=== PATIENT | female | born 1970 | race Caucasian/White ===

== ENCOUNTER 2019-06-26 11:58 | Inpatient (IN) | payer MEDICARE, MEDICAID ==
[2019-06-26 12:37] LABS: #Eosinphils 0.1 thou/uL (0.0-0.7); #Lymphocytes 0.7 thou/uL (1.20-3.40); #Monocytes 0.9 thou/uL (0.11-0.59); #Neutrophils 8.7 thou/uL (1.40-6.50); %Basophils 0.3 % (0.0-1.0); %Eosinophils 0.8 % (0.0-10.0); %Lymphocytes 6.6 % (21.0-51.0); %Monocytes 8.8 % (0.0-10.0); %Neutrophils 83.5 % (42.0-75.0); Hemoglobin 13.4 g/dL (12.0-16.0); Mean Corpuscular HGB CONC 33.8 g/dL (32.0-36.0); Mean Corpuscular Hemoglobin 32.5 pg (27.0-31.0); Mean Corpuscular Volume 96.1 fL (78.0-98.0); Mean Platelet Volume 8.8 fL (7.4-10.4); Platelet Count 210 thou/uL (130-400); RBC Distribution Width 13.4 % (11.5-14.5); Red Blood Cell (RBC) Count 4.12 mill/uL (4.20-5.40); White Blood Cell (WBC) Count 10.4 thou/uL (4.8-10.8)
--- NOTE | 2019-06-26 12:37 | RAD ---
Chest AP view INDICATION: Chest pain COMPARISON: 08/19/2016 FINDINGS: Lungs:The lungs are clear Cardiac silhouette:There is stable moderate cardiomegaly Pulmonary vasculature:There is moderate pulmonary vascular congestion Pleural spaces:No pleural effusion or pneumothorax is demonstrated. Upper abdomen:No abnormality seen. Osseous structures: No acute osseous abnormality. Additional findings:There is a stable multi lead AICD. IMPRESSION: Moderate cardiomegaly with moderate pulmonary vascular congestion. No acute airspace dise ase demonstrated.
[2019-06-26 13:00] LABS: Albumin 4.1 g/dL (3.5-5.0); Anion Gap 17 mmol/L (10-20); BUN (Urea Nitrogen) 22 mg/dL (7.0-18.7); Bilirubin, Total 0.6 mg/dL (0.2-1.2); Calc. Creatinine Clearance 0 mL/min (70-130); Calcium 9.2 mg/dL (7.8-10.44); Carbon Dioxide 28 mmol/L (22-29); Chloride 98 mmol/L (98-107); Estimated GFR-MDRD 80; Glucose 223 mg/dL (70-105); Potassium 4.7 mmol/L (3.5-5.1); Protein, Total 6.8 g/dL (6.0-8.3); Sodium 138 mmol/L (136-145)
[2019-06-26 13:01] LABS: ALT (SGPT) 74 U/L (8-55); AST (SGOT) 76 U/L (5-34); Alkaline Phosphatase 91 U/L (40-110); CK (CPK) 100 U/L (29-168); Globulin 2.7 g/dL (2.4-3.5)
[2019-06-26] MEDS ORDERED: Acetaminophen 500 MG TAB ONE (13:59)
[2019-06-26] MEDS ORDERED: Ondansetron ODT 4 MG TAB PO PRN ×4 (16:01→16:31)
[2019-06-26] MEDS ORDERED: CLONAZEPAM 0.5 MG PO PRN (16:01)
[2019-06-26] MEDS ORDERED: Promethazine 25 MG TAB PO PRN ×2 (16:01→16:31)
[2019-06-26] MEDS ORDERED: Ondansetron PF 4 MG/2 ML Vial IVP PRN ×2 (16:04→16:31)
[2019-06-26] MEDS ORDERED: Loperamide HCl 2 MG CAP PO PRN ×2 (16:04→16:31)
[2019-06-26] MEDS ORDERED: Acetaminophen 325 MG TAB PO PRN ×2 (16:04→16:31)
[2019-06-26] MEDS ORDERED: Senokot S 8.6-50 MG TAB PO PRN ×2 (16:04→16:31)
[2019-06-26] MEDS ORDERED: Bisacodyl 5 MG TAB PO PRN ×2 (16:04→16:31)
[2019-06-26] MEDS ORDERED: diphenhydrAMINE 25 MG CAP PO PRN (16:06)
[2019-06-26] MEDS ORDERED: Melatonin 3 MG TAB PO PRN (16:06)
[2019-06-26] MEDS ORDERED: Labetalol HCl 100 MG/20 ML VIAL SLOW IVP PRN (16:06)
[2019-06-26] MEDS ORDERED: Benzonatate 100 MG CAP PO PRN (16:06)
[2019-06-26 16:33] VITALS: BMI 49.6
[2019-06-26] MEDS ORDERED: clonazePAM 0.5 MG TAB PO PRN (17:00)
[2019-06-26 17:19] LABS: Troponin I 0.034 ng/mL (< 0.028)
[2019-06-26] MEDS ORDERED: Nitroglycerin 0.4 MG TAB (25 Tab Bottle) SL PRN (17:28)
--- NOTE | 2019-06-26 17:37 | PDOC.HHP ---
Hospitalist HPI - History of Present Illness Chest pain History of Present Illness: 49-year-old female with extensive past medical history presents with chest pain. 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 Patient normally follows up at the [facility] in [place] with Dr. Onofre. Patient states that it is been several years since her last stress test or cardiac catheterization. Patient states that echocardiogram was more than six months ago though ejection fraction is always about 15% for her. Patient with chest pain that started this morning while she was sleeping. Chest pain is left of sternum and is much worse with deep inspiration. Patient states that she feels like her heart is fluttering, though she has never had atrial fibrillation. Patient's chest pain did get improved with nitroglycerin, though she had a headache. Patient does not normally take any medications for pain and she is been off chronic narcotic therapy for the past year and a half. Patient has been compliant on her medical regimen and falls up with Dr. Onofre regularly. Patient admitted to medical unit telemetry for close management. Cardiology consult it for further recommendations. Hospitalist ROS - Review of Systems All other systems reviewed; all pertinent +/- noted in HPI/Subj Hospitalist History - Past Medical History Source: patient, old records Cardiac: reports: CAD, CHF, HTN, Hyperlipidemia Pulmonary: reports: angina, high cholesterol, hypertension - Family History Family History: reports: hypertension - Social History Smoking Status: Unknown if ever smoked Alcohol: reports: None Drugs: reports: none Living Situation: With Family Domestic Violence: Negative Activity level: independent ambulation - Exam General Appearance: NAD, awake alert Eye: PERRL, anicteric sclera ENT: normocephalic atraumatic, moist mucosa Neck: supple, symmetric, no JVD, no lymphadenopathy Heart: RRR, no murmur, no gallops, no rubs Respiratory: CTAB, no wheezes, no ronchi, normal chest expansion, no tachypnea, rales Gastrointestinal: soft, non-tender, non-distended, no guarding, no rigidity Extremities: 1+ LE edema Skin: no lesions, no rashes Neurological: cranial nerve grossly intact, no focal deficits Musculoskeletal: generalized weakness Psychiatric: normal affect, normal behavior, A&O x 3 Hospitalist Results - Labs Result Diagrams: 06/26/19 12:23 06/26/19 12:23 Lab results: WBC 10.4 thou/uL (4.8-10.8) 06/26/19 12:23 Hgb 13.4 g/dL (12.0-16.0) 06/26/19 12:23 Hct 39.6 % (36.0-47.0) 06/26/19 12:23 MCV 96.1 fL (78.0-98.0) 06/26/19 12:23 Plt Count 210 thou/uL (130-400) 06/26/19 12:23 Neutrophils % 83.5 % (42.0-75.0) H 06/26/19 12:23 Sodium 138 mmol/L (136-145) 06/26/19 12:23 Potassium 4.7 mmol/L (3.5-5.1) 06/26/19 12:23 Chloride 98 mmol/L (98-107) 06/26/19 12:23 Carbon Dioxide 28 mmol/L (22-29) 06/26/19 12:23 BUN 22 mg/dL (7.0-18.7) H 06/26/19 12:23 Creatinine 0.77 mg/dL (0.6-1.1) 06/26/19 12:23 Glucose 223 mg/dL (70-105) H 06/26/19 12:23 Calcium 9.2 mg/dL (7.8-10.44) 06/26/19 12:23 Total Bilirubin 0.6 mg/dL (0.2-1.2) 06/26/19 12:23 AST 76 U/L (5-34) H 06/26/19 12:23 ALT 74 U/L (8-55) H 06/26/19 12:23 Alkaline Phosphatase 91 U/L (40-110) 06/26/19 12:23 Creatine Kinase 100 U/L (29-168) 06/26/19 12:23 Troponin I 0.034 ng/mL (< 0.028) H 06/26/19 16:38 B-Natriuretic Peptide 141.1 pg/mL (0-100) H 06/26/19 12:23 Serum Total Protein 6.8 g/dL (6.0-8.3) 06/26/19 12:23 Albumin 4.1 g/dL (3.5-5.0) 06/26/19 12:23 - Radiology Interpretation Chest x-ray Status: image reviewed by sc Hospitalist H&P A/P - Problem (1) Chest pain Code(s): R07.9 - CHEST PAIN, UNSPECIFIED Status: Acute (2) Shortness of breath Code(s): R06.02 - SHORTNESS OF BREATH Status: Acute (3) Morbid obesity Code(s): E66.01 - MORBID (SEVERE) OBESITY DUE TO EXCESS CALORIES Status: Acute (4) DM (diabetes mellitus) Code(s): E11.9 - TYPE 2 DIABETES MELLITUS WITHOUT COMPLICATIONS Status: Acute (5) HTN (hypertension) Code(s): I10 - ESSENTIAL (PRIMARY) HYPERTENSION Status: Acute (6) HLD (hyperlipidemia) Code(s): E78.5 - HYPERLIPIDEMIA, UNSPECIFIED Status: Acute (7) Acute and chronic respiratory failure Code(s): J96.20 - ACUTE AND CHR RESP FAILURE, UNSP W HYPOXIA OR HYPERCAPNIA Status: Acute (8) Acute on chronic systolic CHF (congestive heart failure) Code(s): I50.23 - ACUTE ON CHRONIC SYSTOLIC (CONGESTIVE) HEART FAILURE Status : Acute - Plan Plan: Plan: admit to medical unit with telemetry cardiology consultation, recommendations appreciated morphine oxygen nitrates aspirin continue cardiomyopathy regimen as able IV Lasix for acute on chronic CHF exacerbation diagnosed on admission pulmonary edema on chest x-ray BNP only minorly elevated echocardiogram patient states that chest pain feels similar to pleurisy that she has had in the past with her sarcoidosis cardiac catheterization over two years ago consideration for pulmonary embolism was considered however with a low well score of 1.5 with only points for immobilization patient is a low risk and PE is unlikely. No tachycardia, monitor on continuous telemetry for arrhythmias shortness of breath is at her baseline 3 L nasal cannula and she is not requiring higher oxygen demands and normal will add lower extremity ultrasound to rule out DVT Steroid dependent at baseline Continue other home meds as able blood pressure control blood sugar control G.I. prophylaxis DVT prophylaxis
[2019-06-26] MEDS: Morphine 2 MG/ML SYRINGE SLOW IVP PRN ×2 (17:38→21:37)
[2019-06-26] MEDS ORDERED: HumaLOG 300 UNITS/3 ML VIAL SC PRN (18:34)
[2019-06-26] MEDS ORDERED: Dextrose 5% in Water 1,000 ML IV PRN (18:34)
[2019-06-26] MEDS ORDERED: Dextrose 50% Abboject 50 ML SYRINGE SLOW IVP PRN (18:34)
--- NOTE | 2019-06-26 19:19 | ULT ---
EXAM: Bilateral lower extremity venous Doppler HISTORY: Chest pain. FINDINGS: Grayscale, color-flow, Doppler evaluation, spectral analysis of the bilateral lower extremities venou s structures is performed with 2-D imaging. The bilateral common femoral, superficial femoral, popliteal, posterior tibial, proximal greater saphenous and profunda femoral veins are imaged. There is normal luminal compressibility, flow, and augmentation in the visualized deep venous structu res of the bilateral lower extremities. IMPRESSION: No evidence of a deep vein thrombosis in the visualized deep venous structures bilateral lower extrem ities.
[2019-06-26] MEDS: Ivabradine 5 MG TAB PO SCH (20:05)
[2019-06-26] MEDS: Carvedilol 25 MG TAB PO SCH (20:06)
[2019-06-26] MEDS: predniSONE 20 MG TAB PO SCH (20:07)
[2019-06-26] MEDS: Famotidine 20 MG TAB PO SCH (20:07)
[2019-06-26] MEDS: HYDROmorphone 2 MG TAB PO PRN (20:08)
[2019-06-26] MEDS: Amiodarone 200 MG TAB PO SCH (20:08)
[2019-06-26] MEDS ORDERED: Famotidine/PF 20 mg/2ml Vial SLOW IVP SCH ×2 (21:00)
[2019-06-26] MEDS ORDERED: Carvedilol 25 MG TAB PO SCH (21:00)
[2019-06-26] MEDS ORDERED: Non-Formulary Item 1 EACH (Carvedilol [Coreg] 12.5 MG) PO SCH (21:00)
[2019-06-26] MEDS: Docusate 100 MG CAP PO SCH (21:36)
[2019-06-27] MEDS: HYDROmorphone 2 MG TAB PO PRN ×5 (00:23→21:19)
[2019-06-27] MEDS: Morphine 2 MG/ML SYRINGE SLOW IVP PRN ×4 (03:06→19:10)
[2019-06-27 05:06] LABS: Anion Gap 17 mmol/L (10-20); BUN (Urea Nitrogen) 20 mg/dL (7.0-18.7); Calc. Creatinine Clearance 189 mL/min (70-130); Calcium 9.4 mg/dL (7.8-10.44); Carbon Dioxide 26 mmol/L (22-29); Chloride 98 mmol/L (98-107); Estimated GFR-MDRD 78; Glucose 184 mg/dL (70-105); Potassium 4.5 mmol/L (3.5-5.1); Sodium 136 mmol/L (136-145)
[2019-06-27 05:13] LABS: Troponin I Less than 0.010 ng/mL (< 0.028)
[2019-06-27] MEDS: Furosemide 40 MG/4 ML VIAL SLOW IVP SCH ×2 (05:19→13:19)
[2019-06-27] MEDS: Levothyroxine Sodium 50 MCG TAB PO SCH (05:19)
[2019-06-27] MEDS: Famotidine 20 MG TAB PO SCH ×2 (08:58→20:20)
[2019-06-27] MEDS: Aspirin 81 mg Enteric Coated Tablet PO SCH (08:58)
[2019-06-27] MEDS: Docusate 100 MG CAP PO SCH ×2 (08:58→20:20)
[2019-06-27] MEDS: Ivabradine 5 MG TAB PO SCH ×2 (08:58→20:18)
[2019-06-27] MEDS: Amiodarone 200 MG TAB PO SCH ×2 (08:58→20:18)
[2019-06-27] MEDS: Spironolactone 25 MG TAB PO SCH (08:58)
[2019-06-27] MEDS: Allopurinol 300 MG TAB PO SCH (08:58)
[2019-06-27] MEDS: predniSONE 20 MG TAB PO SCH ×2 (08:59→20:21)
[2019-06-27] MEDS: Losartan 25 MG TAB PO SCH (08:59)
[2019-06-27] MEDS ORDERED: Lisinopril 2.5 MG TAB PO SCH ×2 (09:00)
[2019-06-27] MEDS ORDERED: Levothyroxine Sodium 50 MCG TAB PO SCH (09:00)
[2019-06-27] MEDS ORDERED: Fludrocortisone Acetate 0.1 MG TAB PO SCH ×2 (09:00)
[2019-06-27] MEDS ORDERED: Aspirin 81 mg Enteric Coated Tablet PO SCH (09:00)
[2019-06-27] MEDS ORDERED: Digoxin 0.125 MG TAB PO SCH ×2 (09:00)
--- NOTE | 2019-06-27 12:05 | PDOC.HOSPP ---
- Subjective Subjective: Seen and examined. Breathing more comfortably. Still requiring IV Lasix. Renal function stable. Patient still having chest pain, she even states that when the ultrasound probe was on her chest this caused significant chest discomfort. Patient likely with pleuritic chest pain. Pending cardiology evaluation. - Objective Vital Signs & Weight: Vital Signs (12 hours) Temp Pulse Resp BP Pulse Ox 06/27/19 10:53 98.4 F 60 22 H 134/71 97 06/27/19 07:38 98.3 F 57 L 18 133/68 96 06/27/19 03:06 97.7 F 61 16 161/77 H 96 Weight Weight 300 lb 8 oz I&O: 06/26/19 06/27/19 06/28/19 06:59 06:59 06:59 Intake Total 1076 Output Total 3150 Balance -2073 Result Diagrams: 06/26/19 12:23 06/27/19 04:22 Additional Labs: Accuchecks 06/27/19 06/26/19 10:54 20:19 POC Glucose 161 H 193 H Radiology Reviewed by me: Yes Hospitalist ROS - Review of Systems All other systems reviewed; all pertinent +/- noted in HPI/Subj - Medication Medications: Active Medications Generic Name Dose Route Start Last Admin Trade Name Freq PRN Reason Stop Dose Admin Allopurinol 300 mg 06/27/19 09:00 06/27/19 08:58 Zyloprim PO 300 mg DAILY RANDAL Administration Amiodarone HCl 200 mg 06/26/19 21:00 06/27/19 08:58 Cordarone PO 200 mg BID RANDAL Administration Aspirin 81 mg 06/27/19 09:00 06/27/19 08:58 Ecotrin PO 81 mg DAILY RANDAL Administration Carvedilol 12.5 mg 06/26/19 21:00 06/26/19 20:06 Coreg PO 12.5 mg BID RANDAL Administration Docusate Sodium 100 mg 06/26/19 21:00 06/27/19 08:58 Colace PO 100 mg BID RANDAL Administration Famotidine 20 mg 06/26/19 21:00 06/27/19 08:58 Pepcid PO 20 mg Q12HR RANDAL Administration Furosemide 40 mg 06/27/19 06:00 06/27/19 05:19 Lasix SLOW IVP 40 mg 0600,1400 RANDAL Administration Hydromorphone HCl 2 mg 06/26/19 16:07 06/27/19 10:07 Dilaudid PO 2 mg Q4H PRN Administration Moderate Pain (4-6) Ivabradine 7.5 mg 06/26/19 21:00 06/27/19 08:58 Corlanor PO 7.5 mg BID RANDAL Administration Levothyroxine Sodium 50 mcg 06/27/19 06:00 06/27/19 05:19 Synthroid PO 50 mcg 0600 RANDAL Administration Losartan Potassium 25 mg 06/27/19 09:00 06/27/19 08:59 Cozaar PO 25 mg DAILY RANDAL Administration Morphine Sulfate 2 mg 06/26/19 16:08 06/27/19 07:15 Morphine SLOW IVP 2 mg Q4H PRN Administration Severe Pain (7-10) Prednisone 10 mg 06/26/19 21:00 06/27/19 08:59 Prednisone PO 10 mg BID RANDAL Administration Spironolactone 25 mg 06/27/19 08:00 06/27/19 08:58 Aldactone PO 25 mg QAM-WM RANDAL Administration - Exam General Appearance: NAD, awake alert Eye: PERRL ENT: normocephalic atraumatic, moist mucosa Neck: supple, symmetric Heart: no murmur, no gallops, no rubs Respiratory: no wheezes, no ronchi, rales Respiratory - other findings: Deminished breath sounds secondary to body habitus Gastrointestinal: soft, non-tender, no guarding, no rigidity Extremities: 1+ LE edema Skin: no lesions, no rashes Neurological: cranial nerve grossly intact, no focal deficits Musculoskeletal: generalized weakness Psychiatric: normal affect, normal behavior, A&O x 3 Hosp A/P (1) Chest pain Code(s): R07.9 - CHEST PAIN, UNSPECIFIED Status: Acute (2) Shortness of breath Code(s): R06.02 - SHORTNESS OF BREATH Status: Acute (3) Morbid obesity Code(s): E66.01 - MORBID (SEVERE) OBESITY DUE TO EXCESS CALORIES Status: Acute (4) DM (diabetes mellitus) Code(s): E11.9 - TYPE 2 DIABETES MELLITUS WITHOUT COMPLICATIONS Status: Acute (5) HTN (hypertension) Code(s): I10 - ESSENTIAL (PRIMARY) HYPERTENSION Status: Acute (6) HLD (hyperlipidemia) Code(s): E78.5 - HYPERLIPIDEMIA, UNSPECIFIED Status: Acute (7) Acute and chronic respiratory failure Code(s): J96.20 - ACUTE AND CHR RESP FAILURE, UNSP W HYPOXIA OR HYPERCAPNIA Status: Acute (8) Acute on chronic systolic CHF (congestive heart failure) Code(s): I50.23 - ACUTE ON CHRONIC SYSTOLIC (CONGESTIVE) HEART FAILURE Status : Acute - Plan Plan: medical unit with telemetry cardiology consultation, recommendations appreciated cardiac enzymes have downtrended morphine, oxygen, nitrates, aspirin cardiomyopathy regimen as able IV Lasix for acute on chronic congestive heart failure diagnosed on admission pulmonary edema on chest x-ray BNP only minorly elevated echocardiogram pending pain with deep inspiration which fell similar to her pleuritic chest pains from the past pain with palpation to the chest wall even with the ultrasound probe patient is allergic to NSAIDs, already steroid dependent though dose could be increase for short course pulmonary embolism was considered however with the low Wells score of 1.5 with only points for immobility patient is a low risk for pulmonary embolism no tachycardia, monitor on continuous telemetry for arrhythmias shortness of breath requiring supplemental oxygen to maintain O2 saturation's patient is 3 L nasal cannula dependent at baseline continue home steroid dose continue other home medications is able blood pressure control blood sugar control G.I. prophylaxis DVT prophylaxis
[2019-06-27] MEDS: Carvedilol 25 MG TAB PO SCH ×2 (14:03→20:21)
[2019-06-27] MEDS: HumaLOG 300 UNITS/3 ML VIAL SC PRN (17:39)
--- NOTE | 2019-06-27 17:44 | CON ---
DATE OF CONSULTATION: 06/27/2019 REASON FOR CONSULTATION: Chest pain. PRIMARY GLASS TECHNICIAN/INSTALLER: Matt Onofre MD HISTORY OF PRESENT ILLNESS: Ms. Vaughn is a very pleasant 49-year-old white female, who follows up with Dr. Matt Onofre, but has been evaluated here at [facility] in [place] by Dr. Morales in the past. She comes in for chest pain. She states she is having chest pain when she takes a deep breath. She thinks this is very similar to her episodes of pleurisy that she has had in the past. She carries a diagnosis of sarcoidosis. Currently, she is telling me that she has chest pain, which is constant. It is not relenting, about 3/10. She has a chronic pain syndrome and really has pain all over the place. PAST MEDICAL HISTORY: 1. Nonischemic cardiomyopathy. 2. AICD in place. 3. Chronic pain. 4. Hypothyroidism. 5. Anxiety. 6. Obesity. PAST SURGICAL HISTORY: Hysterectomy. SOCIAL HISTORY: No alcohol, tobacco, or drugs. ALLERGIES: 1. OXYCONTIN. 2. PREGABALIN. 3. SHELLFISH. 4. FENTANYL. 5. NONSTEROIDAL ANTI-INFLAMMATORIES. ACTUALLY, IT IS NOT AN ALLERGY. SHE STATES SHE GETS A NOSEBLEED, BUT SHE DOES TAKE ASPIRIN ABOUT 2 OR 3 TIMES A WEEK. FAMILY HISTORY: Noncontributory. REVIEW OF SYSTEMS: A 12-point review of systems was done and was all negative unless stated in the history of present illness. OUTPATIENT MEDICATIONS: 1. Corlanor 7.5 mg p.o. b.i.d. 2. Carvedilol 12.5 mg b.i.d. 3. Alendronate 70 mg every week. 4. Spironolactone 25 mg a day. 5. Losartan 25 mg a day. 6. Famotidine 20 mg a day. 7. Amiodarone 200 mg b.i.d. 8. Allopurinol 200 mg a day. 9. Clonazepam 2 mg p.r.n. 10. Promethazine. 11. Digoxin 0.125 daily. 12. Aspirin 81 a day. 13. Prednisone 10 mg b.i.d. 14. Lasix 80 mg a day. 15. Potassium chloride 20 mEq t.i.d. 16. Levothyroxine 100 mcg a day. PHYSICAL EXAMINATION: VITAL SIGNS: Temperature 97.8, pulse 72, respiratory rate 18, saturation 96% on 2 L nasal cannula, blood pressure 138/76. GENERAL: Awake, alert, oriented x3, in no distress. HEENT: Normocephalic and atraumatic. NECK: Supple. LUNGS: Clear. CARDIOVASCULAR: S1 and S2. No S3 or S4. No murmurs or rubs. ABDOMEN: Soft. Positive bowel sounds. EXTREMITIES: 1+ edema. SKIN: Warm and dry. LABORATORY DATA: Laboratory work was reviewed. White count of 10, hemoglobin of 13, hematocrit of 39, platelet count of 210. Chemistries were unremarkable. Troponin was negative x3. BNP was 141. EKG was reviewed. Chest x-ray was reviewed. Lower extremity venous ultrasound showed no evidence of DVT. Chest x-ray showed moderate cardiomegaly with moderate pulmonary vascular congestion, but no acute airspace disease demonstrated. ASSESSMENT AND PLAN: 1. Acute on chronic systolic heart failure. 2. Chest pain. It could be some level of pleurisy. She is steroid dependent, so we will plan on increasing her steroid dose for the next few days and then coming back down to her regular 10 mg twice a day of prednisone. We will also add colchicine to her regimen as she has not had a reaction to this. She has not had nosebleeds with it in the past. 3. We will get an echocardiogram. Thank you for letting us to participate in the care of the patient. We will follow. Job ID: [id number]
[2019-06-27] MEDS: Colchicine 0.6 MG TAB PO SCH (20:19)
[2019-06-28] MEDS: Morphine 2 MG/ML SYRINGE SLOW IVP PRN ×3 (00:26→08:37)
[2019-06-28 05:32] LABS: Anion Gap 17 mmol/L (10-20); BUN (Urea Nitrogen) 26 mg/dL (7.0-18.7); Calc. Creatinine Clearance 190 mL/min (70-130); Calcium 9.3 mg/dL (7.8-10.44); Carbon Dioxide 28 mmol/L (22-29); Chloride 94 mmol/L (98-107); Estimated GFR-MDRD 80; Glucose 245 mg/dL (70-105); Potassium 3.7 mmol/L (3.5-5.1); Sodium 135 mmol/L (136-145)
[2019-06-28] MEDS: Levothyroxine Sodium 50 MCG TAB PO SCH (05:49)
[2019-06-28] MEDS: Furosemide 40 MG/4 ML VIAL SLOW IVP SCH ×2 (05:50→13:41)
[2019-06-28] MEDS: HumaLOG 300 UNITS/3 ML VIAL SC PRN ×2 (05:58→13:22)
[2019-06-28] MEDS: Spironolactone 25 MG TAB PO SCH (07:55)
[2019-06-28] MEDS: Aspirin 81 mg Enteric Coated Tablet PO SCH (07:56)
[2019-06-28] MEDS: Carvedilol 25 MG TAB PO SCH (07:56)
[2019-06-28] MEDS: Amiodarone 200 MG TAB PO SCH (07:56)
[2019-06-28] MEDS: Colchicine 0.6 MG TAB PO SCH (07:56)
[2019-06-28] MEDS: Allopurinol 300 MG TAB PO SCH (07:56)
[2019-06-28] MEDS: Docusate 100 MG CAP PO SCH (07:56)
[2019-06-28] MEDS: Famotidine 20 MG TAB PO SCH (07:57)
[2019-06-28] MEDS: Losartan 25 MG TAB PO SCH (07:57)
[2019-06-28] MEDS: predniSONE 20 MG TAB PO SCH (07:57)
[2019-06-28] MEDS: Ivabradine 5 MG TAB PO SCH (07:57)
[2019-06-28] MEDS ORDERED: Acetaminophen/Codeine 30-300mg Tablet PO PRN (10:16)
[2019-06-28] MEDS: Acetaminophen/Codeine 30-300mg Tablet PO PRN ×2 (11:49→16:00)
--- NOTE | 2019-06-28 13:48 | PDOC.CPN ---
- Subjective Date: 06/28/19 Time: 13:46 Interval history: No new issues. - Review of Systems General: denies: fever/chills, weight/appetite/sleep changes, night sweats, fatigue Respiratory: denies: cough, congestion, shortness of breath, exercise intolerance Cardiovascular: denies: chest pain, palpitation, edema, paroxysmal nocturnal dyspnea, orthopnea Gastrointestinal: denies: nausea, vomiting, diarrhea, constipation, abd pain, GI bleeding Musculoskeletal: reports: pain. denies: tenderness, stiffness, swelling, arthritis/arthralgias Neurological: denies: numbness, syncope, seizure, weakness - Objective Allergies/Adverse Reactions: Allergies Allergy/AdvReac Type Severity Reaction Status Date / Time NSAIDS (Non-Steroidal Allergy Unknown Verified 06/08/14 16:48 Anti-Inflamma shellfish derived Allergy Unknown Verified 06/08/14 16:48 fentanyl Allergy Verified 06/08/14 16:48 lisinopril Allergy Verified 06/27/19 07:15 oxycodone [Oxycodone] Allergy Hives Verified 06/08/14 16:48 pregabalin [From Lyrica] Allergy Verified 06/08/14 16:48 Visit Medications: Current Medications Acetaminophen (Tylenol) 650 mg PO Q4H PRN PRN Reason: Headache/Fever/Mild Pain (1-3) Acetaminophen/Codeine Phosphate (Tylenol #3) 1 tab PO Q6H PRN PRN Reason: Mild Pain (1-3) Acetaminophen/Codeine Phosphate (Tylenol #3) 2 tab PO Q4H PRN PRN Reason: Moderate Pain (4-6) Last Admin: 06/28/19 11:49 Dose: 2 tab Albuterol/Ipratropium (Duoneb) 3 ml NEB Q4H PRN PRN Reason: SOB &/or Wheezing Allopurinol (Zyloprim) 300 mg PO DAILY [facility] Last Admin: 06/28/19 07:56 Dose: 300 mg Amiodarone HCl (Cordarone) 200 mg PO BID [facility] Last Admin: 06/28/19 07:56 Dose: 200 mg Aspirin (Ecotrin) 81 mg PO DAILY [facility] Last Admin: 06/28/19 07:56 Dose: 81 mg Benzonatate (Tessalon) 100 mg PO Q4H PRN PRN Reason: Cough Bisacodyl (Dulcolax) 10 mg PO DAILYPRN PRN PRN Reason: Constipation Carvedilol (Coreg) 12.5 mg PO BID [facility] Last Admin: 06/28/19 07:56 Dose: 12.5 mg Clonazepam (Klonopin) 0.5 mg PO Q4H PRN PRN Reason: Anxiety Last Admin: 06/27/19 20:19 Dose: 0.5 mg Colchicine (Colchicine) 0.6 mg PO BID [facility] Last Admin: 06/28/19 07:56 Dose: 0.6 mg Dextrose/Water (Dextrose 50%) 25 gm SLOW IVP PRN PRN PRN Reason: Hypoglycemia Diphenhydramine HCl (Benadryl) 25 mg PO Q6H PRN PRN Reason: Itching & Insomnia Docusate Sodium (Colace) 100 mg PO BID [facility] Last Admin: 06/28/19 07:56 Dose: 100 mg Famotidine (Pepcid) 20 mg PO Q12HR [facility] Last Admin: 06/28/19 07:57 Dose: 20 mg Furosemide (Lasix) 40 mg SLOW IVP 0600,1400 [facility] Last Admin: 06/28/19 13:41 Dose: Not Given Glucagon (Glucagon) 1 mg IM PRN PRN PRN Reason: Hypoglycemia Hydromorphone HCl (Dilaudid) 2 mg PO Q4H PRN PRN Reason: Moderate Pain (4-6) Last Admin: 06/27/19 21:19 Dose: 2 mg Dextrose/Water (D5w) 1,000 mls @ 0 mls/hr IV .Q0M PRN PRN Reason: Hypoglycemia Insulin Human Lispro (Humalog) 0 units SC .MILD SLIDING SCALE PRN PRN Reason: Mild Correctional Scale Last Admin: 06/28/19 13:22 Dose: 3 unit Insulin Human Lispro (Humalog) 0 units SC .BEDTIME SLIDING SC PRN PRN Reason: Bedtime Correctional Scale Ivabradine (Corlanor) 7.5 mg PO BID [facility] Last Admin: 06/28/19 07:57 Dose: 7.5 mg Labetalol HCl (Normodyne) 10 mg SLOW IVP Q4H PRN PRN Reason: SBP Greater Than 180 Levothyroxine Sodium (Synthroid) 50 mcg PO 0600 [facility] Last Admin: 06/28/19 05:49 Dose: 50 mcg Loperamide HCl (Imodium) 2 mg PO PRN PRN PRN Reason: Diarrhea/Loose Stools Losartan Potassium (Cozaar) 25 mg PO DAILY [facility] Last Admin: 06/28/19 07:57 Dose: 25 mg Melatonin (Melatonin) 3 mg PO HSPRN PRN PRN Reason: Insomnia Morphine Sulfate (Morphine) 2 mg SLOW IVP Q4H PRN PRN Reason: Severe Pain (7-10) Last Admin: 06/28/19 08:37 Dose: 2 mg Nitroglycerin (Nitrostat) 0.4 mg SL Q5MIN PRN PRN Reason: Chest Pain Ondansetron HCl (Zofran Odt) 4 mg PO Q4H PRN PRN Reason: Nausea Ondansetron HCl (Zofran) 4 mg IVP Q6H PRN PRN Reason: Nausea/Vomiting Prednisone (Prednisone) 20 mg PO BID [facility] Last Admin: 06/28/19 07:57 Dose: 20 mg Promethazine HCl (Phenergan) 25 mg PO Q6H PRN PRN Reason: Nausea Senna/Docusate Sodium (Senokot S) 2 tab PO BIDPRN PRN PRN Reason: Constipation Spironolactone (Aldactone) 25 mg PO QA[facility] Last Admin: 06/28/19 07:55 Dose: 25 mg Vital Signs & Weight: Vital Signs Temp Pulse Resp BP Pulse Ox 06/28/19 11:00 97.9 F 59 L 15 124/58 L 99 06/28/19 08:00 97 06/28/19 07:43 97.7 F 68 14 170/72 H 97 06/28/19 04:00 97.7 F 62 18 150/73 H 95 Weight 293 lb 11.2 oz - Physical Exam General: alert & oriented x3 HEENT: mucus membranes moist Neck: supple neck Cardiac: regular rate and rhythm Lungs: normal breath sounds Neuro: grossly intact Abdomen: active bowel sounds Extremities: no edema Skin: clear Musculoskeletal: no fluid collection - Labs Result Diagrams: 06/26/19 12:23 06/28/19 04:59 Troponin/CKMB Troponin I Less than 0.010 ng/mL (< 0.028) 06/27/19 04:22 - Telemetry Sinus rhythms and dysrhythmias: sinus rhythm - Assessment/Plan Assessment/Plan: 1. Chronic pain 2. Acute on chronic systolic heart failure, resolved. 3. Sarcoidosis? 4. Non ischemic CM. PLAN: - Colchicine - Increase prednisone dose for 7 days to 20 mg BID then back to 10 mg BID. - May discharge at any time from cardiac perspective.
[2019-06-28 15:50] VITALS: BP 138/63; TEMP 98
--- NOTE | 2019-06-30 13:40 | DIS ---
DATE OF ADMISSION: 06/27/2019 DATE OF DISCHARGE: 06/28/2019 DISCHARGE DIAGNOSES: 1. Atypical chest pain. The chest pain is most likely secondary to pleuritic in nature. 2. Shortness of breath. 3. Morbid obesity. 4. Acute on chronic systolic heart failure, nonischemic. 5. Acute on chronic respiratory failure. 6. Hyperlipidemia. 7. Diabetes. 8. History of sarcoidosis. HOSPITAL COURSE: The patient is a 49-year-old female who initially presented to the hospital with complaints of shortness of breath and also with chest pain. Please refer to the H and P for further details. Her cardiac enzymes were trended and her troponins x2/3 were negative. Cardiology was consulted on this patient. She underwent an echocardiogram which indicated an EF of 20% to 25% with no evidence of pericardial effusion with moderate tricuspid regurgitation. She does have an AICD. Her echocardiogram looks similar to the prior one. Initially, her prednisone was increased from 10 mg twice a day to 20 mg twice a day. She also required some additional morphine for pain medications. She was also started on colchicine. The patient felt better. She will be discharged home. I have asked her to follow up with her eye dropper assembler. She will take 20 mg of prednisone twice a day for the next 7 days and then go back to her 10 mg twice a day. I have asked her to see her eye dropper assembler in between. I did not continue the colchicine given a significant contraindication with the amiodarone. The patient stated that she felt better. Also, she was given a prescription for Tylenol No.3. HOME MEDICATIONS: 1. Prednisone 20 mg twice a day. 2. Tylenol No. 3. 3. Levothyroxine 100 mcg daily. 4. Lasix 80 mg daily. 5. Aspirin 81 mg daily. 6. Promethazine 25 mg daily p.r.n. 7. Allopurinol 300 mg daily. 8. Klonopin 2 mg daily. 9. Amiodarone 200 mg b.i.d. 10. Cozaar 50 mg daily. 11. Pepcid 20 mg daily. 12. Spironolactone 25 mg daily. 13. Carvedilol 12.5 twice a day. 14. Corlanor 7.5 p.o. b.i.d. PHYSICAL EXAMINATION: VITAL SIGNS: Temperature 98.0, 96% on 2 L, blood pressure 138/63. GENERAL: She is awake, alert, and oriented x3. Does not appear in any distress. CV: S1 and S2 present. No murmurs, rubs, or gallops. ABDOMEN: Soft and nontender. Bowel sounds present x2. DISCHARGE INSTRUCTIONS: Again, she will be discharged home. Follow up with her primary and Cardiology. Job ID: [id number]
== END 2019-06-28 16:30 | disposition home or self-care (01) | DRG 291 ==
LOC: ERS 11:58 → 2SW 16:31 → OBSVTOIN 06-27 08:54
PROVIDERS: ADMIT Internal Medicine; ATTEND Internal Medicine
DX: I11.0 Hypertensive heart disease with heart failure (principal); J96.20 Acute and chronic respiratory failure, unspecified whether with hypoxia or hypercapnia; Z68.42 Body mass index [BMI] 45.0-49.9, adult; I50.23 Acute on chronic systolic (congestive) heart failure; R07.89 Other chest pain; E78.5 Hyperlipidemia, unspecified; E11.9 Type 2 diabetes mellitus without complications; D86.9 Sarcoidosis, unspecified; E66.01 Morbid (severe) obesity due to excess calories; I25.10 Atherosclerotic heart disease of native coronary artery without angina pectoris; E78.00 Pure hypercholesterolemia, unspecified; G89.4 Chronic pain syndrome; I42.9 Cardiomyopathy, unspecified; F41.9 Anxiety disorder, unspecified; E03.9 Hypothyroidism, unspecified; Z99.81 Dependence on supplemental oxygen; Z95.810 Presence of automatic (implantable) cardiac defibrillator; Z88.8 Allergy status to other drugs, medicaments and biological substances; Z91.013 Allergy to seafood; Z90.710 Acquired absence of both cervix and uterus; Z79.899 Other long term (current) drug therapy; Z79.82 Long term (current) use of aspirin; Z79.52 Long term (current) use of systemic steroids
CPT/HCPCS: 36415; 36416; 51702; 71045; 80048; 80053; 82550; 83880; 84484; 85025; 85652; 86140; 93005; 93306; 93970; A4353; J1940; J2270; J7512

== ENCOUNTER 2020-07-17 16:12 | Inpatient (IN) | payer MEDICARE, MEDICAID ==
[~2020-07-17 16:12] MED LIST: Heparin 1,000 UNITS/ML VIAL ONE
[2020-07-17] MEDS: Ondansetron PF 4 MG/2 ML Vial IVP PRN (19:42)
[2020-07-17] MEDS ORDERED: Dextrose 5% in Water 1,000 ML IV PRN (21:28)
[2020-07-17] MEDS ORDERED: Dextrose 50% Abboject 50 ML SYRINGE SLOW IVP PRN (21:28)
[2020-07-17] MEDS: Famotidine 20 MG TAB PO SCH (21:45)
--- NOTE | 2020-07-17 22:30 | HP ---
PRIMARY CARE PHYSICIAN: Dr. Huerta. GREEN HIDE INSPECTOR: Dr. Matt Onofre. BANK VAULT CLERK: Dr. Ruiz. She also sees rv servicer in [facility]. CHIEF COMPLAINT: Chest pain. HISTORY OF PRESENT ILLNESS: Ms. 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 She was seen in the emergency room in [place] today for an evaluation of chest pain, which she reports is worse with a deep breath and localized to the lateral rib cage underneath her breast. She reports that the pain radiates to her left shoulder and throughout her chest. She reports that the chest pain started when she rolled over in bed and felt a pop, the rib pain started at about the same time. She had a chest x-ray today, which showed cardiomegaly with pulmonary venous congestion consistent with mild congestive heart failure. No note of any rib fractures. It did show her AICD, which she has in the left upper chest. Current lab work in the emergency room shows a white blood cell count of 11.4, hemoglobin of 12.9, hematocrit 41.5. Chemistry has a BUN of 27, creatinine at 0.71, glucose at 168. Had 2 troponins, both slightly elevated at 0.034 and 0.044. She reports that she has followed up with Dr. Onofre within the last week. He tweaked her AICD settings, but did not change any of her medications and was feeling her normal until this pop that she experienced yesterday with this radiating chest pain. Because of her cardiac history and risk factors, she was sent to [facility] for admission and evaluation. REVIEW OF SYSTEMS: The patient reports left-sided chest pain, which radiates to her shoulder and over toward her right chest. Reports the pain is worse with movement. Reports some nausea. Reports that they gave her bunch of pain medication in [place] without eating anything today. She reports that this might have contributed to her current nausea. She denies any abdominal pain prior to arrival in [place] ER. Denies any nausea or vomiting prior to that visit medication administration. She does report an increase of shortness of breath. Evidently, she is on oxygen at home at about 2 L and here, she has had to be on 3.5 to maintain of O2 sats of 92%. All systems are reviewed and are negative unless mentioned above or in HPI. PAST MEDICAL HISTORY: Please see the HPI. SURGICAL HISTORY: She had a hysterectomy, oophorectomy, partial thyroidectomy, lobectomy of her liver removed, has had an AICD placement. PSYCHIATRIC HISTORY: PTSD, anxiety. SOCIAL HISTORY: Former tobacco smoker. Denies any alcohol use. She quit smoking two years ago. Denies any drug use. FAMILY HISTORY: Coronary artery disease, hypertension, and cancer. KNOWN ALLERGIES: Fentanyl, lisinopril, NSAIDs, oxycodone, pregabalin, and shellfish. She does report that she takes hydrocodone at home without any problems. CURRENT MEDICATIONS: In the ER system, these still need to be verified. She takes: 1. Potassium 20 mEq x2 b.i.d. 2. Allopurinol 300 mg p.o. once a day. 3. Coreg 12.5 mg p.o. b.i.d. 4. Digoxin 125 mcg p.o. once a day. 5. Pepcid 20 mg p.o. b.i.d. 6. Furosemide 80 mg p.o. b.i.d. 7. Levothyroxine 100 mcg p.o. once a day. 8. Losartan 50 mg p.o. once a day. 9. Metformin 1000 mg p.o. b.i.d. 10. Sertraline 100 mg p.o. once a day. 11. Spironolactone 25 mg p.o. once a day. 12. Prednisone 10 mg p.o. b.i.d. 13. Clonazepam 2 mg p.o. once a day at bedtime. 14. Phenergan 25 mg p.o. at bedtime. 15. Corlanor 7.5 mg p.o. b.i.d. 16. Amiodarone 100 mg p.o. once a day. 17. Alendronate 10 mg p.o. once a day. PHYSICAL EXAMINATION: VITAL SIGNS: Blood pressure 147/91, pulse is 90, respiratory rate is 30, and pO2 sats are 91% on 3.5 L. CONSTITUTIONAL: She appears ill, but nontoxic appearing. She is alert and oriented to person, place and time. HEENT: Head is atraumatic and normocephalic. Eyes, pupils are equally round and reactive to light. ENT, mouth exam is normal. Mucous membranes are moist. NECK: Normal range of motion. No tenderness. RESPIRATORY/CHEST: Breath sounds are clear on the right, slightly diminished, muffled on the left. There is no wheezing or rales. CARDIOVASCULAR: Regular heart rate and rhythm. Heart sounds are normal. ABDOMEN: Nontender. Bowel sounds are heard. BACK: Normal inspection. No tenderness. EXTREMITIES: Upper extremity, normal range of motion. Motor strength is normal. Lower extremity, normal range of motion. Motor strength is normal. +1 edema. NEUROLOGIC: The patient is oriented to person, place, and time. Speech is normal. SKIN: Warm to dry, mottled. PLAN/ASSESSMENT: 1. Left-sided rib pain. We will trend troponins because her EF is 10% to 15%, the last time it was checked about a month and half ago. Ask Cardiology to consult. We appreciate their input. We will continue her home medications. Strict I's and O's. Incentive spirometery. Likely chest pain is due to a possible rib fracture, although with her cardiac history, cardiac event cannot be ruled out completely. O2 as needed to keep her sats above 92%. 2. History of diabetes. Restart her home medications. Add Accu-Cheks before meals and at bedtime. Sliding scale as needed for coverage. 3. History of hypertension. We will restart her home medications. 4. History of hypothyroidism. We will restart her home medications. 5. History of sarcoidosis. We will restart her home medications. 6. Deep venous thrombosis and PUD prevention started. 7. Case discussed with Dr. Lobo. 8. Recheck labs in the a.m. 9. Hospital course dependent on clinical findings. Job ID: [id number]
[2020-07-17] MEDS: HYDROcodone/Acetaminophen 10/325 mg Tablet PO PRN (23:41)
[2020-07-17] MEDS: Promethazine 25 MG TAB PO PRN (23:42)
[2020-07-18] MEDS: HYDROcodone/Acetaminophen 10/325 mg Tablet PO PRN ×5 (04:47→21:20)
[2020-07-18] MEDS: Levothyroxine Sodium 50 MCG TAB PO SCH (04:48)
[2020-07-18] MEDS: Ondansetron PF 4 MG/2 ML Vial IVP PRN ×4 (04:52→23:19)
[2020-07-18 05:06] LABS: #Eosinphils 0.1 thou/uL (0.0-0.7); #Lymphocytes 0.9 thou/uL (1.20-3.40); #Monocytes 1.8 thou/uL (0.11-0.59); #Neutrophils 14.9 thou/uL (1.40-6.50); %Basophils 0.2 % (0.0-1.0); %Eosinophils 0.8 % (0.0-10.0); Hemoglobin 12.7 g/dL (12.0-16.0); Mean Corpuscular HGB CONC 33.1 g/dL (32.0-36.0); Mean Corpuscular Hemoglobin 30.7 pg (27.0-31.0); Mean Corpuscular Volume 92.9 fL (78.0-98.0); Mean Platelet Volume 8.3 fL (7.4-10.4); Platelet Count 228 thou/uL (130-400); RBC Distribution Width 14.3 % (11.5-14.5); Red Blood Cell (RBC) Count 4.13 mill/uL (4.20-5.40); White Blood Cell (WBC) Count 17.7 thou/uL (4.8-10.8)
[2020-07-18 05:28] LABS: ALT (SGPT) 28 U/L (8-55); AST (SGOT) 22 U/L (5-34); Albumin 4.1 g/dL (3.5-5.0); Alkaline Phosphatase 90 U/L (40-110); Anion Gap 17 mmol/L (10-20); BUN (Urea Nitrogen) 28 mg/dL (7.0-18.7); Bilirubin, Total 0.7 mg/dL (0.2-1.2); Calc. Creatinine Clearance 194 mL/min (70-130); Calcium 9.4 mg/dL (7.8-10.44); Carbon Dioxide 26 mmol/L (22-29); Chloride 99 mmol/L (98-107); Glucose 207 mg/dL (70-105); Potassium 3.6 mmol/L (3.5-5.1); Protein, Total 7.1 g/dL (6.0-8.3); Sodium 138 mmol/L (136-145)
[2020-07-18] MEDS: HumaLOG 300 UNITS/3 ML VIAL SC PRN ×3 (05:47→17:24)
[2020-07-18 05:51] LABS: SARS-CoV-2 PCR by NAA Not Detected (NotDetected)
[2020-07-18] MEDS ORDERED: metFORMIN 500 MG TAB PO SCH (07:30)
--- NOTE | 2020-07-18 09:16 | CT ---
EXAM: CT angiogram of the chest including 3-D rendering: HISTORY: Chest pain possible rib fractures COMPARISON: 01/05/2014 FINDINGS: There is adequate opacification of the pulmonary arteries.. Exam considerably limited because of large body habitus and motion. There is evidence for a linear thin metallic density foreign body in one of the left lower lobe poste rior pulmonary artery branches. This measures approximately 0.2 cm in diameter and 1.5 cm in length. Very marked cardiomegaly with markedly dilated left ventricle. No evidence for aortic aneurysm or dissection. No convincing CT evidence for acute pulmonary embolism. Minimal patchy mostly linear pleural-based parenchymal changes in the left lower lobe without conflue nt pneumonia. 2 cm diameter nodular focus involving the left thyroid. No evidence for mediastinal mass or adenopathy. No evidence for pleural or pericardial effusion. Evidence for large anterior abdominal wall hernia, incompletely seen IMPRESSION: No convincing CT evidence for acute pulmonary embolism. Thin linear metal density foreign body in a posterior left lower lobe pulmonary artery branch. This w as not present at the time of the prior 2013 study. Marked cardiomegaly with markedly dilated left ventricle. Left ICD. Exam is limited technically because of motion and large body habitus.
[2020-07-18] MEDS: Carvedilol 6.25 MG TAB PO SCH ×2 (09:33→17:18)
[2020-07-18] MEDS: Famotidine 20 MG TAB PO SCH ×4 (09:34→21:19)
[2020-07-18] MEDS: Enoxaparin Sodium 40 MG/0.4 ML SYRINGE SC SCH (09:34)
[2020-07-18] MEDS: Potassium Chloride 20 MEQ TAB PO SCH ×2 (09:35→21:20)
[2020-07-18] MEDS: Furosemide 40 MG TAB PO SCH ×2 (09:35→21:19)
[2020-07-18] MEDS: Spironolactone 25 MG TAB PO SCH (09:35)
[2020-07-18] MEDS: Losartan 25 MG TAB PO SCH (09:35)
[2020-07-18] MEDS: Allopurinol 300 MG TAB PO SCH (09:36)
[2020-07-18] MEDS: predniSONE 20 MG TAB PO SCH ×2 (09:36→21:20)
[2020-07-18] MEDS: Amiodarone 200 MG TAB PO SCH (09:36)
[2020-07-18] MEDS: IVABRADINE HCL 7.5 MG PO SCH ×2 (09:39→18:00)
--- NOTE | 2020-07-18 12:21 | PDOC.HOSPP ---
- Subjective Encounter Date: 07/18/20 Encounter Time: 10:00 Subjective: Sitting up in chair, no distress but still complaining of left flank pains though improved with [place] - Objective Vital Signs & Weight: Vital Signs (12 hours) Temp Pulse Resp BP BP Pulse Ox 07/18/20 11:12 100.7 F H 76 16 120/61 94 L 07/18/20 07:35 99.1 F 84 16 129/81 94 L 07/18/20 03:15 99.8 F H 80 22 H 126/71 92 L Weight Weight 295 lb 12.8 oz I&O: 07/17/20 07/18/20 07/19/20 06:59 06:59 06:59 Intake Total 100 Output Total 705 Balance -605 Result Diagrams: 07/18/20 04:27 07/18/20 04:27 Additional Labs: Accuchecks 07/18/20 07/18/20 07/17/20 10:41 05:20 20:43 POC Glucose 188 H 215 H 190 H Hospitalist ROS - Review of Systems Constitutional: denies: fever, chills, sweats, weakness, malaise, other Eyes: denies: pain, vision change, conjunctivae inflammation, eyelid inf lammation, redness, other ENT: denies: ear pain, ear discharge, nose pain, nose discharge, nose congestion, mouth pain, mouth swelling, throat pain, throat swelling, other Respiratory: reports: pleuritic pain Cardiovascular: denies: chest pain, palpitations, orthopnea, paroxysmal noc. dyspnea, edema, light headedness, other Gastrointestinal: denies: nausea, vomiting, abdominal pain, diarrhea, cons tipation, melena, hematochezia, other Musculoskeletal: denies: neck pain, shoulder pain, arm pain, back pain, hand pain, leg pain, foot pain, other Skin: denies: rash, lesions, jim, bruising, other Neurological: denies: weakness, numbness, incoordination, change in speech, confusion, seizures, other - Medication Medications: Active Medications Generic Name Dose Route Start Last Admin Trade Name Freq PRN Reason Stop Dose Admin Hydrocodone Bitart/Acetaminophen 1 tab 07/17/20 20:17 07/17/20 23:41 Hydrocodone/Acetaminophen 10/325 Mg Tablet PO 1 tab Q4H PRN Administration Moderate Pain (4-6) Hydrocodone Bitart/Acetaminophen 2 tab 07/17/20 20:17 07/18/20 09:36 Hydrocodone/Acetaminophen 10/325 Mg Tablet PO 2 tab Q4H PRN Administration Severe Pain (7-10) Allopurinol 300 mg 07/18/20 09:00 07/18/20 09:36 Allopurinol 300 Mg Tab PO 300 mg DAILY RANDAL Administration Amiodarone HCl 200 mg 07/18/20 09:00 07/18/20 09:36 Amiodarone 200 Mg Tab PO 200 mg DAILY RANDAL Administration Carvedilol 12.5 mg 07/18/20 07:30 07/18/20 09:33 Carvedilol 6.25 Mg Tab PO 12.5 mg BID-AC RANDAL Administration Enoxaparin Sodium 40 mg 07/18/20 09:00 07/18/20 09:34 Enoxaparin Sodium 40 Mg/0.4 Ml Syringe SC 40 mg 0900 RANDAL Administration Famotidine 20 mg 07/17/20 21:00 07/18/20 09:34 Famotidine 20 Mg Tab PO 20 mg BID RANDAL Administration Famotidine 20 mg 07/18/20 09:00 07/18/20 09:35 Famotidine 20 Mg Tab PO Not Given BID RANDAL Furosemide 80 mg 07/18/20 09:00 07/18/20 09:35 Furosemide 40 Mg Tab PO 80 mg BID RANDAL Administration Insulin Human Lispro 0 units 07/17/20 21:28 07/18/20 12:01 Humalog 300 Units/3 Ml Vial SC 2 unit .MILD SLIDING SCALE PRN Administration Mild Correctional Scale Levothyroxine Sodium 100 mcg 07/18/20 06:00 07/18/20 04:48 Levothyroxine Sodium 50 Mcg Tab PO 100 mcg 0600 RANDAL Administration Losartan Potassium 50 mg 07/18/20 09:00 07/18/20 09:35 Losartan 25 Mg Tab PO 50 mg DAILY RANDAL Administration Metformin HCl 1,000 mg 07/18/20 07:30 07/18/20 09:33 Metformin 500 Mg Tab PO 1,000 mg BID-AC RANDAL Administration Non-Formulary Medication 7.5 mg 07/18/20 08:00 07/18/20 09:39 Ivabradine Hcl [Corlanor] PO 7.5 mg BID-WM RANDAL Administration Ondansetron HCl 4 mg 07/17/20 19:25 07/18/20 11:00 Ondansetron Pf 4 Mg/2 Ml Vial IVP 4 mg Q6H PRN Administration Nausea/Vomiting Potassium Chloride 40 meq 07/18/20 09:00 07/18/20 09:35 Potassium Chloride 20 Meq Tab PO 40 meq QAM RANDAL Administration Prednisone 10 mg 07/18/20 09:00 07/18/20 09:36 Prednisone 20 Mg Tab PO 10 mg BID RANDAL Administration Promethazine HCl 25 mg 07/17/20 21:29 07/17/20 23:42 Promethazine 25 Mg Tab PO 25 mg DAILY PRN Administration Nausea Sertraline HCl 100 mg 07/18/20 09:00 07/18/20 09:35 Sertraline Hcl 100 Mg Tab PO 100 mg DAILY RANDAL Administration Sodium Chloride 10 ml 07/17/20 20:17 07/18/20 11:00 Flush - Normal Saline 10 Ml Syringe IVF 10 ml PRN PRN Administration Saline Flush Spironolactone 25 mg 07/18/20 09:00 07/18/20 09:35 Spironolactone 25 Mg Tab PO 25 mg DAILY RANDAL Administration Hospitalist Exam Vitals: Vital Signs (12 hours) Temp Pulse Resp BP BP Pulse Ox 07/18/20 11:12 100.7 F H 76 16 120/61 94 L 07/18/20 07:35 99.1 F 84 16 129/81 94 L 07/18/20 03:15 99.8 F H 80 22 H 126/71 92 L Weight Weight 295 lb 12.8 oz General Appearance: NAD, awake alert Eye: PERRL ENT: normocephalic atraumatic, no oropharyngeal lesions Neck: supple, symmetric Heart: RRR, no gallops Extremities: no cyanosis, no clubbing, no edema Skin: normal turgor, no lesions Musculoskeletal: normal tone, normal strength Psychiatric: normal affect, normal behavior Hosp A/P - Plan 1. Left pleuritic chest pain -Worsens on inspiration -Occurred after patient turned in bed and felt a pop. Concern for rib fracture in light of her history of severe osteoporosis from chronic high-dose steroid use -CTA of chest negative for PE -Serial trops showed mildly elevated troponin of 0.03 and 0.04 which is around her baseline levels based on prior labs over the past 1 to 2 years -CT of chest also did not show any rib fracture however this is suboptimal exam due to her body habitus -Pain control with as needed [place] 2. History of chronic systolic CHF with EF of 10 to 15% -Continue ivabradine, Coreg, Lasix, losartan and Aldactone 3. Type 2 diabetes -On sliding scale insulin -Hold Metformin while inpatient 4. History of hypothyroidism -Continue levothyroxine at home dose 5. History of sarcoidosis -Continue prednisone at home dose 6. History of anxiety/depression -Continue Zoloft at home dose. 7. DVT prophylaxis -Subcu Lovenox Disposition: Cardiology consulted, awaiting recommendations prior to discharge
[2020-07-18 12:31] LABS: Digoxin 0.23 ng/mL (0.8-2.0)
--- NOTE | 2020-07-18 13:32 | CON ---
DATE OF CONSULTATION: 07/18/2020 REASON FOR CONSULTATION: Chest pain. PRIMARY LAW OFFICE MANAGER: Matt Onofre MD HISTORY OF PRESENT ILLNESS: Ms. Vaughn is a pleasant 50-year-old white female, who comes to the hospital for chest pain. She has nonischemic cardiomyopathy thought to be related to sarcoidosis. She felt a pop when she rolled over in bed under her left breast and decided to come in to get it evaluated. Her pain on her chest is reproducible. She denies any other issue. Her breathing is just slightly worse than normal. She had a chest x-ray that showed mild pulmonary venous congestion. She was admitted for IV diuresis. PAST MEDICAL HISTORY: 1. Sarcoidosis with cardiac involvement and neuro involvement. 2. Chronic nonischemic cardiomyopathy with an EF of 10% to 15%. 3. Hypertension. 4. Hyperlipidemia. 5. Type 2 diabetes. 6. Obesity. 7. Pituitary insufficiency requiring chronic steroid therapy. 8. Osteoporosis. 9. Coronary artery disease, mild. 10. Chronic rib fractures. 11. PTSD and anxiety. PAST SURGICAL HISTORY: 1. Hysterectomy. 2. Oophorectomy. 3. Partial thyroidectomy. 4. Lobectomy of her liver. 5. AICD placed. SOCIAL HISTORY: Former tobacco use. No alcohol use. Quit smoking two years ago. No drug use. FAMILY HISTORY: Early coronary artery disease. OUTPATIENT MEDICATIONS: Potassium 20 mEq b.i.d. Allopurinol. Coreg 12.5 b.i.d. Digoxin 125 mcg a day. Pepcid. Lasix 80 mg b.i.d. Levothyroxine 100 mcg a day. Losartan 50 mg a day. Metformin 1000 mg b.i.d. Sertraline. Spironolactone 25 mg a day. Prednisone 10 mg b.i.d. Clonazepam. Phenergan. Corlanor 7.5 mg b.i.d. Amiodarone 100 mg a day. Alendronate 10 mg a day. ALLERGIES: 1. FENTANYL. 2. LISINOPRIL. 3. NSAIDS. 4. OXYCODONE. 5. PREGABALIN. 6. SHELLFISH. REVIEW OF SYSTEMS: A 12-point review of systems was done and was found to be negative other than stated in the history of present illness. PHYSICAL EXAMINATION: VITAL SIGNS: Temperature 100.7 this morning, pulse 76, respiratory rate 16, saturating 94% on 3 L nasal cannula, blood pressure 120/61. GENERAL: Awake, alert and oriented x3, no distress. HEENT: Normocephalic and atraumatic. NECK: Supple. LUNGS: Clear. CARDIOVASCULAR: S1 and S2. No S3 or S4. No murmurs. There is a reproducible pain under her left breast. ABDOMEN: Soft. EXTREMITIES: 1+ edema. SKIN: Warm and dry. LABORATORY DATA: Laboratory work was reviewed. White count of 17, hemoglobin 12, hematocrit 38, platelet count of 228. Chemistries were unremarkable except for BUN of 20 and creatinine is 0.75, GFR of 82, glucose was high in the 190s to 200s. Troponin I was indeterminate range at 0.093. This is her baseline. BNP was 701. Albumin of 4.1. Digoxin level was low at 0.23. COVID-19 PCR was not detected. IMAGING DATA: CT of the chest was reviewed. ASSESSMENT AND PLAN: 1. Acute on chronic systolic heart failure, mild. 2. Chest pain, likely musculoskeletal. 3. Fever and elevated white count. PLAN: 1. We will give one dose of IV Lasix, try to help diurese a little bit. 2. Primary team to workup her episode of fever this morning and elevated white count. No obvious source at this time. 3. Chest pain is likely musculoskeletal as it is reproducible and she felt a pop this morning that caused the pain. 4. Continue all other medications for now as her blood pressure is normal. Thank you for letting us to participate in the care of your patient. We will follow. Job ID: [id number]
[2020-07-18] MEDS: Digoxin 0.125 MG TAB PO SCH (13:49)
[2020-07-18] MEDS ORDERED: Iopamidol-370 76% 500 ML 1 ML ONE (14:43)
[2020-07-18 15:11] LABS: #Eosinphils 0.1 thou/uL (0.0-0.7); #Lymphocytes 0.6 thou/uL (1.20-3.40); %Basophils 0.1 % (0.0-1.0); %Eosinophils 0.4 % (0.0-10.0); %Lymphocytes 4.6 % (21.0-51.0); %Monocytes 7.2 % (0.0-10.0); %Neutrophils 87.6 % (42.0-75.0); Hemoglobin 12.4 g/dL (12.0-16.0); Mean Corpuscular HGB CONC 34.2 g/dL (32.0-36.0); Mean Corpuscular Hemoglobin 32.2 pg (27.0-31.0); Mean Corpuscular Volume 94.2 fL (78.0-98.0); Mean Platelet Volume 8.3 fL (7.4-10.4); Platelet Count 209 thou/uL (130-400); RBC Distribution Width 14.3 % (11.5-14.5); Red Blood Cell (RBC) Count 3.85 mill/uL (4.20-5.40); White Blood Cell (WBC) Count 13.7 thou/uL (4.8-10.8)
[2020-07-18] MEDS: CORLANOR 7.5 MG PO SCH (17:17)
[2020-07-19] MEDS: HYDROcodone/Acetaminophen 10/325 mg Tablet PO PRN ×4 (02:50→21:14)
[2020-07-19 05:08] LABS: Anion Gap 16 mmol/L (10-20); BUN (Urea Nitrogen) 30 mg/dL (7.0-18.7); Calc. Creatinine Clearance 152 mL/min (70-130); Calcium 8.7 mg/dL (7.8-10.44); Carbon Dioxide 25 mmol/L (22-29); Chloride 99 mmol/L (98-107); Glucose 192 mg/dL (70-105); Potassium 4.2 mmol/L (3.5-5.1); Sodium 136 mmol/L (136-145)
[2020-07-19] MEDS: Levothyroxine Sodium 50 MCG TAB PO SCH (05:12)
[2020-07-19] MEDS: HumaLOG 300 UNITS/3 ML VIAL SC PRN ×3 (06:10→17:34)
[2020-07-19] MEDS: Carvedilol 6.25 MG TAB PO SCH ×2 (08:00→15:50)
[2020-07-19] MEDS: Allopurinol 300 MG TAB PO SCH (08:01)
[2020-07-19] MEDS: CORLANOR 7.5 MG PO SCH ×2 (08:01→17:33)
[2020-07-19] MEDS: Digoxin 0.125 MG TAB PO SCH (08:01)
[2020-07-19] MEDS: Amiodarone 200 MG TAB PO SCH (08:01)
[2020-07-19] MEDS: Enoxaparin Sodium 40 MG/0.4 ML SYRINGE SC SCH (08:02)
[2020-07-19] MEDS: Famotidine 20 MG TAB PO SCH ×3 (08:03→21:15)
[2020-07-19] MEDS: Furosemide 40 MG TAB PO SCH ×2 (08:03→21:15)
[2020-07-19] MEDS: Losartan 25 MG TAB PO SCH (08:04)
[2020-07-19] MEDS: predniSONE 20 MG TAB PO SCH ×2 (08:04→21:16)
[2020-07-19] MEDS: Potassium Chloride 20 MEQ TAB PO SCH ×2 (08:04→21:16)
[2020-07-19] MEDS: Spironolactone 25 MG TAB PO SCH (08:13)
[2020-07-19] MEDS: Promethazine 25 MG TAB PO PRN (12:55)
[2020-07-19 14:39] LABS: Bilirubin Negative (Negative); Blood, Urine Negative (Negative); Clarity Clear (Clear); Glucose, Urine (Dipstick) Normal (Negative); Ketone, Urine Negative (Negative); Leukocyte Negative Leu/uL (Negative); Nitrite Negative (Negative); Protein, Urine (Dipstick) Negative (Neg-Trace); Specific Gravity, Urine 1.011 (1.002-1.036); Urobilinogen Normal mg/dL (Less than 2)
[2020-07-19] MEDS: clonazePAM 1 MG TAB PO PRN (17:38)
[2020-07-20] MEDS: HYDROcodone/Acetaminophen 10/325 mg Tablet PO PRN ×5 (01:10→22:06)
[2020-07-20] MEDS: Levothyroxine Sodium 50 MCG TAB PO SCH (05:21)
[2020-07-20] MEDS ORDERED: Furosemide 40 MG/4 ML VIAL SLOW IVP SCH (07:15)
[2020-07-20] MEDS ORDERED: Albumin 25% 25 GM/100 ML BOT IVPB SCH (07:24)
[2020-07-20] MEDS ORDERED: Cyclobenzaprine 10 MG TAB PO SCH (07:30)
[2020-07-20] MEDS ORDERED: Lidocaine 4% Topical Sol 50 ML BOT TOP SCH (07:30)
[2020-07-20] MEDS: HumaLOG 300 UNITS/3 ML VIAL SC PRN ×3 (07:32→17:40)
[2020-07-20] MEDS: CORLANOR 7.5 MG PO SCH ×2 (09:11→17:24)
[2020-07-20] MEDS: Losartan 25 MG TAB PO SCH (09:12)
[2020-07-20] MEDS: Carvedilol 6.25 MG TAB PO SCH ×2 (09:12→17:23)
[2020-07-20] MEDS: Spironolactone 25 MG TAB PO SCH (09:12)
[2020-07-20] MEDS: Allopurinol 300 MG TAB PO SCH (09:13)
[2020-07-20] MEDS: Amiodarone 200 MG TAB PO SCH (09:13)
[2020-07-20] MEDS: Potassium Chloride 20 MEQ TAB PO SCH ×2 (09:13→22:08)
[2020-07-20] MEDS: Digoxin 0.125 MG TAB PO SCH (09:13)
[2020-07-20] MEDS: Famotidine 20 MG TAB PO SCH ×2 (09:13→22:06)
[2020-07-20] MEDS: Enoxaparin Sodium 40 MG/0.4 ML SYRINGE SC SCH (09:14)
[2020-07-20] MEDS: predniSONE 20 MG TAB PO SCH ×2 (09:14→22:08)
[2020-07-20] MEDS: clonazePAM 1 MG TAB PO PRN (09:30)
[2020-07-20] MEDS: Furosemide 40 MG TAB PO SCH (09:30)
[2020-07-20 14:54] LABS: Mean Corpuscular HGB CONC 33.4 g/dL (32.0-36.0); Mean Corpuscular Volume 92.8 fL (78.0-98.0); RBC Distribution Width 14.2 % (11.5-14.5); Red Blood Cell (RBC) Count 3.88 mill/uL (4.20-5.40); White Blood Cell (WBC) Count 9.3 thou/uL (4.8-10.8)
[2020-07-20 14:55] LABS: #Eosinphils 0.1 thou/uL (0.0-0.7); #Monocytes 1.3 thou/uL (0.11-0.59); %Basophils 0.2 % (0.0-1.0); %Eosinophils 1.1 % (0.0-10.0); %Lymphocytes 10.8 % (21.0-51.0); %Monocytes 13.4 % (0.0-10.0); %Neutrophils 74.5 % (42.0-75.0); Anisocytosis SLIGHT = 6-15 cells (100X) (0-5/hpf); MDiff Complete? YES; Platelet Clumps SLIGHT; Platelet Morphology Comment PLT clumps seen-ADEQ; Polychromasia MODERATE = 3-4 cells (100X) (0-2/hpf); Stomatocytes SLIGHT = 2-5 cells (100X) (0-1/hpf)
[2020-07-20 15:03] LABS: Anion Gap 16 mmol/L (10-20); BUN (Urea Nitrogen) 27 mg/dL (7.0-18.7); Calc. Creatinine Clearance 165 mL/min (70-130); Calcium 8.9 mg/dL (7.8-10.44); Carbon Dioxide 26 mmol/L (22-29); Chloride 97 mmol/L (98-107); Glucose 161 mg/dL (70-105); Potassium 4.4 mmol/L (3.5-5.1); Sodium 135 mmol/L (136-145)
[2020-07-20] MEDS: Milrinone Lactate/D5W 20 MG in Premix Bag 1 BAG IV SCH (17:23)
--- NOTE | 2020-07-20 18:18 | PDOC.HOSPP ---
- Objective Vital Signs & Weight: Vital Signs (12 hours) Temp Pulse Resp BP Pulse Ox 07/20/20 15:10 98.0 F 65 18 122/60 94 L 07/20/20 11:56 97.7 F 63 16 130/79 94 L 07/20/20 07:58 97.6 F 75 18 117/68 93 L 07/20/20 07:40 93 L Weight Weight 298 lb 3.2 oz I&O: 07/19/20 07/20/20 07/21/20 06:59 06:59 06:59 Intake Total 3314 1960 1140 Output Total 1300 1776 69523 Balance 2013 417 [id number] Result Diagrams: 07/20/20 13:52 07/20/20 13:52 Additional Labs: Accuchecks 07/20/20 07/20/20 07/20/20 16:40 10:46 06:30 POC Glucose 222 H 196 H 229 H 07/19/20 20:27 POC Glucose 181 H Hospitalist ROS - Medication Medications: Active Medications Generic Name Dose Route Start Last Admin Trade Name Freq PRN Reason Stop Dose Admin Hydrocodone Bitart/Acetaminophen 1 tab 07/17/20 20:17 07/19/20 02:50 Hydrocodone/Acetaminophen 10/325 Mg Tablet PO 1 tab Q4H PRN Administration Moderate Pain (4-6) Hydrocodone Bitart/Acetaminophen 2 tab 07/17/20 20:17 07/20/20 17:30 Hydrocodone/Acetaminophen 10/325 Mg Tablet PO 2 tab Q4H PRN Administration Severe Pain (7-10) Allopurinol 300 mg 07/18/20 09:00 07/20/20 09:13 Allopurinol 300 Mg Tab PO 300 mg DAILY RANDAL Administration Amiodarone HCl 200 mg 07/18/20 09:00 07/20/20 09:13 Amiodarone 200 Mg Tab PO 200 mg DAILY RANDAL Administration Carvedilol 12.5 mg 07/18/20 07:30 07/20/20 17:23 Carvedilol 6.25 Mg Tab PO 12.5 mg BID-AC RANDAL Administration Clonazepam 2 mg 07/17/20 21:47 07/20/20 09:30 Clonazepam 1 Mg Tab PO 2 mg HS PRN Administration Anxiety Digoxin 0.125 mg 07/18/20 09:00 07/20/20 09:13 Digoxin 0.125 Mg Tab PO 0.125 mg DAILY RANDAL Administration Enoxaparin Sodium 40 mg 07/18/20 09:00 07/20/20 09:14 Enoxaparin Sodium 40 Mg/0.4 Ml Syringe SC 40 mg 0900 RANDAL Administration Famotidine 20 mg 07/18/20 09:00 07/20/20 09:13 Famotidine 20 Mg Tab PO 20 mg BID RANDAL Administration Milrinone Lactate/Dextrose 20 100 mls @ 5.072 mls/hr 07/20/20 17:00 07/20/20 17:23 mg/ Device IV 100 mls INF RANDAL Administration Protocol 0.125 MCG/KG/MIN Insulin Human Lispro 0 units 07/17/20 21:28 07/20/20 17:40 Humalog 300 Units/3 Ml Vial SC 3 unit .MILD SLIDING SCALE PRN Administration Mild Correctional Scale Levothyroxine Sodium 100 mcg 07/18/20 06:00 07/20/20 05:21 Levothyroxine Sodium 50 Mcg Tab PO 100 mcg 0600 RANDAL Administration Ondansetron HCl 4 mg 07/17/20 19:25 07/18/20 23:19 Ondansetron Pf 4 Mg/2 Ml Vial IVP 4 mg Q6H PRN Administration Nausea/Vomiting Patient's Home 0 each 07/18/20 17:00 07/20/20 17:24 Medication Corlanor PO 1 each 7.5 Mg BID-WM RANDAL Administration Prednisone 10 mg 07/18/20 09:00 07/20/20 09:14 Prednisone 20 Mg Tab PO 10 mg BID RANDAL Administration Promethazine HCl 25 mg 07/17/20 21:29 07/19/20 12:55 Promethazine 25 Mg Tab PO 25 mg DAILY PRN Administration Nausea Sertraline HCl 100 mg 07/18/20 09:00 07/20/20 09:13 Sertraline Hcl 100 Mg Tab PO 100 mg DAILY RANDAL Administration Sodium Chloride 10 ml 07/17/20 20:17 07/18/20 17:18 Flush - Normal Saline 10 Ml Syringe IVF 10 ml PRN PRN Administration Saline Flush Spironolactone 25 mg 07/18/20 09:00 07/20/20 09:12 Spironolactone 25 Mg Tab PO 25 mg DAILY RANDAL Administration Hospitalist Exam Vitals: Vital Signs (12 hours) Temp Pulse Resp BP Pulse Ox 02/02/21 15:10 98.0 F 65 18 122/60 94 L 07/20/20 11:56 97.7 F 63 16 130/79 94 L 07/20/20 07:58 97.6 F 75 18 117/68 93 L 07/20/20 07:40 93 L Weight Weight 298 lb 3.2 oz Neck: supple Heart: no murmur Heart - other findings: Chest pain reproducible on palpation Respiratory: rales Gastrointestinal: soft, non-tender, normal bowel sounds Extremities: 2+ LE edema Hosp A/P (1) Acute on chronic systolic CHF (congestive heart failure) Code(s): I50.23 - ACUTE ON CHRONIC SYSTOLIC (CONGESTIVE) HEART FAILURE Status: Acute (2) Chest pain Code(s): R07.9 - CHEST PAIN, UNSPECIFIED Status: Acute (3) DM (diabetes mellitus) Code(s): E11.9 - TYPE 2 DIABETES MELLITUS WITHOUT COMPLICATIONS Status: Acute (4) HLD (hyperlipidemia) Code(s): E78.5 - HYPERLIPIDEMIA, UNSPECIFIED Status: Acute (5) HTN (hypertension) Code(s): I10 - ESSENTIAL (PRIMARY) HYPERTENSION Status: Acute (6) Morbid obesity Code(s): E66.01 - MORBID (SEVERE) OBESITY DUE TO EXCESS CALORIES Status: Acute (7) Sarcoid Code(s): D86.9 - SARCOIDOSIS, UNSPECIFIED Status: Acute (8) Shortness of breath Code(s): R06.02 - SHORTNESS OF BREATH Status: Acute - Plan CTA did not show any acute PE. No fractures. Patient given diuretics we'll continue to monitor. Continue home medications 2/2 we'll consult heart failure physician Dr. Morin patient has significant lower extremity edema. She may require dobutamine or milrinone for symptom management. We'll also start patient on Flexeril since she cannot have NSAIDs. She does not want to take high doses of steroids.
[2020-07-20] MEDS: Cyclobenzaprine 10 MG TAB PO PRN (22:06)
[2020-07-20] MEDS: Furosemide 100 MG/10 ML VIAL SLOW IVP SCH (22:08)
[2020-07-21] MEDS: Acetaminophen 325 MG TAB PO PRN (01:32)
[2020-07-21] MEDS: clonazePAM 1 MG TAB PO PRN ×2 (01:32→21:49)
[2020-07-21 07:23] LABS: Anion Gap 17 mmol/L (10-20); BUN (Urea Nitrogen) 28 mg/dL (7.0-18.7); Calc. Creatinine Clearance 177 mL/min (70-130); Calcium 8.9 mg/dL (7.8-10.44); Carbon Dioxide 30 mmol/L (22-29); Chloride 94 mmol/L (98-107); Glucose 193 mg/dL (70-105); Potassium 3.6 mmol/L (3.5-5.1); Sodium 137 mmol/L (136-145)
--- NOTE | 2020-07-21 07:36 | CON ---
DATE OF CONSULTATION: 07/20/2020 SERVICE: Advanced Heart Failure Heart Transplant Cardiology Consult Service. REASON FOR CONSULTATION: Management of acute on chronic heart failure. HISTORY OF PRESENT ILLNESS: Ms. Rona Vaughn is a 50-year-old lady with known heart failure with reduced ejection fraction, self-reported EF between 10% to 15% due to sarcoidosis and cardiomyopathy, was admitted for syndrome of atypical anterior chest pain and edema. She rolled over in her bed about July 17. She felt a pop in her left chest area. She thought that she may be experiencing a broken rib. It was quite painful. The pain spread at her left anterior chest and also down below her left breast. She also felt palpitations. She thought that she is feeling antitachycardia pacing initiaated by her SUPERVISOR DELIVERY DEPARTMENT-D device. Since she has been shocked before, she thought that she may be shocked again. She was uncomfortable with that. This syndrome or problem caused her to seek care. She takes at least Lasix 80 mg per day. She sometimes takes 2 times a day, sometimes once. Lately, she has been needing the Lasix 80 mg twice a day. She has 5-pillow orthopnea. She will wake up in the middle of the night feeling very short of breath every night. Consequently, she also has PND. At the hospitalization, she believed her edema is getting worse. She can feel and see her feet has became quite edematous. She also felt her lower leg and thighs getting edema and her abdomen became more edematous, which is becoming much more uncomfortable. PAST MEDICAL HISTORY: 1. Sarcoidosis with sarcoid cardiomyopathy, self-reported ejection fraction between 10% to 15%. 2. Complete heart block requiring pacemaker. She said this occurred about 2017 to 2018. This is in a result of sarcoid cardiomyopathy. 3. Sarcoidosis, first presented as a liver nodule that required resection. 4. Type 2 diabetes. 5. Hypertension. 6. Hypothyroidism. 7. Adrenal insufficiency could be reported as anterior pituitary insufficiency requiring chronic steroid use. This could be also used to treat her sarcoidosis. 8. Osteoporosis. 9. Chronic rib fractures, likely due to chronic steroid use. 10. Severe obesity. SOCIAL HISTORY: She did smoke in the past, but quit in year 1999, so she has not smoked for 20 years. She denied ever using alcohol. She denied ever using illicit drugs. FAMILY HISTORY: Her father is still alive at age 74, but has PTSD. Her mother is still alive at age 72. REVIEW OF SYSTEMS: GENERAL: She is more fatigued, but there is no fever, chills, or productive cough. HEENT: There is no change in vision, hearing, or swallowing. PULMONARY: She is not quite short of breath, but then she has chronic oxygen use. CARDIAC: Please see HPI. GASTROINTESTINAL: There is no nausea, vomiting, or diarrhea. GENITOURINARY: She is able to urinate on her own. MUSCULOSKELETAL: Please see HPI. INTEGUMENT: There is no report of new skin breakdown. NEUROLOGIC: There are no new focal deficits or weaknesses. ALLERGIES: 1. FENTANYL. 2. LISINOPRIL. 3. NSAIDS. 4. OXYCODONE. 5. PREGABALIN. 6. SHELLFISH. CURRENT MEDICATIONS: Include, 1. Allopurinol 300 mg daily. 2. Amiodarone 200 mg daily. 3. Carvedilol 12.5 mg b.i.d. 4. Clonazepam 2 mg as needed. 5. Digoxin 0.125 mg daily. 6. Enoxaparin 40 mg subcutaneous daily. 7. Pepcid 20 mg b.i.d. 8. Furosemide currently at 80 mg b.i.d., which is not given. 9. Glargin and sliding scale insulin. 10. Levothyroxine 100 mcg daily. 11. Losartan 50 mg daily. 12. Corlanor, which is ivabradine, it is listed as 7.5 mg twice a day. 13. Potassium chloride 40 mEq in the morning and 20 mEq at night. 14. Prednisone 10 mg b.i.d. 15. Sertraline 100 mg daily. 16. Spironolactone 25 mg daily. OBJECTIVE: TELEMETRY: Reviewed. Majority is A-sensed, V-paced. Rate about 60s. VITAL SIGNS: Her latest vital signs are systolic blood pressure 122 with diastolic blood pressure of 60. GENERAL: She is alert and conversational. Very obese woman. She can sit up in chair. HEENT: Show EOMI. Oropharynx is benign with moist mucosa. NECK: Very large in diameter, difficult to exam. However, her JVP seems to be elevated about 12 to 13 cm. LUNGS: Good air movement bilaterally with slight left basilar crackles. CARDIAC: The heart sounds are distant, however, is regular rate and rhythm. Normal S1 and S2. There is 2/6 holosystolic murmur near the apex with radiation to the left axilla. ABDOMEN: Very soft, large, distended. There is a large ventral hernia. EXTREMITIES: Lower extremity has 3+ pitting edema. Her feet is swollen like sausages. She has greater than 1.5 cm pitting edema up towards knees. She has pitting edema at her thighs. She has some pitting edema in her hips, so she is in the near state of anasarca. LABORATORY VALUES: White cell count 9.3, hemoglobin 12, platelet count not performed. Her chemistry values from today is sodium 135, potassium 4.4, chloride 97, BUN 27, creatinine 0.89, and glucose of 161. PROCEDURE Her SUPERVISOR DELIVERY DEPARTMENT-D device was interrogated. It is a Medtronic device. Device name is [id number] Quad SUPERVISOR DELIVERY DEPARTMENT-D [id number]: Serial number, [id number]. It has atrial lead, right ventricular lead, and left ventricular lead. The settings are DDD, lower rate limit of 50 beats per minute with adopted SUPERVISOR DELIVERY DEPARTMENT and also adopted Bi-V with LV greater than RV pacing. There has been no ventricular tachycardia, ventricular fibrillation or atrial fibrillation since July 08, thus, she did not have any arrhythmia events. However, she did have a ventricular fibrillation event in the distant past about 2 years ago that required defibrillation. Her thoracic impedance has been decreasing since April 2020, so she is at the lowest point of her thoracic impedance before June 2019, thus indicating that she is increasingly volume overloaded. She is A-sensed V-paced 96% of time and A-paced V-paced 2.3% of time, and Bi-V paced at 44.5% of time and left ventricular paced at 55% of time. At DDDR mode, I reprogrammed it to increase the lower rate limit to 60 beats per minute. She can feel the pacing event. It caused some mild discomfort. It also seemed to trigger some of the pains that caused her to admission. I then decreased her lower rate limit down to 50 beats per minute. At that rate, it is A-sensed V-paced. She does not feel being paced or the sensation, perhaps there is something about atrial lead and the atrial voltage depth causing some of these symptoms. ASSESSMENT: 50-year-old lady likely resides in [place] heart Association class 3B heart failure with reduced ejection fraction. 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 By exam, she is in anasarca state. This is verified by her thoracic impedance steadily decreasing for the last several months. With her home dose of 80 mg of Lasix by mouth twice a day, we will need to double that to be effective. Using IV Lasix would have twice the effect. With her body habitus, IV will be more preferred. Assuming what she said about her ventricular function is correct, she will likely need augmentation of her ventricle in order to sustain diuresis. She is young. However, amount of comorbidity and severe obesity would not make her a suitable candidate for heart transplant consideration. The severe obesity is an absolutely limit. The body mass index needs to be less than 35 in order to qualify. With her sarcoidosis and need for oxygen, they will also make consideration nonviable. Please see the following for recommendation. RECOMMENDATIONS: 1. Change oral Lasix to IV Lasix 80 mg b.i.d. 2. Increase K-Dur to 40 mEq b.i.d. 3. Decrease losartan to 25 mg daily. 4. Initiate Milrinone 0.125 mcg/kg/minute. If systolic blood pressure still remains above 100, increase it to 0.25 mcg/kg/minute after 2 hours. If her systolic blood pressure still remains above 100, then increase it to 0.375 mcg/kg/minute. We aim to use this to augment diuresis. 5. Please do a transthoracic echocardiogram to see what her in-house cardiac function is. 6. I will make attempt to contact Dr. Onofre, her product applications engineer, to find out if Entresto is ever attempted or any thought to use azathioprine for sarcoid cardiomyopathy, so that would reduce her steroid dependence. This would allow her to lose weight. 7. She will likely need about a week of hospitalization. It has been a pleasure taking care of Ms. Vaugnh. If you have any questions, please give me a call. The total visitation time is about 70 minutes. Job ID: [id number] MTDD
[2020-07-21 07:50] LABS: #Eosinphils 0.1 thou/uL (0.0-0.7); #Lymphocytes 0.8 thou/uL (1.20-3.40); #Monocytes 1.2 thou/uL (0.11-0.59); #Neutrophils 8.8 thou/uL (1.40-6.50); %Basophils 0.3 % (0.0-1.0); %Eosinophils 0.7 % (0.0-10.0); %Lymphocytes 7.2 % (21.0-51.0); %Neutrophils 80.8 % (42.0-75.0); Hemoglobin 11.2 g/dL (12.0-16.0); Mean Corpuscular Hemoglobin 31.5 pg (27.0-31.0); Mean Corpuscular Volume 92.7 fL (78.0-98.0); Mean Platelet Volume 8.6 fL (7.4-10.4); Platelet Count 215 thou/uL (130-400); RBC Distribution Width 14.3 % (11.5-14.5); Red Blood Cell (RBC) Count 3.55 mill/uL (4.20-5.40); White Blood Cell (WBC) Count 10.9 thou/uL (4.8-10.8)
[2020-07-21] MEDS: Levothyroxine Sodium 50 MCG TAB PO SCH (08:10)
[2020-07-21] MEDS: Cyclobenzaprine 10 MG TAB PO PRN ×3 (08:15→21:48)
[2020-07-21] MEDS: HYDROcodone/Acetaminophen 10/325 mg Tablet PO PRN ×3 (08:15→18:36)
[2020-07-21] MEDS: Carvedilol 6.25 MG TAB PO SCH ×2 (08:16→17:13)
[2020-07-21] MEDS: Amiodarone 200 MG TAB PO SCH (08:17)
[2020-07-21] MEDS: Spironolactone 25 MG TAB PO SCH (08:17)
[2020-07-21] MEDS: predniSONE 20 MG TAB PO SCH ×2 (08:17→21:41)
[2020-07-21] MEDS: Losartan 25 MG TAB PO SCH (08:17)
[2020-07-21] MEDS: Digoxin 0.125 MG TAB PO SCH (08:17)
[2020-07-21] MEDS: Famotidine 20 MG TAB PO SCH ×2 (08:17→21:41)
[2020-07-21] MEDS: Potassium Chloride 20 MEQ TAB PO SCH ×2 (08:17→21:40)
[2020-07-21] MEDS: Allopurinol 300 MG TAB PO SCH (08:17)
[2020-07-21] MEDS: Milrinone Lactate/D5W 20 MG in Premix Bag 1 BAG IV SCH ×2 (08:18→21:58)
[2020-07-21] MEDS: CORLANOR 7.5 MG PO SCH ×2 (08:18→17:15)
[2020-07-21] MEDS: Furosemide 100 MG/10 ML VIAL SLOW IVP SCH ×2 (08:18→21:39)
[2020-07-21] MEDS: Enoxaparin Sodium 40 MG/0.4 ML SYRINGE SC SCH (08:19)
[2020-07-21] MEDS: HumaLOG 300 UNITS/3 ML VIAL SC PRN ×2 (11:19→17:14)
--- NOTE | 2020-07-21 12:30 | RAD ---
CHEST 1 VIEW: HISTORY: Shortness of breath. FINDINGS: Heart size is enlarged. No signs of overt failure or focal infiltrative process. A pacemaker is pre sent. IMPRESSION: Cardiomegaly. POS: BEBA
--- NOTE | 2020-07-21 20:41 | CON ---
DATE OF CONSULTATION: 07/21/2020 REASON FOR CONSULTATION: ICD management. HISTORY OF PRESENT ILLNESS: I am seeing Ms. Vaughn as an Electrophysiology erp consultant at out [facility]. Her problems are as follows. 1. Chronic systolic congestive heart failure with nonischemic cardiomyopathy, possibly related to severe cardiac sarcoid. 2. History of recurrent ventricular tachycardia sensitive to hypokalemia, on chronic amiodarone suppression therapy. 3. History of [place] syndrome, on chronic steroid therapy. 4. Possible potassium wasting disorder on high-dose replacement. 5. Biventricular ICD in-situ. a. Initial implant in 2008 with atrial and RV lead extraction performed 12/22/09. LV lead not extractable and was cut/capped as the patient reported painful chest wall stimulation with LV lead. b. ICD pocket pain prompting relocation of the ICD subpectoral on 01/25/2011. c. Right atrial lead extraction replacement 02/24/2013. d. Lead extraction with reimplant of RV pacing lead and LV lead. Chronic CS lead capped and left in place. e. ICD generator change 09/11/2017. 6. Morbid obesity. 7. Chest wall pain, acute on chronic issue often. ALLERGIES: LISINOPRIL, NSAIDS, FENTANYL, OXYCODONE, PREGABALIN, AND SHELLFISH. HOME MEDICATIONS: 1. Corlanor 7.5 mg b.i.d. 2. Synthroid 100 mcg daily. 3. Amiodarone 100 mg daily. 4. Cozaar 50 mg daily. 5. Digoxin 125 mcg daily. 6. Prednisone 10 mg b.i.d. 7. Allopurinol 300 mg daily. 8. Sertraline 100 mg daily. 9. Klonopin 2 mg at bedtime p.r.n. 10. Carvedilol 12.5 mg b.i.d. 11. Phenergan 25 mg daily p.r.n. 12. Lasix 80 mg p.o. b.i.d. 13. Metformin 1000 mg p.o. b.i.d. 14. Spironolactone 25 mg daily. 15. Pepcid 20 mg p.o. b.i.d. 16. K-Dur 40 mEq p.o. b.i.d. SUBJECTIVE: Ms. Vaughn presents to the hospital seeking medical evaluation regarding left chest wall pain. She rolled over in bed and felt a pop under her left breast. The pain is reproducible. She was found to have severe peripheral edema and some mild pulmonary venous congestion and was admitted for IV diuresis. Her ICD was interrogated and there was concern about her biventricular pacing percentage. EP consultation has been requested for device surveillance and management. SOCIAL HISTORY: Former tobacco use. Negative alcohol. Negative for drug use. Quit tobacco two years ago. FAMILY HISTORY: Early-onset coronary artery disease is positive. REVIEW OF SYSTEMS: Twelve-point review of systems positive for peripheral edema, chest discomfort of her chest wall as mentioned above, bruising and discoloration of her feet, progressive orthopnea, and dyspnea. OBJECTIVE: VITAL SIGNS: Temperature 98.0 degrees Fahrenheit, pulse 60, blood pressure 140/73, respirations 20, and oxygen 94% on 2.5 L via nasal cannula. GENERAL: The patient is alert and oriented. Her speech is clear. Affect is appropriate. She is sitting in the chair bedside at the time of the exam. HEENT: She is normocephalic and atraumatic. Oral mucosa is moist and pink with adequate dentition. NECK: Large. Her face appears puffy. Positive jugular venous distention. Trachea is midline. LUNGS: Diminished throughout with bibasilar crackles. RESPIRATIONS: Even and unlabored. HEART: Rate is irregularly irregular. PMI is nonpalpable. There is a left- sided ICD implant and site is without reaction. ABDOMEN: Morbidly obese. Hepatojugular reflux cannot be assessed due to habitus. EXTREMITIES: Warm and dry to touch with extensive 4+ pitting edema and taut shiny skin. It extends up both legs to her pelvis. MUSCULOSKELETAL: Gait was not assessed. NEUROLOGIC: Grossly intact and nonfocal. DATABASE: Telemetry and EKG show sinus rhythm, atrial sensing with ventricular pacing. DEVICE CHECK: The patient has a [employer]line[employer] MRI Quad BUGGY LADLE TENDER-D generator change on 08/22/2017. Pacing impedances are steady. Capture thresholds are slightly elevated. RV 1.25 V at 0.4 milliseconds. LV 1.65 V at 1.0 milliseconds. There is adequate sensing. Current mode DDD with lower rate limit of 50. Initially, her device was programmed Adaptive Bi-V and LV, but was reprogrammed to Adaptive Bi- V only since admission. Total ventricular pacing 98%. Initial interrogation revealed Bi-V pacing 50% and LV pacing 50%, since programming change Bi-V pacing 95% and LV pacing 5%. High grade AV block is seen as her underlying rhythm. IMPRESSION AND PLAN: Ms. Vaughn is a 50-year-old woman with a complicated cardiac history, well known to our group. She largely follows with Dr. Onofre, her time buyer. She has a Medtronic BUGGY LADLE TENDER implantable cardioverter-defibrillator in-situ with multiple prior lead revisions and device relocations. In the past, she has had concerns about implantable cardioverter-defibrillator related chest wall pain. There is some concern about pacing related pain. There has been no recent antitachycardia pacing therapies. Her arrhythmia status is stable with no sustained tachy atrial or ventricular arrhythmias. Overall, I find her device is functioning normally. There is a question about a component of her cardiac resynchronization therapy pacing. When she first presented, her Bi-V versus LV pacing was about 50/50, now with it reprogrammed Adaptive Bi-V only, her Bi-V pacing was optimized, now 95% and LV pacing is 5%. Job ID: [id number] MTDD
[2020-07-22] MEDS: HYDROcodone/Acetaminophen 10/325 mg Tablet PO PRN ×5 (01:27→20:25)
[2020-07-22 04:49] LABS: #Eosinphils 0.1 thou/uL (0.0-0.7); #Lymphocytes 0.6 thou/uL (1.20-3.40); #Neutrophils 7.9 thou/uL (1.40-6.50); %Basophils 0.2 % (0.0-1.0); %Lymphocytes 6.6 % (21.0-51.0); %Monocytes 10.7 % (0.0-10.0); %Neutrophils 81.6 % (42.0-75.0); Hemoglobin 11.4 g/dL (12.0-16.0); Mean Corpuscular HGB CONC 33.2 g/dL (32.0-36.0); Mean Corpuscular Hemoglobin 30.9 pg (27.0-31.0); Mean Corpuscular Volume 93.2 fL (78.0-98.0); Mean Platelet Volume 8.4 fL (7.4-10.4); Platelet Count 210 thou/uL (130-400); RBC Distribution Width 14.3 % (11.5-14.5); Red Blood Cell (RBC) Count 3.69 mill/uL (4.20-5.40); White Blood Cell (WBC) Count 9.7 thou/uL (4.8-10.8)
[2020-07-22 05:23] LABS: Anion Gap 14 mmol/L (10-20); BUN (Urea Nitrogen) 27 mg/dL (7.0-18.7); Calc. Creatinine Clearance 188 mL/min (70-130); Calcium 8.4 mg/dL (7.8-10.44); Carbon Dioxide 32 mmol/L (22-29); Chloride 95 mmol/L (98-107); Glucose 240 mg/dL (70-105); Potassium 3.9 mmol/L (3.5-5.1); Sodium 137 mmol/L (136-145)
[2020-07-22] MEDS: Levothyroxine Sodium 50 MCG TAB PO SCH (05:28)
--- NOTE | 2020-07-22 06:08 | PRG ---
DATE OF SERVICE: 07/21/2020 SERVICE: Advanced Heart Failure Transplant Cardiology Consult Service. SUBJECTIVE: Ms. Rona Vaughn had a variable day. Milrinone was started in the afternoon. It was titrated up to 0.25 mcg/kg/minute, and IV Lasix was started too. She said that she has greatly increased urine output with that. Because of that, she is breathing a little easier because she can feel her chest loosening up enough where she can cough something up if needed, where it was very tight before. She does have a chronic chest pressure from heart failure; however, she has not had any IV diuretics this morning. When I walked in the room, the echocardiogram is being done. She does have a past history of rib fractures. She said getting the echocardiogram done was quite painful because the probe goes along the ribs on the left side. REVIEW OF SYSTEMS: GENERAL: There is no fever, chills, or productive cough. HEENT: There is no change in vision, hearing, or swallowing. PULMONARY: Please see HPI. CARDIAC: Please see HPI. GI: There is no nausea, vomiting, or diarrhea. : She is able to urinate on her own. MUSCULOSKELETAL: Please see HPI. INTEGUMENT: There is no new skin breakdown. NEUROLOGIC: There are no focal deficits or weaknesses. CURRENT MEDICATIONS: Include: 1. Allopurinol 300 mg daily. 2. Amiodarone 200 mg daily. 3. Carvedilol 12.5 mg twice a day. 4. Digoxin 0.125 mg daily. 5. Enoxaparin 40 mg subcutaneously once daily. 6. Pepcid 20 mg daily. 7. Furosemide 80 mg IV b.i.d. 8. Lispro insulin sliding scale. 9. Levothyroxine 100 mcg daily. 10. Losartan currently 25 mg daily. 11. Milrinone currently at 0.25 mcg/kg per minute. 12. Potassium chloride 40 mEq b.i.d. 13. Prednisone 10 mg b.i.d. 14. Spironolactone 25 mg daily. Telemetry was reviewed. It shows a combination of A-sensed, V-paced, A-paced, V-paced. There is one particular beat that has prolonged A to V pacing. Otherwise, there are no concerning arrhythmias. OBJECTIVE: VITAL SIGNS: Reviewed. She has a range where her systolic blood pressure could be low as 108, could be as high as 144, currently is 140/73. It is likely that she is having some rib pain that is causing her blood pressure to be more elevated. Her I's and O's were recorded but they were inaccurate. It is not possible for the patient to urinate over 21 L. GENERAL: She is alert and conversational. She can move about and sit up to the side of her bed. HEENT: Show EOMI. Oropharynx is benign with moist mucosa. NECK: JVP is approximately 12 cm. PULMONARY: She has good air movement bilateral; however, there are left basilar crackles. CARDIAC: She has a regular rate and rhythm, but distant heart sounds. She has a 2/6 holosystolic murmur at the left upper sternal border that corresponds to tricuspid regurgitation. She also has 1/6 holosystolic murmur at the apex. This corresponds to mitral regurgitation. ABDOMEN: Soft, nontender, but distended. There is a weakness spot of the ventral hernia. EXTREMITIES: Lower extremity has greater than 1 cm pitting edema. Her feet are quite edematous. Greater than 1 cm pitting edema looked like small sausages, but it is a little bit less than yesterday. Edema extends to her thighs and near her hips. LABORATORY VALUES: White cell count 10.9, hemoglobin 11.2, platelets at 215. Her chemistry is sodium 137, potassium 3.6, chloride 94, bicarb is 30, BUN at 28, and creatinine at 0.83. PROCEDURE: Echocardiogram A bedside echocardiogram was done. At first, there are quite a bit of variability from different beats. This is due to a combination of BiV pacing, and also ventricular pacing only. After reprogramming, her LVEF does settle about 20%. She has moderate mitral regurgitation. Her right ventricle is mildly to moderately dilated with normal-appearing function. There is moderate tricuspid regurgitation with tricuspid gradient about 42 mmHg so this would translate to about 55 for her PA systolic pressure. PROCEDURE: Her PANEL SEWER-D device was interrogated and reprogrammed to maximize heart function. It is a [employer] System[employer] device. It is a model Amplia MRI Quad PANEL SEWER-D [id number] with a serial #[id number]. It is a programmed DDD mode with lower rate limit of 50 beats per minute. There is no VT, VF, or atrial fibrillation events. At the start it was program of BiV and LV pacing. It was changed to BiV pacing. An attempt was also to use A-paced, BiV paced that cause some instabilities; therefore it was reprogrammed back to DDD with a lower rate limit of 50 that could give excellent results. Initially, there were a great timing differences between anterior and inferior jimenez, and also septal and lateral jimenez. Once that the PANEL SEWER-D was reprogrammed to adaptive BiV only, dysnchrony was greatly decreased. Now, her left ventricle contracts much more synchronous matter, thus I am leaving her under AdaptivCRT mode with adaptive BiV pacing. ASSESSMENT: 50-year-old lady remains in likely [place] Heart Association stage C and [place] Heart Association class 3B heart failure with reduced ejection fraction. Her LVEF is 20% with a combination of systolic and diastolic dysfunctions. It is likely caused by sarcoid cardiomyopathy. She also has complete heart block that required pacing. She has significant dyssynchrony once LV paced only. However, once she has been placed in a BiV pacing mode all the time, her left ventricular synchrony improved. She is still currently very volume overloaded, near anasarca state. She will need to continue diuresis. We will also continue to augment her heart function with Milrinone during the diuresis. RECOMMENDATIONS: 1. Reprogrammed PANEL SEWER-D to optimize for biventricular pacing all the time. 2. Increase milrinone to 0.375 mcg/kg per minute. 3. Continue Lasix 80 mg IV b.i.d. We will follow this daily. 4. Once she is stable on milrinone 0.375, we will make an attempt to switch her from losartan to Entresto. This would have a better chance of preserving or improving her cardiac function. Eventually, I hope to titrate off milrinone once that she is near euvolemic. This may take many days. It has been a pleasure taking care of Mrs. Vaughn. If you have any question, please give me a call. This visit consists of a daily visit and also a procedure of PANEL SEWER-D reprogramming. The overall time used for this entire visit is about 70 minutes. Job ID: [id number] MTDD
[2020-07-22] MEDS: HumaLOG 300 UNITS/3 ML VIAL SC PRN ×3 (06:09→16:32)
[2020-07-22] MEDS: Milrinone Lactate/D5W 20 MG in Premix Bag 1 BAG IV SCH ×3 (07:13→20:26)
[2020-07-22] MEDS: predniSONE 20 MG TAB PO SCH ×2 (08:07→20:26)
[2020-07-22] MEDS: Losartan 25 MG TAB PO SCH (08:07)
[2020-07-22] MEDS: Amiodarone 200 MG TAB PO SCH (08:07)
[2020-07-22] MEDS: Allopurinol 300 MG TAB PO SCH (08:07)
[2020-07-22] MEDS: Potassium Chloride 20 MEQ TAB PO SCH ×2 (08:07→20:26)
[2020-07-22] MEDS: Digoxin 0.125 MG TAB PO SCH (08:07)
[2020-07-22] MEDS: Carvedilol 6.25 MG TAB PO SCH ×2 (08:07→16:00)
[2020-07-22] MEDS: Famotidine 20 MG TAB PO SCH ×2 (08:08→20:26)
[2020-07-22] MEDS: Furosemide 100 MG/10 ML VIAL SLOW IVP SCH ×2 (08:09→20:27)
[2020-07-22] MEDS: Enoxaparin Sodium 40 MG/0.4 ML SYRINGE SC SCH (08:09)
[2020-07-22] MEDS: Spironolactone 25 MG TAB PO SCH (08:13)
[2020-07-22] MEDS: Cyclobenzaprine 10 MG TAB PO PRN ×3 (08:13→23:20)
[2020-07-22] MEDS: CORLANOR 7.5 MG PO SCH ×2 (08:13→16:01)
--- NOTE | 2020-07-22 10:07 | PRG ---
DATE OF SERVICE: 07/22/2020 SERVICE: Advanced Heart Failure Transplant Cardiology Consult Service. SUBJECTIVE: Ms. Vaughn has improved. She said that she has improved breathing. She is breathing easier. She also got her appetite back. She is able to eat and she also has return of normal bowel movement, so these are all improvement. However, she is still very edematous. She wished her abdomen and lower extremity edema will go away quickly. REVIEW OF SYSTEMS: GENERAL: There is no fever, chills, or productive cough. HEENT: There is no change in vision, hearing or swallowing. PULMONARY: Please see HPI. CARDIAC: There is no chest pain, palpitations, syncope. : There is no nausea, vomiting, or diarrhea. MUSCULOSKELETAL: There is no muscle or joint pains. INTEGUMENT: There is no new skin breakdown. NEUROLOGIC: There are no focal deficits or weaknesses. CURRENT MEDICATIONS: Include: 1. Allopurinol 20 mg daily. 2. Amiodarone 200 mg daily. 3. Carvedilol 12.5 mg b.i.d. 4. Enoxaparin 40 mg subcutaneous daily. 5. Pepcid 20 mg b.i.d. 6. Furosemide 80 mg IV b.i.d. 7. Sliding scale insulin. 8. Levothyroxine 100 mcg daily. 9. Losartan 25 mg daily. 10. Milrinone currently at 0.375 mcg/kg per minute. 11. It looks like she is taking ivabradine 7.5 mg daily. 12. Potassium chloride 40 mEq b.i.d. 13. Prednisone 10 mg b.i.d. 14. Spironolactone 25 mg p.o. daily. Telemetry was reviewed. She is in predominantly A-sensed, V paced rhythm. There is one potentially non-captured beat, but otherwise there are no other issues. She is currently set with biventricular pacing mode. PHYSICAL EXAMINATION: VITAL SIGNS: Her current vitals are heart rate 84, blood pressure 134/70. Her fluid input and fluid output are 1765 in and 4100 out. She has sufficient urine output with current regimen. GENERAL: She is alert, conversational, sitting comfortably in chair. She is very obese, but is not short of breath today. HEENT: Show EOMI. Oropharynx is benign with moist mucosa. NECK: She has a very large diameter neck, JVP hard to evaluate, but approximately around 12 cm. PULMONARY: She has a good air movement bilaterally. Slight left basilar crackles. CARDIAC: Regular rate and rhythm with normal S1, S2. There is 2/6 holosystolic murmur at the apex. ABDOMEN: Large, distended, soft, and mildly discomfort, which is chronic. EXTREMITIES: She has extreme amount of lower extremity edema. Her feet appear like sausage. There is greater than 2 cm pitting edema around her feet at least 1 cm pitting edema up to her knees and little bit beyond that. DIAGNOSTIC STUDIES: Her laboratory value show that white cell count 9.7, hemoglobin 11.4, platelets 210. Her chemistry shows sodium 137, potassium 3.9, BUN 27, creatinine is 0.8. This is stable. Her glucose is 240. ASSESSMENT: 50-year-old lady resides in [place] Heart [employer] stage D, [place] Heart [employer] class 3B heart failure with reduced ejection fraction. She has combined systolic and diastolic dysfunctions. Her LVEF is 20%. Yesterday correction of her pacing to just BiV pacing mode should help. Apparently that change has caused increase in the blood pressure. We can add on SGL2 inhibitor to help with both heart failure and diabetes. Then we can also add acetazolamide to help with alkalosis. She has adequate urine output of 4.1 L per day. I will not push beyond 4 liters urine output this to ensure that she dis not over-diuresed. I had a conversation with her blue prints trimmer Dr. Matt Onofre and also subsequent conversation with patient indicated that she had a severe reaction to Entresto. It caused severe drop in systolic blood pressure. Furthermore, she went into renal failure with Entresto, so at this point in time, we will not start Entresto. RECOMMENDATIONS: 1. Start empagliflozin, which is Jardiance at 10 mg daily. 2. Start acetazolamide 250 mg daily. 3. Continue Milrinone at 0.375 mcg/kg per minute. If needs to, this can be increased tomorrow. 4. Continue Lasix 80 IV b.i.d. Urine output of 4.1 L per day is sufficient. It has been a pleasure taking care of Ms. Rona Vaughn. If you have any questions, please give me a call. The total visitation time today is 40 minutes. Job ID: [id number] [facility]
[2020-07-22] MEDS: Empagliflozin 10 MG TAB PO SCH (10:23)
[2020-07-22] MEDS: AcetaZOLAMIDE 250 MG TAB PO SCH (10:23)
--- NOTE | 2020-07-22 10:34 | PDOC.EP ---
- Subjective Date: 07/22/20 Time: 08:00 Interval History: no new events overnight. - Review of Systems Constitutional: reports: weakness. denies: chills, fever Respiratory: reports: shortness of breath. denies: cough, dry, hemoptysis Cardiology: reports: edema. denies: chest pain, heart racing, light headedness, passing out Gastrointestinal: denies: abdominal pain, constipation, nausea, vomitting Musculoskeletal: reports: leg pain, foot pain. denies: unstable gait, falls, hand pain - Objective Allergies/Adverse Reactions: Allergies Allergy/AdvReac Type Severity Reaction Status Date / Time sacubitril [From Entresto] Allergy Severe Short of Verified 07/22/20 10:05 Breath valsartan [From Entresto] Allergy Severe Short of Verified 07/22/20 10:05 Breath NSAIDS (Non-Steroidal Allergy Unknown Verified 07/22/20 10:05 Anti-Inflamma shellfish derived Allergy Unknown Verified 09/04/19 15:27 fentanyl Allergy Verified 09/04/19 15:27 lisinopril Allergy Verified 09/04/19 15:27 oxycodone [Oxycodone] Allergy Hives Verified 09/04/19 15:27 pregabalin [From Lyrica] Allergy Verified 09/04/19 15:27 Current Medications Acetaminophen (Acetaminophen 325 Mg Tab) 650 mg PO Q4H PRN PRN Reason: Headache/Fever/Mild Pain (1-3) Last Admin: 07/21/20 01:32 Dose: 650 mg Documented by: Hydrocodone Bitart/Acetaminophen (Hydrocodone/Acetaminophen 10/325 Mg Tablet) 1 tab PO Q4H PRN PRN Reason: Moderate Pain (4-6) Last Admin: 07/20/20 22:06 Dose: 1 tab Documented by: Hydrocodone Bitart/Acetaminophen (Hydrocodone/Acetaminophen 10/325 Mg Tablet) 2 tab PO Q4H PRN PRN Reason: Severe Pain (7-10) Last Admin: 07/22/20 10:24 Dose: 2 tab Documented by: Acetazolamide (Acetazolamide 250 Mg Tab) 250 mg PO DAILY [facility] Last Admin: 07/22/20 10:23 Dose: 250 mg Documented by: Allopurinol (Allopurinol 300 Mg Tab) 300 mg PO DAILY [facility] Last Admin: 07/22/20 08:07 Dose: 300 mg Documented by: Amiodarone HCl (Amiodarone 200 Mg Tab) 200 mg PO DAILY [facility] Last Admin: 07/22/20 08:07 Dose: 200 mg Documented by: Carvedilol (Carvedilol 6.25 Mg Tab) 12.5 mg PO BID-[facility] Last Admin: 07/22/20 08:07 Dose: 12.5 mg Documented by: Clonazepam (Clonazepam 1 Mg Tab) 2 mg PO HS PRN PRN Reason: Anxiety Last Admin: 07/21/20 21:49 Dose: 2 mg Documented by: Cyclobenzaprine HCl (Cyclobenzaprine 10 Mg Tab) 10 mg PO TID PRN PRN Reason: Muscle Spasm Last Admin: 07/22/20 08:13 Dose: 10 mg Documented by: Dextrose/Water (Dextrose 50% Abboject 50 Ml Syringe) 25 gm SLOW IVP PRN PRN PRN Reason: Hypoglycemia Digoxin (Digoxin 0.125 Mg Tab) 0.125 mg PO DAILY [facility] Last Admin: 07/22/20 08:07 Dose: 0.125 mg Documented by: Enoxaparin Sodium (Enoxaparin Sodium 40 Mg/0.4 Ml Syringe) 40 mg SC 0900 [facility] Last Admin: 07/22/20 08:09 Dose: 40 mg Documented by: Famotidine (Famotidine 20 Mg Tab) 20 mg PO BID [facility] Last Admin: 07/22/20 08:08 Dose: 20 mg Documented by: Furosemide (Furosemide 100 Mg/10 Ml Vial) 80 mg SLOW IVP BID [facility] Last Admin: 07/22/20 08:09 Dose: 80 mg Documented by: Glucagon (Glucagon 1 Mg/Ml Vial) 1 mg IM PRN PRN PRN Reason: Hypoglycemia Dextrose/Water (D5w) 1,000 mls @ 0 mls/hr IV .Q0M PRN PRN Reason: Hypoglycemia Milrinone Lactate/Dextrose 20 (mg/ Device) 100 mls @ 15.217 mls/hr IV INF [facility]; Protocol Last Admin: 07/22/20 07:13 Dose: 100 mls Documented by: Insulin Human Lispro (Humalog 300 Units/3 Ml Vial) 0 units SC .MILD SLIDING SCALE PRN PRN Reason: Mild Correctional Scale Last Admin: 07/22/20 06:09 Dose: 3 unit Documented by: Insulin Human Lispro (Humalog 300 Units/3 Ml Vial) 0 units SC .BEDTIME SLIDING SC PRN PRN Reason: Bedtime Correctional Scale Levothyroxine Sodium (Levothyroxine Sodium 50 Mcg Tab) 100 mcg PO 0600 [facility] Last Admin: 07/22/20 05:28 Dose: 100 mcg Documented by: Losartan Potassium (Losartan 25 Mg Tab) 25 mg PO DAILY [facility] Last Admin: 07/22/20 08:07 Dose: 25 mg Documented by: Miscellaneous Medication (Empagliflozin 10 Mg Tab) 10 mg PO DAILY [facility] Last Admin: 07/22/20 10:23 Dose: 10 mg Documented by: Ondansetron HCl (Ondansetron Pf 4 Mg/2 Ml Vial) 4 mg IVP Q6H PRN PRN Reason: Nausea/Vomiting Last Admin: 07/18/20 23:19 Dose: 4 mg Documented by: Patient's Home Medication Corlanor 7.5 Mg 0 each PO BID-[facility] Last Admin: 07/22/20 08:13 Dose: 1 each Documented by: Potassium Chloride (Potassium Chloride 20 Meq Tab) 40 meq PO BID [facility] Last Admin: 07/22/20 08:07 Dose: 40 meq Documented by: Prednisone (Prednisone 20 Mg Tab) 10 mg PO BID [facility] Last Admin: 07/22/20 08:07 Dose: 10 mg Documented by: Promethazine HCl (Promethazine 25 Mg Tab) 25 mg PO DAILY PRN PRN Reason: Nausea Last Admin: 07/19/20 12:55 Dose: 25 mg Documented by: Senna/Docusate Sodium (Senokot S 8.6-50 Mg Tab) 2 tab PO BID PRN PRN Reason: Constipation Sertraline HCl (Sertraline Hcl 100 Mg Tab) 100 mg PO DAILY [facility] Last Admin: 07/22/20 08:08 Dose: 100 mg Documented by: Sodium Chloride (Flush - Normal Saline 10 Ml Syringe) 10 ml IVF PRN PRN PRN Reason: Saline Flush Last Admin: 07/18/20 17:18 Dose: 10 ml Documented by: Spironolactone (Spironolactone 25 Mg Tab) 25 mg PO DAILY [facility] Last Admin: 07/22/20 08:13 Dose: 25 mg Documented by: Vital Signs & Weight: Vital Signs Temp Pulse Resp BP BP Pulse Ox 07/22/20 08:07 69 07/22/20 08:00 98.0 F 69 20 131/73 95 07/22/20 05:00 97.6 F 84 20 134/70 92 L Weight 305 lb 11.2 oz I/O: I/O 07/21/20 07/22/20 07/23/20 06:59 06:59 06:59 Intake Total 1710.9 1765 Output Total 11475 4100 Balance -75174.1 -2335 - Physical Exam General: alert & oriented x3, no apparent distress, speech clear, affect appropriate. negative: appears well HEENT: mucus membranes moist, normocephaly Neck: supple neck, midline trachea, JVD/HJR Cardiology: regular rate and rhythm, no murmur, PMI nondisplaced Lungs: decreased breath sounds, bibasilar rales Neurology: cranial nerve 2-12 intact, grossly intact, no lateralizing findings Abdomen: unremarkable, active bowel sounds, no pulsations/bruits Extremities: dry, strong pulses, warm - Labs Result Diagrams: 07/22/20 04:22 07/22/20 04:22 - EKG Interpretation EKG Method: Telemetry EKG shows: Sinus rhythm - Device Device: biventricular, defibrillator Device Result: [employer] - Assessment/Plan Assessment/Plan: 1. [employer] ICD 2. Non ischemic cardiomyopathy, sarc 3. CHF 4. hx of VT, sensitive to K <4 - on amiodarone chronically Continue amiodarone and K replacement to goal >4.0. [employer] ICD is functioning normally and reprogrammed to target BiV pacing instead of LV preference pacing. She developed advance AV block at some point and Dr Morin saw significant ventricular dyssynchrony on her echo when LV only pacing occurs. EP signing off. Will see back as OP 6 weeks post DC
--- NOTE | 2020-07-22 11:12 | PQF ---
CLINICAL DOCUMENTATION CLARIFICATION FORM: Dear Dr. Katerin CRAFT Date: 07/22/2020 2522 Please exercise your independent, professional judgment in responding to the clarification form. Clinical indicators are provided on the bottom of this form for your review. Please check appropriate box(es): [ ] Acute on chronic respiratory failure [ ] Chronic Respiratory failure only [x ] Other diagnosis acute on chronic systolic heart failure [ ] Unable to determine For continuity of documentation, please document condition throughout progress notes and discharge summary. Thank You. To be completed by CDI/Coding staff for physician review: CLINICAL INDICATORS - SIGNS / SYMPTOMS / LABS/ RESULTS AND LOCATION IN MR She does report an increase of shortness of breath. Evidently, she is on oxygen at home at about 2l and here, she had to be on 3.5 to maintain of O2 sats of 92%. Respiratory rate 30, (OBriant/H&P) 07/17 RISKS FACTORS / RESULTS AND LOCATION IN MR Acute on chronic systolic congestive heart failure, sarcoidosis, chest pain ( CIERRA/Sajan) 07/19 TREATMENT / RESULTS AND LOCATION IN MR Supplemental oxygen (07/17 present) Lasix IV (07/20- present) Thank you! CDS Signature: Estefany Ashraf RN Phone #: [phone] Date: 07/22/2020 This is a permanent part of the Medical Record [facility]
[2020-07-22] MEDS: clonazePAM 1 MG TAB PO PRN (23:19)
[2020-07-23] MEDS: HYDROcodone/Acetaminophen 10/325 mg Tablet PO PRN ×5 (02:02→21:07)
[2020-07-23] MEDS: Milrinone Lactate/D5W 20 MG in Premix Bag 1 BAG IV SCH ×4 (02:06→16:43)
[2020-07-23 04:34] LABS: #Eosinphils 0.1 thou/uL (0.0-0.7); #Lymphocytes 0.7 thou/uL (1.20-3.40); #Monocytes 1.2 thou/uL (0.11-0.59); #Neutrophils 8.2 thou/uL (1.40-6.50); %Basophils 0.2 % (0.0-1.0); %Eosinophils 1.4 % (0.0-10.0); %Lymphocytes 6.9 % (21.0-51.0); %Monocytes 11.6 % (0.0-10.0); %Neutrophils 79.9 % (42.0-75.0); Hemoglobin 11.8 g/dL (12.0-16.0); Mean Corpuscular HGB CONC 33.2 g/dL (32.0-36.0); Mean Corpuscular Volume 93.3 fL (78.0-98.0); Mean Platelet Volume 8.4 fL (7.4-10.4); Platelet Count 243 thou/uL (130-400); RBC Distribution Width 14.4 % (11.5-14.5); Red Blood Cell (RBC) Count 3.81 mill/uL (4.20-5.40); White Blood Cell (WBC) Count 10.3 thou/uL (4.8-10.8)
[2020-07-23 04:52] LABS: Anion Gap 16 mmol/L (10-20); BUN (Urea Nitrogen) 24 mg/dL (7.0-18.7); Calc. Creatinine Clearance 179 mL/min (70-130); Calcium 8.5 mg/dL (7.8-10.44); Carbon Dioxide 32 mmol/L (22-29); Chloride 94 mmol/L (98-107); Glucose 216 mg/dL (70-105); Potassium 3.7 mmol/L (3.5-5.1); Sodium 138 mmol/L (136-145)
[2020-07-23] MEDS: HumaLOG 300 UNITS/3 ML VIAL SC PRN ×2 (05:43→11:53)
[2020-07-23] MEDS: Levothyroxine Sodium 50 MCG TAB PO SCH (05:43)
[2020-07-23] MEDS: Famotidine 20 MG TAB PO SCH ×2 (08:34→21:07)
[2020-07-23] MEDS: Potassium Chloride 20 MEQ TAB PO SCH ×2 (08:34→21:05)
[2020-07-23] MEDS: AcetaZOLAMIDE 250 MG TAB PO SCH (08:34)
[2020-07-23] MEDS: Digoxin 0.125 MG TAB PO SCH (08:34)
[2020-07-23] MEDS: Losartan 25 MG TAB PO SCH (08:35)
[2020-07-23] MEDS: Allopurinol 300 MG TAB PO SCH (08:35)
[2020-07-23] MEDS: Spironolactone 25 MG TAB PO SCH (08:35)
[2020-07-23] MEDS: predniSONE 20 MG TAB PO SCH ×2 (08:35→21:06)
[2020-07-23] MEDS: Empagliflozin 10 MG TAB PO SCH (08:36)
[2020-07-23] MEDS: Carvedilol 6.25 MG TAB PO SCH ×2 (08:36→16:41)
[2020-07-23] MEDS: Enoxaparin Sodium 40 MG/0.4 ML SYRINGE SC SCH (08:37)
[2020-07-23] MEDS: Amiodarone 200 MG TAB PO SCH (08:37)
[2020-07-23] MEDS: Furosemide 100 MG/10 ML VIAL SLOW IVP SCH ×2 (08:37→21:08)
[2020-07-23] MEDS: CORLANOR 7.5 MG PO SCH ×2 (08:37→16:43)
[2020-07-23] MEDS ORDERED: Spironolactone 25 MG TAB PO SCH (10:00)
[2020-07-23] MEDS: Cyclobenzaprine 10 MG TAB PO PRN (11:51)
--- NOTE | 2020-07-23 15:35 | SPC ---
Ultrasound-guidedrightupper extremity PICC placement: 07/23/2020 HISTORY: IV access requested for intravenous cardiac drug therapy FINDINGS: Informed consent obtained prior to the procedure. Right antecubital fossa prepped and draped in normal sterile fashion. Skin overlying theright basilicvein anesthetized with 1% buffered lidocaine. With direct sonographic guidance, vascular access is obtained via the right basilicvein and an 0.018in wire was advanced to the cavoatrial junction. Intravascular length is calculated at 46 cm and of the PICC is cut according ly. Needle is removed and replaced with a peel-away sheath. The PICC was advanced over the wire. Wire and peel-away sheath were removed. The tip of the catheter overlies the cavoatrial junction. The port flushes well and the catheter is ready for use. The cardiac silhouette is prominent and there is hazy increased perihilar density which may reflect i nfiltrate, volume loss, or vascular prominence. Exposure data: 0.4 minutes of fluoroscopic time 6112 mGy per centimeter squared IMPRESSION: Successful ultrasound guided placement of a rightupper extremity PICC.
--- NOTE | 2020-07-23 18:14 | PDOC.HOSPP ---
- Subjective Encounter Date: 07/21/20 Encounter Time: 09:45 Subjective: Patient up in bed complains of pain all over her body. - Objective Vital Signs & Weight: Vital Signs (12 hours) Temp Pulse Resp BP BP Pulse Ox 07/23/20 15:49 98.0 F 57 L 14 133/62 96 07/23/20 11:59 98.5 F 53 L 16 132/66 93 L 07/23/20 08:34 73 07/23/20 08:00 92 L 07/23/20 07:45 96.9 F L 73 16 121/61 92 L Weight Weight 305 lb 9.6 oz I&O: 07/22/20 07/23/20 07/24/20 06:59 06:59 06:59 Intake Total 1765 1960 Output Total 4100 6000 Balance -3171 -1271 Result Diagrams: 07/23/20 03:50 07/23/20 03:50 Additional Labs: Accuchecks 07/23/20 07/23/20 07/23/20 16:59 10:37 05:31 POC Glucose 146 H 200 H 202 H 07/22/20 07/22/20 20:48 16:12 POC Glucose 181 H 232 H Hospitalist ROS - Review of Systems Respiratory: denies: cough, dry, shortness of breath, hemoptysis, SOB with excertion, pleuritic pain, sputum, wheezing, other Cardiovascular: denies: chest pain, palpitations, orthopnea, paroxysmal noc. dyspnea, edema, light headedness, other Musculoskeletal: reports: shoulder pain, arm pain, back pain - Medication Medications: Active Medications Generic Name Dose Route Start Last Admin Trade Name Freq PRN Reason Stop Dose Admin Acetaminophen 650 mg 07/17/20 20:17 07/21/20 01:32 Acetaminophen 325 Mg Tab PO 650 mg Q4H PRN Administration Headache/Fever/Mild Pain (1-3) Hydrocodone Bitart/Acetaminophen 1 tab 07/17/20 20:17 07/20/20 22:06 Hydrocodone/Acetaminophen 10/325 Mg Tablet PO 1 tab Q4H PRN Administration Moderate Pain (4-6) Hydrocodone Bitart/Acetaminophen 2 tab 07/17/20 20:17 07/23/20 16:41 Hydrocodone/Acetaminophen 10/325 Mg Tablet PO 2 tab Q4H PRN Administration Severe Pain (7-10) Acetazolamide 250 mg 07/22/20 09:00 07/23/20 08:34 Acetazolamide 250 Mg Tab PO 250 mg DAILY [facility] Administration Allopurinol 300 mg 07/18/20 09:00 07/23/20 08:35 Allopurinol 300 Mg Tab PO 300 mg DAILY [facility] Administration Amiodarone HCl 200 mg 07/18/20 09:00 07/23/20 08:37 Amiodarone 200 Mg Tab PO 200 mg DAILY [facility] Administration Carvedilol 12.5 mg 07/18/20 07:30 07/23/20 16:41 Carvedilol 6.25 Mg Tab PO 12.5 mg BID-AC [facility] Administration Clonazepam 2 mg 07/17/20 21:47 07/22/20 23:19 Clonazepam 1 Mg Tab PO 2 mg HS PRN Administration Anxiety Cyclobenzaprine HCl 10 mg 07/20/20 18:11 07/23/20 11:51 Cyclobenzaprine 10 Mg Tab PO 10 mg TID PRN Administration Muscle Spasm Digoxin 0.125 mg 07/18/20 09:00 07/23/20 08:34 Digoxin 0.125 Mg Tab PO 0.125 mg DAILY [facility] Administration Enoxaparin Sodium 40 mg 07/18/20 09:00 07/23/20 08:37 Enoxaparin Sodium 40 Mg/0.4 Ml Syringe SC 40 mg 0900 [facility] Administration Famotidine 20 mg 07/18/20 09:00 07/23/20 08:34 Famotidine 20 Mg Tab PO 20 mg BID [facility] Administration Furosemide 80 mg 07/20/20 21:00 07/23/20 08:37 Furosemide 100 Mg/10 Ml Vial SLOW IVP 80 mg BID [facility] Administration Milrinone Lactate/Dextrose 20 100 mls @ 15.217 mls/hr 07/20/20 17:00 07/23/20 16:43 mg/ Device IV 100 mls INF [facility] Administration Protocol 0.375 MCG/KG/MIN Insulin Human Lispro 0 units 07/17/20 21:28 07/23/20 11:53 Humalog 300 Units/3 Ml Vial SC 2 unit .MILD SLIDING SCALE PRN Administration Mild Correctional Scale Levothyroxine Sodium 100 mcg 07/18/20 06:00 07/23/20 05:43 Levothyroxine Sodium 50 Mcg Tab PO 100 mcg 0600 [facility] Administration Losartan Potassium 25 mg 07/21/20 09:00 07/23/20 08:35 Losartan 25 Mg Tab PO 25 mg DAILY [facility] Administration Miscellaneous Medication 10 mg 07/22/20 09:00 07/23/20 08:36 Empagliflozin 10 Mg Tab PO 10 mg DAILY [facility] Administration Ondansetron HCl 4 mg 07/17/20 19:25 07/18/20 23:19 Ondansetron Pf 4 Mg/2 Ml Vial IVP 4 mg Q6H PRN Administration Nausea/Vomiting Patient's Home 0 each 07/18/20 17:00 07/23/20 16:43 Medication Corlanor PO 1 each 7.5 Mg BID-[facility] Administration Potassium Chloride 40 meq 07/20/20 21:00 07/23/20 08:34 Potassium Chloride 20 Meq Tab PO 40 meq BID [facility] Administration Prednisone 10 mg 07/18/20 09:00 07/23/20 08:35 Prednisone 20 Mg Tab PO 10 mg BID [facility] Administration Promethazine HCl 25 mg 07/17/20 21:29 07/19/20 12:55 Promethazine 25 Mg Tab PO 25 mg DAILY PRN Administration Nausea Sertraline HCl 100 mg 07/18/20 09:00 07/23/20 08:34 Sertraline Hcl 100 Mg Tab PO 100 mg DAILY [facility] Administration Sodium Chloride 10 ml 07/17/20 20:17 07/18/20 17:18 Flush - Normal Saline 10 Ml Syringe IVF 10 ml PRN PRN Administration Saline Flush Hospitalist Exam Vitals: Vital Signs (12 hours) Temp Pulse Resp BP BP Pulse Ox 07/23/20 15:49 98.0 F 57 L 14 133/62 96 07/23/20 11:59 98.5 F 53 L 16 132/66 93 L 07/23/20 08:34 73 07/23/20 08:00 92 L 07/23/20 07:45 96.9 F L 73 16 121/61 92 L Weight Weight 305 lb 9.6 oz Neck: supple Heart: no murmur, no gallops Respiratory: no wheezes, no rales Gastrointestinal: soft, normal bowel sounds Extremities: 2+ LE edema Hosp A/P (1) Acute on chronic systolic CHF (congestive heart failure) Code(s): I50.23 - ACUTE ON CHRONIC SYSTOLIC (CONGESTIVE) HEART FAILURE Status: Acute (2) Chest pain Code(s): R07.9 - CHEST PAIN, UNSPECIFIED Status: Acute (3) DM (diabetes mellitus) Code(s): E11.9 - TYPE 2 DIABETES MELLITUS WITHOUT COMPLICATIONS Status: Acute (4) HLD (hyperlipidemia) Code(s): E78.5 - HYPERLIPIDEMIA, UNSPECIFIED Status: Acute (5) HTN (hypertension) Code(s): I10 - ESSENTIAL (PRIMARY) HYPERTENSION Status: Acute (6) Morbid obesity Code(s): E66.01 - MORBID (SEVERE) OBESITY DUE TO EXCESS CALORIES Status: Acute (7) Sarcoid Code(s): D86.9 - SARCOIDOSIS, UNSPECIFIED Status: Acute (8) Shortness of breath Code(s): R06.02 - SHORTNESS OF BREATH Status: Acute - Plan CTA did not show any acute PE. No fractures. Patient given diuretics we'll continue to monitor. Continue home medications 2/2 we'll consult heart failure physician Dr. Morin patient has significant lower extremity edema. She may require dobutamine or milrinone for symptom management. We'll also start patient on Flexeril since she cannot have NSAIDs. She does not want to take high doses of steroids. 2/3 patient currently on milrinone drip will continue to follow along. Will rocio ck labs in a.m. Patient's ICD was reprogrammed.
--- NOTE | 2020-07-23 18:16 | PDOC.HOSPP ---
- Subjective Encounter Date: 07/22/20 Encounter Time: 10:30 Subjective: Patient up in chair no complaints - Objective Vital Signs & Weight: Vital Signs (12 hours) Temp Pulse Resp BP BP Pulse Ox 07/23/20 15:49 98.0 F 57 L 14 133/62 96 07/23/20 11:59 98.5 F 53 L 16 132/66 93 L 07/23/20 08:34 73 07/23/20 08:00 92 L 07/23/20 07:45 96.9 F L 73 16 121/61 92 L Weight Weight 305 lb 9.6 oz I&O: 07/22/20 07/23/20 07/24/20 06:59 06:59 06:59 Intake Total 1765 1960 Output Total 4100 6000 Balance -4390 -1262 Result Diagrams: 07/23/20 03:50 07/23/20 03:50 Additional Labs: Accuchecks 07/23/20 07/23/20 07/23/20 16:59 10:37 05:31 POC Glucose 146 H 200 H 202 H 07/22/20 07/22/20 20:48 16:12 POC Glucose 181 H 232 H Hospitalist ROS - Review of Systems Cardiovascular: denies: chest pain, palpitations, orthopnea, paroxysmal noc. dyspnea, edema, light headedness, other Gastrointestinal: denies: nausea, vomiting, abdominal pain, diarrhea, constipation, melena, hematochezia, other Genitourinary: denies: dysuria, frequency, incontinence, hematuria, retention, other - Medication Medications: Active Medications Generic Name Dose Route Start Last Admin Trade Name Zakq PRN Reason Stop Dose Admin Acetaminophen 650 mg 07/17/20 20:17 07/21/20 01:32 Acetaminophen 325 Mg Tab PO 650 mg Q4H PRN Administration Headache/Fever/Mild Pain (1-3) Hydrocodone Bitart/Acetaminophen 1 tab 07/17/20 20:17 07/20/20 22:06 Hydrocodone/Acetaminophen 10/325 Mg Tablet PO 1 tab Q4H PRN Administration Moderate Pain (4-6) Hydrocodone Bitart/Acetaminophen 2 tab 07/17/20 20:17 07/23/20 16:41 Hydrocodone/Acetaminophen 10/325 Mg Tablet PO 2 tab Q4H PRN Administration Severe Pain (7-10) Acetazolamide 250 mg 07/22/20 09:00 07/23/20 08:34 Acetazolamide 250 Mg Tab PO 250 mg DAILY RANDAL Administration Allopurinol 300 mg 07/18/20 09:00 07/23/20 08:35 Allopurinol 300 Mg Tab PO 300 mg DAILY RANDAL Administration Amiodarone HCl 200 mg 07/18/20 09:00 07/23/20 08:37 Amiodarone 200 Mg Tab PO 200 mg DAILY RANDAL Administration Carvedilol 12.5 mg 07/18/20 07:30 07/23/20 16:41 Carvedilol 6.25 Mg Tab PO 12.5 mg BID-AC RANDAL Administration Clonazepam 2 mg 07/17/20 21:47 07/22/20 23:19 Clonazepam 1 Mg Tab PO 2 mg HS PRN Administration Anxiety Cyclobenzaprine HCl 10 mg 07/20/20 18:11 07/23/20 11:51 Cyclobenzaprine 10 Mg Tab PO 10 mg TID PRN Administration Muscle Spasm Digoxin 0.125 mg 07/18/20 09:00 07/23/20 08:34 Digoxin 0.125 Mg Tab PO 0.125 mg DAILY RANDAL Administration Enoxaparin Sodium 40 mg 07/18/20 09:00 07/23/20 08:37 Enoxaparin Sodium 40 Mg/0.4 Ml Syringe SC 40 mg 0900 [facility] Administration Famotidine 20 mg 07/18/20 09:00 07/23/20 08:34 Famotidine 20 Mg Tab PO 20 mg BID RANDAL Administration Furosemide 80 mg 07/20/20 21:00 07/23/20 08:37 Furosemide 100 Mg/10 Ml Vial SLOW IVP 80 mg BID [facility] Administration Milrinone Lactate/Dextrose 20 100 mls @ 15.217 mls/hr 07/20/20 17:00 07/23/20 16:43 mg/ Device IV 100 mls INF [facility] Administration Protocol 0.375 MCG/KG/MIN Insulin Human Lispro 0 units 07/17/20 21:28 07/23/20 11:53 Humalog 300 Units/3 Ml Vial SC 2 unit .MILD SLIDING SCALE PRN Administration Mild Correctional Scale Levothyroxine Sodium 100 mcg 07/18/20 06:00 07/23/20 05:43 Levothyroxine Sodium 50 Mcg Tab PO 100 mcg 0600 [facility] Administration Losartan Potassium 25 mg 07/21/20 09:00 07/23/20 08:35 Losartan 25 Mg Tab PO 25 mg DAILY RANDAL Administration Miscellaneous Medication 10 mg 07/22/20 09:00 07/23/20 08:36 Empagliflozin 10 Mg Tab PO 10 mg DAILY RANDAL Administration Ondansetron HCl 4 mg 07/17/20 19:25 07/18/20 23:19 Ondansetron Pf 4 Mg/2 Ml Vial IVP 4 mg Q6H PRN Administration Nausea/Vomiting Patient's Home 0 each 07/18/20 17:00 07/23/20 16:43 Medication Corlanor PO 1 each 7.5 Mg BID-WM RANDAL Administration Potassium Chloride 40 meq 07/20/20 21:00 07/23/20 08:34 Potassium Chloride 20 Meq Tab PO 40 meq BID RANDAL Administration Prednisone 10 mg 07/18/20 09:00 07/23/20 08:35 Prednisone 20 Mg Tab PO 10 mg BID RANDAL Administration Promethazine HCl 25 mg 07/17/20 21:29 07/19/20 12:55 Promethazine 25 Mg Tab PO 25 mg DAILY PRN Administration Nausea Sertraline HCl 100 mg 07/18/20 09:00 07/23/20 08:34 Sertraline Hcl 100 Mg Tab PO 100 mg DAILY RANDAL Administration Sodium Chloride 10 ml 07/17/20 20:17 07/18/20 17:18 Flush - Normal Saline 10 Ml Syringe IVF 10 ml PRN PRN Administration Saline Flush Hospitalist Exam Vitals: Vital Signs (12 hours) Temp Pulse Resp BP BP Pulse Ox 07/23/20 15:49 98.0 F 57 L 14 133/62 96 07/23/20 11:59 98.5 F 53 L 16 132/66 93 L 07/23/20 08:34 73 07/23/20 08:00 92 L 07/23/20 07:45 96.9 F L 73 16 121/61 92 L Weight Weight 305 lb 9.6 oz Neck: supple Heart: no murmur Respiratory: CTAB, no wheezes, normal percussion Gastrointestinal: soft, non-tender, normal bowel sounds Extremities: 2+ LE edema Hosp A/P (1) Acute on chronic systolic CHF (congestive heart failure) Code(s): I50.23 - ACUTE ON CHRONIC SYSTOLIC (CONGESTIVE) HEART FAILURE Status: Acute (2) Chest pain Code(s): R07.9 - CHEST PAIN, UNSPECIFIED Status: Acute (3) DM (diabetes mellitus) Code(s): E11.9 - TYPE 2 DIABETES MELLITUS WITHOUT COMPLICATIONS Status: Acute (4) HLD (hyperlipidemia) Code(s): E78.5 - HYPERLIPIDEMIA, UNSPECIFIED Status: Acute (5) HTN (hypertension) Code(s): I10 - ESSENTIAL (PRIMARY) HYPERTENSION Status: Acute (6) Morbid obesity Code(s): E66.01 - MORBID (SEVERE) OBESITY DUE TO EXCESS CALORIES Status: Acute (7) Sarcoid Code(s): D86.9 - SARCOIDOSIS, UNSPECIFIED Status: Acute (8) Shortness of breath Code(s): R06.02 - SHORTNESS OF BREATH Status: Acute - Plan CTA did not show any acute PE. No fractures. Patient given diuretics we'll cont inue to monitor. Continue home medications 2/2 we'll consult heart failure physician Dr. Morin patient has significant lower extremity edema. She may require dobutamine or milrinone for symptom management. We'll also start patient on Flexeril since she cannot have NSAIDs. She does not want to take high doses of steroids. 07/21 patient currently on milrinone drip will continue to follow along. Will check labs in a.m. Patient's ICD was reprogrammed. 07/22 we will continue to diurese the patient. Patient continues to be on milrinone drip. Her lower extremity swelling has still not improved.
--- NOTE | 2020-07-23 18:18 | PDOC.HOSPP ---
- Subjective Encounter Date: 07/23/20 Encounter Time: 10:30 Subjective: Up in chair no complaints. - Objective Vital Signs & Weight: Vital Signs (12 hours) Temp Pulse Resp BP BP Pulse Ox 07/23/20 15:49 98.0 F 57 L 14 133/62 96 07/23/20 11:59 98.5 F 53 L 16 132/66 93 L 07/23/20 08:34 73 07/23/20 08:00 92 L 07/23/20 07:45 96.9 F L 73 16 121/61 92 L Weight Weight 305 lb 9.6 oz I&O: 07/22/20 07/23/20 07/24/20 06:59 06:59 06:59 Intake Total 1765 1960 Output Total 4100 6000 Balance -0857 -9215 Result Diagrams: 07/23/20 03:50 07/23/20 03:50 Additional Labs: Accuchecks 07/23/20 07/23/20 07/23/20 16:59 10:37 05:31 POC Glucose 146 H 200 H 202 H 07/22/20 07/22/20 20:48 16:12 POC Glucose 181 H 232 H Hospitalist ROS - Review of Systems Cardiovascular: denies: chest pain, palpitations, orthopnea, paroxysmal noc. dyspnea, edema, light headedness, other Gastrointestinal: denies: nausea, vomiting, abdominal pain, diarrhea, constipation, melena, hematochezia, other Genitourinary: denies: dysuria, frequency, incontinence, hematuria, retention, other - Medication Medications: Active Medications Generic Name Dose Route Start Last Admin Trade Name Zakq PRN Reason Stop Dose Admin Acetaminophen 650 mg 07/17/20 20:17 07/21/20 01:32 Acetaminophen 325 Mg Tab PO 650 mg Q4H PRN Administration Headache/Fever/Mild Pain (1-3) Hydrocodone Bitart/Acetaminophen 1 tab 07/17/20 20:17 07/20/20 22:06 Hydrocodone/Acetaminophen 10/325 Mg Tablet PO 1 tab Q4H PRN Administration Moderate Pain (4-6) Hydrocodone Bitart/Acetaminophen 2 tab 07/17/20 20:17 07/23/20 16:41 Hydrocodone/Acetaminophen 10/325 Mg Tablet PO 2 tab Q4H PRN Administration Severe Pain (7-10) Acetazolamide 250 mg 07/22/20 09:00 07/23/20 08:34 Acetazolamide 250 Mg Tab PO 250 mg DAILY RANDAL Administration Allopurinol 300 mg 07/18/20 09:00 07/23/20 08:35 Allopurinol 300 Mg Tab PO 300 mg DAILY RANDAL Administration Amiodarone HCl 200 mg 07/18/20 09:00 07/23/20 08:37 Amiodarone 200 Mg Tab PO 200 mg DAILY RANDAL Administration Carvedilol 12.5 mg 07/18/20 07:30 07/23/20 16:41 Carvedilol 6.25 Mg Tab PO 12.5 mg BID-AC RANDAL Administration Clonazepam 2 mg 07/17/20 21:47 07/22/20 23:19 Clonazepam 1 Mg Tab PO 2 mg HS PRN Administration Anxiety Cyclobenzaprine HCl 10 mg 07/20/20 18:11 07/23/20 11:51 Cyclobenzaprine 10 Mg Tab PO 10 mg TID PRN Administration Muscle Spasm Digoxin 0.125 mg 07/18/20 09:00 07/23/20 08:34 Digoxin 0.125 Mg Tab PO 0.125 mg DAILY RANDAL Administration Enoxaparin Sodium 40 mg 07/18/20 09:00 07/23/20 08:37 Enoxaparin Sodium 40 Mg/0.4 Ml Syringe SC 40 mg 0900 [facility] Administration Famotidine 20 mg 07/18/20 09:00 07/23/20 08:34 Famotidine 20 Mg Tab PO 20 mg BID RANDAL Administration Furosemide 80 mg 07/20/20 21:00 07/23/20 08:37 Furosemide 100 Mg/10 Ml Vial SLOW IVP 80 mg BID [facility] Administration Milrinone Lactate/Dextrose 20 100 mls @ 15.217 mls/hr 07/20/20 17:00 07/23/20 16:43 mg/ Device IV 100 mls INF [facility] Administration Protocol 0.375 MCG/KG/MIN Insulin Human Lispro 0 units 07/17/20 21:28 07/23/20 11:53 Humalog 300 Units/3 Ml Vial SC 2 unit .MILD SLIDING SCALE PRN Administration Mild Correctional Scale Levothyroxine Sodium 100 mcg 07/18/20 06:00 07/23/20 05:43 Levothyroxine Sodium 50 Mcg Tab PO 100 mcg 0600 [facility] Administration Losartan Potassium 25 mg 07/21/20 09:00 07/23/20 08:35 Losartan 25 Mg Tab PO 25 mg DAILY RANDAL Administration Miscellaneous Medication 10 mg 07/22/20 09:00 07/23/20 08:36 Empagliflozin 10 Mg Tab PO 10 mg DAILY RANDAL Administration Ondansetron HCl 4 mg 07/17/20 19:25 07/18/20 23:19 Ondansetron Pf 4 Mg/2 Ml Vial IVP 4 mg Q6H PRN Administration Nausea/Vomiting Patient's Home 0 each 07/18/20 17:00 07/23/20 16:43 Medication Corlanor PO 1 each 7.5 Mg BID-WM RANDAL Administration Potassium Chloride 40 meq 07/20/20 21:00 07/23/20 08:34 Potassium Chloride 20 Meq Tab PO 40 meq BID RANDAL Administration Prednisone 10 mg 07/18/20 09:00 07/23/20 08:35 Prednisone 20 Mg Tab PO 10 mg BID RANDAL Administration Promethazine HCl 25 mg 07/17/20 21:29 07/19/20 12:55 Promethazine 25 Mg Tab PO 25 mg DAILY PRN Administration Nausea Sertraline HCl 100 mg 07/18/20 09:00 07/23/20 08:34 Sertraline Hcl 100 Mg Tab PO 100 mg DAILY RANDAL Administration Sodium Chloride 10 ml 07/17/20 20:17 07/18/20 17:18 Flush - Normal Saline 10 Ml Syringe IVF 10 ml PRN PRN Administration Saline Flush Hospitalist Exam Vitals: Vital Signs (12 hours) Temp Pulse Resp BP BP Pulse Ox 07/23/20 15:49 98.0 F 57 L 14 133/62 96 07/23/20 11:59 98.5 F 53 L 16 132/66 93 L 07/23/20 08:34 73 07/23/20 08:00 92 L 07/23/20 07:45 96.9 F L 73 16 121/61 92 L Weight Weight 305 lb 9.6 oz Neck: supple Heart: no murmur Respiratory: no wheezes, normal chest expansion Gastrointestinal: soft, non-tender, normal bowel sounds Extremities: 2+ LE edema Hosp A/P (1) Acute on chronic systolic CHF (congestive heart failure) Code(s): I50.23 - ACUTE ON CHRONIC SYSTOLIC (CONGESTIVE) HEART FAILURE Status: Acute (2) Chest pain Code(s): R07.9 - CHEST PAIN, UNSPECIFIED Status: Acute (3) DM (diabetes mellitus) Code(s): E11.9 - TYPE 2 DIABETES MELLITUS WITHOUT COMPLICATIONS Status: Acute (4) HLD (hyperlipidemia) Code(s): E78.5 - HYPERLIPIDEMIA, UNSPECIFIED Status: Acute (5) HTN (hypertension) Code(s): I10 - ESSENTIAL (PRIMARY) HYPERTENSION Status: Acute (6) Morbid obesity Code(s): E66.01 - MORBID (SEVERE) OBESITY DUE TO EXCESS CALORIES Status: Acute (7) Sarcoid Code(s): D86.9 - SARCOIDOSIS, UNSPECIFIED Status: Acute (8) Shortness of breath Code(s): R06.02 - SHORTNESS OF BREATH Status: Acute - Plan CTA did not show any acute PE. No fractures. Patient given diuretics we'll continue to monitor. Continue home medications 2 we'll consult heart failure physician Dr. Morin patient has significant lower extremity edema. She may require dobutamine or milrinone for symptom management. We'll also start patient on Flexeril since she cannot have NSAIDs. She does not want to take high doses of steroids. 07/21 patient currently on milrinone drip will continue to follow along. Will check labs in a.m. Patient's ICD was reprogrammed. 07/22 we will continue to diurese the patient. Patient continues to be on milrinone drip. Her lower extremity swelling has still not improved. 07/23 patient overall doing well. Continues to have lower extremity swelling. She is diuresing well. We will check labs in a.m.
[2020-07-23] MEDS: clonazePAM 1 MG TAB PO PRN (21:16)
[2020-07-24] MEDS: HYDROcodone/Acetaminophen 10/325 mg Tablet PO PRN ×3 (01:16→15:43)
[2020-07-24] MEDS: Milrinone Lactate/D5W 20 MG in Premix Bag 1 BAG IV SCH ×3 (01:19→15:38)
[2020-07-24 04:30] LABS: #Eosinphils 0.2 thou/uL (0.0-0.7); #Lymphocytes 0.8 thou/uL (1.20-3.40); #Monocytes 1.2 thou/uL (0.11-0.59); %Basophils 0.2 % (0.0-1.0); %Eosinophils 1.8 % (0.0-10.0); %Lymphocytes 6.8 % (21.0-51.0); %Monocytes 10.7 % (0.0-10.0); %Neutrophils 80.5 % (42.0-75.0); Hemoglobin 12.1 g/dL (12.0-16.0); Mean Corpuscular HGB CONC 32.9 g/dL (32.0-36.0); Mean Corpuscular Hemoglobin 30.8 pg (27.0-31.0); Mean Corpuscular Volume 93.6 fL (78.0-98.0); Mean Platelet Volume 8.2 fL (7.4-10.4); Platelet Count 260 thou/uL (130-400); RBC Distribution Width 14.3 % (11.5-14.5); Red Blood Cell (RBC) Count 3.94 mill/uL (4.20-5.40); White Blood Cell (WBC) Count 11.2 thou/uL (4.8-10.8)
[2020-07-24 04:52] LABS: Anion Gap 16 mmol/L (10-20); BUN (Urea Nitrogen) 22 mg/dL (7.0-18.7); Calc. Creatinine Clearance 176 mL/min (70-130); Calcium 8.9 mg/dL (7.8-10.44); Carbon Dioxide 31 mmol/L (22-29); Chloride 93 mmol/L (98-107); Glucose 225 mg/dL (70-105); Potassium 3.5 mmol/L (3.5-5.1); Sodium 136 mmol/L (136-145)
[2020-07-24] MEDS: Levothyroxine Sodium 50 MCG TAB PO SCH (05:25)
--- NOTE | 2020-07-24 05:36 | PRG ---
DATE OF SERVICE: 07/23/2020 SUBJECTIVE: Ms. Vaughn had a stable day. She said that she is still breathing well. Slightly increasing energy level in comparison before admission. However, she still feels generally very fatigued. She still has quite a bit of lower extremity edema along her feet. However, the nurses are reporting that she has been asking for a lot of fluids including broth. REVIEW OF SYSTEMS: GENERAL: There are no fever, chills, or productive cough. HEENT: There is no change in vision, hearing, swallowing. PULMONARY: Please see HPI. CARDIAC: There is no chest pain, palpitations, or syncope. GI: There is no nausea, vomiting, or diarrhea. : She is able to ambulate to the commode use on her own. MUSCULOSKELETAL: There are no severe muscle or joint pains. INTEGUMENT: There is no skin breakdown. Please see HPI for her feet. NEUROLOGIC: There are no focal deficits or weaknesses. CURRENT MEDICATIONS: Include: 1. Acetazolamide 250 mg daily. 2. Allopurinol 300 mg daily. 3. Amiodarone 200 mg daily. 4. Carvedilol 12.5 mg daily. 5. Digoxin 0.125 mg daily. 6. Enoxaparin 40 mg subcutaneous daily. 7. Famotidine 20 mg b.i.d. 8. Furosemide 80 mg IV b.i.d. 9. Sliding scale insulin. 10. Levothyroxine 100 mcg daily. 11. Losartan 25 mg daily. 12. Milrinone currently at 0.375 mcg/kg/minute. 13. Jardiance which is empagliflozin at 10 mg daily. 14. Ivabradine 7.5 mg daily. 15. Potassium chloride 40 mEq daily. 16. Prednisone 10 mg b.i.d. 17. Sertraline, which is Zoloft at 100 mg daily. 18. Spironolactone 25 mg daily. Telemetry was reviewed. It showed majority of A-sensed, V-paced rhythm. However, there is occasional [place] beat on its own, other than that, there is no arrhythmia. PHYSICAL EXAMINATION: VITAL SIGNS: Her vital signs from this morning, heart rate 73, blood pressure 121/61. However, when I was in her room, her systolic blood pressure is actually 132. GENERAL: She is alert and conversational, sitting comfortable in a chair. HEENT: Show EOMI. Oropharynx is benign with moist mucosa. NECK: She has a large diameter neck. Her JVP is at least 11 or 12 cm. PULMONARY: She has good air movement. However, there are slight crackles at the left base. CARDIAC: Regular rate and rhythm with normal S1, S2. There is 2/6 holosystolic murmur at the apex. ABDOMEN: Large, soft, some mild tenderness. There is a large ventral hernia. EXTREMITIES: Lower extremities, she has extraordinarily greater than 2 cm pitting edema above her feet. However, she has greater than 1 cm pitting edema up to above her knees. She has pitting edema up to her thighs. However, the pitting edema above her hips right now gone. LABORATORY DATA: Her 24-hour input and output are 1960 mL in and 6000 mL out. Thus, she has a net negative of 4 L. Her chemistries today are sodium 138, potassium 3.7, chloride 94, bicarb at 32, BUN 24, creatinine 0.84, but she has preserved renal function. ASSESSMENT: 50-year-old lady resides [place] Heart Association stage D, [place] Heart Association Class 3B heart failure with reduced ejection fraction. Her LVEF is only 20%. She has both systolic and diastolic dysfunction. Currently, Milrinone at 0.375 mcg/kg/minute is providing sufficient cardiac output and Lasix 80 mg IV b.i.d. along with acetazolamide, and spironolactone is providing quite a bit of urine output. However, she continues to be volume overloaded. So, we will need to increase sustained diuresis while preserving her renal function. In long-term nava, she likely will need chronic milrinone infusion. RECOMMENDATIONS: 1. Continue milrinone 0.375 mcg/kg/minute for now. 2. Increase spironolactone to 50 mg daily. This will help with more sustained diuresis while preserving her potassium. 3. Please feel free to use DARIA hoses. If that does not work, we will need to consult Wound Care with combination of ultrasound to make sure her vessels are okay and do compression wrapping that will be next. 4. If it is insufficient in the next two days, we will need to increase milrinone 0.5 mcg/kg/minute and also increase the frequency of Lasix to three times a day. For now, we will continue with twice a day especially that she is putting of 6000 mL per day. 5. Please place PICC because she will likely need to have a chronic milrinone infusion. It has been a pleasure taking care of Ms. Vaughn. If any questions, please give me a call. Total visitation time 40 minutes today. Job ID: [id number] MTDD
[2020-07-24] MEDS: HumaLOG 300 UNITS/3 ML VIAL SC PRN ×3 (06:23→17:24)
[2020-07-24] MEDS: Empagliflozin 10 MG TAB PO SCH (08:28)
[2020-07-24] MEDS: Digoxin 0.125 MG TAB PO SCH (08:28)
[2020-07-24] MEDS: Furosemide 100 MG/10 ML VIAL SLOW IVP SCH ×3 (08:28→22:14)
[2020-07-24] MEDS: Enoxaparin Sodium 40 MG/0.4 ML SYRINGE SC SCH (08:28)
[2020-07-24] MEDS: predniSONE 20 MG TAB PO SCH ×2 (08:29→22:16)
[2020-07-24] MEDS: Famotidine 20 MG TAB PO SCH ×2 (08:29→22:16)
[2020-07-24] MEDS: Potassium Chloride 20 MEQ TAB PO SCH ×3 (08:29→22:15)
[2020-07-24] MEDS: Spironolactone 25 MG TAB PO SCH (08:30)
[2020-07-24] MEDS: AcetaZOLAMIDE 250 MG TAB PO SCH (08:31)
[2020-07-24] MEDS: Amiodarone 200 MG TAB PO SCH (08:31)
[2020-07-24] MEDS: Losartan 25 MG TAB PO SCH (08:31)
[2020-07-24] MEDS: Allopurinol 300 MG TAB PO SCH (08:31)
[2020-07-24] MEDS: Carvedilol 6.25 MG TAB PO SCH ×2 (08:31→16:04)
[2020-07-24] MEDS: CORLANOR 7.5 MG PO SCH ×2 (08:32→17:22)
[2020-07-24] MEDS: Cyclobenzaprine 10 MG TAB PO PRN (11:07)
[2020-07-24] MEDS: Lidocaine 5% Patch TD SCH (11:07)
[2020-07-24] MEDS ORDERED: Magnesium 2 GM/50 ML 2 GM in Premix Bag 1 BAG IVPB SCH (12:45)
--- NOTE | 2020-07-24 12:48 | PRG ---
DATE OF SERVICE: 07/24/2020 SERVICE: Advanced Heart Failure Transplant Cardiology Consult Service SUBJECTIVE: Ms. Vaughn had a variable day. She did have significant urine output. However, her bilateral feet continues to hurt. DARIA hose was tried. She said that it did not make her feel good. In general, she is still weak overall, however, she is breathing easily. REVIEW OF SYSTEMS: GENERAL: There is no fever, chills, or productive cough. HEENT: There is no change in vision, hearing, or swallowing. PULMONARY: See HPI. CARDIAC: There is no chest pain, palpitations, or syncope. GI: There is no nausea, vomiting, diarrhea. : She is able to urinate on her own. MUSCULOSKELETAL: She is complaining of bilateral lower extremity pain. INTEGUMENT: There is no skin breakdown. However, she has complaints of swelling in her bilateral feet. NEUROLOGIC: There are no focal deficits or weaknesses. Telemetry was reviewed. She is seemingly in A-sensed V-paced rhythm. There is no concerning arrhythmia. PHYSICAL EXAMINATION: VITAL SIGNS: Her most recent vitals include heart rate 70, blood pressure 126/62. GENERAL: She is alert, conversational, reclining in bed uncomfortable due to leg pain in a recliner. HEENT: EOMI. Oropharynx is benign. NECK: Her JVP is about 11 cm. PULMONARY: There is good air movement bilateral. There are no crackles bilaterally. CARDIAC: Regular rate and rhythm with normal S1, S2. There is 2/6 holosystolic murmur near the apex. ABDOMEN: Large, soft, mild tenderness, but then this is chronic. MUSCULOSKELETAL: Right hip; she has some slight hip edema. LOWER EXTREMITIES She has greater than 2 cm pitting edema from feet all the way to above the knees. There is still edema about her thighs. LABORATORY VALUES: This morning are sodium 133, potassium 3.5, chloride 93, bicarb 31, BUN 22, creatinine 0.85, and glucose of 205 and magnesium 1.8. ASSESSMENT: 50-year-old lady remains in AHA likely stage C, [place] Heart Association class 3B heart failure with reduced ejection fraction. Her LVEF is 20%. However, her right ventricle is intact. Her input was 1942 and her output was 2400 yesterday, so thus, even though she is net negative to be lesser extent than day before, thus we will need to intensify her active diuresis. She remains in severe volume overloaded state. We will also need to make sure she does not have a DVT and then will be careful with her electrolytes to make sure potassium is at a sufficient level to prevent ventricular tachycardia. Please see my recommendations. RECOMMENDATIONS 1. Increase frequency of Lasix 80 mg to IV 3 times a day. 2. Increase frequency of K-Dur 40 mEq to 3 times a day. 3. Please do bilateral venous Doppler ultrasound to rule out DVT. 4. Increase Milrinone to 0.5 mcg/kg minute. 5. Provide fentanyl 50 mcg IV q.6 hours p.r.n. as needed for pain. It has been a pleasure taking care of Ms. Vaughn. If you have any question, please give me a call. The total visitation time is 40 minutes. Job ID: [id number] MTDD
[2020-07-24] MEDS: Fentanyl 100 MCG/2 ML VIAL SLOW IVP PRN ×2 (12:53→22:09)
--- NOTE | 2020-07-24 13:58 | ULT ---
BILATERAL LOWER EXTREMITY VENOUS DOPPLER ULTRASOUND: 07/24/20 HISTORY: Bilateral lower extremity edema. TECHNIQUE: Blunt scale, color flow and spectral Doppler imaging of the deep venous system of the lower extremitie s is performed bilaterally. FINDINGS: There is good flow, compression, and augmentation noted in the common femoral, femoral, deep femoral, popliteal, posterior tibial, greater saphenous veins. IMPRESSION: No evidence of DVT in either lower extremity. POS: [id number]
--- NOTE | 2020-07-24 18:28 | PDOC.HOSPP ---
- Subjective Encounter Date: 07/24/20 Encounter Time: 11:00 Subjective: Seen for follow-up regarding CHF exacerbation. Complains of bilateral lower extremity swelling. - Objective Vital Signs & Weight: Vital Signs (12 hours) Temp Pulse Resp BP Pulse Ox 07/24/20 15:00 97.9 F 56 L 15 136/67 96 07/24/20 11:35 97.8 F 59 L 15 116/56 L 97 07/24/20 08:00 98.0 F 70 19 126/62 93 L Weight Admit Weight 295 lb 12.8 oz Weight 303 lb I&O: 07/23/20 07/24/20 07/25/20 06:59 06:59 06:59 Intake Total 1960 1942.6 Output Total 6000 2400 Balance -4040 -457.4 Result Diagrams: 07/24/20 03:47 07/24/20 03:47 Additional Labs: Accuchecks 07/24/20 07/24/20 07/24/20 16:07 10:33 06:18 POC Glucose 179 H 216 H 204 H 07/23/20 20:53 POC Glucose 176 H I reviewed patient's labs and MAR EKG Reviewed by me: Yes (V paced rhythm on telemetry) Hospitalist ROS - Review of Systems Respiratory: reports: SOB with excertion Cardiovascular: reports: chest pain, edema. denies: palpitations, orthopnea, paroxysmal noc. dyspnea, light headedness Gastrointestinal: denies: nausea, vomiting, abdominal pain, diarrhea, constipation, melena, hematochezia - Medication Medications: Active Medications Generic Name Dose Route Start Last Admin Trade Name Zakq PRN Reason Stop Dose Admin Acetaminophen 650 mg 07/17/20 20:17 07/21/20 01:32 Acetaminophen 325 Mg Tab PO 650 mg Q4H PRN Administration Headache/Fever/Mild Pain (1-3) Hydrocodone Bitart/Acetaminophen 1 tab 07/17/20 20:17 07/20/20 22:06 Hydrocodone/Acetaminophen 10/325 Mg Tablet PO 1 tab Q4H PRN Administration Moderate Pain (4-6) Hydrocodone Bitart/Acetaminophen 2 tab 07/17/20 20:17 07/24/20 15:43 Hydrocodone/Acetaminophen 10/325 Mg Tablet PO 2 tab Q4H PRN Administration Severe Pain (7-10) Acetazolamide 250 mg 07/22/20 09:00 07/24/20 08:31 Acetazolamide 250 Mg Tab PO 250 mg DAILY RANDAL Administration Allopurinol 300 mg 07/18/20 09:00 07/24/20 08:31 Allopurinol 300 Mg Tab PO 300 mg DAILY RANDAL Administration Amiodarone HCl 200 mg 07/18/20 09:00 07/24/20 08:31 Amiodarone 200 Mg Tab PO 200 mg DAILY RANDAL Administration Carvedilol 12.5 mg 07/18/20 07:30 07/24/20 16:04 Carvedilol 6.25 Mg Tab PO Not Given BID-AC [facility] Clonazepam 2 mg 07/17/20 21:47 07/23/20 21:16 Clonazepam 1 Mg Tab PO 2 mg HS PRN Administration Anxiety Cyclobenzaprine HCl 10 mg 07/20/20 18:11 07/24/20 11:07 Cyclobenzaprine 10 Mg Tab PO 10 mg TID PRN Administration Muscle Spasm Digoxin 0.125 mg 07/18/20 09:00 07/24/20 08:28 Digoxin 0.125 Mg Tab PO 0.125 mg DAILY RANDAL Administration Enoxaparin Sodium 40 mg 07/18/20 09:00 07/24/20 08:28 Enoxaparin Sodium 40 Mg/0.4 Ml Syringe SC 40 mg 0900 [facility] Administration Famotidine 20 mg 07/18/20 09:00 07/24/20 08:29 Famotidine 20 Mg Tab PO 20 mg BID RANDAL Administration Fentanyl 50 mcg 07/24/20 12:38 07/24/20 12:53 Fentanyl 100 Mcg/2 Ml Vial SLOW IVP 50 mcg Q6H PRN Administration Moderate to Severe Pain (6-10) Furosemide 80 mg 07/24/20 15:00 07/24/20 15:41 Furosemide 100 Mg/10 Ml Vial SLOW IVP 80 mg TID RANDAL Administration Milrinone Lactate/Dextrose 20 100 mls @ 20.289 mls/hr 07/20/20 17:00 07/24/20 15:38 mg/ Device IV 100 mls INF RANDAL Administration Protocol 0.5 MCG/KG/MIN Insulin Human Lispro 0 units 07/17/20 21:28 07/24/20 17:24 Humalog 300 Units/3 Ml Vial SC 2 unit .MILD SLIDING SCALE PRN Administration Mild Correctional Scale Levothyroxine Sodium 100 mcg 07/18/20 06:00 07/24/20 05:25 Levothyroxine Sodium 50 Mcg Tab PO 100 mcg 0600 RANDAL Administration Lidocaine 1 patch 07/24/20 10:00 07/24/20 11:07 Lidocaine 5% Patch TD 1 patch Q24HR RANDAL Administration Losartan Potassium 25 mg 07/21/20 09:00 07/24/20 08:31 Losartan 25 Mg Tab PO 25 mg DAILY RANDAL Administration Miscellaneous Medication 10 mg 07/22/20 09:00 07/24/20 08:28 Empagliflozin 10 Mg Tab PO 10 mg DAILY RANDAL Administration Ondansetron HCl 4 mg 07/17/20 19:25 07/18/20 23:19 Ondansetron Pf 4 Mg/2 Ml Vial IVP 4 mg Q6H PRN Administration Nausea/Vomiting Patient's Home 0 each 07/18/20 17:00 07/24/20 17:22 Medication Corlanor PO 1 each 7.5 Mg BID-WM RANDAL Administration Potassium Chloride 40 meq 07/24/20 15:00 07/24/20 15:39 Potassium Chloride 20 Meq Tab PO 40 meq TID RANDAL Administration Prednisone 10 mg 07/18/20 09:00 07/24/20 08:29 Prednisone 20 Mg Tab PO 10 mg BID RANDAL Administration Promethazine HCl 25 mg 07/17/20 21:29 07/19/20 12:55 Promethazine 25 Mg Tab PO 25 mg DAILY PRN Administration Nausea Sertraline HCl 100 mg 07/18/20 09:00 07/24/20 08:31 Sertraline Hcl 100 Mg Tab PO 100 mg DAILY RANDAL Administration Sodium Chloride 10 ml 07/17/20 20:17 07/18/20 17:18 Flush - Normal Saline 10 Ml Syringe IVF 10 ml PRN PRN Administration Saline Flush Spironolactone 50 mg 07/24/20 09:00 07/24/20 08:30 Spironolactone 25 Mg Tab PO 50 mg DAILY RANDAL Administration Hospitalist Exam Vitals: Vital Signs (12 hours) Temp Pulse Resp BP Pulse Ox 07/24/20 15:00 97.9 F 56 L 15 136/67 96 07/24/20 11:35 97.8 F 59 L 15 116/56 L 97 07/24/20 08:00 98.0 F 70 19 126/62 93 L Weight Admit Weight 295 lb 12.8 oz Weight 303 lb General - other findings: Morbid obesity ENT: moist mucosa Neck: supple Heart: RRR Respiratory: CTAB Gastrointestinal: soft, non-tender Extremities: 2+ LE edema Skin: no rashes Psychiatric: normal affect, normal behavior Hosp A/P - Plan -Assessment (1) Acute on chronic systolic CHF (congestive heart failure) NYHA class III Status: Acute (2) Chest pain Code(s): R07.9 - CHEST PAIN, UNSPECIFIED Status: Acute (3) DM (diabetes mellitus) Code(s): E11.9 - TYPE 2 DIABETES MELLITUS WITHOUT COMPLICATIONS Status: Acute (4) HLD (hyperlipidemia) Code(s): E78.5 - HYPERLIPIDEMIA, UNSPECIFIED Status: Acute (5) HTN (hypertension) Code(s): I10 - ESSENTIAL (PRIMARY) HYPERTENSION Status: Acute (6) Morbid obesity Code(s): E66.01 - MORBID (SEVERE) OBESITY DUE TO EXCESS CALORIES Status: Acute (7) Sarcoid Code(s): D86.9 - SARCOIDOSIS, UNSPECIFIED Status: Acute (8) Shortness of breath Code(s): R06.02 - SHORTNESS OF BREATH Status: Acute - Plan CTA did not show any acute PE. No fractures. Patient given diuretics we'll continue to monitor. Continue home medications 07/20 we'll consult heart failure physician Dr. Morin patient has significant lower extremity edema. She may require dobutamine or milrinone for symptom management. We'll also start patient on Flexeril since she cannot have NSAIDs. She does not want to take high doses of steroids. 07/21 patient currently on milrinone drip will continue to follow along. Will check labs in a.m. Patient's ICD was reprogrammed. 07/22 we will continue to diurese the patient. Patient continues to be on milrinone drip. Her lower extremity swelling has still not improved. 07/23 patient overall doing well. Continues to have lower extremity swelling. She is diuresing well. We will check labs in a.m. 07/24 patient has been started on as needed fentanyl by heart failure service. Otherwise, no significant change. Lidoderm patch has also been started.
[2020-07-24] MEDS: clonazePAM 1 MG TAB PO PRN (22:15)
[2020-07-24] MEDS: Transdermal Patch Removal TOP SCH (22:18)
[2020-07-25] MEDS: Fentanyl 100 MCG/2 ML VIAL SLOW IVP PRN ×3 (04:35→17:02)
[2020-07-25] MEDS: Levothyroxine Sodium 50 MCG TAB PO SCH (04:38)
[2020-07-25 05:33] LABS: #Eosinphils 0.2 thou/uL (0.0-0.7); #Lymphocytes 0.6 thou/uL (1.20-3.40); #Monocytes 1.3 thou/uL (0.11-0.59); #Neutrophils 11.5 thou/uL (1.40-6.50); %Basophils 0.2 % (0.0-1.0); %Eosinophils 1.4 % (0.0-10.0); %Lymphocytes 4.4 % (21.0-51.0); %Monocytes 9.5 % (0.0-10.0); %Neutrophils 84.5 % (42.0-75.0); Hemoglobin 12.5 g/dL (12.0-16.0); Mean Corpuscular Hemoglobin 30.8 pg (27.0-31.0); Mean Corpuscular Volume 93.6 fL (78.0-98.0); Mean Platelet Volume 8.1 fL (7.4-10.4); Platelet Count 263 thou/uL (130-400); RBC Distribution Width 14.4 % (11.5-14.5); Red Blood Cell (RBC) Count 4.06 mill/uL (4.20-5.40); White Blood Cell (WBC) Count 13.6 thou/uL (4.8-10.8)
[2020-07-25 05:45] LABS: Anion Gap 15 mmol/L (10-20); BUN (Urea Nitrogen) 21 mg/dL (7.0-18.7); Calc. Creatinine Clearance 189 mL/min (70-130); Calcium 8.9 mg/dL (7.8-10.44); Carbon Dioxide 32 mmol/L (22-29); Chloride 92 mmol/L (98-107); Glucose 218 mg/dL (70-105); Potassium 3.6 mmol/L (3.5-5.1); Sodium 135 mmol/L (136-145)
[2020-07-25] MEDS: HumaLOG 300 UNITS/3 ML VIAL SC PRN ×3 (06:21→18:41)
[2020-07-25] MEDS: Potassium Chloride 20 MEQ TAB PO SCH ×3 (08:21→21:13)
[2020-07-25] MEDS: AcetaZOLAMIDE 250 MG TAB PO SCH (08:22)
[2020-07-25] MEDS: Amiodarone 200 MG TAB PO SCH (08:22)
[2020-07-25] MEDS: Digoxin 0.125 MG TAB PO SCH (08:22)
[2020-07-25] MEDS: Famotidine 20 MG TAB PO SCH ×2 (08:22→21:11)
[2020-07-25] MEDS: Allopurinol 300 MG TAB PO SCH (08:23)
[2020-07-25] MEDS: Carvedilol 6.25 MG TAB PO SCH ×2 (08:23→17:06)
[2020-07-25] MEDS: Losartan 25 MG TAB PO SCH (08:23)
[2020-07-25] MEDS: Spironolactone 25 MG TAB PO SCH (08:23)
[2020-07-25] MEDS: predniSONE 20 MG TAB PO SCH ×2 (08:24→21:11)
[2020-07-25] MEDS: Enoxaparin Sodium 40 MG/0.4 ML SYRINGE SC SCH (08:24)
[2020-07-25] MEDS: CORLANOR 7.5 MG PO SCH ×2 (08:31→17:07)
[2020-07-25] MEDS: Milrinone Lactate/D5W 20 MG in Premix Bag 1 BAG IV SCH ×2 (09:58→15:17)
[2020-07-25] MEDS ORDERED: Metolazone 5 MG TAB PO SCH (10:00)
[2020-07-25] MEDS ORDERED: Potassium Chloride 40 MEQ in Sodium Chloride 0.9% 250 ML 250 ML IVPB SCH (10:30)
[2020-07-25] MEDS: Empagliflozin 10 MG TAB PO SCH (10:36)
[2020-07-25] MEDS: Furosemide 100 MG/10 ML VIAL SLOW IVP SCH ×3 (11:24→21:13)
[2020-07-25] MEDS: HYDROcodone/Acetaminophen 10/325 mg Tablet PO PRN ×3 (11:26→21:08)
[2020-07-25 11:51] LABS: Bilirubin Negative (Negative); Blood, Urine Negative (Negative); Clarity Clear (Clear); Glucose, Urine (Dipstick) Greater than 1000 mg/dL (Negative); Ketone, Urine Negative (Negative); Leukocyte Negative Leu/uL (Negative); Nitrite Negative (Negative); Protein, Urine (Dipstick) Negative (Neg-Trace); RBC/HPF 0-3 HPF (0-3); Specific Gravity, Urine 1.021 (1.002-1.036); Squamous Epithelial 0-3 HPF (0-3); Urobilinogen Normal mg/dL (Less than 2)
[2020-07-25] MEDS: Lidocaine 5% Patch TD SCH (11:51)
[2020-07-25 11:52] LABS: Bacteria/HPF 1+ HPF (None Seen)
[2020-07-25 11:53] LABS: Urine Culture Reflex Yes Yes
[2020-07-25] MEDS: Albumin 25% 25 GM/100 ML BOT IVPB SCH (14:54)
--- NOTE | 2020-07-25 16:47 | PDOC.HOSPP ---
- Subjective Encounter Date: 07/25/20 Encounter Time: 09:30 Subjective: Patient seen for follow-up for CHF exacerbation. Reports pain in lower extremities. - Objective Vital Signs & Weight: Vital Signs (12 hours) Temp Pulse Resp BP BP BP Pulse Ox 07/25/20 12:00 98.1 F 58 L 12 133/60 94 L 07/25/20 08:23 132/67 07/25/20 08:22 70 07/25/20 08:18 98.6 F 70 16 132/67 94 L Weight Admit Weight 295 lb 12.8 oz Weight 299 lb 11.2 oz I&O: 07/24/20 07/25/20 07/26/20 06:59 06:59 06:59 Intake Total 1942.6 2317.4 720 Output Total 2400 2500 3000 Balance -457.4 -182.6 -2280 Result Diagrams: 07/25/20 04:44 07/25/20 04:44 Additional Labs: Accuchecks 07/25/20 07/24/20 12:55 20:47 POC Glucose 197 H 162 H Labs and MAR reviewed by me EKG Reviewed by me: Yes (V paced rhythm on telemetry) Hospitalist ROS - Review of Systems Cardiovascular: denies: chest pain, palpitations, orthopnea, paroxysmal noc. dyspnea, edema, light headedness Gastrointestinal: denies: nausea, vomiting, abdominal pain, diarrhea, constipation, melena, hematochezia Musculoskeletal: reports: leg pain - Medication Medications: Active Medications Generic Name Dose Route Start Last Admin Trade Name Freq PRN Reason Stop Dose Admin Acetaminophen 650 mg 07/17/20 20:17 07/21/20 01:32 Acetaminophen 325 Mg Tab PO 650 mg Q4H PRN Administration Headache/Fever/Mild Pain (1-3) Hydrocodone Bitart/Acetaminophen 1 tab 07/17/20 20:17 07/20/20 22:06 Hydrocodone/Acetaminophen 10/325 Mg Tablet PO 1 tab Q4H PRN Administration Moderate Pain (4-6) Hydrocodone Bitart/Acetaminophen 2 tab 07/17/20 20:17 07/25/20 14:52 Hydrocodone/Acetaminophen 10/325 Mg Tablet PO 2 tab Q4H PRN Administration Severe Pain (7-10) Acetazolamide 250 mg 07/22/20 09:00 07/25/20 08:22 Acetazolamide 250 Mg Tab PO 250 mg DAILY RANDAL Administration Albumin Human 25 gm 07/25/20 15:00 07/25/20 14:54 Albumin 25% 25 Gm/100 Ml Bot IVPB 07/27/20 03:01 25 gm 0300,1500 RANDAL Administration Allopurinol 300 mg 07/18/20 09:00 07/25/20 08:23 Allopurinol 300 Mg Tab PO 300 mg DAILY RANDAL Administration Amiodarone HCl 200 mg 07/18/20 09:00 07/25/20 08:22 Amiodarone 200 Mg Tab PO 200 mg DAILY RANDAL Administration Carvedilol 12.5 mg 07/18/20 07:30 07/25/20 08:23 Carvedilol 6.25 Mg Tab PO 12.5 mg BID-AC RANDAL Administration Clonazepam 2 mg 07/17/20 21:47 07/24/20 22:15 Clonazepam 1 Mg Tab PO 2 mg HS PRN Administration Anxiety Cyclobenzaprine HCl 10 mg 07/20/20 18:11 07/24/20 11:07 Cyclobenzaprine 10 Mg Tab PO 10 mg TID PRN Administration Muscle Spasm Digoxin 0.125 mg 07/18/20 09:00 07/25/20 08:22 Digoxin 0.125 Mg Tab PO 0.125 mg DAILY RANDAL Administration Enoxaparin Sodium 40 mg 07/18/20 09:00 07/25/20 08:24 Enoxaparin Sodium 40 Mg/0.4 Ml Syringe SC 40 mg 0900 RANDAL Administration Famotidine 20 mg 07/18/20 09:00 07/25/20 08:22 Famotidine 20 Mg Tab PO 20 mg BID RANDAL Administration Fentanyl 50 mcg 07/24/20 12:38 07/25/20 10:33 Fentanyl 100 Mcg/2 Ml Vial SLOW IVP 50 mcg Q6H PRN Administration Moderate to Severe Pain (6-10) Furosemide 80 mg 07/24/20 15:00 07/25/20 14:54 Furosemide 100 Mg/10 Ml Vial SLOW IVP 80 mg TID RANDAL Administration Milrinone Lactate/Dextrose 20 100 mls @ 20.289 mls/hr 07/20/20 17:00 07/25/20 15:17 mg/ Device IV 100 mls INF RANDAL Administration Protocol 0.5 MCG/KG/MIN Insulin Human Lispro 0 units 07/17/20 21:28 07/25/20 13:45 Humalog 300 Units/3 Ml Vial SC 2 unit .MILD SLIDING SCALE PRN Administration Mild Correctional Scale Levothyroxine Sodium 100 mcg 07/18/20 06:00 07/25/20 04:38 Levothyroxine Sodium 50 Mcg Tab PO 100 mcg 0600 RANDAL Administration Lidocaine 1 patch 07/24/20 10:00 07/25/20 11:51 Lidocaine 5% Patch TD 1 patch Q24HR RANDAL Administration Losartan Potassium 25 mg 07/21/20 09:00 07/25/20 08:23 Losartan 25 Mg Tab PO 25 mg DAILY RANDAL Administration Miscellaneous Medication 10 mg 07/22/20 09:00 07/25/20 10:36 Empagliflozin 10 Mg Tab PO 10 mg DAILY RANDAL Administration Miscellaneous Medication 1 each 07/24/20 22:00 07/24/20 22:18 Lidocaine Patch Removal 1 Each TOP 1 each 2200 RANDAL Administration Ondansetron HCl 4 mg 07/17/20 19:25 07/18/20 23:19 Ondansetron Pf 4 Mg/2 Ml Vial IVP 4 mg Q6H PRN Administration Nausea/Vomiting Patient's Home 0 each 07/18/20 17:00 07/25/20 08:31 Medication Corlanor PO 1 each 7.5 Mg BID-WM RANDAL Administration Potassium Chloride 40 meq 07/24/20 15:00 07/25/20 14:51 Potassium Chloride 20 Meq Tab PO 40 meq TID RANDAL Administration Prednisone 10 mg 07/18/20 09:00 07/25/20 08:24 Prednisone 20 Mg Tab PO 10 mg BID RANDAL Administration Promethazine HCl 25 mg 07/17/20 21:29 07/19/20 12:55 Promethazine 25 Mg Tab PO 25 mg DAILY PRN Administration Nausea Sertraline HCl 100 mg 07/18/20 09:00 07/25/20 08:23 Sertraline Hcl 100 Mg Tab PO 100 mg DAILY RANDAL Administration Sodium Chloride 10 ml 07/17/20 20:17 07/18/20 17:18 Flush - Normal Saline 10 Ml Syringe IVF 10 ml PRN PRN Administration Saline Flush Spironolactone 50 mg 07/24/20 09:00 07/25/20 08:23 Spironolactone 25 Mg Tab PO 50 mg DAILY RANDAL Administration Hospitalist Exam Vitals: Vital Signs (12 hours) Temp Pulse Resp BP BP BP Pulse Ox 07/25/20 12:00 98.1 F 58 L 12 133/60 94 L 07/25/20 08:23 132/67 07/25/20 08:22 70 07/25/20 08:18 98.6 F 70 16 132/67 94 L Weight Admit Weight 295 lb 12.8 oz Weight 299 lb 11.2 oz General Appearance: awake alert ENT: normocephalic atraumatic Neck: supple Heart: RRR Respiratory - other findings: Bibasal crackles Extremities: 2+ LE edema Skin: no rashes Psychiatric: normal affect, normal behavior Hosp A/P - Plan -Assessment (1) Acute on chronic systolic CHF (congestive heart failure) NYHA class III Status: Acute (2) Chest pain Code(s): R07.9 - CHEST PAIN, UNSPECIFIED Status: Acute (3) DM (diabetes mellitus) Code(s): E11.9 - TYPE 2 DIABETES MELLITUS WITHOUT COMPLICATIONS Status: Acute (4) HLD (hyperlipidemia) Code(s): E78.5 - HYPERLIPIDEMIA, UNSPECIFIED Status: Acute (5) HTN (hypertension) Code(s): I10 - ESSENTIAL (PRIMARY) HYPERTENSION Status: Acute (6) Morbid obesity Code(s): E66.01 - MORBID (SEVERE) OBESITY DUE TO EXCESS CALORIES Status: Acute (7) Sarcoid Code(s): D86.9 - SARCOIDOSIS, UNSPECIFIED Status: Acute (8) Shortness of breath Code(s): R06.02 - SHORTNESS OF BREATH Status: Acute - Plan CTA did not show any acute PE. No fractures. Patient given diuretics we'll continue to monitor. Continue home medications 2/ we'll consult heart failure physician Dr. Morin patient has significant lower extremity edema. She may require dobutamine or milrinone for symptom management. We'll also start patient on Flexeril since she cannot have NSAIDs. She does not want to take high doses of steroids. 07/21 patient currently on milrinone drip will continue to follow along. Will check labs in a.m. Patient's ICD was reprogrammed. 07/22 we will continue to diurese the patient. Patient continues to be on milrinone drip. Her lower extremity swelling has still not improved. 07/23 patient overall doing well. Continues to have lower extremity swelling. She is diuresing well. We will check labs in a.m. 07/24 patient has been started on as needed fentanyl by heart failure service. Otherwise, no significant change. Lidoderm patch has also been started. 07/25 no significant change since yesterday, furosemide and milrinone dose was in creased today.
[2020-07-25 18:25] LABS: Anion Gap 18 mmol/L (10-20); BUN (Urea Nitrogen) 18 mg/dL (7.0-18.7); Calc. Creatinine Clearance 154 mL/min (70-130); Calcium 9.6 mg/dL (7.8-10.44); Carbon Dioxide 33 mmol/L (22-29); Chloride 89 mmol/L (98-107); Glucose 240 mg/dL (70-105); Magnesium 2.5 mg/dL (1.6-2.6); Potassium 4.1 mmol/L (3.5-5.1); Sodium 136 mmol/L (136-145)
[2020-07-25] MEDS: clonazePAM 1 MG TAB PO PRN (21:12)
[2020-07-25] MEDS: Transdermal Patch Removal TOP SCH (21:14)
[2020-07-25] MEDS: Senokot S 8.6-50 MG TAB PO PRN (21:32)
[2020-07-26] MEDS: Fentanyl 100 MCG/2 ML VIAL SLOW IVP PRN ×4 (01:12→21:19)
[2020-07-26] MEDS: Milrinone Lactate/D5W 20 MG in Premix Bag 1 BAG IV SCH ×5 (01:20→21:33)
[2020-07-26] MEDS: Albumin 25% 25 GM/100 ML BOT IVPB SCH ×3 (03:12→17:40)
[2020-07-26] MEDS: HYDROcodone/Acetaminophen 10/325 mg Tablet PO PRN ×3 (03:14→16:40)
[2020-07-26 05:23] LABS: #Eosinphils 0.1 thou/uL (0.0-0.7); #Lymphocytes 0.8 thou/uL (1.20-3.40); #Monocytes 1.3 thou/uL (0.11-0.59); #Neutrophils 9.3 thou/uL (1.40-6.50); %Basophils 0.2 % (0.0-1.0); %Eosinophils 1.2 % (0.0-10.0); %Lymphocytes 6.7 % (21.0-51.0); %Monocytes 11.2 % (0.0-10.0); %Neutrophils 80.7 % (42.0-75.0); Hemoglobin 12.1 g/dL (12.0-16.0); Mean Corpuscular HGB CONC 32.6 g/dL (32.0-36.0); Mean Corpuscular Hemoglobin 30.4 pg (27.0-31.0); Mean Corpuscular Volume 93.4 fL (78.0-98.0); Platelet Count 242 thou/uL (130-400); RBC Distribution Width 14.3 % (11.5-14.5); Red Blood Cell (RBC) Count 3.99 mill/uL (4.20-5.40); White Blood Cell (WBC) Count 11.5 thou/uL (4.8-10.8)
[2020-07-26 05:45] LABS: Anion Gap 18 mmol/L (10-20); BUN (Urea Nitrogen) 20 mg/dL (7.0-18.7); Calc. Creatinine Clearance 146 mL/min (70-130); Calcium 9.5 mg/dL (7.8-10.44); Carbon Dioxide 37 mmol/L (22-29); Chloride 85 mmol/L (98-107); Glucose 218 mg/dL (70-105); Magnesium 2.6 mg/dL (1.6-2.6); Potassium 3.2 mmol/L (3.5-5.1); Sodium 137 mmol/L (136-145)
[2020-07-26] MEDS: Levothyroxine Sodium 50 MCG TAB PO SCH (06:17)
--- NOTE | 2020-07-26 06:34 | PRG ---
DATE OF SERVICE: 07/25/2020 SERVICE: [facility] Cardiology Consult Service. SUBJECTIVE: Ms. Vaughn has increased urinary output with increase in the frequency of Lasix. However, she still has diffuse lower extremity edema. Her both feet continued to be very swollen and it is painful to walk on. Bilateral ultrasound was done yesterday. It did not show any deep vein thrombosis. She also requested a Yepez catheter to be in place because her urine output is too fast for her to get to the toilet. REVIEW OF SYSTEMS: GENERAL: There is no fever, chills, or productive cough. HEENT: There is no change in vision, hearing, swallowing. PULMONARY: She is breathing easily. CARDIAC: There is no chest pain, palpitations, or syncope. GI: There is no nausea or vomiting. However, she feels like she is starting to get more constipated. : She is able to urinate on her own, but because her frequency is coming too quick that she cannot quite get out of the bed and get to the bathroom. MUSCULOSKELETAL: There are no muscle or joint pains. INTEGUMENTARY: There is no new skin breakdown. NEUROLOGIC: There are no focal deficits or weaknesses. CURRENT MEDICATIONS: Include: 1. Acetazolamide 250 mg daily. 2. Allopurinol 300 mg daily. 3. Amiodarone 20 mg daily. 4. Carvedilol 12.5 mg b.i.d. 5. Clonazepam 2 mg p.r.n. 6. Flexeril 10 mg p.o. t.i.d. p.r.n. 7. Digoxin 0.125 mg daily. 8. Enoxaparin 40 mg subcutaneous daily. 9. Pepcid 20 mg b.i.d. 10. Fentanyl 50 mcg q.6 hours p.r.n. for breakthrough pain. 11. Furosemide 80 mg IV t.i.d. 12. Sliding scale insulin. 13. Levothyroxine 100 mcg daily. 14. Losartan at 25 mg daily. 15. Milrinone currently at 0.5 mcg/kg/minute. 16. Empagliflozin, which is Jardiance at10 mg daily. 17. K-Dur 40 mEq p.o. t.i.d. 18. Prednisone 10 mg b.i.d. 19. Senokot-S two tabs b.i.d. 20. Spironolactone at 50 mg p.o. daily. Her telemetry was reviewed. It was A-sensed, V-paced with occasional manzanita beats. Other than that, there are no concerning arrhythmias. PHYSICAL EXAMINATION: VITAL SIGNS: Heart rate 70, blood pressure 132/67. Her inputs and outputs for last 24 hours are 2317 in and 2500 out, so she is only net negative a small amount of 183 mL. GENERAL: She is alert and conversational, sitting up in a chair, breathing easily; however, she complains of lower extremity pain. HEENT: Show EOMI. Oropharynx is benign with moist mucosa. NECK: She has a large diameter neck. Her JVP is probably elevated about 11 to 12 cm. PULMONARY: There is good air movement bilaterally; however, there are some decreased breath sounds in the bilateral bases. CARDIAC: Regular in rate and rhythm with normal S1, S2. There is 2/6 holosystolic murmur at the apex. ABDOMEN: Very large, soft, nontender. Positive bowel sounds. EXTREMITIES: Her lower extremities, she has some pitting edema all around her thighs, but less so. She has greater than 2 cm pitting edema from the feet up to her knees. Her feet are swollen like sausages still. LABORATORY VALUES: From today are white cell count 13.6, hemoglobin at 12.5, platelets as 263. Her chemistry values show sodium 135, potassium 3.6, chloride of 92, bicarb at 32, creatinine is 0.78, and BUN at 21, thus her renal functions are intact. ASSESSMENT: 50-year-old lady resides at [place] [employer] stage C, maybe D, but [place] [employer] class 3B heart failure with reduced ejection fraction. Her LVEF is only 20%. Milrinone at 0.5 mcg/kg per minute is providing sufficient cardiac output through to maintain her renal function while being diuresed. She is still volume overloaded as seen by rather extreme lower extremity edema. We will need to increase intensity of diurese to try and get the fluid off. In the meantime, we will also need to check to make sure she does not have portal vein thrombosis. Due to her past history of ventricular tachycardia with low potassium, we will need to supplement the potassium aggressively. Please see the following for my recommendations. RECOMMENDATIONS: 1. Add metolazone 5 mg p.o. one dose at 30 minutes before next dose of IV Lasix. 2. Along with metolazone, please give KCl 40 mEq IV one dose after the metolazone and Lasix were given, so this is the help to replete her potassium. 3. Please ask the patient to keep her feet up during the day as much as possible to allow the fluid to redistribute. 4. We will order abdominal ultrasound with Doppler to look for portal vein thrombosis. 5. Please also do urine culture. It has been a pleasure taking care of Mrs. Vaughn. If you have any questions, please give me a call. The total visitation time is 40 minutes. Job ID: [id number] MTDD
[2020-07-26] MEDS: Piperacillin/Tazobactam 3.375 GM in Sodium Chloride 0.9% 100 ML IVPB SCH ×3 (09:17→21:11)
--- NOTE | 2020-07-26 09:27 | ULT ---
HEPATIC ULTRASOUND AND DOPPLER STUDY: Date: 07/26/2020 INDICATION: Question portal vein thrombosis. FINDINGS: Liver is prominent in size. No focal liver mass seen. The liver is mildly heterogeneous. Color Doppler and spectral analysis performed of the hepatic vessels. All hepatic vessels including h epatic veins, portal veins, and splenic veins show normal directional blood flow. Splenic artery is n ot evaluated. The visualized gallbladder is unremarkable. No evidence of gallstones. The common bile duct is normal caliber measured at 5.0 mm. Pancreas is obscured. Both kidneys are imaged and appear unremarkable. Spleen is unremarkable in size and appearance. IMPRESSION: Mild hepatomegaly and mild heterogeneous liver. All hepatic vessels show normal directional blood cristiane w. POS: AGW
[2020-07-26] MEDS: Amiodarone 200 MG TAB PO SCH (09:33)
[2020-07-26] MEDS: Potassium Chloride 20 MEQ TAB PO SCH ×3 (09:33→21:09)
[2020-07-26] MEDS: Digoxin 0.125 MG TAB PO SCH (09:33)
[2020-07-26] MEDS: Carvedilol 6.25 MG TAB PO SCH ×2 (09:34→16:32)
[2020-07-26] MEDS: Famotidine 20 MG TAB PO SCH ×2 (09:34→21:08)
[2020-07-26] MEDS: Losartan 25 MG TAB PO SCH (09:34)
[2020-07-26] MEDS: Enoxaparin Sodium 40 MG/0.4 ML SYRINGE SC SCH (09:35)
[2020-07-26] MEDS: Allopurinol 300 MG TAB PO SCH (09:35)
[2020-07-26] MEDS: Spironolactone 25 MG TAB PO SCH (09:35)
[2020-07-26] MEDS: predniSONE 20 MG TAB PO SCH ×2 (09:35→21:09)
[2020-07-26] MEDS: AcetaZOLAMIDE 250 MG TAB PO SCH ×2 (09:35→21:10)
[2020-07-26] MEDS ORDERED: Iopamidol-370 76% 500 ML 1 ML ONE (10:19)
[2020-07-26] MEDS: CORLANOR 7.5 MG PO SCH ×2 (11:01→17:41)
[2020-07-26] MEDS: Empagliflozin 10 MG TAB PO SCH (11:16)
[2020-07-26] MEDS: HumaLOG 300 UNITS/3 ML VIAL SC PRN ×3 (11:17→21:13)
[2020-07-26] MEDS: Potassium Chloride 20 MEQ in Premix Bag 1 BAG IVPB SCH ×2 (11:17→13:00)
--- NOTE | 2020-07-26 11:52 | PRG ---
DATE OF SERVICE: 07/26/2020 SUBJECTIVE: Ms. Rona Vaughn had an excellent day. Metolazone 5 mg p.o. before, IV Lasix was given yesterday. An extra 40 mEq IV of potassium was given. That combination with Lasix 80 mg IV t.i.d. caused extremely large amount of urine output. In fact, it caused about 8 L of urine output. Her legs decreased in edema greatly afterwards. However, she still has bilateral leg pain. She has a new increase of extraordinary pain in her right foot. She is not short of breath; however, she still feels exhausted. REVIEW OF SYSTEMS: GENERAL: There are no fever, chills, or productive cough. HEENT: There is no change in vision, hearing, or swallowing. PULMONARY: She is breathing easy. CARDIAC: There is no chest pain, palpitations, or syncope. GI: She is a bit more constipated. : Yepez catheter was placed. She is feeling better with that because she was not able to go up and down to the toilet fast enough. MUSCULOSKELETAL: Please see HPI. INTEGUMENT: Please see HPI. NEUROLOGIC: There are no focal deficits or weaknesses. CURRENT MEDICATIONS: Include; 1. Acetazolamide 250 mg daily. 2. Albumin 25 g IV q.12 hours. 3. Allopurinol 300 mg daily. 4. Amiodarone 200 mg daily. 5. Carvedilol 12.5 mg p.o. b.i.d. 6. Digoxin 0.125 mg daily. 7. Pepcid 20 mg b.i.d. 8. Fentanyl 50 mcg IV q.6 hours p.r.n. 9. Lasix 80 mg IV b.i.d., it was t.i.d. 10. Lispro insulin sliding scale. 11. Levothyroxine 100 mcg daily. 12. Losartan 25 mg daily. 13. Milrinone currently at 0.5 mcg/kg per minute. 14. Potassium chloride 40 mEq t.i.d. 15. Prednisone 10 mg b.i.d. 16. Spironolactone 50 mg daily. She is A-sensed, V-paced. Her latest vitals are 137/68. Her 24 hour in's and out's are 1477 in and 8000 out. She has negative 6.5 L yesterday. PHYSICAL EXAMINATION: GENERAL: She is alert and conversational, appear a bit fatigued, reclining comfortably in bed. HEENT: Show EOMI. Oropharynx is benign with moist mucosa. NECK: JVP is about 11 cm. PULMONARY: She has good air movement bilaterally. There are no crackles that I can hear. However, her breath sounds are distant. CARDIAC: Regular rate and rhythm with normal S1, S2. There is 2/6 holosystolic murmur at the apex. ABDOMEN: Distended, soft. She has chronic mild discomfort. LOWER EXTREMITIES: The pitting edema around her thighs has decreased. The pitting edema from knees on down also has decreased, still at least 2+ about a centimeter indention ; however, both feet are still quite swollen although less so. She has an ecchymoses infectious spot on her right foot. Since there is decreased edema, now you can tell it is a pocket of infection. It is higher and bigger raised than the rest of her foot, so she has a spot of soft tissue infection in her right foot. LABORATORY VALUES: White cell count 11.5, hemoglobin at 12.1, platelet at 242. Her chemistry showed sodium of 137, potassium 3.2, chloride at 35, bicarb of 37, and creatinine of 1.01. ASSESSMENT: 50-year-old lady resides in [place] Heart Association stage C, [place] Heart Association Class 3B heart failure with reduced ejection fraction. Her LVEF is about 20%. She requires Milrinone at 0.5 mcg/kg/minute to sustain the cardiac output. She is still volume overloaded. However, she was successfully diuresed significantly yesterday. This amount of diuresis is a little bit too much for one day, we will slow it down today. We will also need to replenish her potassium. She has a severe infection in her right foot. This appeared to be a soft tissue infection. I will start Zosyn right away since she is a diabetic. This foot may need to be incisioned and drained. Consult should also be given to Infectious Disease and Surgery. RECOMMENDATIONS: Please see the following for my recommendations; 1. Decrease frequency of Lasix to 80 mg IV b.i.d. 2. Please provide KCl 40 mEq IV one dose now. Please draw BMP 1 hour after KCl, that would determine how much more potassium she needs today. 3. Start Zosyn 3.375 g IV q.6 hours. 4. Hold next dose of IV Lasix until the lab values came back. 5. Increase the frequency of acetazolamide to 250 mg p.o. twice a day. She is becoming quite alkalotic. 6. Please consult Infectious Disease about soft tissue infection. 7. Please consult Surgery because her right foot will probably need to be drained. 8. After some stability, we will restart diuresis with metolazone 5 mg followed by Lasix 80 mg IV about 30-60 minutes later, but instead of 3 times a day we will just do twice a day of Lasix tomorrow. It has been a pleasure taking care of Ms. Rona Vaughn. If any question, please give me a call. The total visitation time today is about 45 minutes. This is my off week, I am only seeing her because of her condition. I cannot take on any other new consult. I will coordinate with the hospitalist for her care. So there may days I will not come this week. Job ID: [id number] [place]
[2020-07-26] MEDS: Lidocaine 5% Patch TD SCH (12:10)
[2020-07-26] MEDS: Cyclobenzaprine 10 MG TAB PO PRN (13:10)
[2020-07-26] MEDS: Furosemide 100 MG/10 ML VIAL SLOW IVP SCH (14:15)
--- NOTE | 2020-07-26 14:50 | CON ---
DATE OF CONSULTATION: HISTORY OF PRESENT ILLNESS: Rona Vaughn is a 50-year-old morbidly obese female with 47 BMI, 5 feet 5 inches, and 286 pounds. Admitted this hospitalization on 07/17/2020 to the hospitalist service and seen by Dr. Bhargav Morin, Heart Failure Cardiology. I have been asked to see regarding her right foot. She is a diabetic. She states she developed edema in her feet. She had SCDs applied. She developed hematoma in the dorsum of her foot. There is ecchymosis over her right toes and right foot. There is no evidence of infection. She has remained afebrile. She denies any trauma to her foot other than the SCDs applied. White count is 11 and hemoglobin 12. Her BUN and creatinine are 20 and 1.01 respectively. Serology negative for COVID. Echocardiogram on 07/22/2020 with 20% ejection fraction. The patient has a defibrillator in left chest. ALLERGIES: SACUBITRIL, VALSARTAN, NSAIDS. SOCIAL HISTORY: Tobacco, none. Alcohol, none. MEDICATIONS AT HOME: 1. Corlanor. 2. Synthroid. 3. Cozaar. 4. Lanoxin. 5. Prednisone. 6. Klonopin. 7. Phenergan. 8. Lasix. 9. Metformin. 10. Spironolactone. 11. Pepcid. PAST SURGICAL HISTORY: 1. Hysterectomy. 2. Oophorectomy. 3. Partial thyroidectomy. 4. Partial liver resection for sarcoidosis. 5. AICD as noted above. 6. History of PTSD and anxiety. PAST MEDICAL HISTORY: 1. Diabetes mellitus. 2. Hypertension. 3. Cardiomyopathy. 4. Congestive heart failure. PHYSICAL EXAMINATION: GENERAL: The patient is morbidly obese, in no distress, 5 feet 5 inches, weight 286 pounds, and 47 BMI. VITAL SIGNS: Temperature 98.6, heart rate 65, and blood pressure 147/70. EXTREMITIES: She has palpable femoral, popliteal, dorsalis pedis, and posterior tibial pulses. She has foot and ankle edema and lower leg edema bilaterally. On the right dorsum of the foot, there is an area of firmness consistent with a hematoma. There is no redness to suggest infection. There is ecchymosis about the toes. ASSESSMENT AND PLAN: Trauma of the right foot. The patient denies any trauma outside the hospital. Only trauma I can discern is sequential compression devices applied. I suppose this caused a hematoma more than likely per her report, although she does have neuropathy and she may not recall prior trauma. At this point, incision and drainage is not warranted. This is more consistent with a hematoma and not cellulitis or abscess. I will see her as needed in this hospitalization. Please call if necessary or if condition changes. Job ID: [id number]
--- NOTE | 2020-07-26 15:03 | RAD ---
RIGHT FOOT 3 VIEWS: Date: 07/26/2020 HISTORY: Foot hematoma. FINDINGS: Tiny spur from the plantar calcaneus. Tarsals appear intact. Metatarsals and phalanges appear intact. MTP joints unremarkable. IMPRESSION: No acute findings. POS: AGW
--- NOTE | 2020-07-26 17:36 | PDOC.HOSPP ---
- Subjective Encounter Date: 07/26/20 Encounter Time: 08:00 Subjective: Seen for follow-up regarding systolic heart failure exacerbation. Complains of pain over the dorsum of right foot. - Objective Vital Signs & Weight: Vital Signs (12 hours) Temp Pulse Resp BP BP Pulse Ox 07/26/20 16:32 147/70 H 07/26/20 16:00 98.3 F 61 19 165/82 H 97 07/26/20 12:00 98.4 F 65 17 165/82 H 98 07/26/20 09:34 147/70 H 07/26/20 09:33 65 07/26/20 08:00 98.9 F 70 19 135/79 97 Weight Admit Weight 295 lb 12.8 oz Weight 286 lb 9.6 oz I&O: 07/25/20 07/26/20 07/27/20 06:59 06:59 06:59 Intake Total 2317.4 1477 Output Total 2500 8000 Balance -182.6 -1228 Result Diagrams: 07/26/20 04:36 07/26/20 04:36 Additional Labs: Accuchecks 07/26/20 07/26/20 07/26/20 16:40 11:12 06:23 POC Glucose 264 H 215 H 183 H 07/25/20 07/25/20 07/25/20 21:31 17:53 05:51 POC Glucose 155 H 209 H 208 H I reviewed patient's labs and MAR EKG Reviewed by me: Yes (Telemetry: V paced) Hospitalist ROS - Review of Systems Cardiovascular: denies: chest pain, palpitations, orthopnea, paroxysmal noc. dys pnea, edema, light headedness Gastrointestinal: denies: nausea, vomiting, abdominal pain, diarrhea, constipation, melena, hematochezia Genitourinary: denies: dysuria, frequency, incontinence, hematuria, retention Musculoskeletal: reports: foot pain - Medication Medications: Active Medications Generic Name Dose Route Start Last Admin Trade Name Freq PRN Reason Stop Dose Admin Acetaminophen 650 mg 07/17/20 20:17 07/21/20 01:32 Acetaminophen 325 Mg Tab PO 650 mg Q4H PRN Administration Headache/Fever/Mild Pain (1-3) Hydrocodone Bitart/Acetaminophen 1 tab 07/17/20 20:17 07/20/20 22:06 Hydrocodone/Acetaminophen 10/325 Mg Tablet PO 1 tab Q4H PRN Administration Moderate Pain (4-6) Hydrocodone Bitart/Acetaminophen 2 tab 07/17/20 20:17 07/26/20 11:00 Hydrocodone/Acetaminophen 10/325 Mg Tablet PO 2 tab Q4H PRN Administration Severe Pain (7-10) Acetazolamide 250 mg 07/22/20 09:00 07/26/20 09:35 Acetazolamide 250 Mg Tab PO 250 mg DAILY RANDAL Administration Allopurinol 300 mg 07/18/20 09:00 07/26/20 09:35 Allopurinol 300 Mg Tab PO 300 mg DAILY RANDAL Administration Amiodarone HCl 200 mg 07/18/20 09:00 07/26/20 09:33 Amiodarone 200 Mg Tab PO 200 mg DAILY RANDAL Administration Carvedilol 12.5 mg 07/18/20 07:30 07/26/20 16:32 Carvedilol 6.25 Mg Tab PO 12.5 mg BID-AC RANDAL Administration Clonazepam 2 mg 07/17/20 21:47 07/25/20 21:12 Clonazepam 1 Mg Tab PO 2 mg HS PRN Administration Anxiety Cyclobenzaprine HCl 10 mg 07/20/20 18:11 07/26/20 13:10 Cyclobenzaprine 10 Mg Tab PO 10 mg TID PRN Administration Muscle Spasm Digoxin 0.125 mg 07/18/20 09:00 07/26/20 09:33 Digoxin 0.125 Mg Tab PO 0.125 mg DAILY RANDAL Administration Enoxaparin Sodium 40 mg 07/18/20 09:00 07/26/20 09:35 Enoxaparin Sodium 40 Mg/0.4 Ml Syringe SC 40 mg 0900 RANDAL Administration Famotidine 20 mg 07/18/20 09:00 07/26/20 09:34 Famotidine 20 Mg Tab PO 20 mg BID RANDAL Administration Fentanyl 50 mcg 07/24/20 12:38 07/26/20 14:23 Fentanyl 100 Mcg/2 Ml Vial SLOW IVP 50 mcg Q6H PRN Administration Moderate to Severe Pain (6-10) Furosemide 80 mg 07/26/20 14:00 07/26/20 14:15 Furosemide 100 Mg/10 Ml Vial SLOW IVP 80 mg 0600,1400 RANDAL Administration Milrinone Lactate/Dextrose 20 100 mls @ 20.289 mls/hr 07/20/20 17:00 07/26/20 16:02 mg/ Device IV 100 mls INF RANDAL Administration Protocol 0.5 MCG/KG/MIN Piperacillin Sod/Tazobactam 100 mls @ 200 mls/hr 07/26/20 09:00 07/26/20 09:17 Sod 3.375 gm/ Sodium Chloride IVPB 100 mls Q6H RANDAL Administration Insulin Human Lispro 0 units 07/17/20 21:28 07/26/20 11:17 Humalog 300 Units/3 Ml Vial SC 3 unit .MILD SLIDING SCALE PRN Administration Mild Correctional Scale Levothyroxine Sodium 100 mcg 07/18/20 06:00 07/26/20 06:17 Levothyroxine Sodium 50 Mcg Tab PO 100 mcg 0600 RANDAL Administration Lidocaine 1 patch 07/24/20 10:00 07/26/20 12:10 Lidocaine 5% Patch TD Not Given Q24HR RANDAL Losartan Potassium 25 mg 07/21/20 09:00 07/26/20 09:34 Losartan 25 Mg Tab PO 25 mg DAILY RANDAL Administration Miscellaneous Medication 10 mg 07/22/20 09:00 07/26/20 11:16 Empagliflozin 10 Mg Tab PO 10 mg DAILY RANDAL Administration Miscellaneous Medication 1 each 07/24/20 22:00 07/25/20 21:14 Lidocaine Patch Removal 1 Each TOP 1 each 2200 RANDAL Administration Ondansetron HCl 4 mg 07/17/20 19:25 07/18/20 23:19 Ondansetron Pf 4 Mg/2 Ml Vial IVP 4 mg Q6H PRN Administration Nausea/Vomiting Corlanor 7.5 Mg Tab 0 each 07/18/20 17:00 07/26/20 11:01 PO 1 each BID-WM RANDAL Administration Potassium Chloride 40 meq 07/24/20 15:00 07/26/20 16:32 Potassium Chloride 20 Meq Tab PO 40 meq TID RANDAL Administration Prednisone 10 mg 07/18/20 09:00 07/26/20 09:35 Prednisone 20 Mg Tab PO 10 mg BID RANDAL Administration Promethazine HCl 25 mg 07/17/20 21:29 07/19/20 12:55 Promethazine 25 Mg Tab PO 25 mg DAILY PRN Administration Nausea Senna/Docusate Sodium 2 tab 07/17/20 20:17 07/25/20 21:32 Senokot S 8.6-50 Mg Tab PO 2 tab BID PRN Administration Constipation Sertraline HCl 100 mg 07/18/20 09:00 07/26/20 09:35 Sertraline Hcl 100 Mg Tab PO 100 mg DAILY RANDAL Administration Sodium Chloride 10 ml 07/17/20 20:17 07/26/20 09:36 Flush - Normal Saline 10 Ml Syringe IVF 10 ml PRN PRN Administration Saline Flush Spironolactone 50 mg 07/24/20 09:00 07/26/20 09:35 Spironolactone 25 Mg Tab PO 50 mg DAILY RANDAL Administration Hospitalist Exam Vitals: Vital Signs (12 hours) Temp Pulse Resp BP BP Pulse Ox 07/26/20 16:32 147/70 H 07/26/20 16:00 98.3 F 61 19 165/82 H 97 07/26/20 12:00 98.4 F 65 17 165/82 H 98 07/26/20 09:34 147/70 H 07/26/20 09:33 65 07/26/20 08:00 98.9 F 70 19 135/79 97 Weight Admit Weight 295 lb 12.8 oz Weight 286 lb 9.6 oz General - other findings: Morbidly obese ENT: normocephalic atraumatic Neck: supple Heart: RRR Respiratory: rales Gastrointestinal: soft Skin: no rashes Skin - other findings: Swelling over dorsum of right foot, hematoma Musculoskeletal: no muscle wasting Psychiatric: normal affect, normal behavior Hosp A/P - Plan -Assessment (1) Acute on chronic systolic CHF (congestive heart failure) NYHA class III Status: Acute (2) Chest pain Code(s): R07.9 - CHEST PAIN, UNSPECIFIED Status: Acute (3) DM (diabetes mellitus) Code(s): E11.9 - TYPE 2 DIABETES MELLITUS WITHOUT COMPLICATIONS Status: Acute (4) HLD (hyperlipidemia) Code(s): E78.5 - HYPERLIPIDEMIA, UNSPECIFIED Status: Acute (5) HTN (hypertension) Code(s): I10 - ESSENTIAL (PRIMARY) HYPERTENSION Status: Acute (6) Morbid obesity Code(s): E66.01 - MORBID (SEVERE) OBESITY DUE TO EXCESS CALORIES Status: Acute (7) Sarcoid Code(s): D86.9 - SARCOIDOSIS, UNSPECIFIED Status: Acute (8) Shortness of breath Code(s): R06.02 - SHORTNESS OF BREATH Status: Acute - Plan CTA did not show any acute PE. No fractures. Patient given diuretics we'll continue to monitor. Continue home medications 07/20 we'll consult heart failure physician Dr. Morin patient has significant lower extremity edema. She may require dobutamine or milrinone for symptom management. We'll also start patient on Flexeril since she cannot have NSAIDs. She does not want to take high doses of steroids. 07/21 patient currently on milrinone drip will continue to follow along. Will check labs in a.m. Patient's ICD was reprogrammed. 07/22 we will continue to diurese the patient. Patient continues to be on milrinone drip. Her lower extremity swelling has still not improved. 07/23 patient overall doing well. Continues to have lower extremity swelling. She is diuresing well. We will check labs in a.m. 07/24 patient has been started on as needed fentanyl by heart failure service. Otherwise, no significant change. Lidoderm patch has also been started. 07/25 no significant change since yesterday, furosemide and milrinone dose was increased today. 07/26: Furosemide dose changed to twice daily today. General surgery and infectious disease services have been consulted because of concern over abscess over the dorsum of right foot.
[2020-07-26 18:49] LABS: Anion Gap 17 mmol/L (10-20); BUN (Urea Nitrogen) 22 mg/dL (7.0-18.7); Calc. Creatinine Clearance 147 mL/min (70-130); Calcium 10.2 mg/dL (7.8-10.44); Carbon Dioxide 37 mmol/L (22-29); Chloride 85 mmol/L (98-107); Glucose 262 mg/dL (70-105); Potassium 3.5 mmol/L (3.5-5.1); Sodium 135 mmol/L (136-145)
--- NOTE | 2020-07-26 18:56 | CON ---
DATE OF CONSULTATION: REASON: Foot lesion. HISTORY OF PRESENT ILLNESS: 50-year-old with long history of sarcoidosis on chronic corticosteroid therapy 20 mg per day, also coronary artery disease and she has a cardiomyopathy. It is not clear if this is ischemic cardiomyopathy or sarcoid cardiomyopathy. The patient states that it is related to her sarcoidosis. She has an EF anywhere from 10% to 15% and has an AICD in place. She was brought in because of chest pain which was started as a pop in the left side and she felt it was a rib fracture, it worsened with deep breathing. So Cardiology evaluated the patient and Dr. Carr saw patient on July 18. His impression was systolic heart failure, mild chest pain likely musculoskeletal. Dr. Morin saw the patient as well and started her on Milrinone. It does not seem like she is a suitable candidate for heart transplantation. We were asked to see her because she developed sudden swelling of the dorsal aspect of the right foot associated with violaceous bluish like discoloration lesion that is somewhat cystic in consistency as noted in the Physical Exam. This is associated with quite significant amount of pain. No fever. No headaches. No shortness of breath other than the usual. No abdominal pain. Chest pain has not recurred. No diarrhea. She has an indwelling Yepez catheter. I's and O's have been negative. MEDICAL HISTORY: Sarcoidosis, coronary artery disease, ischemic cardiomyopathy or sarcoid cardiomyopathy, type 2 diabetes, osteoporosis with fractures, obesity, respiratory insufficiency requiring home O2. ALLERGIES: SACUBITRIL/VALSARTAN, NSAIDS. CURRENT MEDICATIONS: 1. Diamox. 2. Zyloprim. 3. Cordarone. 4. Coreg. 5. Klonopin. 6. Flexeril. 7. Lanoxin. 8. Sublimaze. 9. Lasix. 10. [place]. 11. Insulin. 12. Synthroid. 13. Cozaar. FAMILY HISTORY: Noncontributory. PHYSICAL EXAMINATION: VITAL SIGNS: Afebrile since admission except for one event of 100.7 when she came in, O2 saturations are 97% on room air, pulse 61. SKIN: Shows perineal area of erythema and maceration and now in the right foot, she has this cystic mass in the dorsal aspect of the mid foot region with sort of bruising like purpuric discoloration over this cystic area. It is quite tender to palpation. There is mild erythema in the foot probably associated with this lesion. Across the toes, there is this band like bluish violaceous discoloration, which is not elevated. The patient has a PICC line in the right upper extremity and a Yepez catheter. No lymphadenopathy. HEENT: Ocular movements are conjugate. She has cushingoid features. Oral cavity with numerous missing teeth. NECK: Supple with some jugular vein distention. LUNGS: With basilar inspiratory crackles. No wheezing. HEART: S1 and S2. Regular rate. No murmurs. ABDOMEN: Not distended. No ascites. No tenderness. No bladder distention. EXTREMITIES: Pulses are 2+ in the popliteal and dorsalis pedis. NEUROLOGICAL: Awake, alert, oriented, follows commands. Neuro examination nonfocal. LABORATORY DATA: White cell count is 11.5, hemoglobin 12, platelets 242, 80% neutrophils. Sodium 137, creatinine 1.01. Liver profile normal. Albumin 4.1. BNP 701. Troponin 0.093. Urinalysis with 4-6 wbc's. SARS-CoV-2 not detected. Urine culture with a gram-negative rodri. She had a foot x-ray which showed tiny spur. Metatarsal phalanges appear intact. Joints unremarkable. ASSESSMENT: Cardiomyopathy, sarcoidosis, congestive heart failure, rib fractures, and development of these area of swelling with tenderness and purpuric discoloration of the dorsal aspect of the right foot. This seems to have a temporal relationship to placement of compression stockings in the right foot. The differential diagnosis includes hematoma formation which is the more likely scenario. An abscess is not likely due to the rapidity of onset of this process and the association with the compression stockings. I think the next step would be either to explore this area with a needle aspirate to see if it is a hematoma or not or to obtain an imaging study. In her case will have to be a CT since she has an AICD in place. Dr. Collins has been consulted and I think he recommended conservative management. We will go ahead and image the area just to confirm that that impression. I guess it would be possible to aspirate this with the needle and to decrease the amount of pressure over the site and tenderness. Job ID: [id number]
--- NOTE | 2020-07-26 20:23 | CT ---
CT LEFT FOOT WITH CONTRAST: History: Hematoma Comparison: Radiograph, 07-26-20 FINDINGS: Bones: The tibia and fibula are intact. No widening of the syndesmosis. Previous small fracture of the shaput tubical anterior lateral tibia, axial image 78. This appears salazar bacute to chronic. There is also a fracture through the distal fibula, a Hernandez B fracture, which appe ars to be healing/healed. This is best seen on sagittal image 42 of series 402. Talar dome is intact without osteochondral defect. Calcaneus is intact without fracture. Small plantar and dorsal calcaneal spurs. Small bone island of the talar body. Fifth metatarsal tuberosity is intact. No acute toe fracture. The Lisfranc interval appears to be maintained. There is severe soft tissue swelling of the dorsum of the mid foot in the subcutaneous fat, superfici al to the extensor tendons with high density suggesting a focal hematoma. This is somewhat separate f rom the mid foot and hind foot superficial soft tissue swelling. There is circumferential swelling ar ound the distal tib/fib. Subcutaneous soft tissue swelling is centered on the interior lateral ankle without any enhancement o f change definitively appreciated. No definite pyomyositis. No significant muscle atrophy. IMPRESSION: 1. On the dorsum of the mid foot superficial to the extensor tendons there is what appears to be a he matoma which is high density. If this does not improve over the next 1-2 weeks, a follow MRI with and without contrast would be recommended to evaluate for underlying mass although this is felt less lik jass. 2. Moderate superficial soft tissue swelling around the ankle could be sequelae of underlying volume overload, congestive heart failure, or hepatic dysfunction. 3. Small fracture of the shaput tubical anterior lateral tibia as well as the coronal oblique fractur e through the distal fibula at the syndesmosis appears healing/healed and is not acute. 4. Intact Lisfranc interval. 5. No acute fracture of the foot. POS: HOME
[2020-07-26] MEDS ORDERED: Potassium Chloride 40 MEQ in Premix Bag 1 BAG IVPB SCH (20:30)
[2020-07-26] MEDS: Transdermal Patch Removal TOP SCH (21:18)
[2020-07-26] MEDS: Senokot S 8.6-50 MG TAB PO PRN (21:21)
[2020-07-26] MEDS: clonazePAM 1 MG TAB PO PRN (22:20)
[2020-07-27] MEDS: HYDROcodone/Acetaminophen 10/325 mg Tablet PO PRN ×4 (00:46→19:56)
[2020-07-27] MEDS: Piperacillin/Tazobactam 3.375 GM in Sodium Chloride 0.9% 100 ML IVPB SCH ×2 (02:53→08:38)
[2020-07-27] MEDS: Milrinone Lactate/D5W 20 MG in Premix Bag 1 BAG IV SCH ×2 (02:54→22:42)
[2020-07-27] MEDS: Fentanyl 100 MCG/2 ML VIAL SLOW IVP PRN ×4 (03:52→22:43)
[2020-07-27 05:05] LABS: #Eosinphils 0.1 thou/uL (0.0-0.7); #Lymphocytes 0.6 thou/uL (1.20-3.40); #Monocytes 1.3 thou/uL (0.11-0.59); #Neutrophils 9.4 thou/uL (1.40-6.50); %Basophils 0.3 % (0.0-1.0); %Eosinophils 1.1 % (0.0-10.0); %Lymphocytes 5.6 % (21.0-51.0); %Monocytes 11.3 % (0.0-10.0); %Neutrophils 81.7 % (42.0-75.0); Hemoglobin 11.9 g/dL (12.0-16.0); Mean Corpuscular HGB CONC 33.4 g/dL (32.0-36.0); Mean Corpuscular Hemoglobin 30.9 pg (27.0-31.0); Mean Corpuscular Volume 92.7 fL (78.0-98.0); Mean Platelet Volume 8.1 fL (7.4-10.4); Platelet Count 247 thou/uL (130-400); RBC Distribution Width 14.3 % (11.5-14.5); Red Blood Cell (RBC) Count 3.86 mill/uL (4.20-5.40); White Blood Cell (WBC) Count 11.5 thou/uL (4.8-10.8)
[2020-07-27 05:21] LABS: Anion Gap 20 mmol/L (10-20); BUN (Urea Nitrogen) 20 mg/dL (7.0-18.7); Calc. Creatinine Clearance 137 mL/min (70-130); Calcium 9.3 mg/dL (7.8-10.44); Carbon Dioxide 31 mmol/L (22-29); Chloride 88 mmol/L (98-107); Glucose 281 mg/dL (70-105); Magnesium 2.5 mg/dL (1.6-2.6); Potassium 3.8 mmol/L (3.5-5.1); Sodium 135 mmol/L (136-145)
[2020-07-27] MEDS: Levothyroxine Sodium 50 MCG TAB PO SCH (06:16)
[2020-07-27] MEDS: Albumin 25% 25 GM/100 ML BOT IVPB SCH (06:17)
[2020-07-27] MEDS: Furosemide 100 MG/10 ML VIAL SLOW IVP SCH ×2 (06:27→14:57)
[2020-07-27] MEDS: HumaLOG 300 UNITS/3 ML VIAL SC PRN ×3 (06:27→16:34)
[2020-07-27] MEDS: Potassium Chloride 20 MEQ TAB PO SCH ×3 (08:35→19:58)
[2020-07-27] MEDS: Amiodarone 200 MG TAB PO SCH (08:35)
[2020-07-27] MEDS: Famotidine 20 MG TAB PO SCH ×2 (08:35→19:56)
[2020-07-27] MEDS: Acetaminophen 325 MG TAB PO PRN (08:35)
[2020-07-27] MEDS: Allopurinol 300 MG TAB PO SCH (08:36)
[2020-07-27] MEDS: predniSONE 20 MG TAB PO SCH ×2 (08:36→19:57)
[2020-07-27] MEDS: Spironolactone 25 MG TAB PO SCH (08:36)
[2020-07-27] MEDS: Enoxaparin Sodium 40 MG/0.4 ML SYRINGE SC SCH (08:37)
[2020-07-27] MEDS: AcetaZOLAMIDE 250 MG TAB PO SCH (08:37)
[2020-07-27] MEDS: Losartan 25 MG TAB PO SCH (08:37)
[2020-07-27] MEDS: Lidocaine 5% Patch TD SCH (08:38)
[2020-07-27] MEDS: CORLANOR 7.5 MG PO SCH ×2 (08:38→16:27)
[2020-07-27] MEDS: Empagliflozin 10 MG TAB PO SCH (08:39)
[2020-07-27] MEDS: Digoxin 0.125 MG TAB PO SCH (08:42)
[2020-07-27] MEDS: Carvedilol 6.25 MG TAB PO SCH ×3 (09:18→19:56)
[2020-07-27] MEDS ORDERED: Insulin Glargine 10 UNITS in Pre-Filled Syringe 1 EACH SC SCH (09:30)
[2020-07-27] MEDS: Amoxicillin/Potassium Clav 875 MG TAB PO SCH ×2 (09:41→20:00)
--- NOTE | 2020-07-27 11:27 | PRG ---
DATE OF SERVICE: 07/27/2020 SUBJECTIVE: Ms. Rona Vaughn had a better day. She continued to diurese significantly with IV Lasix and Milrinone 0.5 mcg/kg/minute. However, she still has exquisite pain in her right foot and in general, her lower extremities. Overall, she believes that she is breathing better. Her chest symptoms are much better. However, she has pain in her right foot and her lower legs. REVIEW OF SYSTEMS: GENERAL: There is no fever, chills, productive cough. HEENT: There is no change in vision, hearing, or swallowing. PULMONARY: Please see HPI. CARDIAC: There is no chest pain, palpitations, or syncope. GI: There is no nausea, vomiting, diarrhea. : She has a Yepez catheter. MUSCULOSKELETAL: There is no muscle or joint pain. INTEGUMENT: Please see HPI for the right foot pain. NEUROLOGIC: There are no new focal deficits or weaknesses. CURRENT MEDICATIONS: 1. Acetazolamide 250 mg p.o. b.i.d. 2. Allopurinol 300 mg daily. 3. Amiodarone 200 mg daily. 4. Carvedilol 12.5 mg b.i.d. 5. Ivabradine at 7.5 mg b.i.d. 6. Digoxin 0.125 mg daily. 7. Jardiance 10 mg daily. 8. Enoxaparin 40 mg subcutaneous daily. 9. Pepcid 20 mg b.i.d. 10. Fentanyl 50 mcg q.6 hours p.r.n. 11. Furosemide 80 mg IV b.i.d. 12. Insulin lispro on sliding scale. 13. Levothyroxine 100 mcg daily. 14. Losartan 25 mg daily. 15. Milrinone currently at 0.5 mcg/kg/minute. 16. Zosyn 3.375 g IV q.6 hours. 17. Potassium chloride 40 mEq t.i.d. 18. Prednisone 10 mg b.i.d. 19. Senokot S 2 tablets b.i.d. p.r.n. 20. Zoloft 100 mg daily. 21. Spironolactone 50 mg daily. Her telemetry was reviewed. It is combination of A sensed V paced, A paced V paced and some [place] beats, so there is a variety of paced [place] rhythms. There is no concerning arrhythmia at this point. PHYSICAL EXAMINATION: VITAL SIGNS: Heart rate 66, blood pressure ranging between 123 and 143, diastolic blood pressure ranging between 60 and 72. Her inputs and outputs for the last 24 hour recorded at 2560 in and 4625 out, so there is net negative at 2065 mL. GENERAL: She is alert and conversational, reclining comfortably in bed. HEENT: EOMI. Oropharynx is benign with moist mucosa. NECK: Her JVP is not accurate due to the large diameter and nearly flat. PULMONARY: There is good air movement bilaterally. There are no crackles, so there is air movement heard today. CARDIAC: Regular rate and rhythm with normal S1, S2. There is 2/6 holosystolic murmur at the apex with radiation to the left axilla. ABDOMEN: Distended, large, soft, nontender. Positive bowel sounds. EXTREMITIES: Lower extremities, she has about 0.5 cm pitting edema from feet to about 2/[address] toward her knees, so this is the best I have seen her. She does no longer have the hip or thigh edema anymore. However, there is a large hematoma, swelling in her right foot. It is about 4 cm in diameter and elevated about 3 cm. She says it is painful. CT scan that was done last night is consistent with hematoma. Currently, there are no signs of infection. Microbiology also showed that she has Klebsiella pneumoniae that is pansensitive to antibiotics. CURRENT LABORATORY VALUES: Sodium 135, potassium 3.8, chloride 88, bicarb 31, BUN 20, and creatinine is 1.03. Her glucose is still high at 281. Magnesium is 2.5. ASSESSMENT: 50-year-old lady resides in [place] Heart Association stage C, [place] Heart Association Class 3B heart failure with reduced ejection fraction. Her LVEF is 20%. Milrinone 0.5 mcg/kg/minute is providing sufficient cardiac output to perfuse the kidney to sustain diuresis. She is still volume overloaded; however, amount of volume overload has significantly decreased. We are approaching the point where we can convert from IV diuretics to oral diuretics. She has a UTI that needs to be treated. Her right foot hematoma is going to be a problem that needs to be corrected, because she needs to be able to walk in near future if she is to be discharged. Her glucose is still a bit out of control, so better glucose control will help her in terms of infection and management of her heart failure. RECOMMENDATIONS: 1. Increase carvedilol to 18.75 mg p.o. q.12 hours. 2. Decrease the frequency of acetazolamide to 250 mg p.o. once daily. 3. Discontinue Zosyn. 4. Start Augmentin 875 mg p.o. b.i.d. for 4 days, since she already had one day of Zosyn, so this would complete a 5 day antibiotic course for her UTI. I hope that we can discontinue the Yepez the next day or two. 5. Please consider adding glargine insulin to bring her sugar back under control. 6. Depending on the urine output today, I may stop the IV Lasix tomorrow and convert her to oral regimen. It has been a pleasure taking care of Ms. Vaughn. If you have any questions, please give me a call. This is my off week. I am currently working at [employer] and [facility], so I may only see her on an every other day basis in senior case manager. The total visitation time today is 45 minutes. Job ID: [id number] MTDD
[2020-07-27] MEDS ORDERED: Furosemide 100 MG/10 ML VIAL SLOW IVP SCH (15:30)
--- NOTE | 2020-07-27 18:22 | PDOC.HOSPP ---
- Subjective Encounter Date: 07/27/20 Encounter Time: 13:00 Subjective: Patient seen in follow-up for CHF exacerbation. Denies chest pain. - Objective Vital Signs & Weight: Vital Signs (12 hours) Temp Pulse Resp BP Pulse Ox 07/27/20 15:46 98.2 F 60 18 131/65 99 07/27/20 11:45 98.7 F 75 19 138/80 97 07/27/20 07:41 97.8 F 66 20 143/69 H 98 Weight Admit Weight 295 lb 12.8 oz Weight 295 lb 8 oz I&O: 07/26/20 07/27/20 07/28/20 06:59 06:59 06:59 Intake Total 1477 2560 1255 Output Total 8262 1106 [id number] [id number] -2065 -1920 Result Diagrams: 07/27/20 04:32 07/27/20 04:32 Additional Labs: Accuchecks 07/27/20 07/27/20 07/27/20 16:24 10:44 06:07 POC Glucose 245 H 219 H 234 H 07/26/20 20:37 POC Glucose 236 H Labs and MAR reviewed by me EKG Reviewed by me: Yes (Telemetry shows V-paced rhythm) Hospitalist ROS - Review of Systems Cardiovascular: reports: edema. denies: chest pain, palpitations, orthopnea, paroxysmal noc. dyspnea, light headedness Genitourinary: denies: dysuria, frequency, incontinence, retention - Medication Medications: Active Medications Generic Name Dose Route Start Last Admin Trade Name Freq PRN Reason Stop Dose Admin Acetaminophen 650 mg 07/17/20 20:17 07/27/20 08:35 Acetaminophen 325 Mg Tab PO 650 mg Q4H PRN Administration Headache/Fever/Mild Pain (1-3) Hydrocodone Bitart/Acetaminophen 1 tab 07/17/20 20:17 07/20/20 22:06 Hydrocodone/Acetaminophen 10/325 Mg Tablet PO 1 tab Q4H PRN Administration Moderate Pain (4-6) Hydrocodone Bitart/Acetaminophen 2 tab 07/17/20 20:17 07/27/20 12:43 Hydrocodone/Acetaminophen 10/325 Mg Tablet PO 2 tab Q4H PRN Administration Severe Pain (7-10) Allopurinol 300 mg 07/18/20 09:00 07/27/20 08:36 Allopurinol 300 Mg Tab PO 300 mg DAILY RANDAL Administration Amiodarone HCl 200 mg 07/18/20 09:00 07/27/20 08:35 Amiodarone 200 Mg Tab PO 200 mg DAILY RANDAL Administration Amoxicillin/Clavulanate Potassium 875 mg 07/27/20 09:00 07/27/20 09:41 Amoxicillin/Potassium Clav 875 Mg Tab PO 07/30/20 21:01 875 mg BID RANDAL Administration Carvedilol 18.75 mg 07/27/20 09:00 07/27/20 09:41 Carvedilol 6.25 Mg Tab PO 18.75 mg Q12HR RANDAL Administration Clonazepam 2 mg 07/17/20 21:47 07/26/20 22:20 Clonazepam 1 Mg Tab PO 2 mg HS PRN Administration Anxiety Cyclobenzaprine HCl 10 mg 07/20/20 18:11 07/26/20 13:10 Cyclobenzaprine 10 Mg Tab PO 10 mg TID PRN Administration Muscle Spasm Digoxin 0.125 mg 07/18/20 09:00 07/27/20 08:42 Digoxin 0.125 Mg Tab PO 0.125 mg DAILY RANDAL Administration Enoxaparin Sodium 40 mg 07/18/20 09:00 07/27/20 08:37 Enoxaparin Sodium 40 Mg/0.4 Ml Syringe SC 40 mg 0900 RANDAL Administration Famotidine 20 mg 07/18/20 09:00 07/27/20 08:35 Famotidine 20 Mg Tab PO 20 mg BID RANDAL Administration Fentanyl 50 mcg 07/24/20 12:38 07/27/20 16:25 Fentanyl 100 Mcg/2 Ml Vial SLOW IVP 50 mcg Q6H PRN Administration Moderate to Severe Pain (6-10) Furosemide 80 mg 07/26/20 14:00 07/27/20 14:57 Furosemide 100 Mg/10 Ml Vial SLOW IVP 80 mg 0600,1400 PENDING SALE TO [facility] Administration Milrinone Lactate/Dextrose 20 100 mls @ 20.289 mls/hr 07/20/20 17:00 07/27/20 02:54 mg/ Device IV 100 mls INF RANDAL Administration Protocol 0.5 MCG/KG/MIN Insulin Human Lispro 0 units 07/17/20 21:28 07/27/20 16:34 Humalog 300 Units/3 Ml Vial SC 3 unit .MILD SLIDING SCALE PRN Administration Mild Correctional Scale Insulin Human Lispro 0 units 07/17/20 21:28 07/26/20 21:13 Humalog 300 Units/3 Ml Vial SC 2 unit .BEDTIME SLIDING SC PRN Administration Bedtime Correctional Scale Levothyroxine Sodium 100 mcg 07/18/20 06:00 07/27/20 06:16 Levothyroxine Sodium 50 Mcg Tab PO 100 mcg 0600 RANDAL Administration Lidocaine 1 patch 07/24/20 10:00 07/27/20 08:38 Lidocaine 5% Patch TD 1 patch Q24HR RANDAL Administration Losartan Potassium 25 mg 07/21/20 09:00 07/27/20 08:37 Losartan 25 Mg Tab PO 25 mg DAILY RANDAL Administration Miscellaneous Medication 10 mg 07/22/20 09:00 07/27/20 08:39 Empagliflozin 10 Mg Tab PO 10 mg DAILY RANDAL Administration Miscellaneous Medication 1 each 07/24/20 22:00 07/26/20 21:18 Lidocaine Patch Removal 1 Each TOP 1 each 2200 RANDAL Administration Ondansetron HCl 4 mg 07/17/20 19:25 07/18/20 23:19 Ondansetron Pf 4 Mg/2 Ml Vial IVP 4 mg Q6H PRN Administration Nausea/Vomiting Corlanor 7.5 Mg Tab 0 each 07/18/20 17:00 07/27/20 16:27 PO 1 each BID-WM RANDAL Administration Potassium Chloride 40 meq 07/24/20 15:00 07/27/20 14:56 Potassium Chloride 20 Meq Tab PO 40 meq TID RANDAL Administration Prednisone 10 mg 07/18/20 09:00 07/27/20 08:36 Prednisone 20 Mg Tab PO 10 mg BID RANDAL Administration Promethazine HCl 25 mg 07/17/20 21:29 07/19/20 12:55 Promethazine 25 Mg Tab PO 25 mg DAILY PRN Administration Nausea Senna/Docusate Sodium 2 tab 07/17/20 20:17 07/26/20 21:21 Senokot S 8.6-50 Mg Tab PO 2 tab BID PRN Administration Constipation Sertraline HCl 100 mg 07/18/20 09:00 07/27/20 08:37 Sertraline Hcl 100 Mg Tab PO 100 mg DAILY RANDAL Administration Sodium Chloride 10 ml 07/17/20 20:17 07/26/20 09:36 Flush - Normal Saline 10 Ml Syringe IVF 10 ml PRN PRN Administration Saline Flush Spironolactone 50 mg 07/24/20 09:00 07/27/20 08:36 Spironolactone 25 Mg Tab PO 50 mg DAILY RANDAL Administration Hospitalist Exam Vitals: Vital Signs (12 hours) Temp Pulse Resp BP Pulse Ox 07/27/20 15:46 98.2 F 60 18 131/65 99 07/27/20 11:45 98.7 F 75 19 138/80 97 07/27/20 07:41 97.8 F 66 20 143/69 H 98 Weight Admit Weight 295 lb 12.8 oz Weight 295 lb 8 oz General - other findings: Morbid obese ENT: no oropharyngeal lesions Neck: supple Heart: RRR Respiratory - other findings: Bilateral crackles Extremities: 2+ LE edema Musculoskeletal: no muscle wasting Psychiatric: normal affect Hosp A/P - Plan -Assessment (1) Acute on chronic systolic CHF (congestive heart failure) NYHA class III Status: Acute (2) Chest pain Code(s): R07.9 - CHEST PAIN, UNSPECIFIED Status: Acute (3) DM (diabetes mellitus) Code(s): E11.9 - TYPE 2 DIABETES MELLITUS WITHOUT COMPLICATIONS Status: Acute (4) HLD (hyperlipidemia) Code(s): E78.5 - HYPERLIPIDEMIA, UNSPECIFIED Status: Acute (5) HTN (hypertension) Code(s): I10 - ESSENTIAL (PRIMARY) HYPERTENSION Status: Acute (6) Morbid obesity Code(s): E66.01 - MORBID (SEVERE) OBESITY DUE TO EXCESS CALORIES Status: Acute (7) Sarcoid Code(s): D86.9 - SARCOIDOSIS, UNSPECIFIED Status: Acute (8) Shortness of breath Code(s): R06.02 - SHORTNESS OF BREATH Status: Acute - Plan CTA did not show any acute PE. No fractures. Patient given diuretics we'll continue to monitor. Continue home medications 2/ we'll consult heart failure physician Dr. Morin patient has significant lower extremity edema. She may require dobutamine or milrinone for symptom management. We'll also start patient on Flexeril since she cannot have NSAIDs. She does not want to take high doses of steroids. 07/21 patient currently on milrinone drip will continue to follow along. Will check labs in a.m. Patient's ICD was reprogrammed. 07/22 we will continue to diurese the patient. Patient continues to be on milrinone drip. Her lower extremity swelling has still not improved. 07/23 patient overall doing well. Continues to have lower extremity swelling. She is diuresing well. We will check labs in a.m. 07/24 patient has been started on as needed fentanyl by heart failure service. Otherwise, no significant change. Lidoderm patch has also been started. 07/25 no significant change since yesterday, furosemide and milrinone dose was increased today. 07/26: Furosemide dose changed to twice daily today. General surgery and infectious disease services have been consulted because of concern over abscess over the dorsum of right foot. 07/26: Pt's progress is slow, continue diuretics.
[2020-07-27] MEDS: Transdermal Patch Removal TOP SCH (19:58)
[2020-07-27] MEDS ORDERED: HYDROcodone/Acetaminophen 10/325 mg Tablet PO PRN (22:26)
[2020-07-27] MEDS: clonazePAM 1 MG TAB PO PRN (22:44)
[2020-07-28] MEDS: HYDROcodone/Acetaminophen 10/325 mg Tablet PO PRN ×4 (02:12→19:32)
[2020-07-28] MEDS: Milrinone Lactate/D5W 20 MG in Premix Bag 1 BAG IV SCH ×4 (03:41→19:32)
[2020-07-28 03:51] LABS: #Eosinphils 0.2 thou/uL (0.0-0.7); #Lymphocytes 0.7 thou/uL (1.20-3.40); #Monocytes 1.2 thou/uL (0.11-0.59); #Neutrophils 10.7 thou/uL (1.40-6.50); %Eosinophils 1.2 % (0.0-10.0); %Lymphocytes 5.6 % (21.0-51.0); %Monocytes 9.2 % (0.0-10.0); %Neutrophils 84.1 % (42.0-75.0); Hemoglobin 11.7 g/dL (12.0-16.0); Mean Corpuscular HGB CONC 33.1 g/dL (32.0-36.0); Mean Corpuscular Hemoglobin 30.9 pg (27.0-31.0); Mean Corpuscular Volume 93.5 fL (78.0-98.0); Mean Platelet Volume 8.1 fL (7.4-10.4); Platelet Count 231 thou/uL (130-400); RBC Distribution Width 14.2 % (11.5-14.5); Red Blood Cell (RBC) Count 3.77 mill/uL (4.20-5.40); White Blood Cell (WBC) Count 12.8 thou/uL (4.8-10.8)
[2020-07-28 04:15] LABS: Anion Gap 16 mmol/L (10-20); BUN (Urea Nitrogen) 24 mg/dL (7.0-18.7); Calc. Creatinine Clearance 166 mL/min (70-130); Calcium 9.5 mg/dL (7.8-10.44); Carbon Dioxide 33 mmol/L (22-29); Chloride 88 mmol/L (98-107); Glucose 254 mg/dL (70-105); Magnesium 2.2 mg/dL (1.6-2.6); Potassium 3.8 mmol/L (3.5-5.1); Sodium 133 mmol/L (136-145)
[2020-07-28] MEDS: Levothyroxine Sodium 50 MCG TAB PO SCH (04:47)
[2020-07-28] MEDS: Fentanyl 100 MCG/2 ML VIAL SLOW IVP PRN ×3 (04:47→21:50)
[2020-07-28] MEDS: HumaLOG 300 UNITS/3 ML VIAL SC PRN ×3 (06:11→17:20)
[2020-07-28] MEDS: Empagliflozin 10 MG TAB PO SCH (08:20)
[2020-07-28] MEDS: AcetaZOLAMIDE 250 MG TAB PO SCH (08:21)
[2020-07-28] MEDS: Digoxin 0.125 MG TAB PO SCH (08:21)
[2020-07-28] MEDS: Potassium Chloride 20 MEQ TAB PO SCH ×3 (08:21→20:55)
[2020-07-28] MEDS: Famotidine 20 MG TAB PO SCH ×2 (08:21→20:54)
[2020-07-28] MEDS: Enoxaparin Sodium 40 MG/0.4 ML SYRINGE SC SCH (08:22)
[2020-07-28] MEDS: Carvedilol 6.25 MG TAB PO SCH ×2 (08:22→20:55)
[2020-07-28] MEDS: predniSONE 20 MG TAB PO SCH ×2 (08:22→20:55)
[2020-07-28] MEDS: Amoxicillin/Potassium Clav 875 MG TAB PO SCH ×2 (08:22→20:54)
[2020-07-28] MEDS: Losartan 25 MG TAB PO SCH (08:23)
[2020-07-28] MEDS: Allopurinol 300 MG TAB PO SCH (08:23)
[2020-07-28] MEDS: Insulin Glargine 10 UNITS in Pre-Filled Syringe 1 EACH SC SCH (08:23)
[2020-07-28] MEDS: Spironolactone 25 MG TAB PO SCH (08:23)
[2020-07-28] MEDS: Amiodarone 200 MG TAB PO SCH (08:23)
[2020-07-28] MEDS: CORLANOR 7.5 MG PO SCH ×2 (09:21→17:21)
--- NOTE | 2020-07-28 11:11 | PRG ---
DATE OF SERVICE: 07/28/2020 SUBJECTIVE: Ms. Vaughn had a good day. She continued to diurese well. She believes her legs have returned back to normal. However, she still has severe right foot pain from the hematoma. She is still fatigued. Overall, she is better in that she is breathing easily. REVIEW OF SYSTEMS: GENERAL: No fever, chills, or productive cough. HEENT: There is no change in vision, hearing, or swallowing. PULMONARY: See HPI. CARDIAC: There is no chest pain, palpitations, or syncope. GI: There is no nausea, vomiting, or diarrhea. : She has a Yepez catheter. MUSCULOSKELETAL: Please see HPI. INTEGUMENT: Please see HPI. NEUROLOGIC: There are no focal deficits or weaknesses. CURRENT MEDICATIONS: 1. Acetazolamide 250 mg daily. 2. Allopurinol 300 mg daily. 3. Amiodarone 200 mg daily. 4. Augmentin 875 mg b.i.d. 5. Carvedilol 18.75 mg q.12 hours. 6. Cyclobenzaprine 10 mg t.i.d. 7. Digoxin 0.125 mg daily. 8. Enoxaparin 40 mg subcutaneous daily. 9. Pepcid 20 mg b.i.d. 10. Insulin glargine 10 units daily. 11. Sliding scale insulin. 12. Levothyroxine 100 mcg daily. 13. Losartan 25 mg daily. 14. Milrinone 0.5 mcg/kg/minute. 15. Jardiance 10 mg daily. 16. Lidocaine patch. 17. Ivabradine 7.5 mg b.i.d. 18. Potassium chloride 40 mEq t.i.d. 19. Prednisone 10 mg b.i.d. 20. Zoloft 100 mg daily. 21. Spironolactone 50 mg daily. Her telemetry was reviewed. She is predominantly in A sensed, V paced rhythm. There are occasional [place] beats. Otherwise, there is no concerning arrhythmia. PHYSICAL EXAMINATION: VITAL SIGNS: Her most recent vital signs are heart rate 60, blood pressure 142/62. GENERAL: She is alert and conversational, lying in bed, not short of breath; however, she still has a right foot discomfort. HEENT: EOMI. Oropharynx is benign with moist mucosa. However, the lips appear to be dry today. NECK: JVP is about 10 cm. PULMONARY: There is good air movement bilaterally. HEART: Regular rate and rhythm. Normal S1, S2. There is 2/6 holosystolic murmur at the left upper sternal border and also at the apex. She has tricuspid regurgitation and mitral regurgitation. ABDOMEN: Soft, nontender, distended. She has ventral hernia. LOWER EXTREMITIES: There is no pitting edema at hips. There is no pitting edema at the thighs. She has minimal pitting edema on her left leg and left foot. However, she has about a 3.5 cm diameter and 2 cm elevation hematoma on dorsum of the right foot. LABORATORY DATA: Her laboratory values today are white cell count 12.8, hemoglobin 11.7, and platelets at 231. Her chemistry shows sodium 133, potassium 3.8, chloride decreased to 88, bicarb 33, BUN 24. Her sugar is still elevated at 254. Her magnesium is 2.2. Her inputs and outputs for the last 24 hours are 1855 in and 3875 out, so she was negative 2 L yesterday. Her overall weight has dropped from 305 pounds down to 289 pounds, so she had 16 pounds of diuresis. ASSESSMENT: A 50-year-old lady remains in [place] Heart Association likely stage C and [place] Heart Association class 3B heart failure with reduced ejection fraction. Her LVEF is only 20%. 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 Milrinone 0.5 mcg/kg/minute is providing sufficient cardiac output to sustain diuresis while maintaining her renal function. With declining chloride and then wrinkling of her skin of her leg shows that she is pretty much back to her baseline and she attests to this. At this point, we will switch over to oral diuretics for slower rate and also following maintenance. We need to closely follow her right foot to make sure it does not progress into a seroma. For now, we will tolerate a little bit higher blood pressure due to her pain, so we will consider increasing carvedilol some more tomorrow. RECOMMENDATIONS: Please see the following for my recommendations. 1. Continue milrinone at 0.5 mcg/kg/minute. 2. Start torsemide 40 mg daily, first dose now. We will follow her output. If this is sufficient, this could be her long-term going home dose. 3. We will continue acetazolamide at 250 mg daily for now. If need be, we can increase it to b.i.d. tomorrow. 4. If her volume goes back up a lot tomorrow, then we will have to restart IV diuretics. 5. Please consult Wound Care to see if there is something that could be done about her right foot hematoma. If it gets worse, please consult surgery again for potential I and D. 6. She will likely need long-term chronic milrinone. So, we will need to prepare for this. It has been a pleasure taking care of Ms Rona Vaughn. If you have any questions, please give me a call. Total visitation time today is 40 minutes. Job ID: [id number] MTDD
[2020-07-28] MEDS: Lidocaine 5% Patch TD SCH (17:21)
[2020-07-28] MEDS: Cyclobenzaprine 10 MG TAB PO PRN (17:21)
--- NOTE | 2020-07-28 17:30 | PDOC.HOSPP ---
- Subjective Encounter Date: 07/28/20 Encounter Time: 12:00 Subjective: Patient seen for follow-up of CHF exacerbation. Reports ongoing swelling in the right foot. - Objective Vital Signs & Weight: Vital Signs (12 hours) Temp Pulse Resp BP Pulse Ox 07/28/20 15:00 98.4 F 61 16 118/73 97 07/28/20 12:00 98.6 F 64 16 122/64 97 07/28/20 08:21 60 07/28/20 08:00 98.1 F 61 16 135/67 96 Weight Admit Weight 295 lb 12.8 oz Weight 289 lb 6.4 oz I&O: 07/27/20 07/28/20 07/29/20 06:59 06:59 06:59 Intake Total 2560 1855 Output Total 4647 8125 Balance -2064 Result Diagrams: 07/28/20 03:04 07/28/20 03:04 Additional Labs: Accuchecks 07/28/20 07/28/20 07/28/20 16:57 11:12 06:07 POC Glucose 237 H 186 H 243 H 07/27/20 21:26 POC Glucose 178 H I reviewed patient's labs and MAR EKG Reviewed by me: Yes (Electronic V paced rhythm on telemetry) Hospitalist ROS - Review of Systems Cardiovascular: reports: edema. denies: chest pain, palpitations, orthopnea, paroxysmal noc. dyspnea, light headedness Gastrointestinal: denies: nausea, vomiting, abdominal pain, diarrhea, constipation, melena, hematochezia - Medication Medications: Active Medications Generic Name Dose Route Start Last Admin Trade Name Zakq PRN Reason Stop Dose Admin Acetaminophen 650 mg 07/17/20 20:17 07/27/20 08:35 Acetaminophen 325 Mg Tab PO 650 mg Q4H PRN Administration Headache/Fever/Mild Pain (1-3) Hydrocodone Bitart/Acetaminophen 2 tab 07/27/20 22:27 07/28/20 14:44 Hydrocodone/Acetaminophen 10/325 Mg Tablet PO 2 tab Q4H PRN Administration Severe Pain (7-10) Acetazolamide 250 mg 07/28/20 09:00 07/28/20 08:21 Acetazolamide 250 Mg Tab PO 250 mg DAILY RANDAL Administration Allopurinol 300 mg 07/18/20 09:00 07/28/20 08:23 Allopurinol 300 Mg Tab PO 300 mg DAILY RANDAL Administration Amiodarone HCl 200 mg 07/18/20 09:00 07/28/20 08:23 Amiodarone 200 Mg Tab PO 200 mg DAILY RANDAL Administration Amoxicillin/Clavulanate Potassium 875 mg 07/27/20 09:00 07/28/20 08:22 Amoxicillin/Potassium Clav 875 Mg Tab PO 07/30/20 21:01 875 mg BID RANDAL Administration Carvedilol 18.75 mg 07/27/20 09:00 07/28/20 08:22 Carvedilol 6.25 Mg Tab PO 18.75 mg Q12HR RANDAL Administration Clonazepam 2 mg 07/27/20 22:27 07/27/20 22:44 Clonazepam 1 Mg Tab PO 2 mg HS PRN Administration Anxiety Cyclobenzaprine HCl 10 mg 07/20/20 18:11 07/28/20 17:21 Cyclobenzaprine 10 Mg Tab PO 10 mg TID PRN Administration Muscle Spasm Digoxin 0.125 mg 07/18/20 09:00 07/28/20 08:21 Digoxin 0.125 Mg Tab PO 0.125 mg DAILY RANDAL Administration Enoxaparin Sodium 40 mg 07/18/20 09:00 07/28/20 08:22 Enoxaparin Sodium 40 Mg/0.4 Ml Syringe SC 40 mg 0900 RANDAL Administration Famotidine 20 mg 07/18/20 09:00 07/28/20 08:21 Famotidine 20 Mg Tab PO 20 mg BID RANDAL Administration Fentanyl 50 mcg 07/24/20 12:38 07/28/20 12:03 Fentanyl 100 Mcg/2 Ml Vial SLOW IVP 50 mcg Q6H PRN Administration Moderate to Severe Pain (6-10) Milrinone Lactate/Dextrose 20 100 mls @ 20.289 mls/hr 07/20/20 17:00 07/28/20 14:58 mg/ Device IV 100 mls INF RANDAL Administration Protocol 0.5 MCG/KG/MIN Insulin Glargine 10 units/ 0.1 mls @ 0 mls/hr 07/28/20 09:00 07/28/20 08:23 Miscellaneous Medication SC 0.1 mls QAM RANDAL Administration Insulin Human Lispro 0 units 07/17/20 21:28 07/28/20 17:20 Humalog 300 Units/3 Ml Vial SC 3 unit .MILD SLIDING SCALE PRN Administration Mild Correctional Scale Insulin Human Lispro 0 units 07/17/20 21:28 07/26/20 21:13 Humalog 300 Units/3 Ml Vial SC 2 unit .BEDTIME SLIDING SC PRN Administration Bedtime Correctional Scale Levothyroxine Sodium 100 mcg 07/18/20 06:00 07/28/20 04:47 Levothyroxine Sodium 50 Mcg Tab PO 100 mcg 0600 RANDAL Administration Lidocaine 1 patch 07/24/20 10:00 07/28/20 17:21 Lidocaine 5% Patch TD 1 patch Q24HR RANDAL Administration Losartan Potassium 25 mg 07/21/20 09:00 07/28/20 08:23 Losartan 25 Mg Tab PO 25 mg DAILY RANDAL Administration Miscellaneous Medication 10 mg 07/22/20 09:00 07/28/20 08:20 Empagliflozin 10 Mg Tab PO 10 mg DAILY RANDAL Administration Miscellaneous Medication 1 each 07/24/20 22:00 07/27/20 19:58 Lidocaine Patch Removal 1 Each TOP 1 each 2200 RANDAL Administration Ondansetron HCl 4 mg 07/17/20 19:25 07/18/20 23:19 Ondansetron Pf 4 Mg/2 Ml Vial IVP 4 mg Q6H PRN Administration Nausea/Vomiting Corlanor 7.5 Mg Tab 0 each 07/18/20 17:00 07/28/20 17:21 PO 1 each BID-WM RANDAL Administration Potassium Chloride 40 meq 07/24/20 15:00 07/28/20 14:44 Potassium Chloride 20 Meq Tab PO 40 meq TID RANDAL Administration Prednisone 10 mg 07/18/20 09:00 07/28/20 08:22 Prednisone 20 Mg Tab PO 10 mg BID RANDAL Administration Promethazine HCl 25 mg 07/17/20 21:29 07/19/20 12:55 Promethazine 25 Mg Tab PO 25 mg DAILY PRN Administration Nausea Senna/Docusate Sodium 2 tab 07/17/20 20:17 07/26/20 21:21 Senokot S 8.6-50 Mg Tab PO 2 tab BID PRN Administration Constipation Sertraline HCl 100 mg 07/18/20 09:00 07/28/20 08:22 Sertraline Hcl 100 Mg Tab PO 100 mg DAILY RANDAL Administration Sodium Chloride 10 ml 07/17/20 20:17 07/26/20 09:36 Flush - Normal Saline 10 Ml Syringe IVF 10 ml PRN PRN Administration Saline Flush Spironolactone 50 mg 07/24/20 09:00 07/28/20 08:23 Spironolactone 25 Mg Tab PO 50 mg DAILY RANDAL Administration Hospitalist Exam Vitals: Vital Signs (12 hours) Temp Pulse Resp BP Pulse Ox 07/28/20 15:00 98.4 F 61 16 118/73 97 07/28/20 12:00 98.6 F 64 16 122/64 97 07/28/20 08:21 60 07/28/20 08:00 98.1 F 61 16 135/67 96 Weight Admit Weight 295 lb 12.8 oz Weight 289 lb 6.4 oz General - other findings: Morbid obesity ENT: no oropharyngeal lesions Neck: no thyromegaly, no lymphadenopathy Heart: RRR Respiratory - other findings: Bilateral crackles Extremities: 2+ LE edema Psychiatric: normal affect Hosp A/P - Plan -Assessment (1) Acute on chronic systolic CHF (congestive heart failure) NYHA class III Status: Acute (2) Chest pain Code(s): R07.9 - CHEST PAIN, UNSPECIFIED Status: Acute (3) DM (diabetes mellitus) Code(s): E11.9 - TYPE 2 DIABETES MELLITUS WITHOUT COMPLICATIONS Status: Acute (4) HLD (hyperlipidemia) Code(s): E78.5 - HYPERLIPIDEMIA, UNSPECIFIED Status: Acute (5) HTN (hypertension) Code(s): I10 - ESSENTIAL (PRIMARY) HYPERTENSION Status: Acute (6) Morbid obesity Code(s): E66.01 - MORBID (SEVERE) OBESITY DUE TO EXCESS CALORIES Status: Acute (7) Sarcoid Code(s): D86.9 - SARCOIDOSIS, UNSPECIFIED Status: Acute (8) Shortness of breath Code(s): R06.02 - SHORTNESS OF BREATH Status: Acute - Plan CTA did not show any acute PE. No fractures. Patient given diuretics we'll continue to monitor. Continue home medications 2/2 we'll consult heart failure physician Dr. Morin patient has significant lower extremity edema. She may require dobutamine or milrinone for symptom management. We'll also start patient on Flexeril since she cannot have NSAIDs. She does not want to take high doses of steroids. 2/3 patient currently on milrinone drip will continue to follow along. Will check labs in a.m. Patient's ICD was reprogrammed. 07/22 we will continue to diurese the patient. Patient continues to be on milrinone drip. Her lower extremity swelling has still not improved. 07/23 patient overall doing well. Continues to have lower extremity swelling. She is diuresing well. We will check labs in a.m. 07/24 patient has been started on as needed fentanyl by heart failure service. Otherwise, no significant change. Lidoderm patch has also been started. 07/25 no significant change since yesterday, furosemide and milrinone dose was increased today. 07/26: Furosemide dose changed to twice daily today. General surgery and infectious disease services have been consulted because of concern over abscess over the dorsum of right foot. 07/27: Pt's progress is slow, continue diuretics. 07/28: Patient has been switched to oral torsemide. Monitor progress.
[2020-07-28] MEDS: clonazePAM 1 MG TAB PO PRN (20:54)
[2020-07-28] MEDS: Transdermal Patch Removal TOP SCH (22:36)
[2020-07-29] MEDS: HYDROcodone/Acetaminophen 10/325 mg Tablet PO PRN ×5 (00:23→19:56)
[2020-07-29] MEDS: Fentanyl 100 MCG/2 ML VIAL SLOW IVP PRN ×3 (03:49→18:41)
[2020-07-29 04:38] LABS: #Eosinphils 0.1 thou/uL (0.0-0.7); #Lymphocytes 0.6 thou/uL (1.20-3.40); #Neutrophils 9.6 thou/uL (1.40-6.50); %Basophils 0.3 % (0.0-1.0); %Eosinophils 1.3 % (0.0-10.0); %Lymphocytes 5.2 % (21.0-51.0); %Monocytes 8.8 % (0.0-10.0); %Neutrophils 84.5 % (42.0-75.0); Hemoglobin 11.7 g/dL (12.0-16.0); Mean Corpuscular HGB CONC 33.2 g/dL (32.0-36.0); Mean Corpuscular Hemoglobin 31.1 pg (27.0-31.0); Mean Platelet Volume 7.8 fL (7.4-10.4); Platelet Count 233 thou/uL (130-400); RBC Distribution Width 14.2 % (11.5-14.5); Red Blood Cell (RBC) Count 3.74 mill/uL (4.20-5.40); White Blood Cell (WBC) Count 11.3 thou/uL (4.8-10.8)
[2020-07-29 04:58] LABS: Anion Gap 13 mmol/L (10-20); BUN (Urea Nitrogen) 20 mg/dL (7.0-18.7); Calc. Creatinine Clearance 174 mL/min (70-130); Calcium 9.4 mg/dL (7.8-10.44); Carbon Dioxide 32 mmol/L (22-29); Chloride 95 mmol/L (98-107); Glucose 260 mg/dL (70-105); Magnesium 2.3 mg/dL (1.6-2.6); Potassium 4.5 mmol/L (3.5-5.1); Sodium 135 mmol/L (136-145)
[2020-07-29] MEDS: Milrinone Lactate/D5W 20 MG in Premix Bag 1 BAG IV SCH ×4 (05:12→21:08)
[2020-07-29] MEDS: Levothyroxine Sodium 50 MCG TAB PO SCH (05:13)
[2020-07-29] MEDS: HumaLOG 300 UNITS/3 ML VIAL SC PRN ×2 (06:07→18:41)
[2020-07-29] MEDS: Enoxaparin Sodium 40 MG/0.4 ML SYRINGE SC SCH (08:10)
[2020-07-29] MEDS: CORLANOR 7.5 MG PO SCH ×2 (08:10→17:01)
[2020-07-29] MEDS: Spironolactone 25 MG TAB PO SCH (08:11)
[2020-07-29] MEDS: Amoxicillin/Potassium Clav 875 MG TAB PO SCH ×2 (08:11→19:56)
[2020-07-29] MEDS: Losartan 25 MG TAB PO SCH (08:11)
[2020-07-29] MEDS: predniSONE 20 MG TAB PO SCH ×2 (08:12→19:55)
[2020-07-29] MEDS: Cyclobenzaprine 10 MG TAB PO PRN (08:12)
[2020-07-29] MEDS: Amiodarone 200 MG TAB PO SCH (08:12)
[2020-07-29] MEDS: Digoxin 0.125 MG TAB PO SCH (08:12)
[2020-07-29] MEDS: Carvedilol 6.25 MG TAB PO SCH ×2 (08:12→19:55)
[2020-07-29] MEDS: AcetaZOLAMIDE 250 MG TAB PO SCH (08:12)
[2020-07-29] MEDS: Famotidine 20 MG TAB PO SCH ×2 (08:13→19:57)
[2020-07-29] MEDS: Allopurinol 300 MG TAB PO SCH (08:13)
[2020-07-29] MEDS: Potassium Chloride 20 MEQ TAB PO SCH (08:13)
[2020-07-29] MEDS: Empagliflozin 10 MG TAB PO SCH (08:13)
[2020-07-29] MEDS: Insulin Glargine 10 UNITS in Pre-Filled Syringe 1 EACH SC SCH (08:20)
[2020-07-29] MEDS ORDERED: Torsemide 20 MG TAB PO SCH (09:45)
[2020-07-29] MEDS: Senokot S 8.6-50 MG TAB PO PRN (09:48)
[2020-07-29] MEDS ORDERED: Lidocaine 1% w/Epinephrine 1:100K 20 ML VIAL ONE (11:19)
--- NOTE | 2020-07-29 11:46 | PDOC.OP ---
Operative Note - Operative Note Operative Note: PROCEDURE: Incision and drainage of right foot hematoma SURGEON: Blaine Hudson M.D. DATE: 07/29/2020 PREOPERATIVE DIAGNOSIS: Right foot hematoma POSTOPERATIVE DIAGNOSIS: Right groin hematoma HISTORY: Patient with right foot hematoma presumably due to SCDs. She has developed some blistering of the skin overlying the hematoma worrisome for skin damage from pressure from the underlying hematoma. Drainage of the hematoma was recommended to prevent further skin loss. FINDINGS: Mixture of formed clot and old blood consistent with hematoma. PROCEDURE IN DETAIL: After informed consent was obtained, the right foot was prepped with Betadine and local anesthesia infused to the skin and subcutaneous tissues overlying the hematoma. A transverse skin incision was made the hematoma encountered immediately under the skin. This was a mixture of formed c lot and old dark liquid blood. Some was sent for Gram stain and culture but there was no evidence of infection. As much of the form clot as possible was removed from hematoma cavity but since it was quite adherent to the surrounding tissues. All of the liquid blood was drained. There was about a 50% reduction in the size of the hematoma but due to organized clot it could not be completely evacuated. The hematoma cavity was loosely packed with iodoform to continue to mechanically debride the hematoma with daily dressing changes. Estimated blood loss was minimal. There were no complications.
--- NOTE | 2020-07-29 11:49 | PDOC.GSPN ---
Surgery Progress Note: Subj - Subjective Narrative: Contacted by wound care team due to worsening appearance of the patient's foot. There are some blistering of the skin concerning for damage to the skin due to pressure from the underlying hematoma. The skin is discolored so capillary refill cannot really be evaluated but she does have intact sensation to light touch. Was felt that the skin was viable but at risk and the recommendation was made to proceed with incision and drainage of the hematoma to lessen the pressure on the skin. The patient was agreeable to this and the procedure was performed as detailed under separate cover. I will see her tomorrow with the wound care team. She will require daily dressing changes after discharge. She does have home health with [facility] already established. Surgery Progress Note: Obj - Vital signs Vital signs: Vital Signs - Most Recent Temp Pulse Resp BP Pulse Ox 98.0 F 62 16 131/80 95 07/29/20 07:36 07/29/20 08:12 07/29/20 07:36 07/29/20 07:36 07/29/20 08:00 Surgery Progress Note: Results - Labs Result Diagrams: 07/29/20 04:23 07/29/20 04:23 Lab results: Laboratory Results - last 12 hr 07/29/20 07/29/20 07/29/20 04:23 04:23 05:57 WBC 11.3 H RBC 3.74 L Hgb 11.7 L Hct 35.2 L MCV 94.0 MCH 31.1 H MCHC 33.2 RDW 14.2 Plt Count 233 MPV 7.8 Neutrophils % 84.5 H Lymphocytes % 5.2 L Monocytes % 8.8 Eosinophils % 1.3 Basophils % 0.3 Neutrophils # 9.6 H Lymphocytes # 0.6 L Monocytes # 1.0 H Eosinophils # 0.1 Basophils # 0.0 Sodium 135 L Potassium 4.5 Chloride 95 L Carbon Dioxide 32 H Anion Gap 13 BUN 20 H Creatinine 0.82 Estimated GFR (MDRD) 74 Glucose 260 H POC Glucose 231 H Calcium 9.4 Magnesium 2.3 07/29/20 10:46 WBC RBC Hgb Hct MCV MCH MCHC RDW Plt Count MPV Neutrophils % Lymphocytes % Monocytes % Eosinophils % Basophils % Neutrophils # Lymphocytes # Monocytes # Eosinophils # Basophils # Sodium Potassium Chloride Carbon Dioxide Anion Gap BUN Creatinine Estimated GFR (MDRD) Glucose POC Glucose 204 H Calcium Magnesium
--- NOTE | 2020-07-29 12:01 | PRG ---
DATE OF SERVICE: 07/29/2020 SUBJECTIVE: Ms. Rona Vaughn had an excellent day. She says she is breathing better. She says she has much increased energy level. She feels like her fluid is continuing to come off her. Overall she is feeling very well. However, she still has persistent right foot pain. Even though the pain has diminished, patient can still feel it. She is afraid that would turn into an infection. However, she is being given Augmentin 875 mg twice a day right now. This should prevent the hematoma from turning to seroma. REVIEW OF SYSTEMS: GENERAL: There is no fever, chills, productive cough. HEENT: There is no change in vision, hearing, or swallowing. PULMONARY: Please see HPI. CARDIAC: There is no chest pain, palpitations, or syncope. GI: There is no nausea, vomiting, diarrhea. : She is on a Yepez catheter. MUSCULOSKELETAL: Please see HPI. INTEGUMENT: Please see HPI. Mainly her dorsum of the right foot has large hematoma with pain. NEUROLOGIC: There are no new focal deficits or weaknesses. CURRENT MEDICATIONS: 1. Acetazolamide 250 mg daily. 2. Allopurinol 300 mg daily. 3. Amiodarone 200 mg daily. 4. Augmentin 875 mg b.i.d. 5. Carvedilol 18.75 mg q.12 hours. 6. Ivabradine 7.5 mg b.i.d. 7. Digoxin 0.125 mg daily. 8. Enoxaparin 40 mg subcutaneous daily. 9. Pepcid 20 mg b.i.d. 10. Glargine insulin 10 units. 11. Lispro sliding scale insulin. 12. Losartan 25 mg daily. 13. Milrinone 0.5 mcg/kg/minute. 14. Potassium chloride 40 mEq t.i.d. 15. Prednisone 10 mg b.i.d. 16. Sertraline 100 mg daily. 17. Spironolactone 50 mg daily. 18. Jardiance 10 mg daily. 19. Torsemide seems to be falling off, that will need to be restarted. Telemetry was reviewed. She is in combination of pacing rhythm. A lot of them A sensed, V paced, and a lot of them A-paced and V-paced. There are occasional [place] beats. Otherwise, there is no concerning arrhythmia. PHYSICAL EXAMINATION: VITAL SIGNS: Her latest vitals are heart rate 62, blood pressure 131/83. Input and output yesterday 1600 input and 2920 output. GENERAL: She is alert and conversational, looking more energetic today. HEENT: Show EOMI. Oropharynx is benign with moist mucosa. NECK: JVP has decreased, currently about 11 cm. PULMONARY: There is excellent air movement bilaterally. It is clear to auscultation bilaterally. This is best lung sounds I have heard yet. CARDIAC: Irregular rate and rhythm with normal S1, S2. There is 2/6 holosystolic murmur at the apex with radiation to the left axilla. ABDOMEN: Distended, soft, nontender. Positive bowel sounds. EXTREMITIES: Lower extremity, she no longer have any hip or thigh edema. She only has minimal pedal edema and some above her left ankle. However, she still has about 4 cm in diameter and 3 cm height hematoma at the dorsum of the right foot that is painful and is dark but is not as erythematous as yesterday. LABORATORY VALUES: Her current labs values are; white cell count 11.7, hemoglobin 11.7, platelets 235. Her chemistry shows sodium 135, potassium 4.5, chloride 95, bicarb at 32, BUN at 20, and creatinine 0.82. Her glucose of 260. ASSESSMENT: 50-year-old lady is making improvement on her heart failure with reduced ejection fraction. She continued to diurese and then she is reaching nearly euvolemic at this point. She resides in [place] [employer] stage C, [place] [employer] class 3B heart failure with reduced ejection fraction with combined systolic and diastolic dysfunction. Throughout this time, her renal function was able to be maintained. She required milrinone 0.5 mcg/kg/minute to sustain the diuresis. She will likely need to go on chronic milrinone therapy. Please see following for my recommendations. RECOMMENDATIONS: 1. Continue milrinone at 0.5 mcg/kg/minute. This will likely need to be filled outpatient to keep her diuresed and euvolemic as outpatient. 2. We will stay with carvedilol at 18.75 mg b.i.d. for now. May increase to 25 mg twice a day tomorrow. 3. It is uncertain that torsemide ever got started. Because of that, I will start torsemide at lower dose at 20 mg daily. 4. We will decrease the frequency of potassium supplement down to just twice daily. She is no longer needing this large amount of supplement because there is significant decrease in diuretics. 5. Please consult Case Management for chronic milrinone infusion. 6. I will make attempt to contact Dr. Matt Onofre to let him know that the patient will be going home on chronic milrinone. 7. Please find method to mobilize the patient, find a method to help the patient with her right foot hematoma. I believe she will need at least 2 weeks of suppressive antibiotics to keep that from being infected. It has been a pleasure taking care of Ms. Vaughn. If you have any questions, please give me a call. The total visitation time is 40 minutes today. Job ID: [id number] MTDD
[2020-07-29 13:08] VITALS: BMI 47.7
--- NOTE | 2020-07-29 19:19 | PDOC.HOSPP ---
- Subjective Encounter Date: 07/29/20 Encounter Time: 12:00 Subjective: Patient seen for follow-up regarding CHF exacerbation. She complained of right foot pain. - Objective Vital Signs & Weight: Vital Signs (12 hours) Temp Pulse Resp BP Pulse Ox 07/29/20 15:50 98.4 F 56 L 16 127/58 L 97 07/29/20 12:35 98.2 F 65 18 138/65 94 L 07/29/20 08:12 62 07/29/20 08:00 95 07/29/20 07:36 98.0 F 62 16 131/80 94 L Weight Admit Weight 295 lb 12.8 oz Weight 287 lb I&O: 07/28/20 07/29/20 07/30/20 06:59 06:59 06:59 Intake Total 1855 1600 1180 Output Total 3875 2920 1600 Balance -2020 -1320 -420 Result Diagrams: 07/29/20 04:23 07/29/20 04:23 Additional Labs: Accuchecks 07/29/20 07/29/20 07/29/20 17:08 10:46 05:57 POC Glucose 219 H 204 H 231 H 07/28/20 20:00 POC Glucose 196 H Labs and MAR reviewed by me EKG Reviewed by me: Yes (Telemetry shows normal sinus rhythm) Hospitalist ROS - Review of Systems Constitutional: denies: fever, chills, sweats, weakness, malaise Musculoskeletal: reports: foot pain Neurological: denies: weakness, numbness, incoordination, change in speech, confusion, seizures - Medication Medications: Active Medications Generic Name Dose Route Start Last Admin Trade Name Sergio PRN Reason Stop Dose Admin Acetaminophen 650 mg 07/17/20 20:17 07/27/20 08:35 Acetaminophen 325 Mg Tab PO 650 mg Q4H PRN Administration Headache/Fever/Mild Pain (1-3) Hydrocodone Bitart/Acetaminophen 2 tab 07/27/20 22:27 07/29/20 15:56 Hydrocodone/Acetaminophen 10/325 Mg Tablet PO 2 tab Q4H PRN Administration Severe Pain (7-10) Acetazolamide 250 mg 07/28/20 09:00 07/29/20 08:12 Acetazolamide 250 Mg Tab PO 250 mg DAILY RANDAL Administration Allopurinol 300 mg 07/18/20 09:00 07/29/20 08:13 Allopurinol 300 Mg Tab PO 300 mg DAILY RANDAL Administration Amiodarone HCl 200 mg 07/18/20 09:00 07/29/20 08:12 Amiodarone 200 Mg Tab PO 200 mg DAILY RANDAL Administration Amoxicillin/Clavulanate Potassium 875 mg 07/27/20 09:00 07/29/20 08:11 Amoxicillin/Potassium Clav 875 Mg Tab PO 07/30/20 21:01 875 mg BID RANDAL Administration Carvedilol 18.75 mg 07/27/20 09:00 07/29/20 08:12 Carvedilol 6.25 Mg Tab PO 18.75 mg Q12HR RANDAL Administration Clonazepam 2 mg 07/27/20 22:27 07/28/20 20:54 Clonazepam 1 Mg Tab PO 2 mg HS PRN Administration Anxiety Cyclobenzaprine HCl 10 mg 07/20/20 18:11 07/29/20 08:12 Cyclobenzaprine 10 Mg Tab PO 10 mg TID PRN Administration Muscle Spasm Digoxin 0.125 mg 07/18/20 09:00 07/29/20 08:12 Digoxin 0.125 Mg Tab PO 0.125 mg DAILY RANDAL Administration Enoxaparin Sodium 40 mg 07/18/20 09:00 07/29/20 08:10 Enoxaparin Sodium 40 Mg/0.4 Ml Syringe SC 40 mg 09 RANDAL Administration Famotidine 20 mg 07/18/20 09:00 07/29/20 08:13 Famotidine 20 Mg Tab PO 20 mg BID RANDAL Administration Fentanyl 50 mcg 07/24/20 12:38 07/29/20 18:41 Fentanyl 100 Mcg/2 Ml Vial SLOW IVP 50 mcg Q6H PRN Administration Moderate to Severe Pain (6-10) Milrinone Lactate/Dextrose 20 100 mls @ 20.289 mls/hr 07/20/20 17:00 07/29/20 16:57 mg/ Device IV 100 mls INF RANDAL Administration Protocol 0.5 MCG/KG/MIN Insulin Glargine 10 units/ 0.1 mls @ 0 mls/hr 07/28/20 09:00 07/29/20 08:20 Miscellaneous Medication SC 0.1 mls QAM RANDAL Administration Insulin Human Lispro 0 units 07/17/20 21:28 07/29/20 18:41 Humalog 300 Units/3 Ml Vial SC 2 unit .MILD SLIDING SCALE PRN Administration Mild Correctional Scale Insulin Human Lispro 0 units 07/17/20 21:28 07/26/20 21:13 Humalog 300 Units/3 Ml Vial SC 2 unit .BEDTIME SLIDING SC PRN Administration Bedtime Correctional Scale Levothyroxine Sodium 100 mcg 07/18/20 06:00 07/29/20 05:13 Levothyroxine Sodium 50 Mcg Tab PO 100 mcg 0600 RANDAL Administration Losartan Potassium 25 mg 07/21/20 09:00 07/29/20 08:11 Losartan 25 Mg Tab PO 25 mg DAILY RANDAL Administration Miscellaneous Medication 10 mg 07/22/20 09:00 07/29/20 08:13 Empagliflozin 10 Mg Tab PO 10 mg DAILY RANDAL Administration Ondansetron HCl 4 mg 07/17/20 19:25 07/18/20 23:19 Ondansetron Pf 4 Mg/2 Ml Vial IVP 4 mg Q6H PRN Administration Nausea/Vomiting Corlanor 7.5 Mg Tab 0 each 07/18/20 17:00 07/29/20 17:01 PO 1 each BID-WM RANDAL Administration Prednisone 10 mg 07/18/20 09:00 07/29/20 08:12 Prednisone 20 Mg Tab PO 10 mg BID RANDAL Administration Promethazine HCl 25 mg 07/17/20 21:29 07/19/20 12:55 Promethazine 25 Mg Tab PO 25 mg DAILY PRN Administration Nausea Senna/Docusate Sodium 2 tab 07/17/20 20:17 07/29/20 09:48 Senokot S 8.6-50 Mg Tab PO 2 tab BID PRN Administration Constipation Sertraline HCl 100 mg 07/18/20 09:00 07/29/20 08:13 Sertraline Hcl 100 Mg Tab PO 100 mg DAILY RANDAL Administration Sodium Chloride 10 ml 07/17/20 20:17 07/26/20 09:36 Flush - Normal Saline 10 Ml Syringe IVF 10 ml PRN PRN Administration Saline Flush Spironolactone 50 mg 07/24/20 09:00 07/29/20 08:11 Spironolactone 25 Mg Tab PO 50 mg DAILY RANDAL Administration Hospitalist Exam Vitals: Vital Signs (12 hours) Temp Pulse Resp BP Pulse Ox 07/29/20 15:50 98.4 F 56 L 16 127/58 L 97 07/29/20 12:35 98.2 F 65 18 138/65 94 L 07/29/20 08:12 62 07/29/20 08:00 95 07/29/20 07:36 98.0 F 62 16 131/80 94 L Weight Admit Weight 295 lb 12.8 oz Weight 287 lb General - other findings: Morbid obesity ENT: normocephalic atraumatic Neck: supple Heart: RRR Respiratory - other findings: Bilateral crackles Extremities: 2+ LE edema Psychiatric: normal affect Hosp A/P - Plan -Assessment (1) Acute on chronic systolic CHF (congestive heart failure) NYHA class III Status: Acute (2) Chest pain Code(s): R07.9 - CHEST PAIN, UNSPECIFIED Status: Acute (3) DM (diabetes mellitus) Code(s): E11.9 - TYPE 2 DIABETES MELLITUS WITHOUT COMPLICATIONS Status: Acute (4) HLD (hyperlipidemia) Code(s): E78.5 - HYPERLIPIDEMIA, UNSPECIFIED Status: Acute (5) HTN (hypertension) Code(s): I10 - ESSENTIAL (PRIMARY) HYPERTENSION Status: Acute (6) Morbid obesity Code(s): E66.01 - MORBID (SEVERE) OBESITY DUE TO EXCESS CALORIES Status: Acute (7) Sarcoid Code(s): D86.9 - SARCOIDOSIS, UNSPECIFIED Status: Acute (8) Shortness of breath Code(s): R06.02 - SHORTNESS OF BREATH Status: Acute - Plan CTA did not show any acute PE. No fractures. Patient given diuretics we'll continue to monitor. Continue home medications 07/20 we'll consult heart failure physician Dr. Morin patient has significant lower extremity edema. She may require dobutamine or milrinone for symptom management. We'll also start patient on Flexeril since she cannot have NSAIDs. She does not want to take high doses of steroids. 07/21 patient currently on milrinone drip will continue to follow along. Will check labs in a.m. Patient's ICD was reprogrammed. 07/22 we will continue to diurese the patient. Patient continues to be on milrinone drip. Her lower extremity swelling has still not improved. 07/23 patient overall doing well. Continues to have lower extremity swelling. She is diuresing well. We will check labs in a.m. 07/24 patient has been started on as needed fentanyl by heart failure service. Otherwise, no significant change. Lidoderm patch has also been started. 07/25 no significant change since yesterday, furosemide and milrinone dose was increased today. 07/26: Furosemide dose changed to twice daily today. General surgery and infectious disease services have been consulted because of concern over abscess over the dorsum of right foot. 07/27: Pt's progress is slow, continue diuretics. 07/28: Patient has been switched to oral torsemide. Monitor progress. 07/29: s/p I&D R foot hematoma. Torsemide started, potassium dose decreased. Patient will likely need chronic milrinone treatment.
[2020-07-29] MEDS: Lidocaine 5% Patch TD SCH (19:55)
[2020-07-29] MEDS: clonazePAM 1 MG TAB PO PRN (19:56)
[2020-07-29] MEDS ORDERED: Potassium Chloride 20 MEQ TAB PO SCH (21:00)
[2020-07-30] MEDS: Fentanyl 100 MCG/2 ML VIAL SLOW IVP PRN ×4 (00:29→22:02)
[2020-07-30] MEDS: HYDROcodone/Acetaminophen 10/325 mg Tablet PO PRN ×5 (00:30→18:21)
[2020-07-30] MEDS: Milrinone Lactate/D5W 20 MG in Premix Bag 1 BAG IV SCH ×4 (00:31→18:23)
[2020-07-30 04:03] LABS: #Eosinphils 0.1 thou/uL (0.0-0.7); #Lymphocytes 0.7 thou/uL (1.20-3.40); #Monocytes 1.3 thou/uL (0.11-0.59); #Neutrophils 11.2 thou/uL (1.40-6.50); %Basophils 0.1 % (0.0-1.0); %Eosinophils 0.6 % (0.0-10.0); %Lymphocytes 5.2 % (21.0-51.0); %Monocytes 10.1 % (0.0-10.0); %Neutrophils 84.1 % (42.0-75.0); Hemoglobin 11.8 g/dL (12.0-16.0); Mean Corpuscular HGB CONC 32.8 g/dL (32.0-36.0); Mean Corpuscular Hemoglobin 30.7 pg (27.0-31.0); Mean Corpuscular Volume 93.7 fL (78.0-98.0); Mean Platelet Volume 7.8 fL (7.4-10.4); Platelet Count 244 thou/uL (130-400); RBC Distribution Width 14.2 % (11.5-14.5); Red Blood Cell (RBC) Count 3.82 mill/uL (4.20-5.40); White Blood Cell (WBC) Count 13.3 thou/uL (4.8-10.8)
[2020-07-30 04:22] LABS: Anion Gap 14 mmol/L (10-20); BUN (Urea Nitrogen) 25 mg/dL (7.0-18.7); Calc. Creatinine Clearance 172 mL/min (70-130); Calcium 9.6 mg/dL (7.8-10.44); Carbon Dioxide 31 mmol/L (22-29); Chloride 96 mmol/L (98-107); Glucose 223 mg/dL (70-105); Magnesium 2.3 mg/dL (1.6-2.6); Potassium 4.1 mmol/L (3.5-5.1); Sodium 137 mmol/L (136-145)
[2020-07-30] MEDS: Levothyroxine Sodium 50 MCG TAB PO SCH (04:44)
[2020-07-30] MEDS: HumaLOG 300 UNITS/3 ML VIAL SC PRN ×4 (05:59→21:38)
[2020-07-30] MEDS: Enoxaparin Sodium 40 MG/0.4 ML SYRINGE SC SCH (08:57)
[2020-07-30] MEDS: Empagliflozin 10 MG TAB PO SCH (08:58)
[2020-07-30] MEDS: Amoxicillin/Potassium Clav 875 MG TAB PO SCH ×2 (08:58→21:37)
[2020-07-30] MEDS: Famotidine 20 MG TAB PO SCH ×2 (08:59→21:37)
[2020-07-30] MEDS: Digoxin 0.125 MG TAB PO SCH (08:59)
[2020-07-30] MEDS: Carvedilol 6.25 MG TAB PO SCH ×2 (08:59→09:12)
[2020-07-30] MEDS: AcetaZOLAMIDE 250 MG TAB PO SCH (09:00)
[2020-07-30] MEDS ORDERED: Potassium Chloride 20 MEQ TAB PO SCH (09:00)
[2020-07-30] MEDS: Torsemide 20 MG TAB PO SCH (09:01)
[2020-07-30] MEDS: predniSONE 20 MG TAB PO SCH ×2 (09:01→21:36)
[2020-07-30] MEDS: Losartan 25 MG TAB PO SCH (09:02)
[2020-07-30] MEDS: Amiodarone 200 MG TAB PO SCH (09:02)
[2020-07-30] MEDS: Allopurinol 300 MG TAB PO SCH (09:02)
[2020-07-30] MEDS: Spironolactone 25 MG TAB PO SCH (09:03)
[2020-07-30] MEDS: CORLANOR 7.5 MG PO SCH ×2 (09:03→18:21)
[2020-07-30] MEDS: Insulin Glargine 10 UNITS in Pre-Filled Syringe 1 EACH SC SCH (09:04)
[2020-07-30] MEDS: Transdermal Patch Removal TOP SCH (09:06)
[2020-07-30] MEDS: Carvedilol 25 MG TAB PO SCH ×2 (09:11→21:37)
[2020-07-30] MEDS: Potassium Chloride 20 MEQ TAB PO SCH ×2 (09:33→21:37)
--- NOTE | 2020-07-30 10:41 | PRG ---
DATE OF SERVICE: 07/30/2020 SUBJECTIVE: Ms. Rona Vaughn is feeling better from cardiac perspective. She says this is the same or better energy level. She is breathing easier. Her chest symptoms that brought her in the hospital is back to her baseline or better. She generally feels much better. However, she still has severe right foot pain from a hematoma. She was seen by the surgeon. The incision and drainage were done yesterday. She has pain in the foot. When she has pains, her blood pressure rise quite a bit. Other than that, there are no major complaints. REVIEW OF SYSTEMS: GENERAL: There are no fever, chills, productive cough. HEENT: There is no change in vision, hearing, or swallowing. PULMONARY: Please see HPI. CARDIAC: There is no chest pain, palpitations, or syncope. GI: There is no nausea, vomiting, diarrhea, but then her bowel movements are bit slowed. : She has a Yepez catheter. She is not really mobile right now. MUSCULOSKELETAL: Please see HPI. INTEGUMENT: Please see HPI. NEUROLOGIC: There are no focal deficits or weakness. MEDICATIONS: Her active medications include: 1. Acetazolamide 250 mg daily. 2. Allopurinol 300 mg daily. 3. Amiodarone 200 mg daily. 4. Amoxicillin clavulanate which is Augmentin 875 mg b.i.d. 5. Carvedilol 18.75 mg twice a day. 6. Ivabradine 7.5 mg twice a day. 7. Cyclobenzaprine 10 mg three times a day as needed. 8. Digoxin 0.125 mg daily. 9. Enoxaparin 40 mg subcutaneous daily. 10. Famotidine 20 mg b.i.d. 11. Fentanyl 50 mcg q.6 hours p.r.n. 12. Glargine insulin 10 units daily. 13. Lexapro sliding scale. 14. Levothyroxine 100 mcg daily. 15. Lidocaine patch 5%. 16. Losartan 25 mg daily. 17. Milrinone 0.5 mcg/kg/minute. 18. K-Dur at 40 mEq in the morning, 20 mEq in afternoon. 19. Prednisone 10 mg b.i.d. 20. Senokot-S 2 mg b.i.d. 21. Zoloft 100 mg daily. 22. Spironolactone 50 mg daily. 23. Torsemide 20 mg daily. 24. Empagliflozin which is Jardiance 10 mg daily. PHYSICAL EXAMINATION: Telemetry was reviewed. She is in predominantly A sensed, V paced rhythm. There are occasional PVCs. Other than that, there are no concerning arrhythmia. VITAL SIGNS: She has wildly changing systolic blood pressure when she has pain when I was in the room. Her heart rate was 64 and blood pressure 115/59. GENERAL: She is alert and conversational, reclining in bed. HEENT: Show EOMI. Oropharynx is benign with moist mucosa. However, she seemed to have strep like infectious spot around her lip, does seem to be resolving. NECK: Large diameter. JVP not accurate but probably around 10 or 11. PULMONARY: She has a distant breath sounds, but her on the left side is clear to auscultation with good air movement. Right side is more difficult to hear but there are no crackles. CARDIAC: Regular rate and rhythm with normal S1, S2. There is 2/6 holosystolic murmur at the left upper sternal border and also the apex. She has both mitral regurgitation and tricuspid regurgitation. ABDOMEN: Large soft, distended. Positive bowel sounds. EXTREMITIES: Her lower extremity edema is now gone. However, her right foot is wrapped in bandage from the site of incision. She has pain there. LABORATORY VALUES: White cell count 13.3, hemoglobin 11.8, platelets 244. Her chemistry shows sodium 137, potassium 4.1, chloride 96, bicarb 31, BUN 25, creatinine 0.82. Her input and output for last 24 hours was 1600 mL in and 2500 mL out, so she still is net negative. DISCUSSION: Discussion took place about her heart failure and possibility of heart transplant. She is age 50. If she is agreeable to lose weight, she can be qualified for heart transplant. This would require most likely gastric sleeve or some type of surgery for weight loss. She said that she participated in heart transplant evaluations at [facility] and [facility]. She decided not to pursue heart transplant. Since then, she has gain massive amount of weight due to chronic high dose sterioid use. At this point, she wants to go along with palliative care not pursue the transplant option. ASSESSMENT: 50-year-old female is doing well from cardiac perspective. Milrinone 0.5 mcg/kg/minute is providing her sufficient cardiac output and she has essentially reached a state of euvolemia. 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 This is result of sarcoid cardiomyopathy. She is requiring milrinone 0.5 mcg/kg/minute to sustain her function and provide good quality of life. Right now, the main problem that is stopping her from discharge is her right foot pain and large hematoma in her right foot. We will need to continue to monitor this and provide antibiotic treatment to prevent it from developing into a seroma. RECOMMENDATIONS: Please see the following for my recommendations: 1. Continue milrinone 0.5 mcg/kg/minute. 2. Increase carvedilol to 25 mg q.12 hours. 3. Increase K-Dur to 40 mEq b.i.d. 4. Please work with infusion [facility] to provide her eventuality home milrinone sometime next week. 5. It has been a pleasure taking care of Ms. Vaughn. If you have any question, please give me a call. 6. Visitation time is longer today because discussion about future care and heart transplant. Total visitation times about 60 minutes. Job ID: [id number] MTDD
[2020-07-30] MEDS: Cyclobenzaprine 10 MG TAB PO PRN (13:40)
--- NOTE | 2020-07-30 16:03 | PDOC.GSPN ---
Surgery Progress Note: Subj - Subjective Narrative: Patient is feeling okay today. Quite a bit of pain with dressing changes but otherwise pain is tolerable. The wound is clean. She still has a fair amount of organized clot which is adherent to the wound but should slowly debride with dressing changes. No expressible drainage. The skin looks viable and the swelling in her foot has decreased somewhat. Gram stain showed only red blood cells and culture is no growth to date. Assessment/plan: Right foot hematoma status post drainage. Wound care is to continue with daily dressing changes and the patient is to elevate her leg whenever she is not ambulating. Dr. Moore is on this weekend if any surgical input is desired. Otherwise I will see her when I return on Sunday. If she is discharged in the interim she can follow-up in my clinic in 2 weeks. She will need daily dressing changes at home with home health. Surgery Progress Note: Obj - Vital signs Vital signs: Vital Signs - Most Recent Temp Pulse Resp BP Pulse Ox 98.7 F 64 18 123/75 97 07/30/20 12:00 07/30/20 12:00 07/30/20 12:00 07/30/20 12:00 07/30/20 12:00 Surgery Progress Note: Results - Labs Result Diagrams: 07/30/20 03:45 07/30/20 03:45 Lab results: Laboratory Results - last 12 hr 07/30/20 07/30/20 07/30/20 03:45 03:45 05:10 WBC 13.3 H RBC 3.82 L Hgb 11.8 L Hct 35.8 L MCV 93.7 MCH 30.7 MCHC 32.8 RDW 14.2 Plt Count 244 MPV 7.8 Neutrophils % 84.1 H Lymphocytes % 5.2 L Monocytes % 10.1 H Eosinophils % 0.6 Basophils % 0.1 Neutrophils # 11.2 H Lymphocytes # 0.7 L Monocytes # 1.3 H Eosinophils # 0.1 Basophils # 0.0 Sodium 137 Potassium 4.1 Chloride 96 L Carbon Dioxide 31 H Anion Gap 14 BUN 25 H Creatinine 0.82 Estimated GFR (MDRD) 74 Glucose 223 H POC Glucose 200 H Calcium 9.6 Magnesium 2.3 07/30/20 10:58 WBC RBC Hgb Hct MCV MCH MCHC RDW Plt Count MPV Neutrophils % Lymphocytes % Monocytes % Eosinophils % Basophils % Neutrophils # Lymphocytes # Monocytes # Eosinophils # Basophils # Sodium Potassium Chloride Carbon Dioxide Anion Gap BUN Creatinine Estimated GFR (MDRD) Glucose POC Glucose 235 H Calcium Magnesium
--- NOTE | 2020-07-30 18:30 | PDOC.HOSPP ---
- Subjective Encounter Date: 07/30/20 Encounter Time: 09:30 Subjective: Patient seen for follow-up for heart failure exacerbation. She reports that her foot feels better. - Objective Vital Signs & Weight: Vital Signs (12 hours) Temp Pulse Resp BP BP Pulse Ox 07/30/20 16:00 97.8 F 64 16 139/69 07/30/20 12:00 98.7 F 64 18 123/75 97 07/30/20 09:12 158/73 H 07/30/20 08:59 76 07/30/20 08:00 98 07/30/20 07:46 97.9 F 63 16 160/78 H 97 Weight Admit Weight 295 lb 12.8 oz Weight 293 lb I&O: 07/29/20 07/30/20 07/31/20 06:59 06:59 06:59 Intake Total 1600 1600 720 Output Total 2920 2500 850 Balance -1320 -900 -130 Result Diagrams: 07/30/20 03:45 07/30/20 03:45 Additional Labs: Accuchecks 07/30/20 07/30/20 07/30/20 17:19 10:58 05:10 POC Glucose 187 H 235 H 200 H 07/29/20 20:42 POC Glucose 197 H I reviewed patient's labs and MAR EKG Reviewed by me: Yes (Telemetry: V paced rhythm) Hospitalist ROS - Review of Systems Respiratory: reports: SOB with excertion Cardiovascular: reports: edema Gastrointestinal: denies: nausea, vomiting, abdominal pain, diarrhea, constipation, melena, hematochezia - Medication Medications: Active Medications Generic Name Dose Route Start Last Admin Trade Name Sergio PRN Reason Stop Dose Admin Acetaminophen 650 mg 07/17/20 20:17 07/27/20 08:35 Acetaminophen 325 Mg Tab PO 650 mg Q4H PRN Administration Headache/Fever/Mild Pain (1-3) Hydrocodone Bitart/Acetaminophen 2 tab 07/27/20 22:27 07/30/20 18:21 Hydrocodone/Acetaminophen 10/325 Mg Tablet PO 2 tab Q4H PRN Administration Severe Pain (7-10) Acetazolamide 250 mg 07/28/20 09:00 07/30/20 09:00 Acetazolamide 250 Mg Tab PO 250 mg DAILY RANDAL Administration Allopurinol 300 mg 07/18/20 09:00 07/30/20 09:02 Allopurinol 300 Mg Tab PO 300 mg DAILY RANDAL Administration Amiodarone HCl 200 mg 07/18/20 09:00 07/30/20 09:02 Amiodarone 200 Mg Tab PO 200 mg DAILY RANDAL Administration Amoxicillin/Clavulanate Potassium 875 mg 07/27/20 09:00 07/30/20 08:58 Amoxicillin/Potassium Clav 875 Mg Tab PO 07/30/20 21:01 875 mg BID RANDAL Administration Carvedilol 25 mg 07/30/20 09:00 07/30/20 09:11 Carvedilol 25 Mg Tab PO 25 mg Q12HR RANDAL Administration Clonazepam 2 mg 07/27/20 22:27 07/29/20 19:56 Clonazepam 1 Mg Tab PO 2 mg HS PRN Administration Anxiety Cyclobenzaprine HCl 10 mg 07/20/20 18:11 07/30/20 13:40 Cyclobenzaprine 10 Mg Tab PO 10 mg TID PRN Administration Muscle Spasm Digoxin 0.125 mg 07/18/20 09:00 07/30/20 08:59 Digoxin 0.125 Mg Tab PO 0.125 mg DAILY RANDAL Administration Enoxaparin Sodium 40 mg 07/18/20 09:00 07/30/20 08:57 Enoxaparin Sodium 40 Mg/0.4 Ml Syringe SC 40 mg 0900 RANDAL Administration Famotidine 20 mg 07/18/20 09:00 07/30/20 08:59 Famotidine 20 Mg Tab PO 20 mg BID RANDAL Administration Fentanyl 50 mcg 07/24/20 12:38 07/30/20 12:36 Fentanyl 100 Mcg/2 Ml Vial SLOW IVP 50 mcg Q6H PRN Administration Moderate to Severe Pain (6-10) Milrinone Lactate/Dextrose 20 100 mls @ 20.289 mls/hr 07/20/20 17:00 07/30/20 12:36 mg/ Device IV 100 mls INF RANDAL Administration Protocol 0.5 MCG/KG/MIN Insulin Glargine 10 units/ 0.1 mls @ 0 mls/hr 07/28/20 09:00 07/30/20 09:04 Miscellaneous Medication SC 0.1 mls QAM RANDAL Administration Insulin Human Lispro 0 units 07/17/20 21:28 07/30/20 12:41 Humalog 300 Units/3 Ml Vial SC 3 unit .MILD SLIDING SCALE PRN Administration Mild Correctional Scale Insulin Human Lispro 0 units 07/17/20 21:28 07/26/20 21:13 Humalog 300 Units/3 Ml Vial SC 2 unit .BEDTIME SLIDING SC PRN Administration Bedtime Correctional Scale Levothyroxine Sodium 100 mcg 07/18/20 06:00 07/30/20 04:44 Levothyroxine Sodium 50 Mcg Tab PO 100 mcg 0600 RANDAL Administration Lidocaine 1 patch 07/29/20 21:00 07/29/20 19:55 Lidocaine 5% Patch TD 1 patch 2100 RANDAL Administration Losartan Potassium 25 mg 07/21/20 09:00 07/30/20 09:02 Losartan 25 Mg Tab PO 25 mg DAILY RANDAL Administration Miscellaneous Medication 10 mg 07/22/20 09:00 07/30/20 08:58 Empagliflozin 10 Mg Tab PO 10 mg DAILY RANDAL Administration Miscellaneous Medication 1 each 07/30/20 09:00 07/30/20 09:06 Lidocaine Patch Removal 1 Each TOP 1 each 0900 RANDAL Administration Ondansetron HCl 4 mg 07/17/20 19:25 07/18/20 23:19 Ondansetron Pf 4 Mg/2 Ml Vial IVP 4 mg Q6H PRN Administration Nausea/Vomiting Corlanor 7.5 Mg Tab 0 each 07/18/20 17:00 07/30/20 18:21 PO 1 each BID-WM RANDAL Administration Potassium Chloride 40 meq 07/30/20 09:00 07/30/20 09:33 Potassium Chloride 20 Meq Tab PO Not Given BID RANDAL Prednisone 10 mg 07/18/20 09:00 07/30/20 09:01 Prednisone 20 Mg Tab PO 10 mg BID RANDAL Administration Promethazine HCl 25 mg 07/17/20 21:29 07/19/20 12:55 Promethazine 25 Mg Tab PO 25 mg DAILY PRN Administration Nausea Senna/Docusate Sodium 2 tab 07/17/20 20:17 07/29/20 09:48 Senokot S 8.6-50 Mg Tab PO 2 tab BID PRN Administration Constipation Sertraline HCl 100 mg 07/18/20 09:00 07/30/20 09:03 Sertraline Hcl 100 Mg Tab PO 100 mg DAILY RANDAL Administration Sodium Chloride 10 ml 07/17/20 20:17 07/26/20 09:36 Flush - Normal Saline 10 Ml Syringe IVF 10 ml PRN PRN Administration Saline Flush Spironolactone 50 mg 07/24/20 09:00 07/30/20 09:03 Spironolactone 25 Mg Tab PO 50 mg DAILY RANDAL Administration Torsemide 20 mg 07/30/20 09:00 07/30/20 09:01 Torsemide 20 Mg Tab PO 20 mg DAILY RANDAL Administration Hospitalist Exam Vitals: Vital Signs (12 hours) Temp Pulse Resp BP BP Pulse Ox 07/30/20 16:00 97.8 F 64 16 139/69 07/30/20 12:00 98.7 F 64 18 123/75 97 07/30/20 09:12 158/73 H 07/30/20 08:59 76 07/30/20 08:00 98 07/30/20 07:46 97.9 F 63 16 160/78 H 97 Weight Admit Weight 295 lb 12.8 oz Weight 293 lb General Appearance: awake alert Eye: anicteric sclera ENT: moist mucosa Neck: supple Heart: RRR Respiratory: CTAB Gastrointestinal: soft Skin: no rashes Psychiatric: normal affect, normal behavior Hosp A/P - Plan -Assessment 07/30/2020: Patient is a pleasant 50-year-old lady who was admitted to the hospital on July 17, 2020 for CHF exacerbation. She was seen by cardiology and heart failure services. She was initially treated with diuretics. Subsequently she was started on a milrinone drip. She also developed hematoma on the dorsum of the right foot, which was incised and drained by general surgery. She continues to improve slowly. Plan is for chronic milrinone therapy. (1) Acute on chronic systolic CHF (congestive heart failure) NYHA class III Status: Acute (2) Chest pain Code(s): R07.9 - CHEST PAIN, UNSPECIFIED Status: Acute (3) DM (diabetes mellitus) Code(s): E11.9 - TYPE 2 DIABETES MELLITUS WITHOUT COMPLICATIONS Status: Acute (4) HLD (hyperlipidemia) Code(s): E78.5 - HYPERLIPIDEMIA, UNSPECIFIED Status: Acute (5) HTN (hypertension) Code(s): I10 - ESSENTIAL (PRIMARY) HYPERTENSION Status: Acute (6) Morbid obesity Code(s): E66.01 - MORBID (SEVERE) OBESITY DUE TO EXCESS CALORIES Status: Acute (7) Sarcoid Code(s): D86.9 - SARCOIDOSIS, UNSPECIFIED Status: Acute (8) Shortness of breath Code(s): R06.02 - SHORTNESS OF BREATH Status: Acute - Plan CTA did not show any acute PE. No fractures. Patient given diuretics we'll continue to monitor. Continue home medications 07/20 we'll consult heart failure physician Dr. Morin patient has significant lower extremity edema. She may require dobutamine or milrinone for symptom management. We'll also start patient on Flexeril since she cannot have NSAIDs. She does not want to take high doses of steroids. 07/21 patient currently on milrinone drip will continue to follow along. Will check labs in a.m. Patient's ICD was reprogrammed. 07/22 we will continue to diurese the patient. Patient continues to be on milrinone drip. Her lower extremity swelling has still not improved. 07/23 patient overall doing well. Continues to have lower extremity swelling. She is diuresing well. We will check labs in a.m. 07/24 patient has been started on as needed fentanyl by heart failure service. Otherwise, no significant change. Lidoderm patch has also been started. 07/25 no significant change since yesterday, furosemide and milrinone dose was increased today. 07/26: Furosemide dose changed to twice daily today. General surgery and infectious disease services have been consulted because of concern over abscess over the dorsum of right foot. 07/27: Pt's progress is slow, continue diuretics. 07/28: Patient has been switched to oral torsemide. Monitor progress. 07/29: s/p I&D R foot hematoma. Torsemide started, potassium dose decreased. Patient will likely need chronic milrinone treatment. 07/30: Right foot is clinically improving. Arrangements are being made for milrinone treatment as outpatient. Patient will potentially be in the hospital at least until Sunday, per heart failure specialist.
[2020-07-30] MEDS: Senokot S 8.6-50 MG TAB PO SCH (21:36)
[2020-07-30] MEDS: Lidocaine 5% Patch TD SCH (21:37)
[2020-07-31] MEDS: clonazePAM 1 MG TAB PO PRN ×2 (02:15→20:50)
[2020-07-31 03:57] LABS: #Eosinphils 0.1 thou/uL (0.0-0.7); #Lymphocytes 0.7 thou/uL (1.20-3.40); #Monocytes 1.1 thou/uL (0.11-0.59); #Neutrophils 8.5 thou/uL (1.40-6.50); %Basophils 0.1 % (0.0-1.0); %Eosinophils 0.7 % (0.0-10.0); %Lymphocytes 6.4 % (21.0-51.0); %Monocytes 10.2 % (0.0-10.0); %Neutrophils 82.6 % (42.0-75.0); Hemoglobin 11.9 g/dL (12.0-16.0); Mean Corpuscular HGB CONC 32.3 g/dL (32.0-36.0); Mean Corpuscular Hemoglobin 30.3 pg (27.0-31.0); Mean Corpuscular Volume 93.9 fL (78.0-98.0); Mean Platelet Volume 7.9 fL (7.4-10.4); Platelet Count 248 thou/uL (130-400); RBC Distribution Width 14.2 % (11.5-14.5); Red Blood Cell (RBC) Count 3.94 mill/uL (4.20-5.40); White Blood Cell (WBC) Count 10.3 thou/uL (4.8-10.8)
[2020-07-31 04:24] LABS: Anion Gap 16 mmol/L (10-20); BUN (Urea Nitrogen) 25 mg/dL (7.0-18.7); Calc. Creatinine Clearance 179 mL/min (70-130); Calcium 9.4 mg/dL (7.8-10.44); Carbon Dioxide 30 mmol/L (22-29); Chloride 95 mmol/L (98-107); Glucose 168 mg/dL (70-105); Magnesium 2.2 mg/dL (1.6-2.6); Potassium 3.9 mmol/L (3.5-5.1); Sodium 137 mmol/L (136-145)
[2020-07-31] MEDS: Milrinone Lactate/D5W 20 MG in Premix Bag 1 BAG IV SCH ×4 (04:57→20:47)
[2020-07-31] MEDS: Levothyroxine Sodium 50 MCG TAB PO SCH (04:59)
[2020-07-31] MEDS: Fentanyl 100 MCG/2 ML VIAL SLOW IVP PRN ×3 (05:19→17:30)
[2020-07-31] MEDS: Enoxaparin Sodium 40 MG/0.4 ML SYRINGE SC SCH (08:57)
[2020-07-31] MEDS: Losartan 25 MG TAB PO SCH (08:58)
[2020-07-31] MEDS: Spironolactone 25 MG TAB PO SCH (08:58)
[2020-07-31] MEDS: Allopurinol 300 MG TAB PO SCH (08:58)
[2020-07-31] MEDS: Torsemide 20 MG TAB PO SCH (08:58)
[2020-07-31] MEDS: Carvedilol 25 MG TAB PO SCH ×2 (08:58→20:50)
[2020-07-31] MEDS: AcetaZOLAMIDE 250 MG TAB PO SCH (09:00)
[2020-07-31] MEDS: Amiodarone 200 MG TAB PO SCH (09:00)
[2020-07-31] MEDS: Empagliflozin 10 MG TAB PO SCH (09:00)
[2020-07-31] MEDS: Famotidine 20 MG TAB PO SCH ×2 (09:02→20:50)
[2020-07-31] MEDS: Senokot S 8.6-50 MG TAB PO SCH ×2 (09:02→20:49)
[2020-07-31] MEDS: Digoxin 0.125 MG TAB PO SCH (09:02)
[2020-07-31] MEDS: Potassium Chloride 20 MEQ TAB PO SCH ×2 (09:03→20:49)
[2020-07-31] MEDS: predniSONE 20 MG TAB PO SCH ×2 (09:03→20:50)
[2020-07-31] MEDS: Insulin Glargine 10 UNITS in Pre-Filled Syringe 1 EACH SC SCH (09:04)
[2020-07-31] MEDS: CORLANOR 7.5 MG PO SCH ×2 (09:05→17:31)
[2020-07-31] MEDS: Transdermal Patch Removal TOP SCH (09:10)
--- NOTE | 2020-07-31 12:03 | PRG ---
DATE OF SERVICE: 07/31/2020 SUBJECTIVE: Ms. Vaughn had a good day. She said that she is breathing easy. She is generally overall feeling good. She feels like her fluid continues to come off. She does not have that anterior chest pain that brought her in at all at this point. However, she still has a right foot pain from the hematoma. She was debrided again yesterday. So, her main complaints are her right foot pain and then constipation from opiate use. REVIEW OF SYSTEMS: GENERAL: There are no fever, chills, or productive cough. HEENT: There is no changes in vision, hearing, or swallowing. PULMONARY: Please see HPI. CARDIAC: There is no chest pain, palpitations, or syncope. GI: She believes she has been more constipated now. : She has a Yepez catheter in place. MUSCULOSKELETAL: Please see HPI. INTEGUMENT: Please see HPI. NEUROLOGIC: There are no focal deficits or weaknesses. MEDICATIONS: Currently include: 1. Acetazolamide 250 mg daily. 2. Allopurinol 200 mg daily. 3. Amiodarone 200 mg daily. 4. Carvedilol 25 mg q.12 hours. 5. Clonazepam 2 mg at bedtime p.r.n. 6. Ivabradine 7.5 mg daily. 7. Cyclobenzaprine 10 mg t.i.d. p.r.n. 8. Digoxin 0.125 mg daily. 9. Jardiance 10 mg daily. 10. Enoxaparin 40 mg subcutaneous daily. 11. Famotidine 20 mg b.i.d. 12. Fentanyl 50 mcg q.6 hours p.r.n. 13. Glargine insulin 10 units daily and sliding scale insulin. 14. Levothyroxine 100 mcg twice a day. 15. Lidocaine patch at 5%. 16. Losartan currently 25 mg daily. 17. Milrinone 0.5 mcg/kg/minute. 18. Potassium chloride 40 mEq b.i.d. 19. Prednisone 10 mg b.i.d. 20. Senokot-S 2 tabs b.i.d. 21. Zoloft 100 mg daily. 22. Spironolactone 50 mg daily. 23. Torsemide 20 mg daily. Telemetry was reviewed. It is predominantly a sensed V paced rhythm. There are sometimes [place] beats. PHYSICAL EXAMINATION: VITAL SIGNS: Showed that she has some increase in blood pressure. Currently, heart rate is 67, blood pressure 148/87. Her systolic blood pressure for last 24 hours ranged from 123 to 155. Some of this is due to pain, however, I think that she can use better blood pressure control. GENERAL: She is alert and conversational, seems to be as comfortable as she can be reclining in bed. HEENT: Show EOMI. Oropharynx is benign, but then she does have some infectious scars on around her mouth. NECK: Her JVP is around 10 cm. LUNGS: Good air movement bilaterally. Clear to auscultation bilaterally; however, her breath sounds are distant due to body habitus. CARDIAC: Regular rate and rhythm with normal S1, S2. There is 2/6 holosystolic murmur at the apex with radiation to the left axilla, so she has mitral regurgitation. ABDOMEN: Large, soft. There is a ventral hernia in place, mild tenderness. This is chronic. EXTREMITIES: Her left lower extremity does not have any edema anymore. However, her toes are still somewhat purplish looking. Her right foot has been debrided. It is wrapped and bandaged. LABORATORY DATA: Her laboratory values from today are sodium 137, potassium 3.9, chloride 95, bicarb is 30, BUN 25, and creatinine is at 0.77. Her in's and out's for last 24 hours are 1989 in and 3000 out. She is net negative 1 L again. ASSESSMENT: 50-year-old female has sufficient cardiac output augmentation with milrinone 0.5 mcg/kg/minute. She is approaching euvolemia. However, she still resides [place] Heart Association stage C and [place] Heart Association class 3B heart failure with reduced ejection fraction. Her left ventricular ejection fraction is only 20%. Her renal function is stable with augmentation with Milrinone. The current issue holding her in the hospital is her right foot pain and large hematoma that is requiring debridement in her right foot. She has turned down heart transplant in the past. She will need Milrinone for palliative care treatment long-term. This will provide her higher quality of life and allow for her supply. RECOMMENDATIONS: Please see the following for my recommendations: 1. Continue milrinone 0.5 mcg/kg/minute. 2. Increase losartan to 50 mg daily. 3. Continue with Augmentin b.i.d. until the wound debridement is completed or until the Yepez catheter is out. We want to prevent a diabetic foot infection or complicated diabetic infection taking place. 4. We will continue to try to contact Dr. Onofre's office to ensure good transition to outpatient care next week. 5. Please continue to ask Case Management to work with her to ensure long-term infusion of Milrinone set up. It has been a pleasure taking care of Ms. Vaughn. If any questions, please give me a call. The visitation time today is 40 minutes. Job ID: [id number] MTDD
[2020-07-31] MEDS: HYDROcodone/Acetaminophen 10/325 mg Tablet PO PRN (12:33)
[2020-07-31] MEDS: HumaLOG 300 UNITS/3 ML VIAL SC PRN ×3 (12:49→21:03)
--- NOTE | 2020-07-31 16:40 | PDOC.HOSPP ---
- Subjective Encounter Date: 07/31/20 Encounter Time: 09:15 Subjective: no sob, feels better but still has pain in her right foot has not ambulated after foot pain started - Objective Vital Signs & Weight: Vital Signs (12 hours) Temp Pulse Resp BP Pulse Ox 07/31/20 15:27 98.7 F 80 18 115/56 L 95 07/31/20 12:00 98.2 F 64 16 130/60 07/31/20 09:02 67 07/31/20 08:00 99.2 F 67 18 148/87 H 97 07/31/20 07:45 96 Weight Admit Weight 295 lb 12.8 oz Weight 280 lb 6 oz I&O: 07/30/20 07/31/20 08/01/20 06:59 06:59 06:59 Intake Total 1600 1989 Output Total 2500 3000 Balance -900 -1011 Result Diagrams: 07/31/20 03:07 07/31/20 03:07 Additional Labs: Accuchecks 07/31/20 07/31/20 07/30/20 10:35 05:55 20:23 POC Glucose 170 H 141 H 237 H 07/30/20 17:19 POC Glucose 187 H Hospitalist ROS - Medication Medications: Active Medications Generic Name Dose Route Start Last Admin Trade Name Freq PRN Reason Stop Dose Admin Acetaminophen 650 mg 07/17/20 20:17 07/27/20 08:35 Acetaminophen 325 Mg Tab PO 650 mg Q4H PRN Administration Headache/Fever/Mild Pain (1-3) Hydrocodone Bitart/Acetaminophen 2 tab 07/27/20 22:27 07/31/20 12:33 Hydrocodone/Acetaminophen 10/325 Mg Tablet PO 2 tab Q4H PRN Administration Severe Pain (7-10) Acetazolamide 250 mg 07/28/20 09:00 07/31/20 09:00 Acetazolamide 250 Mg Tab PO 250 mg DAILY RANDAL Administration Allopurinol 300 mg 07/18/20 09:00 07/31/20 08:58 Allopurinol 300 Mg Tab PO 300 mg DAILY RANDAL Administration Amiodarone HCl 200 mg 07/18/20 09:00 07/31/20 09:00 Amiodarone 200 Mg Tab PO 200 mg DAILY RANDAL Administration Carvedilol 25 mg 07/30/20 09:00 07/31/20 08:58 Carvedilol 25 Mg Tab PO 25 mg Q12HR RANDAL Administration Clonazepam 2 mg 07/27/20 22:27 07/31/20 02:15 Clonazepam 1 Mg Tab PO 2 mg HS PRN Administration Anxiety Cyclobenzaprine HCl 10 mg 07/20/20 18:11 07/30/20 13:40 Cyclobenzaprine 10 Mg Tab PO 10 mg TID PRN Administration Muscle Spasm Digoxin 0.125 mg 07/18/20 09:00 07/31/20 09:02 Digoxin 0.125 Mg Tab PO 0.125 mg DAILY RANDAL Administration Enoxaparin Sodium 40 mg 07/18/20 09:00 07/31/20 08:57 Enoxaparin Sodium 40 Mg/0.4 Ml Syringe SC 40 mg 0900 RANDAL Administration Famotidine 20 mg 07/18/20 09:00 07/31/20 09:02 Famotidine 20 Mg Tab PO 20 mg BID RANDAL Administration Fentanyl 50 mcg 07/24/20 12:38 07/31/20 09:00 Fentanyl 100 Mcg/2 Ml Vial SLOW IVP 50 mcg Q6H PRN Administration Moderate to Severe Pain (6-10) Milrinone Lactate/Dextrose 20 100 mls @ 20.289 mls/hr 07/20/20 17:00 07/31/20 15:13 mg/ Device IV 100 mls INF RANDAL Administration Protocol 0.5 MCG/KG/MIN Insulin Glargine 10 units/ 0.1 mls @ 0 mls/hr 07/28/20 09:00 07/31/20 09:04 Miscellaneous Medication SC 0.1 mls QAM RANDAL Administration Insulin Human Lispro 0 units 07/17/20 21:28 07/31/20 12:49 Humalog 300 Units/3 Ml Vial SC 2 unit .MILD SLIDING SCALE PRN Administration Mild Correctional Scale Insulin Human Lispro 0 units 07/17/20 21:28 07/30/20 21:38 Humalog 300 Units/3 Ml Vial SC 2 unit .BEDTIME SLIDING SC PRN Administration Bedtime Correctional Scale Levothyroxine Sodium 100 mcg 07/18/20 06:00 07/31/20 04:59 Levothyroxine Sodium 50 Mcg Tab PO 100 mcg 0600 RANDAL Administration Lidocaine 1 patch 07/29/20 21:00 07/30/20 21:37 Lidocaine 5% Patch TD 1 patch 2100 RANDAL Administration Losartan Potassium 25 mg 07/21/20 09:00 07/31/20 08:58 Losartan 25 Mg Tab PO 25 mg DAILY RANDAL Administration Miscellaneous Medication 10 mg 07/22/20 09:00 07/31/20 09:00 Empagliflozin 10 Mg Tab PO 10 mg DAILY RANDAL Administration Miscellaneous Medication 1 each 07/30/20 09:00 07/31/20 09:10 Lidocaine Patch Removal 1 Each TOP 1 each 899 RANDAL Administration Ondansetron HCl 4 mg 07/17/20 19:25 07/18/20 23:19 Ondansetron Pf 4 Mg/2 Ml Vial IVP 4 mg Q6H PRN Administration Nausea/Vomiting Corlanor 7.5 Mg Tab 0 each 07/18/20 17:00 07/31/20 09:05 PO 1 each BID-WM RANDAL Administration Potassium Chloride 40 meq 07/30/20 09:00 07/31/20 09:03 Potassium Chloride 20 Meq Tab PO 40 meq BID RANDAL Administration Prednisone 10 mg 07/18/20 09:00 07/31/20 09:03 Prednisone 20 Mg Tab PO 10 mg BID RANDAL Administration Promethazine HCl 25 mg 07/17/20 21:29 07/19/20 12:55 Promethazine 25 Mg Tab PO 25 mg DAILY PRN Administration Nausea Senna/Docusate Sodium 2 tab 07/17/20 20:17 07/29/20 09:48 Senokot S 8.6-50 Mg Tab PO 2 tab BID PRN Administration Constipation Senna/Docusate Sodium 2 tab 07/30/20 21:00 07/31/20 09:02 Senokot S 8.6-50 Mg Tab PO 2 tab BID RANDAL Administration Sertraline HCl 100 mg 07/18/20 09:00 07/31/20 08:58 Sertraline Hcl 100 Mg Tab PO 100 mg DAILY RANDAL Administration Sodium Chloride 10 ml 07/17/20 20:17 07/26/20 09:36 Flush - Normal Saline 10 Ml Syringe IVF 10 ml PRN PRN Administration Saline Flush Spironolactone 50 mg 07/24/20 09:00 07/31/20 08:58 Spironolactone 25 Mg Tab PO 50 mg DAILY RANDAL Administration Torsemide 20 mg 07/30/20 09:00 07/31/20 08:58 Torsemide 20 Mg Tab PO 20 mg DAILY RANDAL Administration Hospitalist Exam Vitals: Vital Signs (12 hours) Temp Pulse Resp BP Pulse Ox 07/31/20 15:27 98.7 F 80 18 115/56 L 95 07/31/20 12:00 98.2 F 64 16 130/60 07/31/20 09:02 67 07/31/20 08:00 99.2 F 67 18 148/87 H 97 07/31/20 07:45 96 Weight Admit Weight 295 lb 12.8 oz Weight 280 lb 6 oz General Appearance: awake alert Eye: PERRL, anicteric sclera ENT: no oropharyngeal lesions, moist mucosa Neck: supple, no JVD Heart: RRR, no murmur Respiratory: no wheezes, no ronchi, rales Gastrointestinal: soft, non-tender, non-distended, normal bowel sounds Extremities: no cyanosis, no edema Neurological: cranial nerve grossly intact, no focal deficits Psychiatric: normal affect, A&O x 3 Hosp A/P (1) Acute on chronic systolic CHF (congestive heart failure) Code(s): I50.23 - ACUTE ON CHRONIC SYSTOLIC (CONGESTIVE) HEART FAILURE Status: Acute (2) [place] disease Code(s): E27.1 - PRIMARY ADRENOCORTICAL INSUFFICIENCY Status: Chronic (3) Hematoma of right foot Code(s): S90.31XA - CONTUSION OF RIGHT FOOT, INITIAL ENCOUNTER Status: Acute (4) Physical deconditioning Code(s): R53.81 - OTHER MALAISE Status: Acute (5) Hypothyroidism Code(s): E03.9 - HYPOTHYROIDISM, UNSPECIFIED Status: Chronic Qualifiers: Hypothyroidism type: acquired Qualified Code(s): E03.9 - Hypothyroidism, unspecified (6) Ventral hernia Code(s): K43.9 - VENTRAL HERNIA WITHOUT OBSTRUCTION OR GANGRENE Status: Chronic Qualifiers: Obstruction and gangrene presence: without obstruction or gangrene Qualified Code(s): K43.9 - Ventral hernia without obstruction or gangrene (7) Cardiomyopathy Code(s): I42.9 - CARDIOMYOPATHY, UNSPECIFIED Status: Chronic (8) DM (diabetes mellitus) Code(s): E11.9 - TYPE 2 DIABETES MELLITUS WITHOUT COMPLICATIONS Status: Chronic Qualifiers: Diabetes mellitus type: type 2 Diabetes 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: without petroleum terminal plant operator use (9) HLD (hyperlipidemia) Code(s): E78.5 - HYPERLIPIDEMIA, UNSPECIFIED Status: Chronic Qualifiers: Hyperlipidemia type: mixed hyperlipidemia Qualified Code(s): E78.2 - Mixed hyperlipidemia (10) HTN (hypertension) Code(s): I10 - ESSENTIAL (PRIMARY) HYPERTENSION Status: Chronic Qualifiers: Hypertension type: essential hypertension Qualified Code(s): I10 - Essential (primary) hypertension (11) Morbid obesity Code(s): E66.01 - MORBID (SEVERE) OBESITY DUE TO EXCESS CALORIES Status: Chronic (12) Sarcoid Code(s): D86.9 - SARCOIDOSIS, UNSPECIFIED Status: Chronic - Plan has h/o sarcoidosis confirmed with left lobectomy of liver in 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 is on milrinone drip, coreg, dig, ivabradine, losartan, amiodarone, spironolactone, torsemide, acetozolamide, allopurinol, lantus, jardiance, synthroid, zoloft and augmentin bid d/w , plan is to get her on milrinone infusion on Sunday/sunday with . foot wound cultures are -ve bmi is 46, chronic abd pain due to ventral hernia (not a candidate for repair given multiple med issues and possible poor wound healing due to prednisone) add multivit, zinc, vit c, vit d and d3 due to prednisone therapy to aid in wound healing and osteoporosis prophylaxis hemostable mobilize as tolerated with PT poor prognosis
[2020-07-31] MEDS: Lidocaine 5% Patch TD SCH (20:49)
[2020-08-01] MEDS: Milrinone Lactate/D5W 20 MG in Premix Bag 1 BAG IV SCH ×4 (01:06→21:48)
[2020-08-01 04:00] LABS: #Eosinphils 0.1 thou/uL (0.0-0.7); #Lymphocytes 0.7 thou/uL (1.20-3.40); #Monocytes 1.1 thou/uL (0.11-0.59); #Neutrophils 8.6 thou/uL (1.40-6.50); %Basophils 0.1 % (0.0-1.0); %Eosinophils 1.2 % (0.0-10.0); %Lymphocytes 6.2 % (21.0-51.0); %Monocytes 10.7 % (0.0-10.0); %Neutrophils 81.9 % (42.0-75.0); Hemoglobin 11.1 g/dL (12.0-16.0); Mean Corpuscular HGB CONC 32.8 g/dL (32.0-36.0); Mean Corpuscular Hemoglobin 30.9 pg (27.0-31.0); Mean Corpuscular Volume 94.2 fL (78.0-98.0); Mean Platelet Volume 7.9 fL (7.4-10.4); Platelet Count 242 thou/uL (130-400); White Blood Cell (WBC) Count 10.5 thou/uL (4.8-10.8)
[2020-08-01 04:12] LABS: Anion Gap 15 mmol/L (10-20); BUN (Urea Nitrogen) 23 mg/dL (7.0-18.7); Calc. Creatinine Clearance 195 mL/min (70-130); Calcium 9.1 mg/dL (7.8-10.44); Carbon Dioxide 29 mmol/L (22-29); Chloride 99 mmol/L (98-107); Glucose 165 mg/dL (70-105); Magnesium 2.3 mg/dL (1.6-2.6); Potassium 3.5 mmol/L (3.5-5.1); Sodium 139 mmol/L (136-145)
[2020-08-01] MEDS: Fentanyl 100 MCG/2 ML VIAL SLOW IVP PRN ×3 (05:33→21:53)
[2020-08-01] MEDS: Levothyroxine Sodium 50 MCG TAB PO SCH (05:34)
[2020-08-01] MEDS: HYDROcodone/Acetaminophen 10/325 mg Tablet PO PRN ×2 (09:02→17:53)
[2020-08-01] MEDS: Insulin Glargine 10 UNITS in Pre-Filled Syringe 1 EACH SC SCH (09:02)
[2020-08-01] MEDS: Empagliflozin 10 MG TAB PO SCH (09:03)
[2020-08-01] MEDS: CORLANOR 7.5 MG PO SCH ×2 (09:04→17:47)
[2020-08-01] MEDS: AcetaZOLAMIDE 250 MG TAB PO SCH (09:04)
[2020-08-01] MEDS: Enoxaparin Sodium 40 MG/0.4 ML SYRINGE SC SCH (09:04)
[2020-08-01] MEDS: Digoxin 0.125 MG TAB PO SCH (09:05)
[2020-08-01] MEDS: Calcium Carbonate 600 MG + Vit D TAB PO SCH (09:06)
[2020-08-01] MEDS: Amiodarone 200 MG TAB PO SCH (09:06)
[2020-08-01] MEDS: Losartan 25 MG TAB PO SCH (09:06)
[2020-08-01] MEDS: Spironolactone 25 MG TAB PO SCH (09:06)
[2020-08-01] MEDS: Famotidine 20 MG TAB PO SCH ×2 (09:07→21:45)
[2020-08-01] MEDS: Cholecalciferol 1,000 UNITS (25 MCG) TAB PO SCH (09:07)
[2020-08-01] MEDS: Zinc Sulfate 220 MG CAP PO SCH (09:07)
[2020-08-01] MEDS: Torsemide 20 MG TAB PO SCH (09:07)
[2020-08-01] MEDS: Ascorbic Acid 500 mg Chewable Tablet PO SCH (09:08)
[2020-08-01] MEDS: Potassium Chloride 20 MEQ TAB PO SCH ×3 (09:08→21:45)
[2020-08-01] MEDS: Allopurinol 300 MG TAB PO SCH (09:08)
[2020-08-01] MEDS: Multivitamin W/ Minerals 1 TAB PO SCH (09:08)
[2020-08-01] MEDS: Transdermal Patch Removal TOP SCH (09:09)
[2020-08-01] MEDS: Carvedilol 25 MG TAB PO SCH ×2 (09:09→22:03)
[2020-08-01] MEDS: Senokot S 8.6-50 MG TAB PO SCH ×2 (09:09→21:47)
[2020-08-01] MEDS: predniSONE 20 MG TAB PO SCH ×2 (09:09→21:45)
[2020-08-01] MEDS ORDERED: Potassium Chloride 20 MEQ in Premix Bag 1 BAG IVPB SCH (10:00)
[2020-08-01] MEDS ORDERED: Amoxicillin/Potassium Clav 875 MG TAB PO SCH (10:00)
[2020-08-01] MEDS: HumaLOG 300 UNITS/3 ML VIAL SC PRN ×3 (11:59→22:04)
--- NOTE | 2020-08-01 13:00 | PDOC.HOSPP ---
- Subjective Encounter Date: 08/01/20 Encounter Time: 09:45 Subjective: no new complaints is amb to commode at bedside no sob or chest pain - Objective Vital Signs & Weight: Vital Signs (12 hours) Temp Pulse Resp BP Pulse Ox 08/01/20 12:00 98.9 F 61 16 124/58 L 97 08/01/20 09:05 60 08/01/20 08:00 98.9 F 60 16 120/59 L 98 08/01/20 04:00 98.7 F 53 L 21 H 136/63 97 Weight Admit Weight 295 lb 12.8 oz Weight 282 lb 2 oz I&O: 07/31/20 08/01/20 08/02/20 06:59 06:59 06:59 Intake Total 4371 3077 Output Total 0126 5305 Balance -1011 -808 Result Diagrams: 08/01/20 03:06 08/01/20 03:06 Additional Labs: Accuchecks 08/01/20 08/01/20 07/31/20 10:20 05:57 20:58 POC Glucose 212 H 145 H 266 H 07/31/20 17:14 POC Glucose 220 H Hospitalist ROS - Medication Medications: Active Medications Generic Name Dose Route Start Last Admin Trade Name Freq PRN Reason Stop Dose Admin Acetaminophen 650 mg 07/17/20 20:17 07/27/20 08:35 Acetaminophen 325 Mg Tab PO 650 mg Q4H PRN Administration Headache/Fever/Mild Pain (1-3) Hydrocodone Bitart/Acetaminophen 2 tab 07/27/20 22:27 08/01/20 09:02 Hydrocodone/Acetaminophen 10/325 Mg Tablet PO 2 tab Q4H PRN Administration Severe Pain (7-10) Allopurinol 300 mg 07/18/20 09:00 08/01/20 09:08 Allopurinol 300 Mg Tab PO 300 mg DAILY RANDAL Administration Amiodarone HCl 200 mg 07/18/20 09:00 08/01/20 09:06 Amiodarone 200 Mg Tab PO 200 mg DAILY RANDAL Administration Ascorbic Acid 500 mg 08/01/20 09:00 08/01/20 09:08 Ascorbic Acid 500 Mg Chewable Tablet PO 500 mg DAILY RANDAL Administration Calcium/Vitamin D 1 tab 08/01/20 08:00 08/01/20 09:06 Calcium Carbonate 600 Mg + Vit D Tab PO 1 tab QAM-WM RANDAL Administration Carvedilol 25 mg 07/30/20 09:00 08/01/20 09:09 Carvedilol 25 Mg Tab PO 25 mg Q12HR RANDAL Administration Cholecalciferol 1,000 units 08/01/20 09:00 08/01/20 09:07 Cholecalciferol 1,000 Units (25 Mcg) Tab PO 1,000 units DAILY RANDAL Administration Clonazepam 2 mg 07/27/20 22:27 07/31/20 20:50 Clonazepam 1 Mg Tab PO 2 mg HS PRN Administration Anxiety Cyclobenzaprine HCl 10 mg 07/20/20 18:11 07/30/20 13:40 Cyclobenzaprine 10 Mg Tab PO 10 mg TID PRN Administration Muscle Spasm Digoxin 0.125 mg 07/18/20 09:00 08/01/20 09:05 Digoxin 0.125 Mg Tab PO 0.125 mg DAILY RANDAL Administration Enoxaparin Sodium 40 mg 07/18/20 09:00 08/01/20 09:04 Enoxaparin Sodium 40 Mg/0.4 Ml Syringe SC 40 mg 0900 RANDAL Administration Famotidine 20 mg 07/18/20 09:00 08/01/20 09:07 Famotidine 20 Mg Tab PO 20 mg BID RANDAL Administration Fentanyl 50 mcg 07/24/20 12:38 08/01/20 11:58 Fentanyl 100 Mcg/2 Ml Vial SLOW IVP 50 mcg Q6H PRN Administration Moderate to Severe Pain (6-10) Milrinone Lactate/Dextrose 20 100 mls @ 20.289 mls/hr 07/20/20 17:00 08/01/20 05:43 mg/ Device IV 100 mls INF RANDAL Administration Protocol 0.5 MCG/KG/MIN Insulin Glargine 10 units/ 0.1 mls @ 0 mls/hr 07/28/20 09:00 08/01/20 09:02 Miscellaneous Medication SC 0.1 mls QAM RANDAL Administration Insulin Human Lispro 0 units 07/17/20 21:28 08/01/20 11:59 Humalog 300 Units/3 Ml Vial SC 3 unit .MILD SLIDING SCALE PRN Administration Mild Correctional Scale Insulin Human Lispro 0 units 07/17/20 21:28 07/31/20 21:03 Humalog 300 Units/3 Ml Vial SC 3 unit .BEDTIME SLIDING SC PRN Administration Bedtime Correctional Scale Iron/Minerals/Multivitamins 1 tab 08/01/20 09:00 08/01/20 09:08 Multivitamin W/ Minerals 1 Tab PO 1 tab DAILY RANDAL Administration Levothyroxine Sodium 100 mcg 07/18/20 06:00 08/01/20 05:34 Levothyroxine Sodium 50 Mcg Tab PO 100 mcg 0600 RANDAL Administration Lidocaine 1 patch 07/29/20 21:00 07/31/20 20:49 Lidocaine 5% Patch TD 1 patch 2100 RANDAL Administration Losartan Potassium 25 mg 07/21/20 09:00 08/01/20 09:06 Losartan 25 Mg Tab PO 25 mg DAILY RANDAL Administration Miscellaneous Medication 10 mg 07/22/20 09:00 08/01/20 09:03 Empagliflozin 10 Mg Tab PO 10 mg DAILY RANDAL Administration Miscellaneous Medication 1 each 07/30/20 09:00 08/01/20 09:09 Lidocaine Patch Removal 1 Each TOP 1 each 0900 RANDAL Administration Ondansetron HCl 4 mg 07/17/20 19:25 07/18/20 23:19 Ondansetron Pf 4 Mg/2 Ml Vial IVP 4 mg Q6H PRN Administration Nausea/Vomiting Corlanor 7.5 Mg Tab 0 each 07/18/20 17:00 08/01/20 09:04 PO 1 each BID-WM RANDAL Administration Prednisone 10 mg 07/18/20 09:00 08/01/20 09:09 Prednisone 20 Mg Tab PO 10 mg BID RANDAL Administration Promethazine HCl 25 mg 07/17/20 21:29 07/19/20 12:55 Promethazine 25 Mg Tab PO 25 mg DAILY PRN Administration Nausea Senna/Docusate Sodium 2 tab 07/17/20 20:17 07/29/20 09:48 Senokot S 8.6-50 Mg Tab PO 2 tab BID PRN Administration Constipation Senna/Docusate Sodium 2 tab 07/30/20 21:00 08/01/20 09:09 Senokot S 8.6-50 Mg Tab PO Not Given BID RANDAL Sertraline HCl 100 mg 07/18/20 09:00 08/01/20 09:08 Sertraline Hcl 100 Mg Tab PO 100 mg DAILY RANDAL Administration Sodium Chloride 10 ml 07/17/20 20:17 07/31/20 17:33 Flush - Normal Saline 10 Ml Syringe IVF 10 ml PRN PRN Administration Saline Flush Spironolactone 50 mg 07/24/20 09:00 08/01/20 09:06 Spironolactone 25 Mg Tab PO 50 mg DAILY RANDAL Administration Torsemide 20 mg 07/30/20 09:00 08/01/20 09:07 Torsemide 20 Mg Tab PO 20 mg DAILY RANDAL Administration Zinc Sulfate 220 mg 08/01/20 09:00 08/01/20 09:07 Zinc Sulfate 220 Mg Cap PO 220 mg DAILY RANDAL Administration Hospitalist Exam Vitals: Vital Signs (12 hours) Temp Pulse Resp BP Pulse Ox 08/01/20 12:00 98.9 F 61 16 124/58 L 97 08/01/20 09:05 60 08/01/20 08:00 98.9 F 60 16 120/59 L 98 08/01/20 04:00 98.7 F 53 L 21 H 136/63 97 Weight Admit Weight 295 lb 12.8 oz Weight 282 lb 2 oz General Appearance: awake alert Eye: PERRL, anicteric sclera ENT: no oropharyngeal lesions, moist mucosa Neck: supple, no JVD Heart: RRR, no murmur Respiratory: no wheezes, rales, rhonchi Gastrointestinal: soft, non-tender, non-distended, normal bowel sounds Extremities: no cyanosis, no edema Extremities - other findings: right forefoot in dressing Neurological: cranial nerve grossly intact, no focal deficits Psychiatric: normal affect, A&O x 3 Hosp A/P (1) Acute on chronic systolic CHF (congestive heart failure) Code(s): I50.23 - ACUTE ON CHRONIC SYSTOLIC (CONGESTIVE) HEART FAILURE Status: Acute (2) [place] disease Code(s): E27.1 - PRIMARY ADRENOCORTICAL INSUFFICIENCY Status: Chronic (3) Hematoma of right foot Code(s): S90.31XA - CONTUSION OF RIGHT FOOT, INITIAL ENCOUNTER Status: Acute (4) Physical deconditioning Code(s): R53.81 - OTHER MALAISE Status: Acute (5) Hypothyroidism Code(s): E03.9 - HYPOTHYROIDISM, UNSPECIFIED Status: Chronic Qualifiers: Hypothyroidism type: acquired Qualified Code(s): E03.9 - Hypothyroidism, unspecified (6) Ventral hernia Code(s): K43.9 - VENTRAL HERNIA WITHOUT OBSTRUCTION OR GANGRENE Status: Chronic Qualifiers: Obstruction and gangrene presence: without obstruction or gangrene Qualified Code(s): K43.9 - Ventral hernia without obstruction or gangrene (7) Cardiomyopathy Code(s): I42.9 - CARDIOMYOPATHY, UNSPECIFIED Status: Chronic (8) DM (diabetes mellitus) Code(s): E11.9 - TYPE 2 DIABETES MELLITUS WITHOUT COMPLICATIONS Status: Chronic Qualifiers: Diabetes mellitus type: type 2 Diabetes mellitus terminal clerk insulin use: without penitentiary use (9) HLD (hyperlipidemia) Code(s): E78.5 - HYPERLIPIDEMIA, UNSPECIFIED Status: Chronic Qualifiers: Hyperlipidemia type: mixed hyperlipidemia Qualified Code(s): E78.2 - Mixed hyperlipidemia (10) HTN (hypertension) Code(s): I10 - ESSENTIAL (PRIMARY) HYPERTENSION Status: Chronic Qualifiers: Hypertension type: essential hypertension Qualified Code(s): I10 - Essential (primary) hypertension (11) Morbid obesity Code(s): E66.01 - MORBID (SEVERE) OBESITY DUE TO EXCESS CALORIES Status: Chronic (12) Sarcoid Code(s): D86.9 - SARCOIDOSIS, UNSPECIFIED Status: Chronic - Plan has h/o sarcoidosis confirmed with left lobectomy of liver in [facility] >15 yrs ago, 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 is on milrinone drip, coreg, dig, ivabradine, losartan, amiodarone, spironolactone, torsemide, acetozolamide, allopurinol, lantus, jardiance, synthroid, zoloft and augmentin bid d/w , plan is to get her on milrinone infusion on Sunday/sunday with . foot wound cultures are -ve bmi is 46, chronic abd pain due to ventral hernia (not a candidate for repair given multiple med issues and possible poor wound healing due to prednisone) add multivit, zinc, vit c, vit d and d3 due to prednisone therapy to aid in wound healing and osteoporosis prophylaxis hemostable mobilize as tolerated with PT poor prognosis may need placement if she didn't ambulate for ADL's to go home with HH.
--- NOTE | 2020-08-01 17:00 | PRG ---
DATE OF SERVICE: 08/01/2020 SUBJECTIVE: Ms. Vaughn had an excellent day. She believed that she is breathing easy. She does not have any more episodes of chest pressure pain that caused her to be admitted. She has chronic chest discomfort and is back at her baseline. She believes that she is back to her baseline in terms of volume status nava. She has regained mobility. She is able to move from bed to the potty chair. She believed that she might be able to go without Yepez catheter today. REVIEW OF SYSTEMS: GENERAL: There is no fever, chills, or productive cough. HEENT: There is no change in vision, hearing, swallowing. PULMONARY: Please see HPI. CARDIAC: There is no chest pain, palpitations, or syncope. GI: There is no nausea, vomiting, or diarrhea. Her constipation is resolving. : She is still on a Yepez catheter. MUSCULOSKELETAL: She has chronic right foot pain post debridement. It is better today. INTEGUMENT: Please see above. NEUROLOGIC: There are no focal deficits or weaknesses. CURRENT MEDICATIONS: Include: 1. Allopurinol 200 mg daily. 2. Amiodarone 200 mg daily. 3. Vitamin C 500 mg daily. 4. Vitamin D and calcium 1 tab daily. 5. Carvedilol 25 mg q.12 hours. 6. Vitamin D3 1000 units daily. 7. Ivabradine 7.5 mg b.i.d. 8. Flexeril 10 mg t.i.d. as needed. 9. Digoxin 0.125 mg daily. 10. Jardiance 10 mg daily. 11. Enoxaparin 40 mg subcutaneous daily. 12. Pepcid 20 mg b.i.d. 13. Fentanyl 50 mcg q.6 hours p.r.n. 14. Sliding scale insulin Lispro. 15. Insulin glargine 10 units daily. 16. Levothyroxine 100 mcg daily. 17. Losartan still listed at 25 mg daily. 18. K-Dur at 40 mEq b.i.d. 19. Prednisone 10 mg b.i.d. 20. Zoloft 100 mg daily. 21. Spironolactone 50 mg daily. 22. Torsemide at 20 mg daily. 23. Acetazolamide 250 mg daily. PHYSICAL EXAMINATION: Her telemetry was reviewed. She is in majority A sensed V paced. There is occasional shawnee beat. Otherwise, there is no concerning arrhythmia. VITAL SIGNS: Heart rate about 64. Blood pressure ranged between 125 to 136 systolic, when I was in the room, her systolic blood pressure is 120. Her diastolic blood pressure ranged between 59 to 63, so she has been in good range. GENERAL: She is alert, conversational, reclining comfortably in bed. Pleasant. HEENT: Show EOMI. Oropharynx is benign with moist mucosa. NECK: She has a large diameter neck. Her JVP approximately 10 cm. PULMONARY: Her lung sounds are distant. However, she has good air movement. Clear to auscultation bilaterally. CARDIAC: Regular rate and rhythm with 2/6 holosystolic murmur at the apex and also 2/6 holosystolic murmur at left upper sternal border, though she has a combination of tricuspid regurgitation and also mitral regurgitation. ABDOMEN: Large soft, distended due to ventral hernia. Positive bowel sounds. EXTREMITIES: Lower extremity are without edema today. On her left foot, there are palpable dorsalis pedis pulses. Her right foot is still being wrapped. LABORATORY VALUES: Today, white cell count 10.5, hemoglobin 11.2, platelets 242. Her chemistry shows sodium 139, potassium 3.5, chloride 99, bicarb 29, BUN 23, creatinine 0.71, magnesium 2.3. ASSESSMENT: 50-year-old lady who is making good progress on recovery from her acute on chronic heart failure with reduced ejection fraction. She resides in [place] [employer] stage C and [place] Heart Association class 3B heart failure with reduced ejection fraction with combined systolic and diastolic dysfunction. Her LVEF is only 20%. She is requiring milrinone 0.5 mcg/kg/minute to sustain life and provide quality of life. This amount of milrinone was needed to diurese her and maintain her adequate fluid balance while preserving her kidney functions. The main issue keeping her in the hospital is her right foot pain, hematoma that is being debrided. As soon as her right foot progresses into good healing stage, then she can go home. She was on a combination of Zosyn which was changed to Augmentin due to UTI and severe right foot pain. She was on antibiotics when incision and drainage took place, that is the reason why did not grow any infection that day, because she was already on antibiotics. Thus, it would be prudent to continue the antibiotics until the wound heals. 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 We need to prevent this from recurring. Her potassium is a bit low today, we will need to adjust that. Her contraction alkalosis is resolved, so we may need to correct that too. Please see the following for my recommendations. RECOMMENDATIONS: 1. Continue milrinone 0.5 mcg/kg/minute. We will need to set up with home health care to make sure that happen. I will also need to communicate with Dr. Onofre to make sure that he is willing to take care of this. If not, we will need to ask Dr. Cathy Giang at [facility] to do the followup on that. 2. Discontinue acetazolamide, because her alkalosis has resolved. 3. Give her potassium chloride 20 mEq IV one dose. 4. Increase the frequency of her K-Dur 40 mEq to three times a day. 5. Please continue Augmentin 875 for at least 5 to 10 more days to ensure her wound heals without infection. It has been a pleasure taking care of Ms. Vaughn. If you have any questions, please give me a call. The total visitation time today is 40 minutes. Job ID: [id number] [id number]
[2020-08-01] MEDS: Amoxicillin/Potassium Clav 875 MG TAB PO SCH (21:45)
[2020-08-01] MEDS: Lidocaine 5% Patch TD SCH (21:47)
[2020-08-02] MEDS ORDERED: Milrinone Lactate/D5W 20 MG/100 ML BAG ONE (07:48)
[2020-08-02] MEDS ORDERED: Potassium Chloride 20 MEQ TAB ONE ×2 (09:00→11:27)
[2020-08-02] MEDS ORDERED: Calcium Carbonate 600 MG + Vit D TAB ONE ×2 (09:00→11:19)
[2020-08-02] MEDS ORDERED: Amiodarone 200 MG TAB ONE ×2 (09:00→11:27)
[2020-08-02] MEDS ORDERED: Allopurinol 300 MG TAB ONE ×2 (09:00→11:27)
[2020-08-02] MEDS ORDERED: Cholecalciferol 1,000 UNITS (25 MCG) TAB ONE ×2 (09:00→11:27)
[2020-08-02] MEDS ORDERED: Spironolactone 25 MG TAB ONE ×2 (09:00→11:15)
[2020-08-02] MEDS ORDERED: Empagliflozin 10 MG TAB PO ONE (09:00)
[2020-08-02] MEDS ORDERED: Digoxin 0.125 MG TAB ONE ×2 (09:00→11:27)
[2020-08-02] MEDS ORDERED: Levothyroxine Sodium 50 MCG TAB ONE (09:00)
[2020-08-02] MEDS ORDERED: Carvedilol 25 MG TAB ONE ×2 (09:00→11:27)
[2020-08-02] MEDS ORDERED: predniSONE 20 MG TAB ONE ×2 (09:00→11:27)
[2020-08-02] MEDS ORDERED: Amoxicillin/Potassium Clav 875 MG TAB ONE ×2 (09:00→11:18)
[2020-08-02] MEDS ORDERED: Enoxaparin Sodium 40 MG/0.4 ML SYRINGE ONE ×2 (09:00→11:27)
[2020-08-02] MEDS ORDERED: Losartan 25 MG TAB ONE (09:00)
[2020-08-02] MEDS ORDERED: Torsemide 20 MG TAB ONE ×2 (09:00→11:27)
[2020-08-02] MEDS ORDERED: Ascorbic Acid 500 mg Chewable Tablet ONE ×2 (09:00→11:27)
[2020-08-02] MEDS ORDERED: Famotidine 20 MG TAB ONE (09:00)
[2020-08-02] MEDS ORDERED: Multivitamin W/ Minerals 1 TAB ONE ×2 (09:00→11:27)
[2020-08-02] MEDS ORDERED: Zinc Sulfate 220 MG CAP ONE ×2 (09:00→11:27)
[2020-08-02] MEDS ORDERED: Lidocaine 5% Patch ONE (09:00)
[2020-08-02] MEDS ORDERED: Senokot S 8.6-50 MG TAB ONE (09:00)
[2020-08-02] MEDS ORDERED: Fentanyl 100 MCG/2 ML VIAL ONE (11:14)
[2020-08-02] MEDS ORDERED: Levothyroxine Sodium 100 MCG TAB ONE (11:27)
--- NOTE | 2020-08-02 12:13 | PRG ---
DATE OF SERVICE: 08/02/2020 SUBJECTIVE: Ms. Vaughn had a good day. She is breathing easy that she can participate with the staff. She is able to ambulate from her bed to the toilet. She does not believe that she needs a catheter anymore. She still has severe right foot pain, but this is getting better and she does not feel like there is any more fluid buildup. Overall, she is doing well. REVIEW OF SYSTEMS: GENERAL: There are no fever, chills, or productive cough. HEENT: There is no change in vision, hearing, or swallowing. PULMONARY: She is breathing easy. CARDIAC: There is no recurrent severe chest pain, syncope, or palpitations. GI: There is no nausea, vomiting, or diarrhea. : She is still on a Yepez catheter. She wants that out. MUSCULOSKELETAL: She has right foot pain. INTEGUMENT: She has right foot pain. NEUROLOGIC: There are no focal deficits or weaknesses. The [employer] systems are down. Consequently, a complete set of medications not visible. Telemetry was reviewed. She is mainly in A sensed V paced rhythm. There are some occasional [place] beats. There are some occasional V paced. PHYSICAL EXAMINATION: VITAL SIGNS: Her latest vitals are heart rate 64, blood pressure 127/58. GENERAL: She is alert and conversational, reclining comfortably in bed, energetic. She is breathing easy. HEENT: EOMI. Oropharynx benign with moist mucosa. NECK: Large diameter. JVP is probably about 10 cm. PULMONARY: Good lung sounds are distant. However, there is good air movement. There are no crackles bilateral. CARDIAC: Regular rate and rhythm with 2/6 holosystolic murmur at the left upper sternal border. There is also 2/6 holosystolic murmur at apex with radiation to the left axilla. Consequently, she has tricuspid regurgitation and mitral regurgitation. ABDOMEN: Large, soft, mild discomfort. This is chronic due to ventral hernia. EXTREMITIES: Left lower extremity does not have any edema. There are palpable dorsalis pedis pulses. Her right lower extremity does not have any edema neither however her right foot is still wrapped in bandage. She will about to go to another debridement today. LABORATORY DATA: [employer] is down, so there is no laboratory value. This will need to be followed up through other day. ASSESSMENT: 50-year-old lady resides in [place] Heart Association stage C, [place] Heart Association class 3B heart failure with reduced ejection fraction. 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 She is currently well compensated and also euvolemic. She is requiring milrinone 0.5 mcg/kg/minute to provide her sufficient cardiac output. Currently, her cardiac output is able to maintain her renal function. She is also euvolemic, so current dosage of diuretics is enough. She will need milrinone to sustain life and also provide good quality of life. Her right foot needs to heal. After wound healing has taken a good course, then she can be discharged. Please see following for my recommendations. RECOMMENDATIONS: 1. Continue milrinone at 0.5 mcg/kg/minute. 2. Continue with the current cardiac regimen. I believe it is carvedilol 25 mg q.12 hours, losartan 25 mg daily, spironolactone 50 mg daily, amiodarone 200 mg daily, and also torsemide 20 mg daily. 3. We will follow her potassium, magnesium with vitamin supplement as soon as at her end. 4. Please discontinue Yepez catheter. I think she can walk again and we need to have her ambulate. 5. I will need to contact Dr. Matt Onofre to ensure that she has close followup with milrinone infusion. It has been a pleasure taking care of Ms. Vaughn. If you have any questions, please give me a call. Total visitation time today is 35 minutes. Job ID: [id number] MTDD
[2020-08-02 15:07] LABS: Anion Gap 15 mmol/L (10-20); BUN (Urea Nitrogen) 22 mg/dL (7.0-18.7); Calc. Creatinine Clearance 181 mL/min (70-130); Calcium 9.1 mg/dL (7.8-10.44); Carbon Dioxide 26 mmol/L (22-29); Chloride 101 mmol/L (98-107); Magnesium 2.3 mg/dL (1.6-2.6); Potassium 4.2 mmol/L (3.5-5.1); Sodium 138 mmol/L (136-145)
[2020-08-02 15:09] LABS: Glucose 235 mg/dL (70-105)
[2020-08-02] MEDS ORDERED: Fentanyl 100 MCG/2 ML VIAL SLOW IVP SCH (15:15)
[2020-08-02] MEDS: Levothyroxine Sodium 50 MCG TAB PO SCH (15:20)
[2020-08-02] MEDS: Calcium Carbonate 600 MG + Vit D TAB PO SCH (15:21)
[2020-08-02] MEDS: CORLANOR 7.5 MG PO SCH ×2 (15:21→16:34)
[2020-08-02] MEDS: Allopurinol 300 MG TAB PO SCH (15:21)
[2020-08-02] MEDS: Amiodarone 200 MG TAB PO SCH (15:22)
[2020-08-02] MEDS: Amoxicillin/Potassium Clav 875 MG TAB PO SCH ×2 (15:22→20:13)
[2020-08-02] MEDS: Enoxaparin Sodium 40 MG/0.4 ML SYRINGE SC SCH (15:23)
[2020-08-02] MEDS: Ascorbic Acid 500 mg Chewable Tablet PO SCH (15:23)
[2020-08-02] MEDS: Cholecalciferol 1,000 UNITS (25 MCG) TAB PO SCH (15:23)
[2020-08-02] MEDS: Carvedilol 25 MG TAB PO SCH ×2 (15:23→20:12)
[2020-08-02] MEDS: Digoxin 0.125 MG TAB PO SCH (15:23)
[2020-08-02] MEDS: Insulin Glargine 10 UNITS in Pre-Filled Syringe 1 EACH SC SCH (15:24)
[2020-08-02] MEDS: Transdermal Patch Removal TOP SCH (15:24)
[2020-08-02] MEDS: Multivitamin W/ Minerals 1 TAB PO SCH (15:24)
[2020-08-02] MEDS: Spironolactone 25 MG TAB PO SCH (15:25)
[2020-08-02] MEDS: Senokot S 8.6-50 MG TAB PO SCH ×2 (15:25→20:13)
[2020-08-02] MEDS: Torsemide 20 MG TAB PO SCH (15:25)
[2020-08-02] MEDS: Potassium Chloride 20 MEQ TAB PO SCH ×3 (15:25→20:12)
[2020-08-02] MEDS: predniSONE 20 MG TAB PO SCH ×2 (15:25→20:13)
[2020-08-02] MEDS: Zinc Sulfate 220 MG CAP PO SCH (15:26)
[2020-08-02] MEDS: HYDROcodone/Acetaminophen 10/325 mg Tablet PO PRN (16:30)
[2020-08-02] MEDS: Famotidine 20 MG TAB PO SCH ×2 (16:31→20:13)
[2020-08-02] MEDS: Empagliflozin 10 MG TAB PO SCH (16:31)
[2020-08-02] MEDS: Losartan 25 MG TAB PO SCH (16:32)
--- NOTE | 2020-08-02 16:45 | PDOC.HOSPP ---
- Subjective Encounter Date: 08/02/20 Subjective: No acute events overnight. - Objective Vital Signs & Weight: Vital Signs (12 hours) Pulse Pulse Pulse BP BP 08/02/20 16:33 56 L 08/02/20 15:23 56 L 08/02/20 13:57 68 119/64 08/02/20 13:56 68 119/64 Weight Admit Weight 295 lb 12.8 oz Weight 282 lb 2 oz I&O: 08/01/20 08/02/20 08/03/20 06:59 06:59 06:59 Intake Total 1867 1500 Output Total 3673 1900 Balance -808 -400 Result Diagrams: 08/01/20 03:06 08/02/20 04:19 Additional Labs: Accuchecks 08/02/20 08/02/20 08/01/20 11:07 05:39 20:07 POC Glucose 191 H 210 H 217 H Hospitalist ROS - Review of Systems All other systems reviewed; all pertinent +/- noted in HPI/Subj - Medication Medications: Active Medications Generic Name Dose Route Start Last Admin Trade Name Freq PRN Reason Stop Dose Admin Acetaminophen 650 mg 07/17/20 20:17 07/27/20 08:35 Acetaminophen 325 Mg Tab PO 650 mg Q4H PRN Administration Headache/Fever/Mild Pain (1-3) Hydrocodone Bitart/Acetaminophen 2 tab 07/27/20 22:27 08/02/20 16:30 Hydrocodone/Acetaminophen 10/325 Mg Tablet PO 2 tab Q4H PRN Administration Severe Pain (7-10) Allopurinol 300 mg 07/18/20 09:00 08/02/20 15:21 Allopurinol 300 Mg Tab PO Not Given DAILY RANDAL Amiodarone HCl 200 mg 07/18/20 09:00 08/02/20 15:22 Amiodarone 200 Mg Tab PO Not Given DAILY RANDAL Amoxicillin/Clavulanate Potassium 875 mg 08/01/20 21:00 08/02/20 15:22 Amoxicillin/Potassium Clav 875 Mg Tab PO Not Given Q12HR RANDAL Ascorbic Acid 500 mg 08/01/20 09:00 08/02/20 15:23 Ascorbic Acid 500 Mg Chewable Tablet PO Not Given DAILY RANDAL Calcium/Vitamin D 1 tab 08/01/20 08:00 08/02/20 15:21 Calcium Carbonate 600 Mg + Vit D Tab PO Not Given QAM-WM [facility] Carvedilol 25 mg 07/30/20 09:00 08/02/20 15:23 Carvedilol 25 Mg Tab PO Not Given Q12HR [facility] Cholecalciferol 1,000 units 08/01/20 09:00 08/02/20 15:23 Cholecalciferol 1,000 Units (25 Mcg) Tab PO Not Given DAILY [facility] Clonazepam 2 mg 07/27/20 22:27 07/31/20 20:50 Clonazepam 1 Mg Tab PO 2 mg HS PRN Administration Anxiety Cyclobenzaprine HCl 10 mg 07/20/20 18:11 07/30/20 13:40 Cyclobenzaprine 10 Mg Tab PO 10 mg TID PRN Administration Muscle Spasm Digoxin 0.125 mg 07/18/20 09:00 08/02/20 15:23 Digoxin 0.125 Mg Tab PO Not Given DAILY [facility] Enoxaparin Sodium 40 mg 07/18/20 09:00 08/02/20 15:23 Enoxaparin Sodium 40 Mg/0.4 Ml Syringe SC Not Given 0900 [facility] Famotidine 20 mg 07/18/20 09:00 08/02/20 16:31 Famotidine 20 Mg Tab PO 20 mg BID RANDAL Administration Fentanyl 50 mcg 07/24/20 12:38 08/01/20 21:53 Fentanyl 100 Mcg/2 Ml Vial SLOW IVP 50 mcg Q6H PRN Administration Moderate to Severe Pain (6-10) Milrinone Lactate/Dextrose 20 100 mls @ 20.289 mls/hr 07/20/20 17:00 08/01/20 21:48 mg/ Device IV 100 mls INF RANDAL Administration Protocol 0.5 MCG/KG/MIN Insulin Glargine 10 units/ 0.1 mls @ 0 mls/hr 07/28/20 09:00 08/02/20 15:24 Miscellaneous Medication SC Not Given QAM [facility] Insulin Human Lispro 0 units 07/17/20 21:28 08/01/20 17:48 Humalog 300 Units/3 Ml Vial SC 4 unit .MILD SLIDING SCALE PRN Administration Mild Correctional Scale Insulin Human Lispro 0 units 07/17/20 21:28 08/01/20 22:04 Humalog 300 Units/3 Ml Vial SC 2 unit .BEDTIME SLIDING SC PRN Administration Bedtime Correctional Scale Iron/Minerals/Multivitamins 1 tab 08/01/20 09:00 08/02/20 15:24 Multivitamin W/ Minerals 1 Tab PO Not Given DAILY [facility] Levothyroxine Sodium 100 mcg 07/18/20 06:00 08/02/20 15:20 Levothyroxine Sodium 50 Mcg Tab PO Not Given 0600 RANDAL Lidocaine 1 patch 07/29/20 21:00 08/01/20 21:47 Lidocaine 5% Patch TD 1 patch 2100 RANDAL Administration Losartan Potassium 25 mg 07/21/20 09:00 08/02/20 16:32 Losartan 25 Mg Tab PO 25 mg DAILY RANDAL Administration Miscellaneous Medication 10 mg 07/22/20 09:00 08/02/20 16:31 Empagliflozin 10 Mg Tab PO 10 mg DAILY RANDAL Administration Miscellaneous Medication 1 each 07/30/20 09:00 08/02/20 15:24 Lidocaine Patch Removal 1 Each TOP Not Given 0900 RANDAL Ondansetron HCl 4 mg 07/17/20 19:25 07/18/20 23:19 Ondansetron Pf 4 Mg/2 Ml Vial IVP 4 mg Q6H PRN Administration Nausea/Vomiting Corlanor 7.5 Mg Tab 0 each 07/18/20 17:00 08/02/20 16:34 PO 1 each BID-WM RANDAL Administration Potassium Chloride 40 meq 08/01/20 15:00 08/02/20 15:28 Potassium Chloride 20 Meq Tab PO Not Given TID RANDAL Prednisone 10 mg 07/18/20 09:00 08/02/20 15:25 Prednisone 20 Mg Tab PO Not Given BID RANDAL Promethazine HCl 25 mg 07/17/20 21:29 07/19/20 12:55 Promethazine 25 Mg Tab PO 25 mg DAILY PRN Administration Nausea Senna/Docusate Sodium 2 tab 07/17/20 20:17 07/29/20 09:48 Senokot S 8.6-50 Mg Tab PO 2 tab BID PRN Administration Constipation Senna/Docusate Sodium 2 tab 07/30/20 21:00 08/02/20 15:25 Senokot S 8.6-50 Mg Tab PO Not Given BID RANDAL Sertraline HCl 100 mg 07/18/20 09:00 08/02/20 15:25 Sertraline Hcl 100 Mg Tab PO Not Given DAILY RANDAL Sodium Chloride 10 ml 07/17/20 20:17 07/31/20 17:33 Flush - Normal Saline 10 Ml Syringe IVF 10 ml PRN PRN Administration Saline Flush Spironolactone 50 mg 07/24/20 09:00 08/02/20 15:25 Spironolactone 25 Mg Tab PO Not Given DAILY RANDAL Torsemide 20 mg 07/30/20 09:00 08/02/20 15:25 Torsemide 20 Mg Tab PO Not Given DAILY RANDAL Zinc Sulfate 220 mg 08/01/20 09:00 08/02/20 15:26 Zinc Sulfate 220 Mg Cap PO Not Given DAILY RANDAL Hospitalist Exam Vitals: Vital Signs (12 hours) Pulse Pulse Pulse BP BP 08/02/20 16:33 56 L 08/02/20 15:23 56 L 08/02/20 13:57 68 119/64 08/02/20 13:56 68 119/64 Weight Admit Weight 295 lb 12.8 oz Weight 282 lb 2 oz General Appearance: NAD Eye: anicteric sclera ENT: no oropharyngeal lesions Neck: no JVD Heart: murmur present, III/IV Respiratory: CTAB, no wheezes, no rales Gastrointestinal: soft, non-tender, non-distended Extremities: no edema Neurological: no new deficit Psychiatric: A&O x 3 Hosp A/P (1) Hematoma of right foot Code(s): S90.31XA - CONTUSION OF RIGHT FOOT, INITIAL ENCOUNTER Status: Acute (2) Physical deconditioning Code(s): R53.81 - OTHER MALAISE Status: Acute (3) Acute and chronic respiratory failure Code(s): J96.20 - ACUTE AND CHR RESP FAILURE, UNSP W HYPOXIA OR HYPERCAPNIA Status: Acute (4) Acute on chronic systolic CHF (congestive heart failure) Code(s): I50.23 - ACUTE ON CHRONIC SYSTOLIC (CONGESTIVE) HEART FAILURE Status: Acute (5) Pneumonia of right lower lobe due to infectious organism Code(s): J18.9 - PNEUMONIA, UNSPECIFIED ORGANISM Status: Acute (6) HLD (hyperlipidemia) Code(s): E78.5 - HYPERLIPIDEMIA, UNSPECIFIED Status: Chronic Qualifiers: Hyperlipidemia type: mixed hyperlipidemia Qualified Code(s): E78.2 - Mixed hyperlipidemia (7) HTN (hypertension) Code(s): I10 - ESSENTIAL (PRIMARY) HYPERTENSION Status: Chronic Qualifiers: Hypertension type: essential hypertension Qualified Code(s): I10 - Essential (primary) hypertension (8) Morbid obesity Code(s): E66.01 - MORBID (SEVERE) OBESITY DUE TO EXCESS CALORIES Status: Chronic (9) Sarcoid Code(s): D86.9 - SARCOIDOSIS, UNSPECIFIED Status: Chronic - Plan has h/o sarcoidosis confirmed with left lobectomy of liver in [facility] >15 yrs ago, 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 is on milrinone drip, coreg, dig, ivabradine, losartan, amiodarone, spironolactone, torsemide, acetozolamide, allopurinol, lantus, jardiance, synthroid, zoloft and augmentin bid d/w , plan is to get her on milrinone infusion on Sunday/sunday with HH. foot wound cultures are -ve bmi is 46, chronic abd pain due to ventral hernia (not a candidate for repair given multiple med issues and possible poor wound healing due to prednisone) add multivit, zinc, vit c, vit d and d3 due to prednisone therapy to aid in w ound healing and osteoporosis prophylaxis hemostable mobilize as tolerated with PT poor prognosis may need placement if she didn't ambulate for ADL's to go home with HH.
[2020-08-02] MEDS: HumaLOG 300 UNITS/3 ML VIAL SC PRN (18:15)
[2020-08-02 18:36] LABS: #Eosinphils 0.2 thou/uL (0.0-0.7); #Lymphocytes 0.7 thou/uL (1.20-3.40); #Monocytes 0.9 thou/uL (0.11-0.59); #Neutrophils 8.2 thou/uL (1.40-6.50); %Eosinophils 1.6 % (0.0-10.0); %Lymphocytes 6.7 % (21.0-51.0); %Monocytes 9.4 % (0.0-10.0); %Neutrophils 82.3 % (42.0-75.0); Hemoglobin 11.3 g/dL (12.0-16.0); Mean Corpuscular HGB CONC 31.8 g/dL (32.0-36.0); Mean Corpuscular Hemoglobin 30.5 pg (27.0-31.0); Mean Corpuscular Volume 95.8 fL (78.0-98.0); Mean Platelet Volume 8.2 fL (7.4-10.4); Platelet Count 255 thou/uL (130-400); RBC Distribution Width 14.3 % (11.5-14.5); Red Blood Cell (RBC) Count 3.71 mill/uL (4.20-5.40)
[2020-08-02] MEDS: Lidocaine 5% Patch TD SCH (20:11)
[2020-08-02] MEDS: Fentanyl 100 MCG/2 ML VIAL SLOW IVP PRN (20:32)
[2020-08-02] MEDS: Milrinone Lactate/D5W 20 MG in Premix Bag 1 BAG IV SCH (23:11)
[2020-08-03] MEDS: HYDROcodone/Acetaminophen 10/325 mg Tablet PO PRN ×6 (00:54→23:55)
[2020-08-03 03:30] LABS: #Eosinphils 0.3 thou/uL (0.0-0.7); #Monocytes 1.4 thou/uL (0.11-0.59); #Neutrophils 7.4 thou/uL (1.40-6.50); %Basophils 0.3 % (0.0-1.0); %Eosinophils 2.6 % (0.0-10.0); %Lymphocytes 9.9 % (21.0-51.0); %Monocytes 14.1 % (0.0-10.0); %Neutrophils 73.1 % (42.0-75.0); Hemoglobin 11.2 g/dL (12.0-16.0); Mean Corpuscular HGB CONC 32.8 g/dL (32.0-36.0); Mean Corpuscular Hemoglobin 30.8 pg (27.0-31.0); Mean Corpuscular Volume 93.6 fL (78.0-98.0); Mean Platelet Volume 7.8 fL (7.4-10.4); Platelet Count 256 thou/uL (130-400); RBC Distribution Width 14.2 % (11.5-14.5); Red Blood Cell (RBC) Count 3.64 mill/uL (4.20-5.40); White Blood Cell (WBC) Count 10.1 thou/uL (4.8-10.8)
[2020-08-03 03:52] LABS: Anion Gap 16 mmol/L (10-20); BUN (Urea Nitrogen) 22 mg/dL (7.0-18.7); Calc. Creatinine Clearance 183 mL/min (70-130); Calcium 8.9 mg/dL (7.8-10.44); Carbon Dioxide 26 mmol/L (22-29); Chloride 101 mmol/L (98-107); Glucose 224 mg/dL (70-105); Magnesium 2.1 mg/dL (1.6-2.6); Potassium 4.7 mmol/L (3.5-5.1); Sodium 138 mmol/L (136-145)
[2020-08-03] MEDS: Milrinone Lactate/D5W 20 MG in Premix Bag 1 BAG IV SCH ×4 (04:24→20:59)
[2020-08-03] MEDS: Levothyroxine Sodium 50 MCG TAB PO SCH (04:55)
[2020-08-03] MEDS: HumaLOG 300 UNITS/3 ML VIAL SC PRN ×3 (05:23→17:32)
[2020-08-03] MEDS: Fentanyl 100 MCG/2 ML VIAL SLOW IVP PRN ×3 (07:34→21:03)
[2020-08-03] MEDS: Spironolactone 25 MG TAB PO SCH (08:51)
[2020-08-03] MEDS: Multivitamin W/ Minerals 1 TAB PO SCH (08:51)
[2020-08-03] MEDS: Ascorbic Acid 500 mg Chewable Tablet PO SCH (08:51)
[2020-08-03] MEDS: Enoxaparin Sodium 40 MG/0.4 ML SYRINGE SC SCH (08:51)
[2020-08-03] MEDS: Calcium Carbonate 600 MG + Vit D TAB PO SCH (08:52)
[2020-08-03] MEDS: Torsemide 20 MG TAB PO SCH (08:52)
[2020-08-03] MEDS: Potassium Chloride 20 MEQ TAB PO SCH ×2 (08:52→21:06)
[2020-08-03] MEDS: Senokot S 8.6-50 MG TAB PO SCH ×2 (08:52→21:07)
[2020-08-03] MEDS: Zinc Sulfate 220 MG CAP PO SCH (08:53)
[2020-08-03] MEDS: Carvedilol 25 MG TAB PO SCH ×2 (08:53→21:06)
[2020-08-03] MEDS: predniSONE 20 MG TAB PO SCH ×2 (08:53→21:07)
[2020-08-03] MEDS: Digoxin 0.125 MG TAB PO SCH (08:53)
[2020-08-03] MEDS: Empagliflozin 10 MG TAB PO SCH (08:53)
[2020-08-03] MEDS: Amoxicillin/Potassium Clav 875 MG TAB PO SCH ×2 (08:53→21:06)
[2020-08-03] MEDS: Losartan 25 MG TAB PO SCH (08:54)
[2020-08-03] MEDS: Cholecalciferol 1,000 UNITS (25 MCG) TAB PO SCH (08:54)
[2020-08-03] MEDS: CORLANOR 7.5 MG PO SCH ×2 (08:54→17:33)
[2020-08-03] MEDS: Amiodarone 200 MG TAB PO SCH (08:54)
[2020-08-03] MEDS: Allopurinol 300 MG TAB PO SCH (08:54)
[2020-08-03] MEDS: Famotidine 20 MG TAB PO SCH ×2 (08:54→21:08)
[2020-08-03] MEDS: Transdermal Patch Removal TOP SCH (09:00)
[2020-08-03] MEDS: Insulin Glargine 10 UNITS in Pre-Filled Syringe 1 EACH SC SCH (09:48)
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
--- NOTE | 2020-08-03 15:56 | PDOC.HOSPP ---
- Subjective Encounter Date: 08/03/20 Subjective: No acute events overnight. Patient comfortable in bed. Tolerating diet without any issues and remains on the milrinone drip. She understands it we are pending case management and insurance approval for the necessary equipment at home. - Objective Vital Signs & Weight: Vital Signs (12 hours) Temp Pulse Pulse Resp BP BP Pulse Ox 08/03/20 11:51 98.3 F 69 18 142/69 H 96 08/03/20 11:02 69 124/65 08/03/20 08:55 96 08/03/20 07:27 98.2 F 62 18 114/53 L 96 Pulse Ox 08/03/20 11:51 08/03/20 11:02 96 08/03/20 08:55 08/03/20 07:27 Weight Admit Weight 295 lb 12.8 oz Weight 281 lb 12.8 oz I&O: 08/02/20 08/03/20 08/04/20 06:59 06:59 06:59 Intake Total 1500 1468 Output Total 1900 2100 Balance -400 -632 Result Diagrams: 08/03/20 03:06 08/03/20 03:06 Additional Labs: Accuchecks 08/03/20 08/03/20 08/02/20 10:28 05:17 20:30 POC Glucose 214 H 162 H 166 H 08/02/20 17:05 POC Glucose 227 H Hospitalist ROS - Review of Systems All other systems reviewed; all pertinent +/- noted in HPI/Subj - Medication Medications: Active Medications Generic Name Dose Route Start Last Admin Trade Name Freq PRN Reason Stop Dose Admin Acetaminophen 650 mg 07/17/20 20:17 07/27/20 08:35 Acetaminophen 325 Mg Tab PO 650 mg Q4H PRN Administration Headache/Fever/Mild Pain (1-3) Hydrocodone Bitart/Acetaminophen 2 tab 07/27/20 22:27 08/03/20 13:50 Hydrocodone/Acetaminophen 10/325 Mg Tablet PO 2 tab Q4H PRN Administration Severe Pain (7-10) Allopurinol 300 mg 07/18/20 09:00 08/03/20 08:54 Allopurinol 300 Mg Tab PO 300 mg DAILY RANDAL Administration Amiodarone HCl 200 mg 07/18/20 09:00 08/03/20 08:54 Amiodarone 200 Mg Tab PO 200 mg DAILY RANDAL Administration Amoxicillin/Clavulanate Potassium 875 mg 08/01/20 21:00 08/03/20 08:53 Amoxicillin/Potassium Clav 875 Mg Tab PO 875 mg Q12HR RANDAL Administration Ascorbic Acid 500 mg 08/01/20 09:00 08/03/20 08:51 Ascorbic Acid 500 Mg Chewable Tablet PO 500 mg DAILY RANDAL Administration Calcium/Vitamin D 1 tab 08/01/20 08:00 08/03/20 08:52 Calcium Carbonate 600 Mg + Vit D Tab PO 1 tab QAM-WM RANDAL Administration Carvedilol 25 mg 07/30/20 09:00 08/03/20 08:53 Carvedilol 25 Mg Tab PO 25 mg Q12HR RANDAL Administration Cholecalciferol 1,000 units 08/01/20 09:00 08/03/20 08:54 Cholecalciferol 1,000 Units (25 Mcg) Tab PO 1,000 units DAILY RANDAL Administration Clonazepam 2 mg 07/27/20 22:27 07/31/20 20:50 Clonazepam 1 Mg Tab PO 2 mg HS PRN Administration Anxiety Cyclobenzaprine HCl 10 mg 07/20/20 18:11 07/30/20 13:40 Cyclobenzaprine 10 Mg Tab PO 10 mg TID PRN Administration Muscle Spasm Digoxin 0.125 mg 07/18/20 09:00 08/03/20 08:53 Digoxin 0.125 Mg Tab PO 0.125 mg DAILY RANDAL Administration Enoxaparin Sodium 40 mg 07/18/20 09:00 08/03/20 08:51 Enoxaparin Sodium 40 Mg/0.4 Ml Syringe SC 40 mg 0900 RANDAL Administration Famotidine 20 mg 07/18/20 09:00 08/03/20 08:54 Famotidine 20 Mg Tab PO 20 mg BID RANDAL Administration Fentanyl 50 mcg 08/03/20 13:04 08/03/20 15:15 Fentanyl 100 Mcg/2 Ml Vial SLOW IVP 50 mcg Q6H PRN Administration Moderate to Severe Pain (6-10) Milrinone Lactate/Dextrose 20 100 mls @ 20.289 mls/hr 07/20/20 17:00 08/03/20 15:15 mg/ Device IV 100 mls INF RANDAL Administration Protocol 0.5 MCG/KG/MIN Insulin Glargine 10 units/ 0.1 mls @ 0 mls/hr 07/28/20 09:00 08/03/20 09:48 Miscellaneous Medication SC 0.1 mls QAM RANDAL Administration Insulin Human Lispro 0 units 07/17/20 21:28 08/03/20 12:16 Humalog 300 Units/3 Ml Vial SC 3 unit .MILD SLIDING SCALE PRN Administration Mild Correctional Scale Insulin Human Lispro 0 units 07/17/20 21:28 08/01/20 22:04 Humalog 300 Units/3 Ml Vial SC 2 unit .BEDTIME SLIDING SC PRN Administration Bedtime Correctional Scale Iron/Minerals/Multivitamins 1 tab 08/01/20 09:00 08/03/20 08:51 Multivitamin W/ Minerals 1 Tab PO 1 tab DAILY RANDAL Administration Levothyroxine Sodium 100 mcg 07/18/20 06:00 08/03/20 04:55 Levothyroxine Sodium 50 Mcg Tab PO 100 mcg 0600 RANDAL Administration Lidocaine 1 patch 07/29/20 21:00 08/02/20 20:11 Lidocaine 5% Patch TD 1 patch 2100 RANDAL Administration Losartan Potassium 25 mg 07/21/20 09:00 08/03/20 08:54 Losartan 25 Mg Tab PO 25 mg DAILY RANDAL Administration Miscellaneous Medication 10 mg 07/22/20 09:00 08/03/20 08:53 Empagliflozin 10 Mg Tab PO 10 mg DAILY RANDAL Administration Miscellaneous Medication 1 each 07/30/20 09:00 08/03/20 09:00 Lidocaine Patch Removal 1 Each TOP 1 each 0900 RANDAL Administration Ondansetron HCl 4 mg 07/17/20 19:25 07/18/20 23:19 Ondansetron Pf 4 Mg/2 Ml Vial IVP 4 mg Q6H PRN Administration Nausea/Vomiting Corlanor 7.5 Mg Tab 0 each 07/18/20 17:00 08/03/20 08:54 PO 1 each BID-WM RANDAL Administration Prednisone 10 mg 07/18/20 09:00 08/03/20 08:53 Prednisone 20 Mg Tab PO 10 mg BID RANDAL Administration Promethazine HCl 25 mg 07/17/20 21:29 07/19/20 12:55 Promethazine 25 Mg Tab PO 25 mg DAILY PRN Administration Nausea Senna/Docusate Sodium 2 tab 07/17/20 20:17 07/29/20 09:48 Senokot S 8.6-50 Mg Tab PO 2 tab BID PRN Administration Constipation Senna/Docusate Sodium 2 tab 07/30/20 21:00 08/03/20 08:52 Senokot S 8.6-50 Mg Tab PO Not Given BID RANDAL Sertraline HCl 100 mg 07/18/20 09:00 08/03/20 08:54 Sertraline Hcl 100 Mg Tab PO 100 mg DAILY RANDAL Administration Sodium Chloride 10 ml 07/17/20 20:17 07/31/20 17:33 Flush - Normal Saline 10 Ml Syringe IVF 10 ml PRN PRN Administration Saline Flush Spironolactone 50 mg 07/24/20 09:00 08/03/20 08:51 Spironolactone 25 Mg Tab PO 50 mg DAILY RANDAL Administration Torsemide 20 mg 07/30/20 09:00 08/03/20 08:52 Torsemide 20 Mg Tab PO 20 mg DAILY RANDAL Administration Zinc Sulfate 220 mg 08/01/20 09:00 08/03/20 08:53 Zinc Sulfate 220 Mg Cap PO 220 mg DAILY RANDAL Administration Hospitalist Exam Vitals: Vital Signs (12 hours) Temp Pulse Pulse Resp BP BP Pulse Ox 08/03/20 11:51 98.3 F 69 18 142/69 H 96 08/03/20 11:02 69 124/65 08/03/20 08:55 96 08/03/20 07:27 98.2 F 62 18 114/53 L 96 Pulse Ox 08/03/20 11:51 08/03/20 11:02 96 08/03/20 08:55 08/03/20 07:27 Weight Admit Weight 295 lb 12.8 oz Weight 281 lb 12.8 oz General Appearance: NAD, awake alert Eye: PERRL, anicteric sclera ENT: no oropharyngeal lesions Neck: no JVD Heart: RRR, no gallops, no rubs, murmur present, II/IV Respiratory: CTAB, no rales, no ronchi Neurological: no new deficit Psychiatric: A&O x 3 Hosp A/P (1) Hematoma of right foot Code(s): S90.31XA - CONTUSION OF RIGHT FOOT, INITIAL ENCOUNTER Status: Acute (2) Physical deconditioning Code(s): R53.81 - OTHER MALAISE Status: Acute (3) Acute and chronic respiratory failure Code(s): J96.20 - ACUTE AND CHR RESP FAILURE, UNSP W HYPOXIA OR HYPERCAPNIA Status: Acute (4) Acute on chronic systolic CHF (congestive heart failure) Code(s): I50.23 - ACUTE ON CHRONIC SYSTOLIC (CONGESTIVE) HEART FAILURE Status: Acute (5) Pneumonia of right lower lobe due to infectious organism Code(s): J18.9 - PNEUMONIA, UNSPECIFIED ORGANISM Status: Acute (6) HLD (hyperlipidemia) Code(s): E78.5 - HYPERLIPIDEMIA, UNSPECIFIED Status: Chronic Qualifiers: Hyperlipidemia type: mixed hyperlipidemia Qualified Code(s): E78.2 - Mixed hyperlipidemia (7) HTN (hypertension) Code(s): I10 - ESSENTIAL (PRIMARY) HYPERTENSION Status: Chronic Qualifiers: Hypertension type: essential hypertension Qualified Code(s): I10 - Essential (primary) hypertension (8) Morbid obesity Code(s): E66.01 - MORBID (SEVERE) OBESITY DUE TO EXCESS CALORIES Status: Chronic (9) Sarcoid Code(s): D86.9 - SARCOIDOSIS, UNSPECIFIED Status: Chronic - Plan has h/o sarcoidosis confirmed with left lobectomy of liver in [facility] >15 yrs ago, 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 is on milrinone drip, coreg, dig, ivabradine, losartan, amiodarone, spironolactone, torsemide, acetozolamide, allopurinol, lantus, jardiance, sy nthroid, zoloft and augmentin bid d/w , plan is to get her on milrinone infusion on Sunday/sunday with HH. Appreciate recommendation foot wound cultures are -ve bmi is 46, chronic abd pain due to ventral hernia (not a candidate for repair given multiple med issues and possible poor wound healing due to prednisone) add multivit, zinc, vit c, vit d and d3 due to prednisone therapy to aid in wound healing and osteoporosis prophylaxis hemostable mobilize as tolerated with PT poor prognosis Plan is for home with home health after case management aids and insurance approval for her home medication.
[2020-08-03] MEDS ORDERED: Nortriptyline 10 MG CAP ONE (18:49)
[2020-08-03] MEDS: Lidocaine 5% Patch TD SCH (21:08)
[2020-08-04] MEDS: Fentanyl 100 MCG/2 ML VIAL SLOW IVP PRN ×4 (03:37→22:40)
[2020-08-04 04:51] LABS: #Eosinphils 0.1 thou/uL (0.0-0.7); #Lymphocytes 0.7 thou/uL (1.20-3.40); #Monocytes 1.2 thou/uL (0.11-0.59); #Neutrophils 7.9 thou/uL (1.40-6.50); %Basophils 0.2 % (0.0-1.0); %Eosinophils 1.4 % (0.0-10.0); %Monocytes 11.8 % (0.0-10.0); %Neutrophils 79.7 % (42.0-75.0); Hemoglobin 11.8 g/dL (12.0-16.0); Mean Corpuscular HGB CONC 34.4 g/dL (32.0-36.0); Mean Corpuscular Hemoglobin 32.8 pg (27.0-31.0); Mean Corpuscular Volume 95.2 fL (78.0-98.0); Mean Platelet Volume 7.8 fL (7.4-10.4); Platelet Count 235 thou/uL (130-400); Red Blood Cell (RBC) Count 3.62 mill/uL (4.20-5.40); White Blood Cell (WBC) Count 9.9 thou/uL (4.8-10.8)
[2020-08-04 05:08] LABS: Anion Gap 13 mmol/L (10-20); BUN (Urea Nitrogen) 22 mg/dL (7.0-18.7); Calc. Creatinine Clearance 183 mL/min (70-130); Calcium 9.1 mg/dL (7.8-10.44); Carbon Dioxide 31 mmol/L (22-29); Chloride 99 mmol/L (98-107); Glucose 219 mg/dL (70-105); Magnesium 2.2 mg/dL (1.6-2.6); Potassium 4.3 mmol/L (3.5-5.1); Sodium 139 mmol/L (136-145)
[2020-08-04] MEDS: Levothyroxine Sodium 50 MCG TAB PO SCH (05:28)
[2020-08-04] MEDS: HYDROcodone/Acetaminophen 10/325 mg Tablet PO PRN ×4 (05:29→19:07)
[2020-08-04] MEDS: HumaLOG 300 UNITS/3 ML VIAL SC PRN ×3 (05:47→17:34)
[2020-08-04] MEDS: Amoxicillin/Potassium Clav 875 MG TAB PO SCH ×2 (08:25→21:00)
[2020-08-04] MEDS: Enoxaparin Sodium 40 MG/0.4 ML SYRINGE SC SCH (08:26)
[2020-08-04] MEDS: Senokot S 8.6-50 MG TAB PO SCH ×2 (08:26→20:59)
[2020-08-04] MEDS: Digoxin 0.125 MG TAB PO SCH (08:26)
[2020-08-04] MEDS: Famotidine 20 MG TAB PO SCH ×2 (08:26→20:59)
[2020-08-04] MEDS: Spironolactone 25 MG TAB PO SCH (08:27)
[2020-08-04] MEDS: Amiodarone 200 MG TAB PO SCH (08:27)
[2020-08-04] MEDS: Calcium Carbonate 600 MG + Vit D TAB PO SCH (08:27)
[2020-08-04] MEDS: Torsemide 20 MG TAB PO SCH (08:27)
[2020-08-04] MEDS: Carvedilol 25 MG TAB PO SCH ×2 (08:27→21:00)
[2020-08-04] MEDS: predniSONE 20 MG TAB PO SCH ×2 (08:27→21:00)
[2020-08-04] MEDS: Multivitamin W/ Minerals 1 TAB PO SCH (08:27)
[2020-08-04] MEDS: Allopurinol 300 MG TAB PO SCH (08:27)
[2020-08-04] MEDS: Zinc Sulfate 220 MG CAP PO SCH (08:27)
[2020-08-04] MEDS: Cholecalciferol 1,000 UNITS (25 MCG) TAB PO SCH (08:27)
[2020-08-04] MEDS: Ascorbic Acid 500 mg Chewable Tablet PO SCH (08:28)
[2020-08-04] MEDS: Potassium Chloride 20 MEQ TAB PO SCH ×3 (08:28→16:32)
[2020-08-04] MEDS: Transdermal Patch Removal TOP SCH (08:28)
[2020-08-04] MEDS: Losartan 25 MG TAB PO SCH (08:28)
[2020-08-04] MEDS: Empagliflozin 10 MG TAB PO SCH (08:35)
[2020-08-04] MEDS: Insulin Glargine 10 UNITS in Pre-Filled Syringe 1 EACH SC SCH (08:36)
[2020-08-04] MEDS: CORLANOR 7.5 MG PO SCH ×2 (08:37→17:34)
[2020-08-04] MEDS ORDERED: AcetaZOLAMIDE 250 MG TAB PO SCH (09:00)
--- NOTE | 2020-08-04 09:50 | PRG ---
DATE OF SERVICE: 08/04/2020 SUBJECTIVE: Ms. Vaughn had a good day. She is functioning at her baseline. She is breathing easy. She has usually energy level, there is no worsening. She believes her volume status remains steady. She is not gaining any fluid weight. However, she continues to have right foot pain and her right foot is being debrided every day still. This is currently her main problem. REVIEW OF SYSTEMS: GENERAL: There are no fever, chills, or productive cough. HEENT: Shows there is no change in vision, hearing, or swallowing. PULMONARY: See HPI. CARDIAC: Please see HPI. GI: She has loose stools. She believes this is caused by too much laxative. : She is able to urinate on her own. MUSCULOSKELETAL: Please see HPI for right foot pain. INTEGUMENT: Please see HPI for right foot. NEUROLOGIC: There are no focal deficits or weaknesses. CURRENT MEDICATIONS: 1. Allopurinol 200 mg daily. 2. Amiodarone 200 mg daily. 3. Augmentin 875 mg q.12 hours. 4. Vitamin C 500 mg daily. 5. Vitamin D and calcium 1 tablet daily. 6. Carvedilol 25 mg p.o. q.12 hours. 7. Vitamin D3 1000 units daily. 8. Ivabradine 7.5 mg twice a day. 9. Flexeril 10 mg t.i.d. p.r.n. 10. Digoxin 0.125 mg daily. 11. Enoxaparin 400 mg subcutaneous daily. 12. Glargine insulin at 10 units daily. 13. Lispro sliding scale. 14. Levothyroxine 100 mcg daily. 15. Lidocaine patch 5%. 16. Losartan 25 mg daily. 17. Milrinone 0.5 mcg/kg/minute. 18. Potassium chloride 40 mEq b.i.d. 19. Prednisone 10 mg b.i.d. 20. Zoloft 100 mg daily. 21. Spironolactone 50 mg daily. 22. Torsemide 20 mg daily. PHYSICAL EXAMINATION: Telemetry was reviewed. It shows predominantly atrial sensed, ventricular paced. However, there is occasional cheesh-na beat. VITAL SIGNS: Her systolic blood pressure varied. When she having right foot pain and being debrided, her systolic blood pressure can go up to 150. When she is relaxed, the systolic blood pressure is about 100, it can go down to 106. When I examined her, her systolic pressure was 106/53. Consequently, her fluctuating blood pressure is due to her pain during debridement. GENERAL: She is alert, conversational, and pleasant. HEENT: Show EOMI. Oropharynx is benign with moist mucosa. NECK: JVP slightly less than 10 cm. PULMONARY: There is good air movement bilaterally. There are no crackles. CARDIAC: Regular rate and rhythm with normal S1, S2. There is 2/6 holosystolic murmur at the apex and also the left upper sternal borders. Consequently, she has mitral regurgitation and tricuspid regurgitation. ABDOMEN: Large, mildly distended, soft. She has a ventral hernia. EXTREMITIES: Her left lower extremity are without edema, palpable dorsalis pedis pulses. Her right lower extremity are also without edema. However, right foot is still wrapped in bandages. She is scheduled to be debrided some more in her right foot. LABORATORY DATA: Her laboratory values are white cell count 9.9, hemoglobin 11.8, and platelets of 235. Her chemistry showed sodium 139, potassium 4.3, bicarb at 31, BUN 22, creatinine 0.76. Her glucose still bit on the high side of 219. Her magnesium is 2.2. ASSESSMENT: 50-year-old lady resides at [place] Heart [employer] stage C and also [place] Heart Association class 3B heart failure with reduced ejection fraction. It has combined systolic and diastolic dysfunction. It is caused by sarcoidosis. She currently requires milrinone 0.5 mcg/kg/minute to provide her enough cardiac output to sustain life and also give her good quality of life. At this dosage, she is able to maintain normal renal function and have least amount of diuretics. At this point, regaining function and having her right foot heal is the main problem to be overcome for discharge. RECOMMENDATIONS: Please see the following for my recommendations: 1. Continue with milrinone 0.5 mcg/kg/minute. She will need this as a chronic infusion as outpatient. I will attempt to contact Dr. Matt Onofre again to ensure that she has close followup with this. 2. Increase K-Dur or slightly to 40 mEq twice a day but then have noontime dose of 20 mEq. She needs approximately 100 mEq potassium daily. 3. Please help to ambulate the patient when possible to regain function. 4. We will work with infusion pharmacy and home health care to establish her outpatient infusion for long-term. 5. She has return of contraction alkalosis. We will restart acetazolamide at 250 mg, but at every other day dosage to keep her contraction alkalosis under trap. It has been a pleasure taking care of Ms. Vaughn. If you have any questions, please give me a call. The total education time today is 40 minutes. Job ID: [id number] MTDD
--- NOTE | 2020-08-04 16:32 | PDOC.HOSPP ---
- Subjective Encounter Date: 08/04/20 Subjective: Doing well today. Feels like she is breathing comfortably. As Dr. Morin noted in his note the patient is still having some issues with her right foot which is causing her some pain. - Objective Vital Signs & Weight: Vital Signs (12 hours) Temp Pulse Resp BP Pulse Ox 08/04/20 16:04 98.3 F 61 17 127/63 96 08/04/20 12:17 97.8 F 58 L 16 121/59 L 96 08/04/20 07:30 98.0 F 61 17 106/53 L 96 Weight Admit Weight 295 lb 12.8 oz Weight 280 lb 7 oz I&O: 08/03/20 08/04/20 08/05/20 06:59 06:59 06:59 Intake Total 1468 1550 Output Total 2100 1600 Balance -632 -50 Result Diagrams: 08/04/20 04:34 08/04/20 04:34 Additional Labs: Accuchecks 08/04/20 08/04/20 08/03/20 10:48 05:45 20:29 POC Glucose 186 H 184 H 180 H 08/03/20 16:38 POC Glucose 246 H Hospitalist ROS - Medication Medications: Active Medications Generic Name Dose Route Start Last Admin Trade Name Freq PRN Reason Stop Dose Admin Acetaminophen 650 mg 07/17/20 20:17 07/27/20 08:35 Acetaminophen 325 Mg Tab PO 650 mg Q4H PRN Administration Headache/Fever/Mild Pain (1-3) Hydrocodone Bitart/Acetaminophen 2 tab 07/27/20 22:27 08/04/20 14:28 Hydrocodone/Acetaminophen 10/325 Mg Tablet PO 2 tab Q4H PRN Administration Severe Pain (7-10) Acetazolamide 250 mg 08/04/20 09:00 08/04/20 09:58 Acetazolamide 250 Mg Tab PO 250 mg Q2DAYS@0900 RANDAL Administration Allopurinol 300 mg 07/18/20 09:00 08/04/20 08:27 Allopurinol 300 Mg Tab PO 300 mg DAILY RANDAL Administration Amiodarone HCl 200 mg 07/18/20 09:00 08/04/20 08:27 Amiodarone 200 Mg Tab PO 200 mg DAILY RANDAL Administration Amoxicillin/Clavulanate Potassium 875 mg 08/01/20 21:00 08/04/20 08:25 Amoxicillin/Potassium Clav 875 Mg Tab PO 875 mg Q12HR RANDAL Administration Ascorbic Acid 500 mg 08/01/20 09:00 08/04/20 08:28 Ascorbic Acid 500 Mg Chewable Tablet PO 500 mg DAILY RANDAL Administration Calcium/Vitamin D 1 tab 08/01/20 08:00 08/04/20 08:27 Calcium Carbonate 600 Mg + Vit D Tab PO 1 tab QAM-WM RANDAL Administration Carvedilol 25 mg 07/30/20 09:00 08/04/20 08:27 Carvedilol 25 Mg Tab PO 25 mg Q12HR RANDAL Administration Cholecalciferol 1,000 units 08/01/20 09:00 08/04/20 08:27 Cholecalciferol 1,000 Units (25 Mcg) Tab PO 1,000 units DAILY RANDAL Administration Clonazepam 2 mg 07/27/20 22:27 07/31/20 20:50 Clonazepam 1 Mg Tab PO 2 mg HS PRN Administration Anxiety Cyclobenzaprine HCl 10 mg 07/20/20 18:11 07/30/20 13:40 Cyclobenzaprine 10 Mg Tab PO 10 mg TID PRN Administration Muscle Spasm Digoxin 0.125 mg 07/18/20 09:00 08/04/20 08:26 Digoxin 0.125 Mg Tab PO 0.125 mg DAILY RANDAL Administration Enoxaparin Sodium 40 mg 07/18/20 09:00 08/04/20 08:26 Enoxaparin Sodium 40 Mg/0.4 Ml Syringe SC 40 mg 0900 RANDAL Administration Famotidine 20 mg 07/18/20 09:00 08/04/20 08:26 Famotidine 20 Mg Tab PO 20 mg BID RANDAL Administration Fentanyl 50 mcg 08/03/20 13:04 08/04/20 10:29 Fentanyl 100 Mcg/2 Ml Vial SLOW IVP 50 mcg Q6H PRN Administration Moderate to Severe Pain (6-10) Milrinone Lactate/Dextrose 20 100 mls @ 20.289 mls/hr 07/20/20 17:00 08/03/20 20:59 mg/ Device IV 100 mls INF RANDAL Administration Protocol 0.5 MCG/KG/MIN Insulin Glargine 10 units/ 0.1 mls @ 0 mls/hr 07/28/20 09:00 08/04/20 08:36 Miscellaneous Medication SC 0.1 mls QAM RANDAL Administration Insulin Human Lispro 0 units 07/17/20 21:28 08/04/20 12:21 Humalog 300 Units/3 Ml Vial SC 2 unit .MILD SLIDING SCALE PRN Administration Mild Correctional Scale Insulin Human Lispro 0 units 07/17/20 21:28 08/01/20 22:04 Humalog 300 Units/3 Ml Vial SC 2 unit .BEDTIME SLIDING SC PRN Administration Bedtime Correctional Scale Iron/Minerals/Multivitamins 1 tab 08/01/20 09:00 08/04/20 08:27 Multivitamin W/ Minerals 1 Tab PO 1 tab DAILY RANDAL Administration Levothyroxine Sodium 100 mcg 07/18/20 06:00 08/04/20 05:28 Levothyroxine Sodium 50 Mcg Tab PO 100 mcg 0600 RANDAL Administration Lidocaine 1 patch 07/29/20 21:00 08/03/20 21:08 Lidocaine 5% Patch TD 1 patch 2100 RANDAL Administration Losartan Potassium 25 mg 07/21/20 09:00 08/04/20 08:28 Losartan 25 Mg Tab PO 25 mg DAILY RANDAL Administration Miscellaneous Medication 10 mg 07/22/20 09:00 08/04/20 08:35 Empagliflozin 10 Mg Tab PO 10 mg DAILY RANDAL Administration Miscellaneous Medication 1 each 07/30/20 09:00 08/04/20 08:28 Lidocaine Patch Removal 1 Each TOP 1 each 0900 RANDAL Administration Ondansetron HCl 4 mg 07/17/20 19:25 07/18/20 23:19 Ondansetron Pf 4 Mg/2 Ml Vial IVP 4 mg Q6H PRN Administration Nausea/Vomiting Corlanor 7.5 Mg Tab 0 each 07/18/20 17:00 08/04/20 08:37 PO 1 each BID-WM RANDAL Administration Potassium Chloride 20 meq 08/04/20 12:00 08/04/20 12:21 Potassium Chloride 20 Meq Tab PO 20 meq 1200 RANDAL Administration Prednisone 10 mg 07/18/20 09:00 08/04/20 08:27 Prednisone 20 Mg Tab PO 10 mg BID RANDAL Administration Promethazine HCl 25 mg 07/17/20 21:29 07/19/20 12:55 Promethazine 25 Mg Tab PO 25 mg DAILY PRN Administration Nausea Senna/Docusate Sodium 2 tab 07/17/20 20:17 07/29/20 09:48 Senokot S 8.6-50 Mg Tab PO 2 tab BID PRN Administration Constipation Senna/Docusate Sodium 2 tab 07/30/20 21:00 08/04/20 08:26 Senokot S 8.6-50 Mg Tab PO 2 tab BID RANDAL Administration Sertraline HCl 100 mg 07/18/20 09:00 08/04/20 08:28 Sertraline Hcl 100 Mg Tab PO 100 mg DAILY RANDAL Administration Sodium Chloride 10 ml 07/17/20 20:17 07/31/20 17:33 Flush - Normal Saline 10 Ml Syringe IVF 10 ml PRN PRN Administration Saline Flush Spironolactone 50 mg 07/24/20 09:00 08/04/20 08:27 Spironolactone 25 Mg Tab PO 50 mg DAILY RANDAL Administration Torsemide 20 mg 07/30/20 09:00 08/04/20 08:27 Torsemide 20 Mg Tab PO 20 mg DAILY RANDAL Administration Zinc Sulfate 220 mg 08/01/20 09:00 08/04/20 08:27 Zinc Sulfate 220 Mg Cap PO 220 mg DAILY RANDAL Administration Hospitalist Exam Vitals: Vital Signs (12 hours) Temp Pulse Resp BP Pulse Ox 08/04/20 16:04 98.3 F 61 17 127/63 96 08/04/20 12:17 97.8 F 58 L 16 121/59 L 96 08/04/20 07:30 98.0 F 61 17 106/53 L 96 Weight Admit Weight 295 lb 12.8 oz Weight 280 lb 7 oz General Appearance: NAD, awake alert Heart: RRR, no gallops, no rubs, normal peripheral pulses, II/IV Respiratory: CTAB, no wheezes, no rales, no ronchi, normal chest expansion, no tachypnea, normal percussion Gastrointestinal: soft, non-tender, non-distended, normal bowel sounds, no palpable masses, no hepatomegaly, no splenomegaly, no bruit Gastrointestinal - other findings: Large right ventral hernia Extremities: no cyanosis, no clubbing Extremities - other findings: Right foot with wound dressing. Diffuse ecchymosis Skin: normal turgor Skin - other findings: Few scattered petechial lesions on the left calf Musculoskeletal: normal tone, generalized weakness Psychiatric: normal affect, normal behavior, A&O x 3 Hosp A/P (1) Acute on chronic systolic CHF (congestive heart failure) Code(s): I50.23 - ACUTE ON CHRONIC SYSTOLIC (CONGESTIVE) HEART FAILURE Status: Acute (2) Cardiomyopathy Code(s): I42.9 - CARDIOMYOPATHY, UNSPECIFIED Status: Chronic (3) Hematoma of right foot Code(s): S90.31XA - CONTUSION OF RIGHT FOOT, INITIAL ENCOUNTER Status: Acute (4) Acute and chronic respiratory failure Code(s): J96.20 - ACUTE AND CHR RESP FAILURE, UNSP W HYPOXIA OR HYPERCAPNIA Status: Acute (5) Physical deconditioning Code(s): R53.81 - OTHER MALAISE Status: Acute (6) [place] disease Code(s): E27.1 - PRIMARY ADRENOCORTICAL INSUFFICIENCY Status: Chronic (7) Hypothyroidism Code(s): E03.9 - HYPOTHYROIDISM, UNSPECIFIED Status: Chronic Qualifiers: Hypothyroidism type: acquired Qualified Code(s): E03.9 - Hypothyroidism, unspecified (8) Ventral hernia Code(s): K43.9 - VENTRAL HERNIA WITHOUT OBSTRUCTION OR GANGRENE Status: Chronic Qualifiers: Obstruction and gangrene presence: without obstruction or gangrene Qualified Code(s): K43.9 - Ventral hernia without obstruction or gangrene (9) DM (diabetes mellitus) Code(s): E11.9 - TYPE 2 DIABETES MELLITUS WITHOUT COMPLICATIONS Status: Chr onic Qualifiers: Diabetes mellitus type: type 2 Diabetes mellitus prison insulin use: without prison use (10) HLD (hyperlipidemia) Code(s): E78.5 - HYPERLIPIDEMIA, UNSPECIFIED Status: Chronic Qualifiers: Hyperlipidemia type: mixed hyperlipidemia Qualified Code(s): E78.2 - Mixed hyperlipidemia (11) HTN (hypertension) Code(s): I10 - ESSENTIAL (PRIMARY) HYPERTENSION Status: Chronic Qualifiers: Hypertension type: essential hypertension Qualified Code(s): I10 - Essential (primary) hypertension (12) Morbid obesity Code(s): E66.01 - MORBID (SEVERE) OBESITY DUE TO EXCESS CALORIES Status: Chronic (13) Sarcoid Code(s): D86.9 - SARCOIDOSIS, UNSPECIFIED Status: Chronic - Plan Acute on chronic systolic congestive heart failure: Patient has an ejection fraction of 20% based on echocardiogram. Biventricular pacing. Continue to be followed by Dr. Morin. Milrinone dependent. Continues with milrinone infusion here. Dr. Morin working toward arranging outpatient milrinone infusion. Patient appears to be at a euvolemic state presently. She is also on carvedilol 25 mg p.o. twice daily, Corlanor 7.5 mg p.o. twice daily, losartan 25 mg p.o. daily. She takes Demadex 20 mg daily and Aldactone 50 mg p.o. daily. Nonischemic cardiomyopathy: Chronic. Presumably secondary to sarcoidosis. Acute on chronic hypoxic respiratory failure: Patient is continuously on oxygen therapy at home. She continues to require between 2 and 2.5 L/min here. Right foot hematoma: Patient developed spontaneous hematoma of the right foot that was large enough to cause some tissue necrosis. She is status post incision and drainage. Still requiring some wound care with daily debridements. She remains on p.o. Augmentin. Sarcoidosis: Patient is somewhat steroid dependent for treatment of her sarcoidosis. She has multiple typical steroid-dependent sequelae, including osteoporosis, diabetes, adrenal insufficiency. History of ventricular arrhythmia: Patient remains on amiodarone suppression and a defibrillator is in place. Patient was evaluated by Dr. Rosales during this admission and found to have no recent arrhythmias. Hypothyroidism: Continue with her usual home regimen of levothyroxine. Diabetes mellitus: Blood sugars remain 180s to 220. Last hemoglobin A1c was May 2020 at 6.0. Jardiance has been started this admission through Dr. Morin. Vitamin D deficiency: Based on previous labs back in 2018 the patient has vitamin D deficiency. She has been started on cholecalciferol this admission Recheck vitamin D level. Metabolic/contraction alkalosis: Acetazolamide has been added per Dr. Morin. History of gout: Continue allopurinol.
[2020-08-04] MEDS: Milrinone Lactate/D5W 20 MG in Premix Bag 1 BAG IV SCH (19:07)
[2020-08-04] MEDS: Lidocaine 5% Patch TD SCH (20:59)
[2020-08-04] MEDS: clonazePAM 1 MG TAB PO PRN (21:00)
[2020-08-05] MEDS: Milrinone Lactate/D5W 20 MG in Premix Bag 1 BAG IV SCH ×4 (02:00→22:29)
[2020-08-05] MEDS: HYDROcodone/Acetaminophen 10/325 mg Tablet PO PRN ×4 (02:10→20:13)
[2020-08-05 05:01] LABS: #Basophils 0.1 thou/uL (0.0-0.2); #Eosinphils 0.3 thou/uL (0.0-0.7); #Monocytes 1.3 thou/uL (0.11-0.59); #Neutrophils 8.2 thou/uL (1.40-6.50); %Basophils 0.7 % (0.0-1.0); %Eosinophils 2.6 % (0.0-10.0); %Lymphocytes 9.1 % (21.0-51.0); %Monocytes 11.9 % (0.0-10.0); %Neutrophils 75.8 % (42.0-75.0); Hemoglobin 12.1 g/dL (12.0-16.0); Mean Corpuscular HGB CONC 32.5 g/dL (32.0-36.0); Mean Corpuscular Hemoglobin 30.3 pg (27.0-31.0); Mean Corpuscular Volume 93.3 fL (78.0-98.0); Mean Platelet Volume 7.9 fL (7.4-10.4); Platelet Count 262 thou/uL (130-400); RBC Distribution Width 14.1 % (11.5-14.5); Red Blood Cell (RBC) Count 3.98 mill/uL (4.20-5.40); White Blood Cell (WBC) Count 10.8 thou/uL (4.8-10.8)
[2020-08-05] MEDS: Levothyroxine Sodium 50 MCG TAB PO SCH (05:20)
[2020-08-05] MEDS: Fentanyl 100 MCG/2 ML VIAL SLOW IVP PRN ×2 (05:20→11:25)
[2020-08-05 05:24] LABS: Anion Gap 11 mmol/L (10-20); BUN (Urea Nitrogen) 23 mg/dL (7.0-18.7); Calc. Creatinine Clearance 185 mL/min (70-130); Calcium 9.1 mg/dL (7.8-10.44); Carbon Dioxide 32 mmol/L (22-29); Chloride 100 mmol/L (98-107); Glucose 174 mg/dL (70-105); Magnesium 2.3 mg/dL (1.6-2.6); Potassium 4.4 mmol/L (3.5-5.1); Sodium 139 mmol/L (136-145)
[2020-08-05 05:41] LABS: Free Thyroxine Index 2.97 (1.4-3.1); T4 7.9 ug/dL (4.87-11.72)
[2020-08-05] MEDS: HumaLOG 300 UNITS/3 ML VIAL SC PRN ×2 (06:05→17:00)
[2020-08-05 06:37] LABS: Thyroid Stimulating Hormone 4.2391 uIU/mL (0.35-4.94)
[2020-08-05] MEDS: Cholecalciferol 1,000 UNITS (25 MCG) TAB PO SCH (08:34)
[2020-08-05] MEDS: Enoxaparin Sodium 40 MG/0.4 ML SYRINGE SC SCH (08:34)
[2020-08-05] MEDS: Senokot S 8.6-50 MG TAB PO SCH ×2 (08:34→20:14)
[2020-08-05] MEDS: Potassium Chloride 20 MEQ TAB PO SCH ×3 (08:34→16:09)
[2020-08-05] MEDS: Amoxicillin/Potassium Clav 875 MG TAB PO SCH ×2 (08:34→20:13)
[2020-08-05] MEDS: Ascorbic Acid 500 mg Chewable Tablet PO SCH (08:34)
[2020-08-05] MEDS: Calcium Carbonate 600 MG + Vit D TAB PO SCH (08:35)
[2020-08-05] MEDS: Spironolactone 25 MG TAB PO SCH (08:35)
[2020-08-05] MEDS: Famotidine 20 MG TAB PO SCH ×2 (08:37→20:14)
[2020-08-05] MEDS: Amiodarone 200 MG TAB PO SCH (08:37)
[2020-08-05] MEDS: predniSONE 20 MG TAB PO SCH ×2 (08:38→20:14)
[2020-08-05] MEDS: Torsemide 20 MG TAB PO SCH (08:38)
[2020-08-05] MEDS: Digoxin 0.125 MG TAB PO SCH (08:38)
[2020-08-05] MEDS: Losartan 25 MG TAB PO SCH (08:38)
[2020-08-05] MEDS: Multivitamin W/ Minerals 1 TAB PO SCH (08:38)
[2020-08-05] MEDS: Allopurinol 300 MG TAB PO SCH (08:38)
[2020-08-05] MEDS: Zinc Sulfate 220 MG CAP PO SCH (08:38)
[2020-08-05] MEDS: Carvedilol 25 MG TAB PO SCH ×2 (08:38→20:14)
[2020-08-05] MEDS: AcetaZOLAMIDE 250 MG TAB PO SCH (09:30)
[2020-08-05] MEDS: Empagliflozin 10 MG TAB PO SCH (09:30)
[2020-08-05] MEDS: Insulin Glargine 10 UNITS in Pre-Filled Syringe 1 EACH SC SCH (09:30)
[2020-08-05] MEDS: CORLANOR 7.5 MG PO SCH ×2 (09:31→16:08)
[2020-08-05] MEDS: Transdermal Patch Removal TOP SCH (10:00)
--- NOTE | 2020-08-05 11:21 | PRG ---
DATE OF SERVICE: 08/05/2020 SUBJECTIVE: Ms. Rona Vaughn had her usual day. She is breathing easy. She feels like her fluid level is even or coming out a little bit more. She believed her volume status has returned to normal. She can see her feet well. However, she has a right foot pain. She believes her right foot pain has worsened since the Wound Care did not come by yesterday, that is her chief complaint. Overall, she is tired, but then not unusually so. She is better from a cardiac perspective from her admission; however, her right foot pain is still the problem. REVIEW OF SYSTEMS: GENERAL: There is no fever, chills, or productive cough. HEENT: There is no change in vision, hearing, or swallowing. PULMONARY: Please see HPI. CARDIAC: She can feel her heart rate go up when they debride the foot. GI: There is no nausea, vomiting, or diarrhea. : She is able to urinate on her own. MUSCULOSKELETAL: Please see HPI. INTEGUMENT: Please see HPI. NEUROLOGIC: There are no focal deficits or weaknesses. MEDICATIONS: Currently include: 1. Acetazolamide 250 mg every other day. 2. Allopurinol 200 mg daily. 3. Amiodarone 200 mg daily. 4. Augmentin 875 mg q.12 hours. 5. Ascorbic acid 500 mg daily. 6. Calcium and vitamin D combination one tab daily. 7. Carvedilol 25 mg q.12 hours. 8. Vitamin D3 1000 units daily. 9. Flexeril 10 mg t.i.d. 10. Digoxin 0.125 mg daily. 11. Enoxaparin 40 mg subcutaneous daily. 12. Pepcid 20 mg twice a day. 13. Insulin glargine 10 units daily. 14. Lispro sliding scale insulin. 15. Levothyroxine 100 mcg daily. 16. Lidocaine 5% patch. 17. Losartan 25 mg daily. 18. Milrinone currently at 0.5 mcg/kg/minute. 19. Jardiance 10 mg daily. 20. Ivabradine 7.5 mg twice a day. 21. Potassium chloride 40 mEq b.i.d. However, she gets an additional dose of 20 mEq at noon time. 22. Prednisone 10 mg twice a day. 23. Sertraline 100 mg daily. 24. Spironolactone 50 mg daily. 25. Torsemide 20 mg daily. 26. Zinc 220 mg daily. Telemetry was reviewed. It shows majority A sensed V paced. There is occasional [place] beat. Other than that, there is no concerning arrhythmia. Her baseline is around high 50s and low 60. She has episodic increased rate up to 70s, but that usually occurs with debridement. PHYSICAL EXAMINATION: GENERAL: Alert and conversational. She is in discomfort from her right foot pain. HEENT: Show EOMI. Oropharynx is benign with moist mucosa. NECK: Wide diameter. JVP is about 10 cm or less. PULMONARY: She has good air movement bilateral. There are no crackles bilaterally. CARDIAC: Regular rate and rhythm. Normal S1, S2. There is a 2/6 holosystolic murmur at the left upper sternal border. There is also a 2/6 holosystolic murmur at the apex. ABDOMEN: Soft, nontender, distended. She does have a ventral hernia. EXTREMITIES: Her left lower extremity is without edema. Palpable dorsalis pedis pulses. Her right foot is wrapped up in bandages, but above the bandage, there is no edema. LABORATORY VALUES: Today, white cell count 10.8, hemoglobin 12.2, platelets 262. Her chemistry shows sodium 139, potassium 4.4, chloride 100, bicarb 32, BUN 23, creatinine 0.75, and magnesium 2.3. 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 She has both systolic and diastolic dysfunctions. Currently, milrinone 0.5 mcg/kg/minute is providing sufficient cardiac output to sustain her fluid balance, perfuse her organs, and maintaining normal kidney function. She needs milrinone to sustain life and also provide her quality of life and allow the wound healing to take place. Her persistent problem is her right foot hematoma that needs to be debrided and it is still causing quite a bit of pain. Would ask Wound Care or Surgery to come by to ensure debridement continues. Please see the following for my recommendations. RECOMMENDATIONS: 1. Continue current cardiac regimen. 2. Continue milrinone at 0.5 mcg/kg minute but use her baseline weight of 293 pounds. This is roughly an average of her weight in the hospital. Her weight in the hospital ranged between 305 at peak down to 280 at the lowest point. 3. Increase frequency of acetazolamide 250 mg to daily. 4. Please ask Wound Care or Surgery to come by to help with her right foot. Wound Care not coming by yesterday probably worsened the situation. 5. I will continue trying to contact Dr. Matt Onofre to arrange for outpatient followup for the infusion. 6. The infusion company has been contacted and they have been set up to provide milrinone infusion at home. However, we still need a medical provider to follow the labs. It has been a pleasure taking care of Ms. Vaughn. If any questions, please give me a call. The total visitation time today is 40 minutes. Job ID: [id number] MTDD
--- NOTE | 2020-08-05 12:01 | PDOC.GSPN ---
Surgery Progress Note: Subj - Subjective Narrative: Dressing had just been changed by wound care when I saw the patient this morning. She was having a lot of pain in her foot due to some mistiming of her pain medications for her dressing change, but did not take the dressing down. By report the wound is clean. Cultures are negative. I have ordered topical lidocaine for dressing changes in future. If she is still here tomorrow I will see her with wound care. Otherwise she is to continue with daily dressing ch anges and follow-up in my clinic in 2 weeks time. Surgery Progress Note: Obj - Vital signs Vital signs: Vital Signs - Most Recent Temp Pulse Resp BP Pulse Ox 98.6 F 60 18 134/65 98 08/05/20 07:27 08/05/20 07:27 08/05/20 07:27 08/05/20 07:27 08/05/20 07:27 Surgery Progress Note: Results - Labs Result Diagrams: 08/05/20 03:58 08/05/20 03:58 Lab results: Laboratory Results - last 12 hr 08/05/20 08/05/20 08/05/20 03:58 03:58 03:58 WBC 10.8 RBC 3.98 L Hgb 12.1 Hct 37.1 MCV 93.3 MCH 30.3 MCHC 32.5 RDW 14.1 Plt Count 262 MPV 7.9 Neutrophils % 75.8 H Lymphocytes % 9.1 L Monocytes % 11.9 H Eosinophils % 2.6 Basophils % 0.7 Neutrophils # 8.2 H Lymphocytes # 1.0 L Monocytes # 1.3 H Eosinophils # 0.3 Basophils # 0.1 Sodium 139 Potassium 4.4 Chloride 100 Carbon Dioxide 32 H Anion Gap 11 BUN 23 H Creatinine 0.75 Estimated GFR (MDRD) 82 Glucose 174 H POC Glucose Calcium 9.1 Magnesium 2.3 Free T4 Index 2.97 Thyroxine (T4) 7.9 T3 Uptake 38 H TSH 3rd Generation 4.2391 08/05/20 05:39 WBC RBC Hgb Hct MCV MCH MCHC RDW Plt Count MPV Neutrophils % Lymphocytes % Monocytes % Eosinophils % Basophils % Neutrophils # Lymphocytes # Monocytes # Eosinophils # Basophils # Sodium Potassium Chloride Carbon Dioxide Anion Gap BUN Creatinine Estimated GFR (MDRD) Glucose POC Glucose 223 H Calcium Magnesium Free T4 Index Thyroxine (T4) T3 Uptake TSH 3rd Generation
[2020-08-05] MEDS: Promethazine 25 MG TAB PO PRN (13:50)
[2020-08-05] MEDS: Ondansetron PF 4 MG/2 ML Vial IVP PRN ×2 (15:19→21:15)
[2020-08-05] MEDS ORDERED: Fentanyl 100 MCG/2 ML VIAL SLOW IVP PRN (17:15)
--- NOTE | 2020-08-05 17:19 | PDOC.HOSPP ---
- Subjective Encounter Date: 08/05/20 Subjective: Patient generally is doing well. She continues to be primarily focused on her right foot. She had some pain with dressing change today. In talking to me she became tearful and admitted that a lot of this is probably emotional rather than physical. - Objective Vital Signs & Weight: Vital Signs (12 hours) Temp Pulse Resp BP Pulse Ox 08/05/20 15:48 97.8 F 57 L 17 129/65 97 08/05/20 12:00 97.9 F 58 L 18 127/61 96 08/05/20 07:27 98.6 F 60 18 134/65 98 Weight Admit Weight 295 lb 12.8 oz Weight 280 lb 11.2 oz I&O: 08/04/20 08/05/20 08/06/20 06:59 06:59 06:59 Intake Total 1550 2020 Output Total 1600 2800 Balance -50 -780 Result Diagrams: 08/05/20 03:58 08/05/20 03:58 Additional Labs: Accuchecks 08/05/20 08/05/20 08/04/20 16:30 05:39 20:38 POC Glucose 225 H 223 H 145 H 08/04/20 16:51 POC Glucose 191 H Hospitalist ROS - Medication Medications: Active Medications Generic Name Dose Route Start Last Admin Trade Name Freq PRN Reason Stop Dose Admin Acetaminophen 650 mg 07/17/20 20:17 07/27/20 08:35 Acetaminophen 325 Mg Tab PO 650 mg Q4H PRN Administration Headache/Fever/Mild Pain (1-3) Hydrocodone Bitart/Acetaminophen 2 tab 07/27/20 22:27 08/05/20 16:08 Hydrocodone/Acetaminophen 10/325 Mg Tablet PO 2 tab Q4H PRN Administration Severe Pain (7-10) Acetazolamide 250 mg 08/05/20 09:00 08/05/20 09:30 Acetazolamide 250 Mg Tab PO 250 mg DAILY RANDAL Administration Allopurinol 300 mg 07/18/20 09:00 08/05/20 08:38 Allopurinol 300 Mg Tab PO 300 mg DAILY RANDAL Administration Amiodarone HCl 200 mg 07/18/20 09:00 08/05/20 08:37 Amiodarone 200 Mg Tab PO 200 mg DAILY RANDAL Administration Amoxicillin/Clavulanate Potassium 875 mg 08/01/20 21:00 08/05/20 08:34 Amoxicillin/Potassium Clav 875 Mg Tab PO 875 mg Q12HR RANDAL Administration Ascorbic Acid 500 mg 08/01/20 09:00 08/05/20 08:34 Ascorbic Acid 500 Mg Chewable Tablet PO 500 mg DAILY RANDAL Administration Calcium/Vitamin D 1 tab 08/01/20 08:00 08/05/20 08:35 Calcium Carbonate 600 Mg + Vit D Tab PO 1 tab QAM-WM RANDAL Administration Carvedilol 25 mg 07/30/20 09:00 08/05/20 08:38 Carvedilol 25 Mg Tab PO 25 mg Q12HR RANDAL Administration Cholecalciferol 1,000 units 08/01/20 09:00 08/05/20 08:34 Cholecalciferol 1,000 Units (25 Mcg) Tab PO 1,000 units DAILY RANDAL Administration Clonazepam 2 mg 07/27/20 22:27 08/04/20 21:00 Clonazepam 1 Mg Tab PO 2 mg HS PRN Administration Anxiety Cyclobenzaprine HCl 10 mg 07/20/20 18:11 07/30/20 13:40 Cyclobenzaprine 10 Mg Tab PO 10 mg TID PRN Administration Muscle Spasm Digoxin 0.125 mg 07/18/20 09:00 08/05/20 08:38 Digoxin 0.125 Mg Tab PO 0.125 mg DAILY RANDAL Administration Enoxaparin Sodium 40 mg 07/18/20 09:00 08/05/20 08:34 Enoxaparin Sodium 40 Mg/0.4 Ml Syringe SC 40 mg 0900 RANDAL Administration Famotidine 20 mg 07/18/20 09:00 08/05/20 08:37 Famotidine 20 Mg Tab PO 20 mg BID RANDAL Administration Fentanyl 50 mcg 08/03/20 13:04 08/05/20 11:25 Fentanyl 100 Mcg/2 Ml Vial SLOW IVP 50 mcg Q6H PRN Administration Moderate to Severe Pain (6-10) Milrinone Lactate/Dextrose 20 100 mls @ 20.289 mls/hr 07/20/20 17:00 08/05/20 16:59 mg/ Device IV 100 mls INF RANDAL Administration Protocol 0.5 MCG/KG/MIN Insulin Glargine 10 units/ 0.1 mls @ 0 mls/hr 07/28/20 09:00 08/05/20 09:30 Miscellaneous Medication SC 0.1 mls QAM RANDAL Administration Insulin Human Lispro 0 units 07/17/20 21:28 08/05/20 17:00 Humalog 300 Units/3 Ml Vial SC 3 unit .MILD SLIDING SCALE PRN Administration Mild [place] Scale Insulin Human Lispro 0 units 07/17/20 21:28 08/01/20 22:04 Humalog 300 Units/3 Ml Vial SC 2 unit .BEDTIME SLIDING SC PRN Administration Bedtime Correctional Scale Iron/Minerals/Multivitamins 1 tab 08/01/20 09:00 08/05/20 08:38 Multivitamin W/ Minerals 1 Tab PO 1 tab DAILY RANDAL Administration Levothyroxine Sodium 100 mcg 07/18/20 06:00 08/05/20 05:20 Levothyroxine Sodium 50 Mcg Tab PO 100 mcg 0600 RANDAL Administration Lidocaine 1 patch 07/29/20 21:00 08/04/20 20:59 Lidocaine 5% Patch TD 1 patch 2100 RANDAL Administration Losartan Potassium 25 mg 07/21/20 09:00 08/05/20 08:38 Losartan 25 Mg Tab PO 25 mg DAILY RANDAL Administration Miscellaneous Medication 10 mg 07/22/20 09:00 08/05/20 09:30 Empagliflozin 10 Mg Tab PO 10 mg DAILY RANDAL Administration Miscellaneous Medication 1 each 07/30/20 09:00 08/05/20 10:00 Lidocaine Patch Removal 1 Each TOP 1 each 0900 RANDAL Administration Ondansetron HCl 4 mg 07/17/20 19:25 08/05/20 15:19 Ondansetron Pf 4 Mg/2 Ml Vial IVP 4 mg Q6H PRN Administration Nausea/Vomiting Corlanor 7.5 Mg Tab 0 each 07/18/20 17:00 08/05/20 16:08 PO 1 each BID-WM RANDAL Administration Potassium Chloride 40 meq 08/04/20 17:00 08/05/20 16:09 Potassium Chloride 20 Meq Tab PO 40 meq BID-WM RANDAL Administration Potassium Chloride 20 meq 08/04/20 12:00 08/05/20 11:25 Potassium Chloride 20 Meq Tab PO 20 meq 1200 RANDAL Administration Prednisone 10 mg 07/18/20 09:00 08/05/20 08:38 Prednisone 20 Mg Tab PO 10 mg BID RANDAL Administration Promethazine HCl 25 mg 07/17/20 21:29 08/05/20 13:50 Promethazine 25 Mg Tab PO 25 mg DAILY PRN Administration Nausea Senna/Docusate Sodium 2 tab 07/17/20 20:17 07/29/20 09:48 Senokot S 8.6-50 Mg Tab PO 2 tab BID PRN Administration Constipation Senna/Docusate Sodium 2 tab 07/30/20 21:00 08/05/20 08:34 Senokot S 8.6-50 Mg Tab PO 2 tab BID RANDAL Administration Sertraline HCl 100 mg 07/18/20 09:00 08/05/20 08:34 Sertraline Hcl 100 Mg Tab PO 100 mg DAILY RANDAL Administration Sodium Chloride 10 ml 07/17/20 20:17 07/31/20 17:33 Flush - Normal Saline 10 Ml Syringe IVF 10 ml PRN PRN Administration Saline Flush Spironolactone 50 mg 07/24/20 09:00 08/05/20 08:35 Spironolactone 25 Mg Tab PO 50 mg DAILY RANDAL Administration Torsemide 20 mg 07/30/20 09:00 08/05/20 08:38 Torsemide 20 Mg Tab PO 20 mg DAILY RANDAL Administration Zinc Sulfate 220 mg 08/01/20 09:00 08/05/20 08:38 Zinc Sulfate 220 Mg Cap PO 220 mg DAILY RANDAL Administration Hospitalist Exam Vitals: Vital Signs (12 hours) Temp Pulse Resp BP Pulse Ox 08/05/20 15:48 97.8 F 57 L 17 129/65 97 08/05/20 12:00 97.9 F 58 L 18 127/61 96 08/05/20 07:27 98.6 F 60 18 134/65 98 Weight Admit Weight 295 lb 12.8 oz Weight 280 lb 11.2 oz General Appearance: NAD General - other findings: Morbidly obese Heart: RRR, no murmur, no gallops, no rubs, normal peripheral pulses Respiratory: CTAB, no wheezes, no rales, no ronchi, normal chest expansion, no tachypnea, normal percussion Gastrointestinal: soft, non-tender, non-distended, normal bowel sounds, no palpable masses, no hepatomegaly, no splenomegaly, no bruit Extremities: no cyanosis, no clubbing, no edema Extremities - other findings: Right foot with wound care dressing. Ecchymoses extending to toes. Skin: normal turgor Neurological: no focal deficits Musculoskeletal: normal tone, generalized weakness Psychiatric - other findings: Tearful when talking about her overall situation Hosp A/P (1) Acute on chronic systolic CHF (congestive heart failure) Code(s): I50.23 - ACUTE ON CHRONIC SYSTOLIC (CONGESTIVE) HEART FAILURE Status: Acute (2) Cardiomyopathy Code(s): I42.9 - CARDIOMYOPATHY, UNSPECIFIED Status: Chronic (3) Hematoma of right foot Code(s): S90.31XA - CONTUSION OF RIGHT FOOT, INITIAL ENCOUNTER Status: Acute (4) Acute and chronic respiratory failure Code(s): J96.20 - ACUTE AND CHR RESP FAILURE, UNSP W HYPOXIA OR HYPERCAPNIA Status: Acute (5) Physical deconditioning Code(s): R53.81 - OTHER MALAISE Status: Acute (6) [place] disease Code(s): E27.1 - PRIMARY ADRENOCORTICAL INSUFFICIENCY Status: Chronic (7) Hypothyroidism Code(s): E03.9 - HYPOTHYROIDISM, UNSPECIFIED Status: Chronic Qualifiers: Hypothyroidism type: acquired Qualified Code(s): E03.9 - Hypothyroidism, unspecified (8) Ventral hernia Code(s): K43.9 - VENTRAL HERNIA WITHOUT OBSTRUCTION OR GANGRENE Status: Chronic Qualifiers: Obstruction and gangrene presence: without obstruction or gangrene Qualified Code(s): K43.9 - Ventral hernia without obstruction or gangrene (9) DM (diabetes mellitus) Code(s): E11.9 - TYPE 2 DIABETES MELLITUS WITHOUT COMPLICATIONS Status: Chronic Qualifiers: Diabetes mellitus type: type 2 Diabetes mellitus oil heaterman insulin use: without intermediate use (10) HLD (hyperlipidemia) Code(s): E78.5 - HYPERLIPIDEMIA, UNSPECIFIED Status: Chronic Qualifiers: Hyperlipidemia type: mixed hyperlipidemia Qualified Code(s): E78.2 - Mixed hyperlipidemia (11) HTN (hypertension) Code(s): I10 - ESSENTIAL (PRIMARY) HYPERTENSION Status: Chronic Qualifiers: Hypertension type: essential hypertension Qualified Code(s): I10 - Essential (primary) hypertension (12) Morbid obesity Code(s): E66.01 - MORBID (SEVERE) OBESITY DUE TO EXCESS CALORIES Status: Chronic (13) Sarcoid Code(s): D86.9 - SARCOIDOSIS, UNSPECIFIED Status: Chronic - Plan Acute on chronic systolic congestive heart failure: Patient has an ejection fraction of 20% based on echocardiogram. Biventricular pacing. Continue to be followed by Dr. Morin. Milrinone dependent. Continues with milrinone infusion here. Dr. Morin working toward arranging outpatient milrinone infusion. Patient appears to be at a euvolemic state. She is also on carvedilol 25 mg p.o. twice daily, Corlanor 7.5 mg p.o. twice daily, losartan 25 mg p.o. daily. She takes Demadex 20 mg daily and Aldactone 50 mg p.o. daily. Currently awaiting a delivery of outpatient infusion supplies for the milrinone. Patient can likely discharged home once that is arranged. She is on steady-state infusion now. Nonischemic cardiomyopathy: Chronic. Presumably secondary to sarcoidosis. Acute on chronic hypoxic respiratory failure: Patient is continuously on oxygen therapy at home. She continues to require between 2 and 2.5 L/min here. Stable for discharge. Right foot hematoma: Patient developed spontaneous hematoma of the right foot that was large enough to cause some tissue necrosis. She is status post incision and drainage. Still requiring some wound care with daily debridements. She remains on p.o. Augmentin. Pain has become a focus for her regarding her right foot. She has been on maximum dose of [place]. On 08/03/2020 Dr. Morin started fentanyl. Since that time she has been alternating the 2. Her pain seems to be exceeding expectations based upon the actual wound. We will scale her back to [place]. Continue with fentanyl for dressing changes. Patient has been able to get up and bear weight on that foot. On 08/05/2020 the patient did indicate that her pain issues may be somewhat related to her emotional state. Patient is already on muscle relaxers, SSRI, benzodiazepine as augments to opioids. Sarcoidosis: Patient is somewhat steroid dependent for treatment of her sarcoidosis. She has multiple typical steroid-dependent sequelae, including osteoporosis, diabetes, adrenal insufficiency. History of ventricular arrhythmia: Patient remains on amiodarone suppression and a defibrillator is in place. Patient was evaluated by Dr. Rosales during this admission and found to have no recent arrhythmias. Hypothyroidism: Continue with her usual home regimen of levothyroxine. Diabetes mellitus: Blood sugars remain 180s to 220. Last hemoglobin A1c was May 2020 at 6.0. Jardiance has been started this admission through Dr. Morin. Vitamin D deficiency: Based on previous labs back in 2018 the patient has vitamin D deficiency. She has been started on cholecalciferol this admission Recheck vitamin D level. Metabolic/contraction alkalosis: Acetazolamide has been added per Dr. Morin. History of gout: Continue allopurinol. Disposition: Patient will be stable for discharge whenever her milrinone infusion supplies were arranged. Depending on how her foot progresses she may need to have some home health or wound care.
[2020-08-05] MEDS: clonazePAM 1 MG TAB PO PRN (20:13)
[2020-08-05] MEDS: Lidocaine 5% Patch TD SCH (20:14)
[2020-08-06] MEDS: HYDROcodone/Acetaminophen 10/325 mg Tablet PO PRN ×4 (00:49→21:09)
[2020-08-06] MEDS: Milrinone Lactate/D5W 20 MG in Premix Bag 1 BAG IV SCH ×4 (03:17→19:45)
[2020-08-06] MEDS: Ondansetron PF 4 MG/2 ML Vial IVP PRN ×2 (03:17→09:27)
[2020-08-06 03:45] LABS: #Basophils 0.1 thou/uL (0.0-0.2); #Eosinphils 0.2 thou/uL (0.0-0.7); #Lymphocytes 0.8 thou/uL (1.20-3.40); #Monocytes 1.2 thou/uL (0.11-0.59); #Neutrophils 10.6 thou/uL (1.40-6.50); %Basophils 0.5 % (0.0-1.0); %Eosinophils 1.5 % (0.0-10.0); %Lymphocytes 6.1 % (21.0-51.0); %Monocytes 9.2 % (0.0-10.0); %Neutrophils 82.7 % (42.0-75.0); Mean Corpuscular Hemoglobin 30.2 pg (27.0-31.0); Mean Corpuscular Volume 94.6 fL (78.0-98.0); Mean Platelet Volume 7.8 fL (7.4-10.4); Platelet Count 284 thou/uL (130-400); RBC Distribution Width 14.3 % (11.5-14.5); Red Blood Cell (RBC) Count 4.31 mill/uL (4.20-5.40); White Blood Cell (WBC) Count 12.8 thou/uL (4.8-10.8)
[2020-08-06 04:07] LABS: Anion Gap 15 mmol/L (10-20); BUN (Urea Nitrogen) 24 mg/dL (7.0-18.7); Calc. Creatinine Clearance 149 mL/min (70-130); Carbon Dioxide 26 mmol/L (22-29); Chloride 99 mmol/L (98-107); Glucose 247 mg/dL (70-105); Magnesium 2.3 mg/dL (1.6-2.6); Potassium 4.4 mmol/L (3.5-5.1); Sodium 136 mmol/L (136-145)
[2020-08-06] MEDS: Levothyroxine Sodium 50 MCG TAB PO SCH (04:31)
[2020-08-06] MEDS: HumaLOG 300 UNITS/3 ML VIAL SC PRN ×3 (06:38→18:25)
[2020-08-06] MEDS ORDERED: Furosemide 40 MG/4 ML VIAL SLOW IVP SCH ×2 (08:00→21:00)
--- NOTE | 2020-08-06 08:29 | PRG ---
DATE OF SERVICE: 08/06/2020 SUBJECTIVE: Ms. Vaughn had a variable day yesterday. Most of the day she feels good, breathing easy, but then she developed a right-sided pain, the pain is dull and then it worsens with a deep inspiration, she has this before, but it is coming back at evening. Also at night, she said she felt nauseated, have abdominal pain. She felt like vomiting, but did not vomit. Because of that, she did not eat, but she asked for chicken broth multiple times, She also said that she tried to go to urinate, but has trouble getting it out. She feels like there is pressure building up that she cannot relieve herself well. She said that she did have a normal bowel movement with solid form fecal material, so that was normal. REVIEW OF SYSTEMS: GENERAL: There are no fever, chills, or productive cough. HEENT: There is no change in vision, hearing, or swallowing. PULMONARY: Please see HPI. There is no change in breathing pattern. CARDIAC: There is no chest pain, palpitations, syncope. However, she does have chronic chest discomfort. GI: Please see HPI. : Please see HPI. MUSCULOSKELETAL: She has had a severe right foot pain and it was repacked yesterday and it hurts. INTEGUMENT: Please see right foot pain. NEUROLOGIC: There are no focal weaknesses or deficits. CURRENT MEDICATIONS: 1. Acetazolamide 250 mg daily. 2. Allopurinol 200 mg daily. 3. Amiodarone 200 mg daily. 4. Augmentin 875 mg twice a day. 5. Ascorbic acid (vitamin C) 500 mg daily. 6. Calcium vitamin D one tablet daily. 7. Carvedilol currently at 25 mg every 12 hours. 8. Vitamin D3 1000 units daily. 9. Ivabradine 7.5 mg b.i.d. 10. Cyclobenzaprine, which is Flexeril, 10 mg t.i.d. p.r.n. 11. Digoxin at 0.125 mg daily. 12. Enoxaparin 40 mg subcutaneous daily. 13. Pepcid 20 mg twice a day. 14. Fentanyl 50 mcg every 6 hours p.r.n. 15. [place] 10/325 two tabs every 4 hours p.r.n. 16. Glargine insulin 10 units daily and plus sliding scale insulin. 17. Levothyroxine 100 mcg daily. 18. Lidocaine 5% patch one patch once daily. 19. Losartan 25 mg daily. 20. Milrinone currently at 0.5 mcg/kg/min. 21. Jardiance 10 mg daily. 22. Potassium chloride 40 mEq b.i.d. 23. Potassium chloride 20 mEq at noon. 24. Prednisone 10 mg b.i.d. 25. Senokot-S two tabs b.i.d. 26. Sertraline 100 mg daily. 27. Spironolactone 50 mg daily. 28. Torsemide 20 mg daily. 29. Zinc 220 mg daily. Telemetry was reviewed. She is in predominate in atrial sensed and ventricular paced. There is some A-paced and V-paced. There is also occasional samish beat. PHYSICAL EXAMINATION: VITAL SIGNS: Systolic blood pressure between 126 and 136, diastolic pressure between 65 and 81, heart rate is in the low 50 to low 70s. Her input and output for the last 24 hours at 1860 in and 1800 out. GENERAL: She is alert and conversational. Apparently, relaxed comfortably, reclining in bed. HEENT: EOMI. Oropharynx is benign with moist mucosa. NECK: Large diameter. Her JVP is more elevated today about 11 cm. PULMONARY: Good air movement on the right side, slight right basilar crackle. There is good air movement on the left. However, there are crackles at left one-third at bases, though combination rising JVP and correction of the lower crackles these are new. CARDIAC: Regular rate and rhythm with 2/6 holosystolic murmur at the left upper sternal border and also 2/6 holosystolic murmur at the apex. She has some mitral regurgitation and tricuspid regurgitation. ABDOMEN: Distended, soft. It is chronic. This could discover positive bowel sounds. Her right side about one of lower rib when I press on it, it can cause pain, so this is the pain that she is feeling. EXTREMITIES: Her left lower extremity now has reappearance of slight pitting edema from feet about one-half way towards knee, so this is a new development. Her right foot still packed. LABORATORY DATA: White cell count slightly elevated at 12.8, hemoglobin 13, platelets of 284. Her chemistries showed sodium 136, potassium 4.4, chloride 99, bicarbonate 26, BUN 24, creatinine 0.93, and glucose of 247. ASSESSMENT: 50-year-old lady resides [place] [employer] stage C, [place] [employer] Class 3B heart failure with reduced ejection fraction. She has both systolic and diastolic dysfunctions. It is caused by sarcoidosis. She depends on milrinone 0.5 mcg/kg/min for providing sufficient cardiac output. This will also improve the quality of life. She will need it chronically. She likely to have GI motility problems due to large amount of opiate. There could be other reasons for her nausea. Her drinking high sodium broth does not help. That probably contributed to her increase in volume status last 24 hours. She may be retaining urine in her bladder. This also needs to be checked for today. She is mildly volume overloaded, will need to do one day of aggressive diuresis, then go back to her baseline. I was able to speak with Dr. Matt Onofre. Dr. Matt Onofre will be happy to follow her as an outpatient, even including the milrinone chronic drip. RECOMMENDATIONS: 1. Discontinue torsemide for today only. 2. Give Lasix 40 mg IV b.i.d. first dose now for today only. Tomorrow, we are going back to torsemide. 3. Please perform bladder scan to see how much urine is in there. 4. Set fluid restriction to 1800 mL per day. 5. Zyrtec 10 mg p.o. daily. 6. Increase potassium chloride supplement to 40 mEq three times a day today because she is getting more diuretics. It has been a pleasure taking care of Ms. Vaughn. If any questions, please give me a call. Total visitation time is 45 minutes today. Job ID: [id number] [facility]
[2020-08-06] MEDS: Famotidine 20 MG TAB PO SCH ×2 (09:00→20:00)
[2020-08-06] MEDS: AcetaZOLAMIDE 250 MG TAB PO SCH (09:00)
[2020-08-06] MEDS: Zinc Sulfate 220 MG CAP PO SCH (09:00)
[2020-08-06] MEDS: Amoxicillin/Potassium Clav 875 MG TAB PO SCH ×2 (09:00→20:01)
[2020-08-06] MEDS: Multivitamin W/ Minerals 1 TAB PO SCH (09:00)
[2020-08-06] MEDS: Ascorbic Acid 500 mg Chewable Tablet PO SCH (09:01)
[2020-08-06] MEDS: Spironolactone 25 MG TAB PO SCH (09:01)
[2020-08-06] MEDS: Calcium Carbonate 600 MG + Vit D TAB PO SCH (09:02)
[2020-08-06] MEDS: Cholecalciferol 1,000 UNITS (25 MCG) TAB PO SCH (09:02)
[2020-08-06] MEDS: Loratadine 10 MG TAB PO SCH (09:02)
[2020-08-06] MEDS: Carvedilol 25 MG TAB PO SCH ×2 (09:02→20:02)
[2020-08-06] MEDS: Senokot S 8.6-50 MG TAB PO SCH ×2 (09:02→20:01)
[2020-08-06] MEDS: Potassium Chloride 20 MEQ TAB PO SCH ×3 (09:03→16:49)
[2020-08-06] MEDS: Amiodarone 200 MG TAB PO SCH (09:03)
[2020-08-06] MEDS: Losartan 25 MG TAB PO SCH (09:04)
[2020-08-06] MEDS: Allopurinol 300 MG TAB PO SCH (09:04)
[2020-08-06] MEDS: Digoxin 0.125 MG TAB PO SCH (09:05)
[2020-08-06] MEDS: Enoxaparin Sodium 40 MG/0.4 ML SYRINGE SC SCH (09:07)
[2020-08-06] MEDS: predniSONE 20 MG TAB PO SCH ×2 (09:08→20:01)
[2020-08-06] MEDS: Empagliflozin 10 MG TAB PO SCH (09:27)
[2020-08-06] MEDS: CORLANOR 7.5 MG PO SCH ×2 (09:27→16:52)
[2020-08-06] MEDS: Insulin Glargine 10 UNITS in Pre-Filled Syringe 1 EACH SC SCH (09:28)
[2020-08-06] MEDS: Fentanyl 100 MCG/2 ML VIAL SLOW IVP PRN (11:42)
[2020-08-06] MEDS: Transdermal Patch Removal TOP SCH (11:55)
[2020-08-06] MEDS: Lidocaine 4% Topical Sol 50 ML BOT TOP SCH (11:55)
--- NOTE | 2020-08-06 17:24 | PDOC.HOSPP ---
- Subjective Encounter Date: 08/06/20 Subjective: Doing generally okay. She has some soreness in the right lateral chest area. She believes this is from trying to pull herself up in the bed. Tolerated her wound packing much better today with the use of some topical lidocaine. - Objective Vital Signs & Weight: Vital Signs (12 hours) Temp Pulse Resp BP Pulse Ox 08/06/20 12:56 97.7 F 105 H 19 121/57 L 97 08/06/20 09:15 98.2 F 74 16 123/63 98 08/06/20 09:05 71 Weight Admit Weight 295 lb 12.8 oz Weight 281 lb 9 oz I&O: 08/05/20 08/06/20 08/07/20 06:59 06:59 06:59 Intake Total 2019 1860 Output Total 2800 1800 Balance -780 60 Result Diagrams: 08/06/20 03:02 08/06/20 03:02 Additional Labs: Accuchecks 08/06/20 08/06/20 08/05/20 10:55 06:24 20:44 POC Glucose 179 H 200 H 154 H 08/05/20 10:30 POC Glucose 188 H Hospitalist ROS - Medication Medications: Active Medications Generic Name Dose Route Start Last Admin Trade Name Freq PRN Reason Stop Dose Admin Acetaminophen 650 mg 07/17/20 20:17 07/27/20 08:35 Acetaminophen 325 Mg Tab PO 650 mg Q4H PRN Administration Headache/Fever/Mild Pain (1-3) Hydrocodone Bitart/Acetaminophen 2 tab 07/27/20 22:27 08/06/20 16:49 Hydrocodone/Acetaminophen 10/325 Mg Tablet PO 2 tab Q4H PRN Administration Severe Pain (7-10) Acetazolamide 250 mg 08/05/20 09:00 08/06/20 09:00 Acetazolamide 250 Mg Tab PO 250 mg DAILY RANDAL Administration Allopurinol 300 mg 07/18/20 09:00 08/06/20 09:04 Allopurinol 300 Mg Tab PO 300 mg DAILY RANDAL Administration Amiodarone HCl 200 mg 07/18/20 09:00 08/06/20 09:03 Amiodarone 200 Mg Tab PO 200 mg DAILY RANDAL Administration Amoxicillin/Clavulanate Potassium 875 mg 08/01/20 21:00 08/06/20 09:00 Amoxicillin/Potassium Clav 875 Mg Tab PO 875 mg Q12HR RANDAL Administration Ascorbic Acid 500 mg 08/01/20 09:00 08/06/20 09:01 Ascorbic Acid 500 Mg Chewable Tablet PO 500 mg DAILY RANDAL Administration Calcium/Vitamin D 1 tab 08/01/20 08:00 08/06/20 09:02 Calcium Carbonate 600 Mg + Vit D Tab PO 1 tab QAM-WM RANDAL Administration Carvedilol 25 mg 07/30/20 09:00 08/06/20 09:02 Carvedilol 25 Mg Tab PO 25 mg Q12HR RANDAL Administration Cholecalciferol 1,000 units 08/01/20 09:00 08/06/20 09:02 Cholecalciferol 1,000 Units (25 Mcg) Tab PO 1,000 units DAILY RANDAL Administration Clonazepam 2 mg 07/27/20 22:27 08/05/20 20:13 Clonazepam 1 Mg Tab PO 2 mg HS PRN Administration Anxiety Cyclobenzaprine HCl 10 mg 07/20/20 18:11 07/30/20 13:40 Cyclobenzaprine 10 Mg Tab PO 10 mg TID PRN Administration Muscle Spasm Digoxin 0.125 mg 07/18/20 09:00 08/06/20 09:05 Digoxin 0.125 Mg Tab PO 0.125 mg DAILY RANDAL Administration Enoxaparin Sodium 40 mg 07/18/20 09:00 08/06/20 09:07 Enoxaparin Sodium 40 Mg/0.4 Ml Syringe SC 40 mg 0900 RANDAL Administration Famotidine 20 mg 07/18/20 09:00 08/06/20 09:00 Famotidine 20 Mg Tab PO 20 mg BID RANDAL Administration Fentanyl 50 mcg 08/03/20 13:04 08/06/20 11:42 Fentanyl 100 Mcg/2 Ml Vial SLOW IVP 50 mcg Q6H PRN Administration Moderate to Severe Pain (6-10) Milrinone Lactate/Dextrose 20 100 mls @ 20.289 mls/hr 07/20/20 17:00 08/06/20 14:32 mg/ Device IV 100 mls INF RANDAL Administration Protocol 0.5 MCG/KG/MIN Insulin Glargine 10 units/ 0.1 mls @ 0 mls/hr 07/28/20 09:00 08/06/20 09:28 Miscellaneous Medication SC 0.1 mls QAM RANDAL Administration Insulin Human Lispro 0 units 01/30/21 21:28 08/06/20 12:51 Humalog 300 Units/3 Ml Vial SC 2 unit .MILD SLIDING SCALE PRN Administration Mild Correctional Scale Insulin Human Lispro 0 units 07/17/20 21:28 08/01/20 22:04 Humalog 300 Units/3 Ml Vial SC 2 unit .BEDTIME SLIDING SC PRN Administration Bedtime Correctional Scale Iron/Minerals/Multivitamins 1 tab 08/01/20 09:00 08/06/20 09:00 Multivitamin W/ Minerals 1 Tab PO 1 tab DAILY RANDAL Administration Levothyroxine Sodium 100 mcg 07/18/20 06:00 08/06/20 04:31 Levothyroxine Sodium 50 Mcg Tab PO 100 mcg 0600 RANDAL Administration Lidocaine 1 patch 07/29/20 21:00 08/05/20 20:14 Lidocaine 5% Patch TD 1 patch 2100 RANDAL Administration Lidocaine HCl 5 ml 08/06/20 09:00 08/06/20 11:55 Lidocaine 4% Topical Kim 50 Ml Bot TOP Not Given DAILY RANDAL Loratadine 10 mg 08/06/20 09:00 08/06/20 09:02 Loratadine 10 Mg Tab PO 10 mg DAILY RANDAL Administration Losartan Potassium 25 mg 07/21/20 09:00 08/06/20 09:04 Losartan 25 Mg Tab PO 25 mg DAILY RANDAL Administration Miscellaneous Medication 10 mg 07/22/20 09:00 08/06/20 09:27 Empagliflozin 10 Mg Tab PO 10 mg DAILY RANDAL Administration Miscellaneous Medication 1 each 07/30/20 09:00 08/06/20 11:55 Lidocaine Patch Removal 1 Each TOP 1 each 899 RANDAL Administration Ondansetron HCl 4 mg 07/17/20 19:25 08/06/20 09:27 Ondansetron Pf 4 Mg/2 Ml Vial IVP 4 mg Q6H PRN Administration Nausea/Vomiting Corlanor 7.5 Mg Tab 0 each 07/18/20 17:00 08/06/20 16:52 PO 1 each BID-WM RANDAL Administration Potassium Chloride 40 meq 08/06/20 08:00 08/06/20 16:49 Potassium Chloride 20 Meq Tab PO 40 meq TID-WM RANDAL Administration Prednisone 10 mg 07/18/20 09:00 08/06/20 09:08 Prednisone 20 Mg Tab PO 10 mg BID RANDAL Administration Promethazine HCl 25 mg 07/17/20 21:29 08/05/20 13:50 Promethazine 25 Mg Tab PO 25 mg DAILY PRN Administration Nausea Senna/Docusate Sodium 2 tab 07/17/20 20:17 07/29/20 09:48 Senokot S 8.6-50 Mg Tab PO 2 tab BID PRN Administration Constipation Senna/Docusate Sodium 2 tab 07/30/20 21:00 08/06/20 09:02 Senokot S 8.6-50 Mg Tab PO 2 tab BID RANDAL Administration Sertraline HCl 100 mg 07/18/20 09:00 08/06/20 09:03 Sertraline Hcl 100 Mg Tab PO 100 mg DAILY RANDAL Administration Sodium Chloride 10 ml 07/17/20 20:17 07/31/20 17:33 Flush - Normal Saline 10 Ml Syringe IVF 10 ml PRN PRN Administration Saline Flush Spironolactone 50 mg 07/24/20 09:00 08/06/20 09:01 Spironolactone 25 Mg Tab PO 50 mg DAILY RANDAL Administration Zinc Sulfate 220 mg 08/01/20 09:00 08/06/20 09:00 Zinc Sulfate 220 Mg Cap PO 220 mg DAILY RANDAL Administration Hospitalist Exam Vitals: Vital Signs (12 hours) Temp Pulse Resp BP Pulse Ox 08/06/20 12:56 97.7 F 105 H 19 121/57 L 97 08/06/20 09:15 98.2 F 74 16 123/63 98 08/06/20 09:05 71 Weight Admit Weight 295 lb 12.8 oz Weight 281 lb 9 oz General Appearance: NAD, awake alert General - other findings: Morbidly obese Heart: RRR, no murmur, no gallops, no rubs, normal peripheral pulses Respiratory: CTAB, no wheezes, no rales, no ronchi, normal chest expansion, no tachypnea, normal percussion Gastrointestinal: soft, non-tender, non-distended, normal bowel sounds, no palpable masses, no hepatomegaly, no splenomegaly, no bruit Extremities: no cyanosis, no clubbing, no edema Extremities - other findings: Right foot with wound care dressing. Musculoskeletal: generalized weakness Psychiatric: normal affect, normal behavior, A&O x 3 Hosp A/P (1) Acute on chronic systolic CHF (congestive heart failure) Code(s): I50.23 - ACUTE ON CHRONIC SYSTOLIC (CONGESTIVE) HEART FAILURE Status: Acute (2) Cardiomyopathy Code(s): I42.9 - CARDIOMYOPATHY, UNSPECIFIED Status: Chronic (3) Hematoma of right foot Code(s): S90.31XA - CONTUSION OF RIGHT FOOT, INITIAL ENCOUNTER Status: Acute (4) Acute and chronic respiratory failure Code(s): J96.20 - ACUTE AND CHR RESP FAILURE, UNSP W HYPOXIA OR HYPERCAPNIA Status: Acute (5) Physical deconditioning Code(s): R53.81 - OTHER MALAISE Status: Acute (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 Status: Chronic (7) Hypothyroidism Code(s): E03.9 - HYPOTHYROIDISM, UNSPECIFIED Status: Chronic Qualifiers: Hypothyroidism type: acquired Qualified Code(s): E03.9 - Hypothyroidism, unspecified (8) Ventral hernia Code(s): K43.9 - VENTRAL HERNIA WITHOUT OBSTRUCTION OR GANGRENE Status: Chronic Qualifiers: Obstruction and gangrene presence: without obstruction or gangrene Qualifie d Code(s): K43.9 - Ventral hernia without obstruction or gangrene (9) DM (diabetes mellitus) Code(s): E11.9 - TYPE 2 DIABETES MELLITUS WITHOUT COMPLICATIONS Status: Chronic Qualifiers: Diabetes mellitus type: type 2 Diabetes mellitus manager intermediate insulin use: wit hout manager intermediate use (10) HLD (hyperlipidemia) Code(s): E78.5 - HYPERLIPIDEMIA, UNSPECIFIED Status: Chronic Qualifiers: Hyperlipidemia type: mixed hyperlipidemia Qualified Code(s): E78.2 - Mixed hyperlipidemia (11) HTN (hypertension) Code(s): I10 - ESSENTIAL (PRIMARY) HYPERTENSION Status: Chronic Qualifiers: Hypertension type: essential hypertension Qualified Code(s): I10 - Essential (primary) hypertension (12) Morbid obesity Code(s): E66.01 - MORBID (SEVERE) OBESITY DUE TO EXCESS CALORIES Status: Chronic (13) Sarcoid Code(s): D86.9 - SARCOIDOSIS, UNSPECIFIED Status: Chronic - Plan Acute on chronic systolic congestive heart failure: Patient has an ejection fraction of 20% based on echocardiogram. Biventricular pacing. Continue to be followed by Dr. Morin. Milrinone dependent. Continues with milrinone infusion here. Dr. Morin working toward arranging outpatient milrinone infusion. Patient appears to be at a euvolemic state. She is also on carvedilol 25 mg p.o. twice daily, Corlanor 7.5 mg p.o. twice daily, losartan 25 mg p.o. daily. She takes Demadex 20 mg daily and Aldactone 50 mg p.o. daily. Currently awaiting a delivery of outpatient infusion supplies for the milrinone. Patient can likely discharged home once that is arranged. She is on steady-state infusion now. Nonischemic cardiomyopathy: Chronic. Presumably secondary to sarcoidosis. Stable. Acute on chronic hypoxic respiratory failure: Patient is continuously on oxygen therapy at home. She continues to require between 2 and 2.5 L/min here. Stable for discharge. Right foot hematoma: Patient developed spontaneous hematoma of the right foot that was large enough to cause some tissue necrosis. She is status post incision and drainage. Still requiring some wound care with daily debridements. She remains on p.o. Augmentin. Pain has become a focus for her regarding her right foot. She has been on maximum dose of [place]. On 08/03/2020 Dr. Morin started fentanyl. Since that time she has been alternating the 2. Her pain seems to be exceeding expectations based upon the actual wound. We will scale her back to [place]. Continue with fentanyl for dressing changes. Patient has been able to get up and bear weight on that foot. On 08/05/2020 the patient did indicate that her pain issues may be somewhat r elated to her emotional state. Patient is already on muscle relaxers, SSRI, benzodiazepine as augments to opioids. 08/06/2020 the patient did significantly better with her wound packing with topical lidocaine. Discussed with the wound care nurses. The depth of the wound is currently 4 mm. Sarcoidosis: Patient is somewhat steroid dependent for treatment of her sarcoidosis. She has multiple typical steroid-dependent sequelae, including osteoporosis, diabetes, adrenal insufficiency. History of ventricular arrhythmia: Patient remains on amiodarone suppression and a defibrillator is in place. Patient was evaluated by Dr. Rosales during this admission and found to have no recent arrhythmias. Hypothyroidism: Continue with her usual home regimen of levothyroxine. Diabetes mellitus: Blood sugars remain 180s to 220. Last hemoglobin A1c was May 2020 at 6.0. Jardiance has been started this admission through Dr. Morin. Vitamin D deficiency: Based on previous labs back in 2018 the patient has vitamin D deficiency. She has been started on cholecalciferol this admission Recheck vitamin D level. Metabolic/contraction alkalosis: Acetazolamide has been added per Dr. Morin. History of gout: Continue allopurinol. Disposition: Patient will be stable for discharge whenever her milrinone infusion supplies were arranged. Depending on how her foot progresses she may need to have some home health or wound care.
[2020-08-06] MEDS: clonazePAM 1 MG TAB PO PRN (20:01)
[2020-08-06] MEDS: Lidocaine 5% Patch TD SCH (20:02)
[2020-08-07] MEDS: Milrinone Lactate/D5W 20 MG in Premix Bag 1 BAG IV SCH ×5 (00:30→20:37)
[2020-08-07] MEDS: HYDROcodone/Acetaminophen 10/325 mg Tablet PO PRN ×4 (01:03→17:58)
[2020-08-07 04:35] LABS: #Eosinphils 0.1 thou/uL (0.0-0.7); #Lymphocytes 0.9 thou/uL (1.20-3.40); #Monocytes 1.2 thou/uL (0.11-0.59); #Neutrophils 9.8 thou/uL (1.40-6.50); %Basophils 0.2 % (0.0-1.0); %Eosinophils 1.1 % (0.0-10.0); %Monocytes 10.3 % (0.0-10.0); %Neutrophils 81.4 % (42.0-75.0); Hemoglobin 12.1 g/dL (12.0-16.0); Mean Corpuscular HGB CONC 33.4 g/dL (32.0-36.0); Mean Corpuscular Hemoglobin 31.1 pg (27.0-31.0); Mean Corpuscular Volume 93.2 fL (78.0-98.0); Mean Platelet Volume 7.8 fL (7.4-10.4); Platelet Count 235 thou/uL (130-400); RBC Distribution Width 14.2 % (11.5-14.5); Red Blood Cell (RBC) Count 3.88 mill/uL (4.20-5.40)
[2020-08-07 04:48] LABS: Anion Gap 14 mmol/L (10-20); BUN (Urea Nitrogen) 23 mg/dL (7.0-18.7); Calc. Creatinine Clearance 156 mL/min (70-130); Calcium 8.9 mg/dL (7.8-10.44); Carbon Dioxide 30 mmol/L (22-29); Chloride 97 mmol/L (98-107); Glucose 200 mg/dL (70-105); Magnesium 2.1 mg/dL (1.6-2.6); Potassium 3.7 mmol/L (3.5-5.1); Sodium 137 mmol/L (136-145)
[2020-08-07] MEDS: Levothyroxine Sodium 50 MCG TAB PO SCH (05:30)
[2020-08-07] MEDS: HumaLOG 300 UNITS/3 ML VIAL SC PRN ×4 (05:37→20:52)
[2020-08-07] MEDS: Calcium Carbonate 600 MG + Vit D TAB PO SCH (09:09)
[2020-08-07] MEDS: Potassium Chloride 20 MEQ TAB PO SCH ×3 (09:09→16:15)
[2020-08-07] MEDS: AcetaZOLAMIDE 250 MG TAB PO SCH (09:10)
[2020-08-07] MEDS: Allopurinol 300 MG TAB PO SCH (09:11)
[2020-08-07] MEDS: Amiodarone 200 MG TAB PO SCH (09:11)
[2020-08-07] MEDS: Ascorbic Acid 500 mg Chewable Tablet PO SCH (09:12)
[2020-08-07] MEDS: Carvedilol 25 MG TAB PO SCH ×2 (09:12→20:35)
[2020-08-07] MEDS: Amoxicillin/Potassium Clav 875 MG TAB PO SCH ×2 (09:12→20:33)
[2020-08-07] MEDS: Digoxin 0.125 MG TAB PO SCH (09:13)
[2020-08-07] MEDS: Cholecalciferol 1,000 UNITS (25 MCG) TAB PO SCH (09:13)
[2020-08-07] MEDS: Empagliflozin 10 MG TAB PO SCH (09:14)
[2020-08-07] MEDS: Enoxaparin Sodium 40 MG/0.4 ML SYRINGE SC SCH (09:14)
[2020-08-07] MEDS: Famotidine 20 MG TAB PO SCH ×2 (09:15→20:33)
[2020-08-07] MEDS: Loratadine 10 MG TAB PO SCH (09:15)
[2020-08-07] MEDS: Losartan 25 MG TAB PO SCH (09:16)
[2020-08-07] MEDS: Multivitamin W/ Minerals 1 TAB PO SCH (09:16)
[2020-08-07] MEDS: predniSONE 20 MG TAB PO SCH ×2 (09:16→20:34)
[2020-08-07] MEDS: Senokot S 8.6-50 MG TAB PO SCH ×2 (09:17→20:34)
[2020-08-07] MEDS: Spironolactone 25 MG TAB PO SCH (09:18)
[2020-08-07] MEDS: Torsemide 20 MG TAB PO SCH (09:19)
[2020-08-07] MEDS: Zinc Sulfate 220 MG CAP PO SCH (09:20)
[2020-08-07] MEDS: CORLANOR 7.5 MG PO SCH ×2 (09:21→16:16)
[2020-08-07] MEDS: Fentanyl 100 MCG/2 ML VIAL SLOW IVP PRN ×2 (09:31→20:35)
[2020-08-07] MEDS: Lidocaine 4% Topical Sol 50 ML BOT TOP SCH (09:32)
--- NOTE | 2020-08-07 09:54 | PDOC.GSPN ---
Surgery Progress Note: Subj - Subjective Narrative: Wound looks good. Lidocaine is helping with pain with dressing changes. If the patient is still here on Sunday I will see her with the wound care team. Otherwise she can follow-up in my clinic in 2 weeks time. Surgery Progress Note: Obj - Vital signs Vital signs: Vital Signs - Most Recent Temp Pulse Resp BP Pulse Ox 98.6 F 67 15 129/71 96 08/07/20 08:00 08/07/20 09:13 08/07/20 08:00 08/07/20 08:00 08/07/20 08:00 Surgery Progress Note: Results - Labs Result Diagrams: 08/07/20 03:46 08/07/20 03:46 Lab results: Laboratory Results - last 12 hr 08/07/20 08/07/20 08/07/20 03:46 03:46 03:46 WBC 12.0 H RBC 3.88 L Hgb 12.1 Hct 36.2 MCV 93.2 MCH 31.1 H MCHC 33.4 RDW 14.2 Plt Count 235 MPV 7.8 Neutrophils % 81.4 H Lymphocytes % 7.0 L Monocytes % 10.3 H Eosinophils % 1.1 Basophils % 0.2 Neutrophils # 9.8 H Lymphocytes # 0.9 L Monocytes # 1.2 H Eosinophils # 0.1 Basophils # 0.0 Sodium 137 Potassium 3.7 Chloride 97 L Carbon Dioxide 30 H Anion Gap 14 BUN 23 H Creatinine 0.89 Estimated GFR (MDRD) 68 Glucose 200 H Calcium 8.9 Magnesium 2.1 25-OH Vitamin D Total 8.4 L
[2020-08-07] MEDS: Insulin Glargine 10 UNITS in Pre-Filled Syringe 1 EACH SC SCH (10:18)
[2020-08-07] MEDS: Transdermal Patch Removal TOP SCH (10:36)
--- NOTE | 2020-08-07 13:51 | PDOC.HOSPP ---
- Subjective Encounter Date: 08/07/20 Subjective: Feeling well in general. No complaints today. Wound care went well today. - Objective Vital Signs & Weight: Vital Signs (12 hours) Temp Pulse Resp BP Pulse Ox 08/07/20 12:00 97.9 F 52 L 20 123/65 97 08/07/20 09:13 67 08/07/20 08:00 98.6 F 67 15 129/71 96 08/07/20 05:09 94 L 08/07/20 04:00 98.0 F 83 18 136/63 97 Weight Admit Weight 295 lb 12.8 oz Weight 275 lb 3.2 oz I&O: 08/06/20 08/07/20 08/08/20 06:59 06:59 06:59 Intake Total 1860 1640 Output Total 1800 2400 Balance 60 -760 Result Diagrams: 08/07/20 03:46 08/07/20 03:46 Additional Labs: Accuchecks 08/07/20 08/06/20 11:17 16:59 POC Glucose 209 H 239 H Hospitalist ROS - Medication Medications: Active Medications Generic Name Dose Route Start Last Admin Trade Name Freq PRN Reason Stop Dose Admin Acetaminophen 650 mg 07/17/20 20:17 07/27/20 08:35 Acetaminophen 325 Mg Tab PO 650 mg Q4H PRN Administration Headache/Fever/Mild Pain (1-3) Hydrocodone Bitart/Acetaminophen 2 tab 07/27/20 22:27 08/07/20 13:16 Hydrocodone/Acetaminophen 10/325 Mg Tablet PO 2 tab Q4H PRN Administration Severe Pain (7-10) Acetazolamide 250 mg 08/05/20 09:00 08/07/20 09:10 Acetazolamide 250 Mg Tab PO 250 mg DAILY RANDAL Administration Allopurinol 300 mg 07/18/20 09:00 08/07/20 09:11 Allopurinol 300 Mg Tab PO 300 mg DAILY RANDAL Administration Amiodarone HCl 200 mg 07/18/20 09:00 08/07/20 09:11 Amiodarone 200 Mg Tab PO 200 mg DAILY RANDAL Administration Amoxicillin/Clavulanate Potassium 875 mg 08/01/20 21:00 08/07/20 09:12 Amoxicillin/Potassium Clav 875 Mg Tab PO 875 mg Q12HR RANDAL Administration Ascorbic Acid 500 mg 08/01/20 09:00 08/07/20 09:12 Ascorbic Acid 500 Mg Chewable Tablet PO 500 mg DAILY RANDAL Administration Calcium/Vitamin D 1 tab 08/01/20 08:00 08/07/20 09:09 Calcium Carbonate 600 Mg + Vit D Tab PO 1 tab QAM-WM RANDAL Administration Carvedilol 25 mg 07/30/20 09:00 08/07/20 09:12 Carvedilol 25 Mg Tab PO 25 mg Q12HR RANDAL Administration Cholecalciferol 1,000 units 08/01/20 09:00 08/07/20 09:13 Cholecalciferol 1,000 Units (25 Mcg) Tab PO 1,000 units DAILY RANDAL Administration Cyclobenzaprine HCl 10 mg 07/20/20 18:11 07/30/20 13:40 Cyclobenzaprine 10 Mg Tab PO 10 mg TID PRN Administration Muscle Spasm Digoxin 0.125 mg 07/18/20 09:00 08/07/20 09:13 Digoxin 0.125 Mg Tab PO 0.125 mg DAILY RANDAL Administration Enoxaparin Sodium 40 mg 07/18/20 09:00 08/07/20 09:14 Enoxaparin Sodium 40 Mg/0.4 Ml Syringe SC 40 mg 0900 RANDAL Administration Famotidine 20 mg 07/18/20 09:00 08/07/20 09:15 Famotidine 20 Mg Tab PO 20 mg BID RANDAL Administration Fentanyl 50 mcg 08/03/20 13:04 08/07/20 09:31 Fentanyl 100 Mcg/2 Ml Vial SLOW IVP 50 mcg Q6H PRN Administration Moderate to Severe Pain (6-10) Milrinone Lactate/Dextrose 20 100 mls @ 20.289 mls/hr 07/20/20 17:00 08/07/20 10:19 mg/ Device IV 100 mls INF RANDAL Administration Protocol 0.5 MCG/KG/MIN Insulin Glargine 10 units/ 0.1 mls @ 0 mls/hr 07/28/20 09:00 08/07/20 10:18 Miscellaneous Medication SC 0.1 mls QAM RANDAL Administration Insulin Human Lispro 0 units 07/17/20 21:28 08/07/20 12:30 Humalog 300 Units/3 Ml Vial SC 3 unit .MILD SLIDING SCALE PRN Administration Mild Correctional Scale Insulin Human Lispro 0 units 07/17/20 21:28 08/01/20 22:04 Humalog 300 Units/3 Ml Vial SC 2 unit .BEDTIME SLIDING SC PRN Administration Bedtime Correctional Scale Iron/Minerals/Multivitamins 1 tab 08/01/20 09:00 08/07/20 09:16 Multivitamin W/ Minerals 1 Tab PO 1 tab DAILY RANDAL Administration Levothyroxine Sodium 100 mcg 07/18/20 06:00 08/07/20 05:30 Levothyroxine Sodium 50 Mcg Tab PO 100 mcg 0600 RANDAL Administration Lidocaine 1 patch 07/29/20 21:00 08/06/20 20:02 Lidocaine 5% Patch TD 1 patch 2100 RANDAL Administration Lidocaine HCl 5 ml 08/06/20 09:00 08/07/20 09:32 Lidocaine 4% Topical Kim 50 Ml Bot TOP 1 applic DAILY RANDAL Administration Loratadine 10 mg 08/06/20 09:00 08/07/20 09:15 Loratadine 10 Mg Tab PO 10 mg DAILY RANDAL Administration Losartan Potassium 50 mg 08/07/20 09:00 08/07/20 09:16 Losartan 25 Mg Tab PO 50 mg DAILY RANDAL Administration Miscellaneous Medication 10 mg 07/22/20 09:00 08/07/20 09:14 Empagliflozin 10 Mg Tab PO 10 mg DAILY RANDAL Administration Miscellaneous Medication 1 each 07/30/20 09:00 08/07/20 10:36 Lidocaine Patch Removal 1 Each TOP 1 each 0900 RANDAL Administration Ondansetron HCl 4 mg 07/17/20 19:25 08/06/20 09:27 Ondansetron Pf 4 Mg/2 Ml Vial IVP 4 mg Q6H PRN Administration Nausea/Vomiting Corlanor 7.5 Mg Tab 0 each 07/18/20 17:00 08/07/20 09:21 PO 1 each BID-WM RANDAL Administration Potassium Chloride 40 meq 08/06/20 08:00 08/07/20 12:32 Potassium Chloride 20 Meq Tab PO 40 meq TID-WM RANDAL Administration Prednisone 10 mg 07/18/20 09:00 08/07/20 09:16 Prednisone 20 Mg Tab PO 10 mg BID RANDAL Administration Promethazine HCl 25 mg 07/17/20 21:29 08/05/20 13:50 Promethazine 25 Mg Tab PO 25 mg DAILY PRN Administration Nausea Senna/Docusate Sodium 2 tab 07/17/20 20:17 07/29/20 09:48 Senokot S 8.6-50 Mg Tab PO 2 tab BID PRN Administration Constipation Senna/Docusate Sodium 2 tab 07/30/20 21:00 08/07/20 09:17 Senokot S 8.6-50 Mg Tab PO 2 tab BID RANDAL Administration Sertraline HCl 100 mg 07/18/20 09:00 08/07/20 09:19 Sertraline Hcl 100 Mg Tab PO 100 mg DAILY RANDAL Administration Sodium Chloride 10 ml 07/17/20 20:17 07/31/20 17:33 Flush - Normal Saline 10 Ml Syringe IVF 10 ml PRN PRN Administration Saline Flush Spironolactone 50 mg 07/24/20 09:00 08/07/20 09:18 Spironolactone 25 Mg Tab PO 50 mg DAILY RANDAL Administration Torsemide 40 mg 08/07/20 09:00 08/07/20 09:19 Torsemide 20 Mg Tab PO 40 mg DAILY RANDAL Administration Zinc Sulfate 220 mg 08/01/20 09:00 08/07/20 09:20 Zinc Sulfate 220 Mg Cap PO 220 mg DAILY RANDAL Administration Hospitalist Exam Vitals: Vital Signs (12 hours) Temp Pulse Resp BP Pulse Ox 08/07/20 12:00 97.9 F 52 L 20 123/65 97 08/07/20 09:13 67 08/07/20 08:00 98.6 F 67 15 129/71 96 08/07/20 05:09 94 L 08/07/20 04:00 98.0 F 83 18 136/63 97 Weight Admit Weight 295 lb 12.8 oz Weight 275 lb 3.2 oz General Appearance: NAD, awake alert General - other findings: Morbidly obese Heart: RRR, no murmur, no gallops, no rubs, normal peripheral pulses Respiratory: CTAB, no wheezes, no rales, no ronchi, normal chest expansion, no tachypnea, normal percussion Gastrointestinal: soft, non-tender, non-distended, normal bowel sounds, no pal pable masses, no hepatomegaly, no splenomegaly, no bruit Extremities: no cyanosis, no clubbing, no edema Extremities - other findings: Right foot with wound care dressing in place. Ecchymosis fading. Musculoskeletal: generalized weakness Psychiatric: normal affect, normal behavior, A&O x 3 Hosp A/P (1) Acute on chronic systolic CHF (congestive heart failure) Code(s): I50.23 - ACUTE ON CHRONIC SYSTOLIC (CONGESTIVE) HEART FAILURE Status: Acute (2) Cardiomyopathy Code(s): I42.9 - CARDIOMYOPATHY, UNSPECIFIED Status: Chronic (3) Hematoma of right foot Code(s): S90.31XA - CONTUSION OF RIGHT FOOT, INITIAL ENCOUNTER Status: Acute (4) Acute and chronic respiratory failure Code(s): J96.20 - ACUTE AND CHR RESP FAILURE, UNSP W HYPOXIA OR HYPERCAPNIA Status: Acute (5) Physical deconditioning Code(s): R53.81 - OTHER MALAISE Status: Acute (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 Status: Chronic (7) Hypothyroidism Code(s): E03.9 - HYPOTHYROIDISM, UNSPECIFIED Status: Chronic Qualifiers: Hypothyroidism type: acquired Qualified Code(s): E03.9 - Hypothyroidism, unspecified (8) Ventral hernia Code(s): K43.9 - VENTRAL HERNIA WITHOUT OBSTRUCTION OR GANGRENE Status: Chronic Qualifiers: Obstruction and gangrene presence: without obstruction or gangrene Qualified Code(s): K43.9 - Ventral hernia without obstruction or gangrene (9) DM (diabetes mellitus) Code(s): E11.9 - TYPE 2 DIABETES MELLITUS WITHOUT COMPLICATIONS Status: Chronic Qualifiers: Diabetes mellitus type: type 2 Diabetes mellitus custodial insulin use: without intermediate manager use (10) HLD (hyperlipidemia) Code(s): E78.5 - HYPERLIPIDEMIA, UNSPECIFIED Status: Chronic Qualifiers: Hyperlipidemia type: mixed hyperlipidemia Qualified Code(s): E78.2 - Mixed hyperlipidemia (11) HTN (hypertension) Code(s): I10 - ESSENTIAL (PRIMARY) HYPERTENSION Status: Chronic Qualifiers: Hypertension type: essential hypertension Qualified Code(s): I10 - Essential (primary) hypertension (12) Morbid obesity Code(s): E66.01 - MORBID (SEVERE) OBESITY DUE TO EXCESS CALORIES Status: Chronic (13) Sarcoid Code(s): D86.9 - SARCOIDOSIS, UNSPECIFIED Status: Chronic - Plan Acute on chronic systolic congestive heart failure: Patient has an ejection fraction of 20% based on echocardiogram. Biventricular pacing. Continue to be followed by Dr. Morin. Milrinone dependent. Continues with milrinone infusion here. Dr. Morin working toward arranging outpatient milrinone infusion. Patient appears to be at a euvolemic state. She is also on carvedilol 25 mg p.o. twice daily, Corlanor 7.5 mg p.o. twice daily, losartan 25 mg p.o. daily. She takes Demadex 20 mg daily and Aldactone 50 mg p.o. daily. Currently awaiting a delivery of outpatient infusion supplies for the milrinone. Patient can likely discharged home once that is arranged. She is on steady-state infusion now. Nonischemic cardiomyopathy: Chronic. Presumably secondary to sarcoidosis. Stable on the current milrinone drip. Acute on chronic hypoxic respiratory failure: Patient is continuously on oxygen therapy at home. She continues to require between 2 and 2.5 L/min here. Stable for discharge. Right foot hematoma: Patient developed spontaneous hematoma of the right foot that was large enough to cause some tissue necrosis. She is status post incision and drainage. Still requiring some wound care with daily debridements. She remains on p.o. Augmentin. Pain has become a focus for her regarding her right foot. She has been on maximum dose of [place]. On 08/03/2020 Dr. Morin started fentanyl. Since that time she has been alternating the 2. Her pain seems to be exceeding expectations based upon the actual wound. We will scale her back to [place]. Continue with fentanyl for dressing changes. Patient has been able to get up and bear weight on that foot. On 08/05/2020 the patient did indicate that her pain issues may be somewhat related to her emotional state. Patient is already on muscle relaxers, SSRI, benzodiazepine as augments to opioi ds. 08/06/2020 the patient did significantly better with her wound packing with topical lidocaine. Sarcoidosis: Patient is somewhat steroid dependent for treatment of her sarcoidosis. She has multiple typical steroid-dependent sequelae, including osteoporosis, diabetes, adrenal insufficiency. History of ventricular arrhythmia: Patient remains on amiodarone suppression and a defibrillator is in place. Patient was evaluated by Dr. Rosales during this admission and found to have no recent arrhythmias. Hypothyroidism: Continue with her usual home regimen of levothyroxine. Diabetes mellitus: Blood sugars remain 180s to 220. Last hemoglobin A1c was May 2020 at 6.0. Jardiance has been started this admission through Dr. Morin. Vitamin D deficiency: Based on previous labs back in 2018 the patient has vitamin D deficiency. She has been started on cholecalciferol this admission Recheck vitamin D level. Metabolic/contraction alkalosis: Acetazolamide has been added per Dr. Morin. History of gout: Continue allopurinol. Disposition: Patient will be stable for discharge whenever her milrinone infusion supplies are arranged. Sounds like that may happen in the next 2 to 3 days. Depending on how her foot progresses she may need to have some home health or wound care. She also specifically inquired about getting pain medication prescriptions at the time of discharge.
[2020-08-07] MEDS: Lidocaine 5% Patch TD SCH (20:39)
[2020-08-07] MEDS ORDERED: clonazePAM 1 MG TAB PO PRN (22:02)
[2020-08-08] MEDS: Milrinone Lactate/D5W 20 MG in Premix Bag 1 BAG IV SCH ×5 (00:40→21:34)
[2020-08-08] MEDS: HYDROcodone/Acetaminophen 10/325 mg Tablet PO PRN ×4 (00:46→17:37)
[2020-08-08] MEDS: clonazePAM 1 MG TAB PO PRN (00:46)
[2020-08-08] MEDS: Fentanyl 100 MCG/2 ML VIAL SLOW IVP PRN ×3 (04:24→21:42)
[2020-08-08 04:35] LABS: #Eosinphils 0.3 thou/uL (0.0-0.7); #Lymphocytes 0.8 thou/uL (1.20-3.40); #Monocytes 1.3 thou/uL (0.11-0.59); #Neutrophils 11.6 thou/uL (1.40-6.50); %Basophils 0.2 % (0.0-1.0); %Eosinophils 2.2 % (0.0-10.0); %Lymphocytes 5.9 % (21.0-51.0); %Monocytes 8.9 % (0.0-10.0); %Neutrophils 82.9 % (42.0-75.0); Hemoglobin 12.4 g/dL (12.0-16.0); Mean Corpuscular Hemoglobin 30.9 pg (27.0-31.0); Mean Corpuscular Volume 93.8 fL (78.0-98.0); Mean Platelet Volume 8.1 fL (7.4-10.4); Platelet Count 249 thou/uL (130-400); RBC Distribution Width 14.4 % (11.5-14.5)
[2020-08-08 05:15] LABS: Anion Gap 15 mmol/L (10-20); BUN (Urea Nitrogen) 27 mg/dL (7.0-18.7); Calc. Creatinine Clearance 172 mL/min (70-130); Calcium 8.8 mg/dL (7.8-10.44); Carbon Dioxide 27 mmol/L (22-29); Chloride 98 mmol/L (98-107); Glucose 179 mg/dL (70-105); Magnesium 2.2 mg/dL (1.6-2.6); Potassium 3.6 mmol/L (3.5-5.1); Sodium 136 mmol/L (136-145)
[2020-08-08] MEDS: Levothyroxine Sodium 50 MCG TAB PO SCH (06:09)
[2020-08-08] MEDS: HumaLOG 300 UNITS/3 ML VIAL SC PRN ×2 (06:10→17:28)
[2020-08-08] MEDS: Insulin Glargine 10 UNITS in Pre-Filled Syringe 1 EACH SC SCH (08:35)
[2020-08-08] MEDS: Empagliflozin 10 MG TAB PO SCH (08:43)
[2020-08-08] MEDS: Ascorbic Acid 500 mg Chewable Tablet PO SCH (08:44)
[2020-08-08] MEDS: Multivitamin W/ Minerals 1 TAB PO SCH (08:44)
[2020-08-08] MEDS: Potassium Chloride 20 MEQ TAB PO SCH ×3 (08:44→16:45)
[2020-08-08] MEDS: Calcium Carbonate 600 MG + Vit D TAB PO SCH (08:46)
[2020-08-08] MEDS: Amoxicillin/Potassium Clav 875 MG TAB PO SCH ×2 (08:46→21:36)
[2020-08-08] MEDS: Famotidine 20 MG TAB PO SCH ×2 (08:46→21:36)
[2020-08-08] MEDS: Digoxin 0.125 MG TAB PO SCH (08:47)
[2020-08-08] MEDS: Zinc Sulfate 220 MG CAP PO SCH (08:47)
[2020-08-08] MEDS: AcetaZOLAMIDE 250 MG TAB PO SCH (08:47)
[2020-08-08] MEDS: Spironolactone 25 MG TAB PO SCH (08:47)
[2020-08-08] MEDS: Senokot S 8.6-50 MG TAB PO SCH ×2 (08:47→21:36)
[2020-08-08] MEDS: Losartan 25 MG TAB PO SCH (08:48)
[2020-08-08] MEDS: Allopurinol 300 MG TAB PO SCH (08:48)
[2020-08-08] MEDS: Torsemide 20 MG TAB PO SCH (08:48)
[2020-08-08] MEDS: Amiodarone 200 MG TAB PO SCH (08:49)
[2020-08-08] MEDS: Cholecalciferol 1,000 UNITS (25 MCG) TAB PO SCH (08:49)
[2020-08-08] MEDS: Carvedilol 25 MG TAB PO SCH ×2 (08:49→21:36)
[2020-08-08] MEDS: predniSONE 20 MG TAB PO SCH ×2 (08:49→21:37)
[2020-08-08] MEDS: Loratadine 10 MG TAB PO SCH (08:49)
[2020-08-08] MEDS: CORLANOR 7.5 MG PO SCH ×2 (08:50→16:45)
[2020-08-08] MEDS: Enoxaparin Sodium 40 MG/0.4 ML SYRINGE SC SCH (08:50)
[2020-08-08] MEDS ORDERED: Potassium Chloride 20 MEQ in Premix Bag 1 BAG IVPB SCH (10:15)
[2020-08-08] MEDS ORDERED: AcetaZOLAMIDE 250 MG TAB PO SCH (10:30)
--- NOTE | 2020-08-08 10:32 | PRG ---
DATE OF SERVICE: 08/07/2020 SUBJECTIVE: Ms. Vaughn had a good day. She was able to work with physical therapy and ambulate around her room. Her right foot pain seemed to decrease a bit. She believed her right foot is better, but however, she has chronic entire body aches. She still has the pain from her ventral hernia. Even if she moves right, it hurts. REVIEW OF SYSTEMS: GENERAL: No fever, chills, or productive cough. HEENT: There is no change in vision, swallowing, or hearing. PULMONARY: She is breathing easy. CARDIAC: There is no chest pains, palpitations, or syncope. GI: There is no complaint. : She is able to urinate on her own. MUSCULOSKELETAL: Please see HPI. INTEGUMENT: Please see HPI. NEUROLOGIC: There are no focal deficits or weakness. MEDICATIONS: Include: 1. Acetazolamide 250 mg daily. 2. Allopurinol 200 mg daily. 3. Amiodarone 200 mg daily. 4. Augmentin 875 mg twice a day. 5. Vitamin C 500 mg daily. 6. Calcium and vitamin D 600 mg daily. 7. Carvedilol 25 mg q.12 hours. 8. Vitamin D3 1000 units daily. 9. Ivabradine 7.5 mg b.i.d. 10. Digoxin 0.125 mg daily. 11. Enoxaparin at 40 mg subcutaneous daily. 12. Pepcid 20 mg twice a day. 13. Fentanyl 50 mcg IV q.6 hours p.r.n. 14. Furosemide at 40 mg IV b.i.d. 15. Glargine insulin at 10 units daily.. 16. Lispro insulin sliding scale. 17. Levothyroxine 100 mcg daily. 18. Lidocaine patch at 5% daily. 19. Loratadine at 10 mg daily. 20. Losartan 25 mg daily. 21. Milrinone at 0.5 mcg/kg/minute. 22. K-Dur 40 mEq t.i.d. 23. Prednisone 10 mg b.i.d. 24. Senokot-S two tabs b.i.d. 25. Sertraline at 100 mg daily. 26. Spironolactone at 50 mg daily. The telemetry was reviewed. It is predominantly A-sensed, V-paced rhythm. PHYSICAL EXAMINATION: VITAL SIGNS: Her vitals have ranged between 121 to 136 with diastolic pressure between 57 and 66. Her input and output from yesterday was 1640 in and 2400 out. Ms. Vaughn said that she felt like lot of fluid came out and that she had to go to the bathroom multiple times more than the day before. GENERAL: She is alert and conversational, reclining comfortably in bed. HEENT: Show EOMI. Oropharynx is benign with moist mucosa. NECK: Large diameter. JVP is about 10. PULMONARY: There is good air movement bilaterally. There is slight left basilar crackles that has improved since yesterday. CARDIAC: Regular rate and rhythm with 2/6 holosystolic murmur at the left upper sternal border and also at the apex. She has tricuspid regurgitation and also mitral regurgitation. ABDOMEN: The abdomen is soft, distended. She has a ventral hernia and she does not have the rib pain like she did have yesterday. She did say that she has multiple rib fractures and those pain just comes and goes. EXTREMITIES: She still has slight pitting edema at thighs; however, there is no pitting edema from the knees on down. Her right foot is still wrapped, but it is looking better. LABORATORY DATA: Her lab values show white cell count 12, hemoglobin 12.1, platelet 235. Her chemistry shows sodium 137, potassium 3.7, chloride 97, bicarb at 30, BUN 23, and creatinine 0.89, glucose of 200. ASSESSMENT: 50-year-old lady resides at [place] Heart Association stage C and [place] Heart Association class 3B heart failure with reduced ejection fraction. It has both systolic and diastolic dysfunctions. 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 She is requiring milrinone at 0.5 mcg/kg/minute to sustain life and provide quality of life. Thus, this needs to be chronic. She is still mildly volume overloaded, but we can reduce it down to the oral diuretics again. The volume overload from day before is self-induced from having too much chicken broth and this has been limited. Now, she is moving towards discharge on Sunday. I was informed by the infusion [facility] that they could have set her up by Sunday. Dr. Matt Onofre is happy to follow her as an outpatient on the chronic milrinone drip. RECOMMENDATIONS: Please see the following for my recommendations: 1. Discontinue IV Lasix. 2. Start torsemide at 40 mg daily. 3. Increase losartan to 50 mg daily, this is her home dose. She has high enough systolic blood pressure to support that. 4. We will continue to follow up with wound care. 5. Aim to have the patient ready for discharge on Sunday. It has been a pleasure taking care of Ms. Rona Vaughn. If you have any questions, please give me a call. The total visitation time is 40 minutes. Job ID: [id number] MTDD
[2020-08-08] MEDS: Transdermal Patch Removal TOP SCH (10:35)
[2020-08-08] MEDS: Lidocaine 4% Topical Sol 50 ML BOT TOP SCH (10:35)
[2020-08-08] MEDS: Nystatin Powder 15 GM BOT TOP SCH ×2 (10:59→21:40)
--- NOTE | 2020-08-08 11:10 | RAD ---
PORTABLE CHEST: HISTORY: Elevated white count. COMPARISON: 07/17/2020 exam. FINDINGS: Heart size is enlarged with a pacemaker present. The lungs are clear of any focal infiltrative proce ss. No signs of failure. IMPRESSION: Cardiomegaly. POS: OFF
--- NOTE | 2020-08-08 12:17 | PRG ---
DATE OF SERVICE: 08/08/2020 SERVICE: [facility]. SUBJECTIVE: Ms. Rona Vaughn had her usual day. She still has her right foot pain. She was able to ambulate from her bed to the door and back with assistance. She ambulates from her bed to the bathroom. However, each time she walks she has severe pain in the right foot. Now she has a new complaint of developing a rash in her groin area. This has been coming for a while. It occurred at the abdominal folds over her pelvic region. Otherwise, she just does not have much cardiac complaints. She has had her usual energy level. Says she is not short of breath. REVIEW OF SYSTEMS: GENERAL: There is no fever, chills, or productive cough. HEENT: There is no change in vision, hearing, or swallowing. PULMONARY: Please see HPI. CARDIAC: Please see HPI. GI: There is no nausea, vomiting, diarrhea. : She is able to urinate on her own. MUSCULOSKELETAL: She has chronic rib pains on the right. It is worsen when she is trying to move and pull herself and there is a right foot pain. INTEGUMENT: Please see HPI for new growing skin fold complaints. CURRENT MEDICATIONS: Include: 1. Acetazolamide 250 mg daily. 2. Allopurinol 200 mg daily. 3. Amiodarone 200 mg daily. 4. Augmentin 875 mg q.12 hours. 5. Ascorbic acid 500 mg daily. 6. Vitamin D plus Caltrate 600 daily. 7. Carvedilol 25 mg q.12 hours. 8. Vitamin D3 1000 units daily. 9. Clonazepam 2 mg at bedtime p.r.n. 10. Flexeril 10 mg t.i.d. p.r.n. 11. Digoxin 0.125 mg daily. 12. Enoxaparin subcutaneous daily. 13. Pepcid 20 mg b.i.d. 14. Fentanyl 50 mcg q.6 hours p.r.n. 15. Glargine insulin 10 units. 16. daily, sliding scale insulin. 17. Levothyroxine 100 mcg daily. 18. Lidocaine 5% patch daily. 19. Claritin 10 mg daily. 20. Losartan 50 mg daily. 21. Milrinone currently at 0.5 mcg/kg per minute. 22. Jardiance 10 mg daily. 23. Ivabradine 7.5 mg daily. 24. K-Dur 40 mEq 3 times a day. 25. Prednisone 10 mg b.i.d. 26. Senokot-S 2 tabs daily. 27. Sotalol 100 mg daily. 28. Spironolactone 50 mg daily. 29. Torsemide 40 mg p.o. daily. 30. Zinc 220 mg daily. Telemetry was reviewed. She is in predominant A-sensed V-paced rhythm, she has some A-paced V-paced, so she has occasional pamunkey beats and occasional PVC. She does not have any concerning arrhythmias. PHYSICAL EXAMINATION: VITAL SIGNS: She had a range of systolic blood pressures. Her systolic blood pressure range 123 to 138. Her systolic blood pressure currently 126/66 with heart rate of 64. GENERAL: She is alert and conversational, pleasant, reclining in bed without any distress. HEENT: Show EOMI. Oropharynx is benign with moist mucosa. NECK: Large diameter. JVP is about 10 cm. PULMONARY: There is good air movement bilaterally. There are no crackles bilaterally, so her lungs have definitely improved. CARDIAC: Regular rate and rhythm with normal S1, S2. There is 2/6 holosystolic murmur at the left upper sternal border. There is 2/6 holosystolic murmur near the apex. So, she has tricuspid regurgitation and also mitral regurgitation. ABDOMEN: Soft, large, distended, mild discomfort, but this is chronic. She still has some right rib pain, this is chronic. MUSCULOSKELETAL: Hips; there are no pitting edema in hips. Lower extremity without edema. Right lower extremity without edema, but her right foot is still wrapped in bandages. She was told to take a shower and to rinse the area and debride again, so the packing and debridement still occurring daily. I was told that this can be done as an outpatient. LABORATORY DATA: Her laboratory values today are sodium 136, potassium 3.6, chloride 98, bicarb 27, BUN 27, and creatinine 0.79, and magnesium is 2.2. ASSESSMENT: 1. 50-year-old lady is stable from her heart failure perspective. She resides [place] Heart Association stage C, [place] Heart Association class 3B heart failure with reduced ejection fraction. She has combined systolic and diastolic dysfunctions. It is caused by sarcoidosis. She is requiring milrinone 0.5 mcg/kg per minute to sustain life and keeping her organs intact. This is also given her better quality of life. She is on palliative care with this medication. She has reached euvolemia, so we can start her maintenance diuretics and milrinone 0.5 mcg/kg per minute is sufficient. Her current cardiac regimen is sufficient. However, there are other issues to be resolved. Her right foot is improving daily. I was told today that wound care can be done by Home Health care on a daily basis, so she would not be dared to discharge. 2. She is developing yeast infection or tinea corporis. This is not new. This has been ongoing. Her large abdominal fold is trapping moisture in the groin region. This has been ongoing for a long time. For now, we will start with topical nystatin powder just to avoid arrhythmia effect of fluconazole. 3. She also complained of a sinus being stuffy for a long time. Conservative measures such as starting antihistamine did not help. She is already on Augmentin to prevent foot infection, so she would not be back. She has been on prednisone for a long time without prophylaxis. A fungal infection could be possible. At this point, she is stable from cardiac perspective, but there are many other issues to do with due to her body habitus and longtime immunosuppressant. Please see the following for my recommendations. RECOMMENDATIONS 1. Start nystatin powder apply to affected area 3 times a day. 2. Give KCl 20 mEq IV one dose now. 3. Decrease torsemide to 20 mg daily. 4. Change acetazolamide to 250 mg p.o. every other day. 5. Please consider doing CT scan of her sinuses to look for fungus infection. If there is, will require ENT to remove it. It has been a pleasure taking care of Ms. Vaughn. If any questions, please give me a call. The total visitation time is 45 minutes. Job ID: [id number] MTDD
--- NOTE | 2020-08-08 15:29 | PDOC.HOSPP ---
- Subjective Encounter Date: 08/08/20 Subjective: Patient is generally doing well. She still has a little bit of discomfort in her right rib cage laterally. Says that she had injured this area before it frequently causes some recurrent pain. - Objective Vital Signs & Weight: Vital Signs (12 hours) Temp Pulse Resp BP Pulse Ox 08/08/20 11:30 97.6 F 69 21 H 131/75 94 L 08/08/20 08:59 98.4 F 65 18 126/66 95 08/08/20 08:47 68 08/08/20 04:42 98 08/08/20 04:00 97.8 F 68 18 138/72 98 Weight Admit Weight 295 lb 12.8 oz Weight 9.785 oz I&O: 08/07/20 08/08/20 08/09/20 06:59 06:59 06:59 Intake Total 1640 2032.6 Output Total 2400 2800 Balance -760 -767.4 Result Diagrams: 08/08/20 03:49 08/08/20 03:49 Additional Labs: Accuchecks 08/08/20 08/08/20 08/07/20 10:59 05:55 20:42 POC Glucose 189 H 178 H 203 H 08/07/20 17:17 POC Glucose 253 H Hospitalist ROS - Medication Medications: Active Medications Generic Name Dose Route Start Last Admin Trade Name Freq PRN Reason Stop Dose Admin Acetaminophen 650 mg 07/17/20 20:17 07/27/20 08:35 Acetaminophen 325 Mg Tab PO 650 mg Q4H PRN Administration Headache/Fever/Mild Pain (1-3) Hydrocodone Bitart/Acetaminophen 2 tab 07/27/20 22:27 08/08/20 13:42 Hydrocodone/Acetaminophen 10/325 Mg Tablet PO 2 tab Q4H PRN Administration Severe Pain (7-10) Acetazolamide 250 mg 08/08/20 10:30 08/08/20 10:54 Acetazolamide 250 Mg Tab PO 250 mg Q2D RANDAL Administration Allopurinol 300 mg 07/18/20 09:00 08/08/20 08:48 Allopurinol 300 Mg Tab PO 300 mg DAILY RANDAL Administration Amiodarone HCl 200 mg 07/18/20 09:00 08/08/20 08:49 Amiodarone 200 Mg Tab PO 200 mg DAILY RANDAL Administration Amoxicillin/Clavulanate Potassium 875 mg 08/01/20 21:00 08/08/20 08:46 Amoxicillin/Potassium Clav 875 Mg Tab PO 875 mg Q12HR RANDAL Administration Ascorbic Acid 500 mg 08/01/20 09:00 08/08/20 08:44 Ascorbic Acid 500 Mg Chewable Tablet PO 500 mg DAILY RANDAL Administration Calcium/Vitamin D 1 tab 08/01/20 08:00 08/08/20 08:46 Calcium Carbonate 600 Mg + Vit D Tab PO 1 tab QAM-WM RANDAL Administration Carvedilol 25 mg 07/30/20 09:00 08/08/20 08:49 Carvedilol 25 Mg Tab PO 25 mg Q12HR RANDAL Administration Cholecalciferol 1,000 units 08/01/20 09:00 08/08/20 08:49 Cholecalciferol 1,000 Units (25 Mcg) Tab PO 1,000 units DAILY RANDAL Administration Clonazepam 2 mg 08/07/20 22:03 08/08/20 00:46 Clonazepam 1 Mg Tab PO 2 mg HS PRN Administration Anxiety Cyclobenzaprine HCl 10 mg 07/20/20 18:11 07/30/20 13:40 Cyclobenzaprine 10 Mg Tab PO 10 mg TID PRN Administration Muscle Spasm Digoxin 0.125 mg 07/18/20 09:00 08/08/20 08:47 Digoxin 0.125 Mg Tab PO 0.125 mg DAILY RANDAL Administration Enoxaparin Sodium 40 mg 07/18/20 09:00 08/08/20 08:50 Enoxaparin Sodium 40 Mg/0.4 Ml Syringe SC 40 mg 0900 RANDAL Administration Famotidine 20 mg 07/18/20 09:00 08/08/20 08:46 Famotidine 20 Mg Tab PO 20 mg BID RANDAL Administration Fentanyl 50 mcg 08/03/20 13:04 08/08/20 10:35 Fentanyl 100 Mcg/2 Ml Vial SLOW IVP 50 mcg Q6H PRN Administration Moderate to Severe Pain (6-10) Milrinone Lactate/Dextrose 20 100 mls @ 20.289 mls/hr 07/20/20 17:00 08/08/20 12:21 mg/ Device IV 100 mls INF RANDAL Administration Protocol 0.5 MCG/KG/MIN Insulin Glargine 10 units/ 0.1 mls @ 0 mls/hr 07/28/20 09:00 08/08/20 08:35 Miscellaneous Medication SC 0.1 mls QAM RANDAL Administration Insulin Human Lispro 0 units 07/17/20 21:28 08/08/20 06:10 Humalog 300 Units/3 Ml Vial SC 2 unit .MILD SLIDING SCALE PRN Administration Mild Correctional Scale Insulin Human Lispro 0 units 07/17/20 21:28 08/07/20 20:52 Humalog 300 Units/3 Ml Vial SC 2 unit .BEDTIME SLIDING SC PRN Administration Bedtime Correctional Scale Iron/Minerals/Multivitamins 1 tab 08/01/20 09:00 08/08/20 08:44 Multivitamin W/ Minerals 1 Tab PO 1 tab DAILY RANDAL Administration Levothyroxine Sodium 100 mcg 07/18/20 06:00 08/08/20 06:09 Levothyroxine Sodium 50 Mcg Tab PO 100 mcg 0600 RANDAL Administration Lidocaine 1 patch 07/29/20 21:00 08/07/20 20:39 Lidocaine 5% Patch TD 1 patch 2100 RANDAL Administration Lidocaine HCl 5 ml 08/06/20 09:00 08/08/20 10:35 Lidocaine 4% Topical Kim 50 Ml Bot TOP 1 applic DAILY RANDAL Administration Loratadine 10 mg 08/06/20 09:00 08/08/20 08:49 Loratadine 10 Mg Tab PO 10 mg DAILY RANDAL Administration Losartan Potassium 50 mg 08/07/20 09:00 08/08/20 08:48 Losartan 25 Mg Tab PO 50 mg DAILY RANDAL Administration Miscellaneous Medication 10 mg 07/22/20 09:00 08/08/20 08:43 Empagliflozin 10 Mg Tab PO 10 mg DAILY RANDAL Administration Miscellaneous Medication 1 each 07/30/20 09:00 08/08/20 10:35 Lidocaine Patch Removal 1 Each TOP 1 each 0900 RANDAL Administration Nystatin 0 gm 08/08/20 15:00 08/08/20 10:59 Nystatin Powder 15 Gm Bot TOP 1 applic TID RANDAL Administration Ondansetron HCl 4 mg 07/17/20 19:25 08/06/20 09:27 Ondansetron Pf 4 Mg/2 Ml Vial IVP 4 mg Q6H PRN Administration Nausea/Vomiting Corlanor 7.5 Mg Tab 0 each 07/18/20 17:00 08/08/20 08:50 PO 1 each BID-WM RANDAL Administration Potassium Chloride 40 meq 08/06/20 08:00 08/08/20 10:59 Potassium Chloride 20 Meq Tab PO 40 meq TID-WM RANDAL Administration Prednisone 10 mg 07/18/20 09:00 08/08/20 08:49 Prednisone 20 Mg Tab PO 10 mg BID RANDAL Administration Promethazine HCl 25 mg 07/17/20 21:29 08/05/20 13:50 Promethazine 25 Mg Tab PO 25 mg DAILY PRN Administration Nausea Senna/Docusate Sodium 2 tab 07/17/20 20:17 07/29/20 09:48 Senokot S 8.6-50 Mg Tab PO 2 tab BID PRN Administration Constipation Senna/Docusate Sodium 2 tab 07/30/20 21:00 08/08/20 08:47 Senokot S 8.6-50 Mg Tab PO 2 tab BID RANDAL Administration Sertraline HCl 100 mg 07/18/20 09:00 08/08/20 08:47 Sertraline Hcl 100 Mg Tab PO 100 mg DAILY RANDAL Administration Sodium Chloride 10 ml 07/17/20 20:17 07/31/20 17:33 Flush - Normal Saline 10 Ml Syringe IVF 10 ml PRN PRN Administration Saline Flush Spironolactone 50 mg 07/24/20 09:00 08/08/20 08:47 Spironolactone 25 Mg Tab PO 50 mg DAILY RANDAL Administration Zinc Sulfate 220 mg 08/01/20 09:00 08/08/20 08:47 Zinc Sulfate 220 Mg Cap PO 220 mg DAILY RANDAL Administration Hospitalist Exam Vitals: Vital Signs (12 hours) Temp Pulse Resp BP Pulse Ox 08/08/20 11:30 97.6 F 69 21 H 131/75 94 L 08/08/20 08:59 98.4 F 65 18 126/66 95 08/08/20 08:47 68 08/08/20 04:42 98 08/08/20 04:00 97.8 F 68 18 138/72 98 Weight Admit Weight 295 lb 12.8 oz Weight 9.785 oz General Appearance: NAD, awake alert General - other findings: Morbidly obese Heart: RRR, no murmur, no gallops, no rubs, normal peripheral pulses Respiratory: CTAB, no wheezes, no rales, no ronchi, normal chest expansion, no tachypnea, normal percussion Gastrointestinal: soft, non-tender, non-distended, normal bowel sounds, no palpable masses, no hepatomegaly, no splenomegaly, no bruit Extremities: no cyanosis, no clubbing, no edema Extremities - other findings: Right foot with wound care dressing Skin - other findings: Intertrigo under her abdominal pannus Musculoskeletal: generalized weakness Psychiatric: normal affect, normal behavior, A&O x 3 Hosp A/P (1) Acute on chronic systolic CHF (congestive heart failure) Code(s): I50.23 - ACUTE ON CHRONIC SYSTOLIC (CONGESTIVE) HEART FAILURE Status: Acute (2) Cardiomyopathy Code(s): I42.9 - CARDIOMYOPATHY, UNSPECIFIED Status: Chronic (3) Hematoma of right foot Code(s): S90.31XA - CONTUSION OF RIGHT FOOT, INITIAL ENCOUNTER Status: Acute (4) Acute and chronic respiratory failure Code(s): J96.20 - ACUTE AND CHR RESP FAILURE, UNSP W HYPOXIA OR HYPERCAPNIA Status: Acute (5) Physical deconditioning Code(s): R53.81 - OTHER MALAISE Status: Acute (6) [place] disease Code(s): E27.1 - PRIMARY ADRENOCORTICAL INSUFFICIENCY Status: Chronic (7) Hypothyroidism Code(s): E03.9 - HYPOTHYROIDISM, UNSPECIFIED Status: Chronic Qualifiers: Hypothyroidism type: acquired Qualified Code(s): E03.9 - Hypothyroidism, unspecified (8) Ventral hernia Code(s): K43.9 - VENTRAL HERNIA WITHOUT OBSTRUCTION OR GANGRENE Status: Chronic Qualifiers: Obstruction and gangrene presence: without obstruction or gangrene Qualified Code(s): K43.9 - Ventral hernia without obstruction or gangrene (9) DM (diabetes mellitus) Code(s): E11.9 - TYPE 2 DIABETES MELLITUS WITHOUT COMPLICATIONS Status: Chronic Qualifiers: Diabetes mellitus type: type 2 Diabetes mellitus rn long term care insulin use: without alf use (10) HLD (hyperlipidemia) Code(s): E78.5 - HYPERLIPIDEMIA, UNSPECIFIED Status: Chronic Qualifiers: Hyperlipidemia type: mixed hyperlipidemia Qualified Code(s): E78.2 - Mixed hyperlipidemia (11) HTN (hypertension) Code(s): I10 - ESSENTIAL (PRIMARY) HYPERTENSION Status: Chronic Qualifiers: Hypertension type: essential hypertension Qualified Code(s): I10 - Essential (primary) hypertension (12) Morbid obesity Code(s): E66.01 - MORBID (SEVERE) OBESITY DUE TO EXCESS CALORIES Status: Chronic (13) Sarcoid Code(s): D86.9 - SARCOIDOSIS, UNSPECIFIED Status: Chronic - Plan Acute on chronic systolic congestive heart failure: Patient has an ejection fraction of 20% based on echocardiogram. Biventricular pacing. Continue to be followed by Dr. Morin. Milrinone dependent. Continues with milrinone infusion here. Dr. Morin working toward arranging outpatient milrinone infusion. Patient appears to be at a euvolemic state. She is also on carvedilol 25 mg p.o. twice daily, Corlanor 7.5 mg p.o. twice daily, losartan 25 mg p.o. daily. She takes Demadex 20 mg daily and Aldactone 50 mg p.o. daily. Currently awaiting a delivery of outpatient infusion supplies for the milrinone. Patient can likely discharged home once that is arranged. She is on steady-state infusion. Nonischemic cardiomyopathy: Chronic. Presumably secondary to sarcoidosis. Stable on the current milrinone drip. Acute on chronic hypoxic respiratory failure: Patient is continuously on oxygen therapy at home. She continues to require between 2 and 2.5 L/min here. Stable for discharge. Right foot hematoma: Patient developed spontaneous hematoma of the right foot that was large enough to cause some tissue necrosis. She is status post incision and drainage. Still requiring some wound care with daily debridements. She remains on p.o. Augmentin. Pain has become a focus for her regarding her right foot. She has been on maximum dose of Delaplaine. On 08/03/2020 Dr. Morin started fentanyl. Since that time she has been alternating the 2. Her pain seems to be exceeding expectations based upon the actual wound. We will scale her back to Delaplaine. Continue with fentanyl for dressing changes. Patient has been able to get up and bear weight on that foot. On 08/05/2020 the patient did indicate that her pain issues may be somewhat related to her emotional state. Patient is already on muscle relaxers, SSRI, benzodiazepine as augments to opioids. 08/06/2020 the patient did significantly better with her wound packing with topical lidocaine. Sarcoidosis: Patient is somewhat steroid dependent for treatment of her sarcoidosis. She has multiple typical steroid-dependent sequelae, including osteoporosis, diabetes, adrenal insufficiency. History of ventricular arrhythmia: Patient remains on amiodarone suppression and a defibrillator is in place. Patient was evaluated by Dr. Rosales during this admission and found to have no recent arrhythmias. Hypothyroidism: Continue with her usual home regimen of levothyroxine. Diabetes mellitus: Blood sugars remain 180s to 220. Last hemoglobin A1c was May 2020 at 6.0. Jardiance has been started this admission through Dr. Morin. Vitamin D deficiency: Based on previous labs back in 2018 the patient has vitamin D deficiency. She has been started on cholecalciferol this admission Vitamin D level remains very low at 8.6. Metabolic/contraction alkalosis: Acetazolamide has been added per Dr. Morin. History of gout: Continue allopurinol. Intertrigo: Diagnosed on 08/08/2020. Added nystatin. Leukocytosis: Found on 08/08/2020. Unclear if this is related to her prednisone. She reported some sinus symptoms to Dr. Morin. He ordered a CT scan of the sinuses. Official read pending but appears to be normal. She has been afebrile. Chest x-ray was clear. Urinalysis pending. Disposition: Patient will be stable for discharge whenever her milrinone infusion supplies are arranged. Sounds like that may happen in the next 2 to 3 days. Depending on how her foot progresses she may need to have some home health or wound care. She also specifically inquired about getting pain medication prescriptions at the time of discharge.
--- NOTE | 2020-08-08 16:47 | CT ---
CT OF SINUSES PERFORMED WITHOUT CONTRAST ENHANCEMENT: History: Long-term steroid use, concern for fungal sinus infection. FINDINGS: The visualized brain parenchyma is unremarkable. The frontal, ethmoid, sphenoid, and maxillary sinuses are all clear. There is no fluid or mucosal ron nge. No bony destructive changes. Some mild narrowing to both osteomeatal complexes related to low-ly ing anterior ethmoid air cells is incidentally seen. Nasal septum is slightly deviated to the left. Parapharyngeal spaces are clear. No soft tissue edema change. IMPRESSION: Unremarkable sinuses. POS: OFF
[2020-08-08 17:16] LABS: Bacteria/HPF None Seen HPF (None Seen); Bilirubin Negative (Negative); Blood, Urine Negative (Negative); Clarity Clear (Clear); Glucose, Urine (Dipstick) Greater than 1000 mg/dL (Negative); Ketone, Urine Negative (Negative); Leukocyte Negative Leu/uL (Negative); Nitrite Negative (Negative); Protein, Urine (Dipstick) Negative (Neg-Trace); RBC/HPF 0-3 HPF (0-3); Specific Gravity, Urine 1.011 (1.002-1.036); Squamous Epithelial 0-3 HPF (0-3); Urobilinogen Normal mg/dL (Less than 2); WBC/HPF 0-3 HPF (0-3)
[2020-08-08 17:19] LABS: Urine Culture Reflex No No
[2020-08-08] MEDS: Lidocaine 5% Patch TD SCH (21:41)
[2020-08-09] MEDS: clonazePAM 1 MG TAB PO PRN (00:53)
[2020-08-09] MEDS: HYDROcodone/Acetaminophen 10/325 mg Tablet PO PRN ×3 (00:55→09:40)
[2020-08-09] MEDS: Milrinone Lactate/D5W 20 MG in Premix Bag 1 BAG IV SCH ×2 (02:10→07:27)
[2020-08-09 04:21] LABS: #Basophils 0.1 thou/uL (0.0-0.2); #Eosinphils 0.2 thou/uL (0.0-0.7); #Lymphocytes 0.7 thou/uL (1.20-3.40); #Monocytes 1.1 thou/uL (0.11-0.59); #Neutrophils 10.6 thou/uL (1.40-6.50); %Basophils 0.6 % (0.0-1.0); %Eosinophils 1.6 % (0.0-10.0); %Lymphocytes 5.2 % (21.0-51.0); %Monocytes 8.6 % (0.0-10.0); Hemoglobin 11.6 g/dL (12.0-16.0); Mean Corpuscular HGB CONC 32.9 g/dL (32.0-36.0); Mean Corpuscular Hemoglobin 30.6 pg (27.0-31.0); Mean Corpuscular Volume 92.9 fL (78.0-98.0); Mean Platelet Volume 7.8 fL (7.4-10.4); Platelet Count 221 thou/uL (130-400); RBC Distribution Width 14.3 % (11.5-14.5); Red Blood Cell (RBC) Count 3.79 mill/uL (4.20-5.40); White Blood Cell (WBC) Count 12.6 thou/uL (4.8-10.8)
[2020-08-09 04:44] LABS: Anion Gap 13 mmol/L (10-20); BUN (Urea Nitrogen) 26 mg/dL (7.0-18.7); Calc. Creatinine Clearance 0 mL/min (70-130); Calcium 8.8 mg/dL (7.8-10.44); Carbon Dioxide 27 mmol/L (22-29); Chloride 98 mmol/L (98-107); Glucose 272 mg/dL (70-105); Magnesium 2.2 mg/dL (1.6-2.6); Potassium 4.1 mmol/L (3.5-5.1); Sodium 134 mmol/L (136-145)
[2020-08-09] MEDS: Levothyroxine Sodium 50 MCG TAB PO SCH (05:24)
[2020-08-09] MEDS: HumaLOG 300 UNITS/3 ML VIAL SC PRN ×2 (06:24→11:51)
[2020-08-09] MEDS: Fentanyl 100 MCG/2 ML VIAL SLOW IVP PRN ×2 (07:25→13:29)
[2020-08-09] MEDS ORDERED: Torsemide 20 MG TAB PO SCH ×2 (09:00)
[2020-08-09] MEDS: CORLANOR 7.5 MG PO SCH (09:27)
[2020-08-09] MEDS: Calcium Carbonate 600 MG + Vit D TAB PO SCH (09:28)
[2020-08-09] MEDS: Allopurinol 300 MG TAB PO SCH (09:29)
[2020-08-09] MEDS: Amiodarone 200 MG TAB PO SCH (09:29)
[2020-08-09] MEDS: Amoxicillin/Potassium Clav 875 MG TAB PO SCH (09:29)
[2020-08-09] MEDS: Cholecalciferol 1,000 UNITS (25 MCG) TAB PO SCH (09:30)
[2020-08-09] MEDS: Carvedilol 25 MG TAB PO SCH (09:30)
[2020-08-09] MEDS: Digoxin 0.125 MG TAB PO SCH (09:30)
[2020-08-09] MEDS: Potassium Chloride 20 MEQ TAB PO SCH ×2 (09:30→11:50)
[2020-08-09] MEDS: Ascorbic Acid 500 mg Chewable Tablet PO SCH (09:30)
[2020-08-09] MEDS: Enoxaparin Sodium 40 MG/0.4 ML SYRINGE SC SCH (09:31)
[2020-08-09] MEDS: Empagliflozin 10 MG TAB PO SCH (09:31)
[2020-08-09] MEDS: Famotidine 20 MG TAB PO SCH (09:32)
[2020-08-09] MEDS: Insulin Glargine 10 UNITS in Pre-Filled Syringe 1 EACH SC SCH (09:33)
[2020-08-09] MEDS: Lidocaine 4% Topical Sol 50 ML BOT TOP SCH (09:34)
[2020-08-09] MEDS: Loratadine 10 MG TAB PO SCH (09:35)
[2020-08-09] MEDS: Transdermal Patch Removal TOP SCH (09:35)
[2020-08-09] MEDS: Losartan 25 MG TAB PO SCH (09:35)
[2020-08-09] MEDS: Multivitamin W/ Minerals 1 TAB PO SCH (09:36)
[2020-08-09] MEDS: predniSONE 20 MG TAB PO SCH (09:36)
[2020-08-09] MEDS: Nystatin Powder 15 GM BOT TOP SCH ×2 (09:36→14:00)
[2020-08-09] MEDS: Senokot S 8.6-50 MG TAB PO SCH (09:37)
[2020-08-09] MEDS: Spironolactone 25 MG TAB PO SCH (09:38)
[2020-08-09] MEDS: Zinc Sulfate 220 MG CAP PO SCH (09:39)
[2020-08-09 10:55] VITALS: TEMP 98
[2020-08-09 15:06] VITALS: BP 136/71
--- NOTE | 2020-08-10 05:48 | PRG ---
DATE OF SERVICE: 08/09/2020 SERVICE: [facility]. SUBJECTIVE: Ms. Vaughn had a good day. She was able to ambulate on her own on short distance. She was able to take a shower on her own. She was able to wash off the clot and some of her right foot debridement on her own and the nurse helped her to repack. She did not like dinner last night because of that she drank broth instead. So this probably caused her fluid accumulation. This morning she is ready to go home. REVIEW OF SYSTEMS: GENERAL: There are no fever, chills, or productive cough. HEENT: There is no change in vision, hearing, or swallowing. PULMONARY: She is breathing easy. CARDIAC: There is no chest pain, palpitations, or syncope. GI: There is no nausea, vomiting, or diarrhea. : She is able to urinate on her own. MUSCULOSKELETAL: She has right foot pain, but that is getting better. INTEGUMENT: She has yeast infection in her skin folds improved with nystatin powder and then she also had a right foot wound. CURRENT MEDICATIONS: Include: 1. Acetazolamide 250 mg every other day. 2. Allopurinol 200 mg daily. 3. Amiodarone 200 mg daily. 4. Augmentin 875 mg q.12 hours while her foot is being healed. 5. Vitamin C 500 mg daily. 6. Vitamin D plus Caltrate 600 one tablet daily. 7. Carvedilol 25 mg q.12 hours. 8. Vitamin D3 at 1000 units daily. 9. Ivabradine 7.5 mg b.i.d. 10. Digoxin 0.125 mg daily. 11. Enoxaparin 40 mg subcutaneous at 0900. 12. Pepcid 20 mg b.i.d. 13. Fentanyl 50 mcg q.6 hours p.r.n. 14. Glargine insulin 10 units daily. 15. Sliding scale insulin. 16. Levothyroxine 100 mcg daily. 17. Lidocaine patch 5% one patch every night. 18. Claritin at 10 mg daily. 19. Losartan 50 mg daily. 20. Milrinone 0.5 mcg/kg/minute, will use 293 pounds as a baseline weight. 21. Jardiance at 10 mg daily. 22. Nystatin powder topical three times per day. 23. K-Dur 40 mEq three times a day. 24. Prednisone 10 mg b.i.d. 25. Senokot-S two tablets b.i.d. 26. Zoloft 100 mg daily. 27. Spironolactone 50 mg daily. 28. Torsemide 20 mg daily. 29. Zinc sulfate 220 mg daily. PHYSICAL EXAMINATION: Her vitals are reviewed. Telemetry is reviewed. Her predominant rhythm is A-sensed V-paced. There is some A-paced and V-paced. There is occasional PVC. Other than that, there is no concerning arrhythmia. VITAL SIGNS: Her range of vital signs are systolic blood pressure between 120 to 136, diastolic pressure between 67 and 59, her input and output yesterday are 1969 in and 1201 out. She drank broth last night. GENERAL: She is alert, conversational, relaxed, reclining, comfortably in bed. HEENT: Show EOMI. Oropharynx is benign with moist mucosa. NECK: Large diameter. JVP is roughly about 10 cm. PULMONARY: There is good air movement bilaterally. There is clear to auscultation bilaterally. CARDIAC: Regular rate and rhythm with normal S1 and S2. There is a 2/6 holosystolic murmur at the left upper sternal border. There is 2/6 holosystolic murmur at the apex that she has a combination of tricuspid regurgitation and mitral regurgitation. ABDOMEN: Large, soft, distended. She has chronic ill feeling due to ventral hernia. Positive bowel sounds. EXTREMITIES: Her left lower extremity is without edema. Her right lower extremity without edema, but her right foot is wrapped in bandage. Her toes are better looking today. LABORATORY VALUES: White cell count 12.6, hemoglobin 11.6, platelets of 221. Her chemistry shows sodium 134, potassium 4.1, chloride 98, bicarb 27, BUN 26, creatinine 0.85, and magnesium at 2.2. ASSESSMENT: A 50-year-old lady resides in [place] stage C, [place] Heart class 3B heart failure with reduced ejection fraction. 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 She has demonstrated that she needs milrinone 0.5 mcg/kg/minute to sustain life to perfuse organ and provide a good quality of life. She will need this as an outpatient long-term. She is currently euvolemic. She also has sufficient cardiac output. She has gained ability to ambulate and can bathe herself. At this point, she can be safely discharged. She will be followed by Dr. Matt Onofre who has agreed to do this. For more extensive followup, she can be referred to Kirill Contreras, . But right now, Dr. Matt Onofre has agreed to follow her. Please see the following for my recommendation. RECOMMENDATIONS: 1. Continue milrinone at 0.5 mcg/kg/minute with baseline weight of 293 pounds. 2. Increase torsemide to 40 mg daily. Here is her total set of cardiac medication at discharge: 1. Acetazolamide 250 mg every other day. 2. Amiodarone at 200 mg daily. 3. Carvedilol 25 mg q.12 hours. 4. Digoxin 0.125 mg daily. 5. Levothyroxine 100 mcg daily. 6. Losartan 50 mg daily. 7. Jardiance 10 mg daily. 8. Ivabradine 7.5 mg q.12 hours. 9. K-Dur at 50 mEq three times a day. 10. Spironolactone 50 mg daily. 11. Torsemide is now increased to 40 mg daily, this is to account for change in diet. She knows that if she becomes dry to cut it in half. If she needs to double that, If she is really wet she can, because she knows to call Dr. Matt Onofre for that. It has been a pleasure to take care of Ms. Vaughn. If you have any questions, please give me a call. The total visitation time today is 45 minutes. Job ID: [id number]
== END 2020-08-09 14:39 | disposition home health service (06) | DRG 196 ==
LOC: 2NO 17:13 → OBSVTOIN 17:13 → UNDOADMIN 17:13 → INTOOBSV 17:13 → 2NO 07-19 11:29
PROVIDERS: ADMIT Internal Medicine; ATTEND Internal Medicine
PROC: 0HCMXZZ Extirpation of Matter from Right Foot Skin, External Approach (ICD-10-PCS; 2020-07-19)
PROC: 4B02XTZ Measurement of Cardiac Defibrillator, External Approach (ICD-10-PCS; principal; 2020-07-21)
PROC: 02HV33Z Insertion of Infusion Device into Superior Vena Cava, Percutaneous Approach (ICD-10-PCS; 2020-07-23)
PROC: B518ZZA Fluoroscopy of Superior Vena Cava, Guidance (ICD-10-PCS; 2020-07-23)
PROC: B548ZZA Ultrasonography of Superior Vena Cava, Guidance (ICD-10-PCS; 2020-07-23)
DX: D86.85 Sarcoid myocarditis (principal); I50.43 Acute on chronic combined systolic (congestive) and diastolic (congestive) heart failure; J96.20 Acute and chronic respiratory failure, unspecified whether with hypoxia or hypercapnia; J18.9 Pneumonia, unspecified organism; Z68.42 Body mass index [BMI] 45.0-49.9, adult; E24.9 Cushing's syndrome, unspecified; E87.3 Alkalosis; N39.0 Urinary tract infection, site not specified; E27.1 Primary adrenocortical insufficiency; E11.52 Type 2 diabetes mellitus with diabetic peripheral angiopathy with gangrene; I96 Gangrene, not elsewhere classified; I42.0 Dilated cardiomyopathy; Z20.822 Contact with and (suspected) exposure to COVID-19; F43.10 Post-traumatic stress disorder, unspecified; F41.9 Anxiety disorder, unspecified; E89.0 Postprocedural hypothyroidism; F32.9 Major depressive disorder, single episode, unspecified; E78.5 Hyperlipidemia, unspecified; E66.01 Morbid (severe) obesity due to excess calories; I08.1 Rheumatic disorders of both mitral and tricuspid valves; E11.65 Type 2 diabetes mellitus with hyperglycemia; E11.40 Type 2 diabetes mellitus with diabetic neuropathy, unspecified; K43.9 Ventral hernia without obstruction or gangrene; E55.9 Vitamin D deficiency, unspecified; M10.9 Gout, unspecified; I10 Essential (primary) hypertension; L30.4 Erythema intertrigo; S90.31XA Contusion of right foot, initial encounter; Z79.899 Other long term (current) drug therapy; Z88.4 Allergy status to anesthetic agent; Z79.84 Long term (current) use of oral hypoglycemic drugs; Z79.52 Long term (current) use of systemic steroids; Z87.891 Personal history of nicotine dependence; Z88.6 Allergy status to analgesic agent; Z82.49 Family history of ischemic heart disease and other diseases of the circulatory system; Z80.9 Family history of malignant neoplasm, unspecified; Z90.710 Acquired absence of both cervix and uterus; Z90.721 Acquired absence of ovaries, unilateral; Z95.810 Presence of automatic (implantable) cardiac defibrillator; Z88.8 Allergy status to other drugs, medicaments and biological substances; Z91.013 Allergy to seafood; Z79.890 Hormone replacement therapy; S29.9XXA Unspecified injury of thorax, initial encounter; M81.0 Age-related osteoporosis without current pathological fracture
CPT/HCPCS: 36415; 36416; 36569; 71045; 71275; 76705; 80048; 80053; 80162; 81001; 81003; 82306; 82553; 83735; 83880; 84436; 84443; 84479; 84484; 85025; 87070; 87077; 87086; 87186; 87205; 87635; 93005; 93306; 93970; 96372; 96374; 96375; 96376; C1751; G0378; J1170; J1644; J1650; J1815; J1940; J2260; J2270; J2405; J2543; J3010; J3475; J3480; J3490; J7050; J7512; P9047; Q0169; Q9967; U0003; U0005